=== PATIENT | male | born 1965 | race Two or more races ===

== ENCOUNTER 2016-12-16 11:36 | Inpatient (IN) | payer OTHER ==
[2016-12-16 13:33] VITALS: BMI 33.9
--- NOTE | 2016-12-16 14:47 | HP ---
CIWA Score - CIWA Score Nausea/Vomitin Muscle Tremors: 3 Anxiety: 3 Agitation: 3 Paroxysmal Sweats: 2 Orientation: 0-Oriented Tacttile Disturbances: 2-Mild Itch/Numbness/Burn Auditory Disturbances: 2-Mild Harshness/Frighten Visual Disturbances: 2-Mild Sensitivity Headache: 2-Mild CIWA-Ar Total Score: 22 Admission ROS BHS - HPI Chief Complaint: i need help to stop drinking alcohol,cocaine and cannabis Allergies/Adverse Reactions: Allergies Allergy/AdvReac Type Severity Reaction Status Date / Time No Known Allergies Allergy Verified 12/16/16 14:24 History of Present Illness: this 51 years old male with alcohol,cocaine and [place] dependence seeking detox ,last detox 07/22 [facility] seizure related to drug withdrawal multiple medical problem,type 2 dm,no met,hepatitis,seizure last 2015,copd no significant period of sobriety mmtp 100 mgs/day,last medicated to day Exam Limitations: No Limitations - Ebola screening Have you traveled outside of the country in the last 21 days: No Have you had contact with anyone from an Ebola affected area: No Have you been sick,other than usual withdrawal symptoms: No - Review of Systems Constitutional: Chills, Loss of Appetite, Malaise, Night Sweats, Weakness EENT: reports: Nose Congestion Respiratory: reports: No Symptoms reported, Other (copd) Cardiac: reports: No Symptoms Reported GI: reports: Nausea, Vomiting (incisional hernia), Abdominal cramping : reports: No Symptoms Reported Musculoskeletal: reports: Back Pain, Muscle Pain Integumentary: reports: Dryness Neuro: reports: No Symptoms reported, Headache, Tremors Endocrine: reports: No Symptoms Reported Hematology: reports: No Symptoms Reported Psychiatric: reports: No Sypmtoms Reported, Judgement Intact, Mood/Affect Appropiate, Orientated x3, Depressed Patient History - Patient Medical History Hx Anemia: No Hx Asthma: No Hx Chronic Obstructive Pulmonary Disease (COPD): Yes (no med) Hx Cancer: No Hx Cardiac Disorders: No Hx Congestive Heart Failure: No Hx Hypertension: No Hx Hypercholesterolemia: No Hx Pacemaker: No HX Cerebrovascular Accident: No Hx Seizures: No Hx Dementia: No Hx Diabetes: Yes (type 2 dm diet control) Hx Gastrointestinal Disorders: No Hx Liver Disease: No Hx Genitourinary Disorders: No Hx Sexually Transmitted Disorders: No Hx Renal Disease (ESRD): No Hx Thyroid Disease: No Hx Human Immunodeficiency Virus (HIV): No (last 11/19) Hx Hepatitis C: Yes Hx Depression: Yes (no med) Hx Suicide Attempt: No Hx Bipolar Disorder: No Hx Schizophrenia: No Other Medical History: no suicidal,no homicidal - Patient Surgical History Hx Abdominal Surgery: Yes (removal fb from stomack ,exploratoty lap in 03/21) Other Surgical History: incisional hernia after surgery - PPD History Previous Implant?: Yes Documented Results: Positive w/o proof Implanted On Prior [facility] Admission?: No PPD to be Administered?: No - Smoking Cessation Smoking history: Current every day smoker Have you smoked in the past 12 months: Yes Aproximately how many cigarettes per day: 2 Cigars Per Day: 0 Hx Chewing Tobacco Use: No Initiated information on smoking cessation: Yes 'Breaking Loose' booklet given: 12/16/16 - Substance & Tx. History Hx Alcohol Use: Yes Hx Substance Use: No Substance Use Type: Alcohol, Cocaine, Prescribed - Substances Abused Benzodiazepine (Klonopin) Route: Oral Frequency: Daily Amount used: 4MG Age of first use: 41 Date of Last Use: 12/16/16 Alcohol Route: Oral Frequency: Daily Amount used: 6PK BEER/ 2-3 PASCUAL DRINKS Age of first use: 15 Date of Last Use: 12/16/16 Marijuana/Hashish Route: Smoking Frequency: Daily Amount used: 1 BAG Age of first use: 15 Date of Last Use: 12/15/16 Cocaine Route: Smoking Frequency: 3-6 times per week Amount used: $40 Age of first use: 20 Date of Last Use: 12/15/16 Family Disease History - Family Disease History Family Disease History: Other: Father (alcohol,) Admission Physical Exam S - Vital Signs Vital Signs: Vital Signs - 24 hr 12/16/16 13:31 Temperature 97.0 F L Pulse Rate 64 Respiratory 18 Rate Blood Pressure 126/78 - Physical General Appearance: Yes: Moderate Distress, Tremorous, Irritable, Sweating, Anxious HEENTM: Yes: Normocephalic, DEBO, Pharynx Normal Respiratory: Yes: Lungs Clear, Normal Breath Sounds, No Respiratory Distress Neck: Yes: Within Normal Limits, Supple, Trachea in good position Breast: Yes: Within Normal Limits Cardiology: Yes: Within Normal Limits, Regular Rhythm, Regular Rate, S1, S2 Abdominal: Yes: Normal Bowel Sounds, Flat, Soft, Hernia (incisional hernia), Surgical Scar Genitourinary: Yes: Within Normal Limits Back: Yes: Within Normal Limits, Normal Inspection, Muscle Spasm Musculoskeletal: Yes: Within Normal Limits, full range of Motion, Back pain, Muscle Pain Extremities: Yes: Tremors Neurological: Yes: pelt inspector II-XII NML intact, Fully Oriented, Alert, Motor Strength 5/5, Normal Response Integumentary: Yes: Dry Lymphatic: Yes: Within Normal Limits - Diagnostic (1) Alcohol dependence with uncomplicated withdrawal Current Visit: Yes Status: Acute (2) Cocaine dependence Current Visit: Yes Status: Acute (3) Cannabis dependence Current Visit: Yes Status: Acute (4) DM2 (diabetes mellitus, type 2) Current Visit: Yes Status: Acute (5) Methadone maintenance therapy patient Current Visit: Yes Status: Acute (6) Depression Current Visit: Yes Status: Acute (7) Drug withdrawal seizure Current Visit: Yes Status: Acute (8) Hepatitis C Current Visit: Yes Status: Acute Cleared for Admission [facility] - Detox or Rehab [facility] Level of Care: Medically Managed Detox Regimen/Protocol: Valium [facility] Breath Alcohol Content Breath Alcohol Content: 0 Urine Drug Screen - Results Drug Screen Negative: No Urine Drug Screen Results: THC-Marijuana, ARLEN-Cocaine, BZO-Benzodiazepines, MTD- Methadone
[2016-12-16] MEDS ORDERED: LOPERAMIDE HCL 2 MG CAPSULE PO PRN (15:06)
[2016-12-16] MEDS ORDERED: MENTHOL/PHENOL 1 EACH UD MM PRN (15:06)
[2016-12-16] MEDS ORDERED: guaiFENesin/D-METHORPHAN HB 10 ML UNIT-DOSE CUPS PO PRN (15:06)
[2016-12-16] MEDS ORDERED: MAGNESIUM CITRATE 300 ML BOTTLE PO PRN (15:06)
[2016-12-16] MEDS ORDERED: IBUPROFEN 400 MG TABLET (FP) PO PRN (15:06)
[2016-12-16] MEDS ORDERED: ACETAMINOPHEN 325 MG TABLET (FP) PO PRN (15:06)
[2016-12-16] MEDS ORDERED: P-EPHED 60MG/TRIPROLIDI 2.5MG TABLET PO PRN (15:06)
[2016-12-16] MEDS ORDERED: MAGNESIUM HYDROX 2400MG/30ML ORAL SUSPENSION 30 ML CUP PO PRN (15:06)
[2016-12-16] MEDS ORDERED: MAG HYDROX/AL HYDROX/SIMETH 30 ML UNIT-DOSE CUP PO PRN (15:06)
[2016-12-16] MEDS ORDERED: hydrOXYzine PAMOATE 50 MG CAPSULE (FP) PO PRN (15:06)
[2016-12-16] MEDS ORDERED: diazePAM 5 MG TABLET PO ONE (16:45)
[2016-12-16] MEDS: diazePAM 5 MG TABLET PO SCH (22:26)
[2016-12-16] MEDS: THIAMINE HCL 100 MG TABLET (FP) PO SCH (22:26)
[2016-12-16] MEDS: diphenhydrAMINE HCL 50 MG CAPSULE PO PRN (22:26)
[2016-12-16 22:29] LABS: URINE APPEARANCE SLCLOUDY; URINE BILIRUBIN NEGATIVE (NEGATIVE); URINE BLOOD NEGATIVE (NEGATIVE); URINE COLOR AMBER; URINE GLUCOSE (UA) NEGATIVE (NEGATIVE); URINE KETONE NEGATIVE (NEGATIVE); URINE LEUK ESTERASE NEGATIVE (NEGATIVE); URINE NITRITE NEGATIVE (NEGATIVE); URINE PROTEIN NEGATIVE (NEGATIVE); URINE UROBILINOGEN 4.0 E.U/dl E.U./dl (0.2-1.0)
[2016-12-17] MEDS: diazePAM 5 MG TABLET PO SCH ×3 (05:26→22:38)
[2016-12-17] MEDS ORDERED: METHADONE HCL 40 MG DISPERSABLE TABLET PO SCH (07:45)
[2016-12-17] MEDS ORDERED: METHADONE HCL 10 MG TABLET ONE (07:53)
[2016-12-17] MEDS ORDERED: METHADONE HCL 40 MG DISPERSABLE TABLET ONE (07:53)
[2016-12-17] MEDS: METHADONE 80 MG, METHADONE 30 MG PO SCH (07:56)
[2016-12-17] MEDS: diazePAM 5 MG TABLET PO PRN ×2 (07:58→12:21)
[2016-12-17 10:03] LABS: MCH 28.4 pg (25.7-33.7); MCHC 32.5 g/dl (32.0-35.9); MEAN CELL VOLUME 87.5 fl (80-96); MEAN PLT VOLUME 11.4 fl (7.5-11.1); PLATELET COUNT 70 K/MM3 (134-434); RDW 16.1 % (11.9-15.9); WHITE BLOOD COUNT 8.3 K/mm3 (4.0-10.0)
[2016-12-17] MEDS: PRENATAL VITAMINS W/ FOLIC ACID TABLET (FP) PO SCH (10:36)
[2016-12-17 10:48] LABS: ALBUMIN 3.6 g/dl (3.4-5.0); ALK PHOS 150 U/L (45-117); ANION GAP 10 (8-16); BILIRUBIN,TOTAL 0.9 mg/dL (0.2-1.0); CALCIUM 8.9 mg/dL (8.5-10.1); CO2 26 mmol/L (21-32); COCKROFT - GAULT 204.74; CREATININE 0.7 mg/dL (0.7-1.3); GLUCOSE,RANDOM 112 mg/dL (74-106); SGOT/AST 70 U/L (15-37); SGPT/ALT 70 U/L (12-78); TOT PROT 7.7 g/dl (6.4-8.2)
--- NOTE | 2016-12-17 11:42 | CONSULT ---
[facility] Psychiatric Consult - Data Date of interview: 12/17/16 Admission source: [facility] Identifying data: First admission to [facility] for this 51 y/o male seeking detox treatment for alcohol,cocaine,opioid and marijuana dependence.Patient is single without children,homeless,unemployed and supported on SSI benefits. Substance Abuse History: - Smoking Cessation. Smoking history: Current every day smoker. Have you smoked in the past 12 months: Yes. Aproximately how many cigarettes per day: 2. Cigars Per Day: 0. Hx Chewing Tobacco Use: No. Initiated information on smoking cessation: Yes. 'Breaking Loose' booklet given : 12/16/16. - Substance & Tx. History. Hx Alcohol Use: Yes. Hx Substance Use : No. Substance Use Type: Alcohol, Cocaine, Prescribed. - Substances Abused. Benzodiazepine (Klonopin). Route: Oral. Frequency: Daily. Amount used: 4MG. Age of first use: 41. Date of Last Use: 12/16/16. Alcohol. Route: Oral. Frequency: Daily. Amount used: 6PK BEER/ 2-3 PASCUAL DRINKS. Age of first use: 15. Date of Last Use: 12/16/16. Marijuana/Hashish. Route: Smoking. Frequency: Daily. Amount used: 1 BAG. Age of first use: 15. Date of Last Use: 12/15/16. Cocaine. Route: Smoking. Frequency: 3-6 times per week. Amount used: $40. Age of first use: 20. Date of Last Use: 12/15/16. Confirmed by patient. Medical History: Hepatitis C,COPD,diabetes mellitus,seizure disorder and a history of abdominal surgery (exploratory laparotomy/removal of a foreign body in stomach) in 2016.Developed incisional hernia after surgery. Psychiatric History: Reported history of " more than 10 " psychiatric hospitalizations.Patient states that he used to be on abilify and lithium.Off medications for more than six months (self-report).Not in [facility]PD care.Mr Saravia denies history of suicide attempts.Patient is currently on methadone maintenance (100 mg/day). Physical/Sexual Abuse/Trauma History: Patient denies. Additional Comment: Urine Drug Screen Results: THC-Marijuana, ARLEN-Cocaine, BZO- Benzodiazepines, MTD-Methadone.Noted. Mental Status Exam - Mental Status Exam Alert and Oriented to: Time, Place, Person Cognitive Function: Good Patient Appearance: Well Groomed Mood: Hopeful, Euthymic Affect: Appropriate, Normal Range Patient Behavior: Fatigued, Appropriate, Cooperative Speech Pattern: Clear Voice Loudness: Normal Thought Process: Goal Oriented Thought Disorder: Not Present Hallucinations: Denies Suicidal Ideation: Denies Homicidal Ideation: Denies Insight/Judgement: Poor Sleep: Poorly, Difficulty falling asleep Appetite: Good Muscle strength/Tone: Normal Gait/Station: Normal Psychiatric Findings - Problem List ([place] 1, 2,3) (1) Alcohol dependence with uncomplicated withdrawal Current Visit: Yes Status: Acute (2) Cannabis dependence Current Visit: Yes Status: Acute (3) Cocaine dependence Current Visit: Yes Status: Acute (4) Opioid dependence on agonist therapy Current Visit: Yes Status: Acute (5) Benzodiazepine dependence Current Visit: Yes Status: Acute (6) Substance induced mood disorder Current Visit: Yes Status: Acute (7) DM2 (diabetes mellitus, type 2) Current Visit: Yes Status: Chronic (8) Drug withdrawal seizure Current Visit: Yes Status: Chronic (9) Insomnia Current Visit: Yes Status: Acute - Initial Treatment Plan Initial Treatment Plan: Psychoeducation.Detoxification.Seroquel 100 mg po hs.Side effects/benefits discussed with patient.He is in agreement with this plan.Observation.
[2016-12-17] MEDS: CYCLOBENZAPRINE HCL 10 MG TABLET (FP) PO PRN (12:21)
--- NOTE | 2016-12-17 12:29 | EKG ---
Test Reason : Blood Pressure : / mmHG Vent. Rate : 064 BPM Atrial Rate : 064 BPM P-R Int : 152 ms QRS Dur : 106 ms QT Int : 438 ms P-R-T Axes : 036 016 054 degrees QTc Int : 451 ms NORMAL SINUS RHYTHM NORMAL ECG NO PREVIOUS ECGS AVAILABLE Confirmed by JUSTINE AARON, RAUL ([id number]) on 12/17/2016 12:29:30 PM Referred By: Confirmed By:RAUL FLETCHER MD
--- NOTE | 2016-12-17 13:55 | PN ---
[facility] CIWA - CIWA Score Nausea/Vomitin Muscle Tremors: 4-Moderate,w/Arms Extend Anxiety: 3 Agitation: 1-Slight > Activity Paroxysmal Sweats: 3 Orientation: 0-Oriented Tacttile Disturbances: 2-Mild Itch/Numbness/Burn Auditory Disturbances: 0-None Visual Disturbances: 2-Mild Sensitivity Headache: 0-None Present CIWA-Ar Total Score: 17 BHS Progress Note (SOAP) Subjective: Body Aches, Stomach Cramping, Interrupted sleep, Lower Back Ache, Anxious, Sweating, Tremors. Objective: PT. A & O X 3, OBSERVED AMBULATING ON UNIT. NO ACUTE DISTRESS. 12/17/16 13:52 Vital Signs Temperature 97.6 F 12/17/16 13:50 Pulse Rate 56 L 12/17/16 13:50 Respiratory Rate 18 12/17/16 13:50 Blood Pressure 120/74 12/17/16 13:50 O2 Sat by Pulse Oximetry (%) Laboratory Tests 12/16/16 12/16/16 12/17/16 14:44 20:30 06:00 WBC 8.3 RBC 5.02 Hgb 14.3 Hct 43.9 MCV 87.5 MCHC 32.5 RDW 16.1 H Plt Count 70 L MPV 11.4 H Sodium Potassium Chloride Carbon Dioxide Anion Gap BUN Creatinine Creat Clearance w eGFR POC Glucometer 127 Random Glucose Calcium Total Bilirubin AST ALT Alkaline Phosphatase Total Protein Albumin Urine Color Nayeli Urine Appearance Slcloudy Urine pH 5.0 Ur Specific [place] >= 1.030 H Urine Protein Negative Urine Glucose (UA) Negative Urine Ketones Negative Urine Blood Negative Urine Nitrite Negative Urine Bilirubin Negative Urine Urobilinogen 4.0 e.u/dl Ur Leukocyte Esterase Negative 12/17/16 06:00 WBC RBC Hgb Hct MCV MCHC RDW Plt Count MPV Sodium 141 Potassium 3.9 Chloride 105 Carbon Dioxide 26 Anion Gap 10 BUN 11 Creatinine 0.7 Creat Clearance w eGFR > 60 POC Glucometer Random Glucose 112 H Calcium 8.9 Total Bilirubin 0.9 AST 70 H ALT 70 Alkaline Phosphatase 150 H Total Protein 7.7 Albumin 3.6 Urine Color Urine Appearance Urine pH Ur Specific [place] Urine Protein Urine Glucose (UA) Urine Ketones Urine Blood Urine Nitrite Urine Bilirubin Urine Urobilinogen Ur Leukocyte Esterase LABS NOTED. Assessment: 12/17/16 13:52 WITHDRAWAL SYMPTOMS. Plan: CONTINUE DETOX. REPEAT AST, AP ON 12/19/2016 FOR ELEVATED ADMISSION LEVELS. PRN PO FLEXERIL FOR BODY ACHES / MUSCLE SPASMS. ADVISED PATIENT TO FOLLOW-UP WITH FISH AND GAME CLUB MANAGER AFTER DISCHARGE FROM DETOX FOR GENERAL MEDICAL ASSESSMENT AND FOR LOW ADMISSION PLATELET LEVEL.
[2016-12-17] MEDS: QUEtiapine FUMARATE 100 MG TABLET (FP) PO SCH (22:38)
[2016-12-17] MEDS: THIAMINE HCL 100 MG TABLET (FP) PO SCH (22:38)
[2016-12-18] MEDS ORDERED: METHADONE HCL 10 MG TABLET ONE (04:12)
[2016-12-18] MEDS ORDERED: METHADONE HCL 40 MG DISPERSABLE TABLET ONE (04:12)
[2016-12-18] MEDS: diazePAM 5 MG TABLET PO PRN (05:25)
[2016-12-18] MEDS: CYCLOBENZAPRINE HCL 10 MG TABLET (FP) PO PRN (05:25)
[2016-12-18] MEDS: METHADONE 80 MG, METHADONE 30 MG PO SCH (05:25)
[2016-12-18] MEDS: diazePAM 5 MG TABLET PO SCH ×2 (10:56→22:29)
[2016-12-18] MEDS: PRENATAL VITAMINS W/ FOLIC ACID TABLET (FP) PO SCH (10:56)
--- NOTE | 2016-12-18 13:49 | PN ---
[facility] CIWA - CIWA Score Nausea/Vomitin-Mild Nausea/No Vomiting Muscle Tremors: 4-Moderate,w/Arms Extend Anxiety: 2 Agitation: 2 Paroxysmal Sweats: 3 Orientation: 0-Oriented Tacttile Disturbances: 0-None Auditory Disturbances: 1-Very Mild Visual Disturbances: 3-Moderate Sensitivity Headache: 0-None Present CIWA-Ar Total Score: 16 S Progress Note (SOAP) Subjective: Interrupted sleep, Body Aches, Lower Back Ache. Objective: PT. A & O X 3. NO ACUTE DISTRESS. 12/18/16 13:47 Vital Signs Temperature 98.9 F 12/18/16 13:38 Pulse Rate 57 L 12/18/16 13:38 Respiratory Rate 18 12/18/16 13:38 Blood Pressure 102/67 12/18/16 13:38 O2 Sat by Pulse Oximetry (%) Laboratory Tests 12/16/16 12/16/16 12/17/16 14:44 20:30 06:00 WBC 8.3 RBC 5.02 Hgb 14.3 Hct 43.9 MCV 87.5 MCHC 32.5 RDW 16.1 H Plt Count 70 L MPV 11.4 H Sodium Potassium Chloride Carbon Dioxide Anion Gap BUN Creatinine Creat Clearance w eGFR POC Glucometer 127 Random Glucose Calcium Total Bilirubin AST ALT Alkaline Phosphatase Total Protein Albumin Urine Color Nayeli Urine Appearance Slcloudy Urine pH 5.0 Ur Specific [place] >= 1.030 H Urine Protein Negative Urine Glucose (UA) Negative Urine Ketones Negative Urine Blood Negative Urine Nitrite Negative Urine Bilirubin Negative Urine Urobilinogen 4.0 e.u/dl Ur Leukocyte Esterase Negative RPR Titer 12/17/16 12/17/16 12/17/16 06:00 06:00 16:12 WBC RBC Hgb Hct MCV MCHC RDW Plt Count MPV Sodium 141 Potassium 3.9 Chloride 105 Carbon Dioxide 26 Anion Gap 10 BUN 11 Creatinine 0.7 Creat Clearance w eGFR > 60 POC Glucometer 164 Random Glucose 112 H Calcium 8.9 Total Bilirubin 0.9 AST 70 H ALT 70 Alkaline Phosphatase 150 H Total Protein 7.7 Albumin 3.6 Urine Color Urine Appearance Urine pH Ur Specific [place] Urine Protein Urine Glucose (UA) Urine Ketones Urine Blood Urine Nitrite Urine Bilirubin Urine Urobilinogen Ur Leukocyte Esterase RPR Titer Nonreactive 12/18/16 05:24 WBC RBC Hgb Hct MCV MCHC RDW Plt Count MPV Sodium Potassium Chloride Carbon Dioxide Anion Gap BUN Creatinine Creat Clearance w eGFR POC Glucometer 93 Random Glucose Calcium Total Bilirubin AST ALT Alkaline Phosphatase Total Protein Albumin Urine Color Urine Appearance Urine pH Ur Specific [place] Urine Protein Urine Glucose (UA) Urine Ketones Urine Blood Urine Nitrite Urine Bilirubin Urine Urobilinogen Ur Leukocyte Esterase RPR Titer LABS NOTED. Assessment: 12/18/16 13:48 WITHDRAWAL SYMPTOMS. Plan: CONTINUE DETOX.
[2016-12-18] MEDS: THIAMINE HCL 100 MG TABLET (FP) PO SCH (22:29)
[2016-12-18] MEDS: diphenhydrAMINE HCL 50 MG CAPSULE PO PRN (22:29)
[2016-12-18] MEDS: QUEtiapine FUMARATE 100 MG TABLET (FP) PO SCH (22:29)
[2016-12-19] MEDS ORDERED: METHADONE HCL 40 MG DISPERSABLE TABLET ONE (01:29)
[2016-12-19] MEDS ORDERED: METHADONE HCL 10 MG TABLET ONE (01:29)
[2016-12-19] MEDS: METHADONE 80 MG, METHADONE 30 MG PO SCH (05:12)
[2016-12-19] MEDS: diazePAM 5 MG TABLET PO SCH ×2 (09:51→22:46)
[2016-12-19] MEDS: PRENATAL VITAMINS W/ FOLIC ACID TABLET (FP) PO SCH (09:51)
[2016-12-19 10:12] LABS: ALK PHOS 160 U/L (45-117); SGOT/AST 87 U/L (15-37)
--- NOTE | 2016-12-19 11:54 | PN ---
BHS Progress Note (SOAP) Subjective: Body aches only Detox symptoms reported by patient today. Objective: PT. A & O X 3, OBSERVED AMBULATING ON UNIT. NO ACUTE DISTRESS. 12/19/16 11:51 Vital Signs Temperature 97.2 F L 12/19/16 09:47 Pulse Rate 63 12/19/16 09:47 Respiratory Rate 20 12/19/16 09:47 Blood Pressure 120/74 12/19/16 09:47 O2 Sat by Pulse Oximetry (%) Laboratory Tests 12/16/16 12/16/16 12/17/16 14:44 20:30 06:00 WBC 8.3 RBC 5.02 Hgb 14.3 Hct 43.9 MCV 87.5 MCHC 32.5 RDW 16.1 H Plt Count 70 L MPV 11.4 H Sodium Potassium Chloride Carbon Dioxide Anion Gap BUN Creatinine Creat Clearance w eGFR POC Glucometer 127 Random Glucose Calcium Total Bilirubin AST ALT Alkaline Phosphatase Total Protein Albumin Urine Color Nayeli Urine Appearance Slcloudy Urine pH 5.0 Ur Specific [place] >= 1.030 H Urine Protein Negative Urine Glucose (UA) Negative Urine Ketones Negative Urine Blood Negative Urine Nitrite Negative Urine Bilirubin Negative Urine Urobilinogen 4.0 e.u/dl Ur Leukocyte Esterase Negative RPR Titer 12/17/16 12/17/16 12/17/16 06:00 06:00 16:12 WBC RBC Hgb Hct MCV MCHC RDW Plt Count MPV Sodium 141 Potassium 3.9 Chloride 105 Carbon Dioxide 26 Anion Gap 10 BUN 11 Creatinine 0.7 Creat Clearance w eGFR > 60 POC Glucometer 164 Random Glucose 112 H Calcium 8.9 Total Bilirubin 0.9 AST 70 H ALT 70 Alkaline Phosphatase 150 H Total Protein 7.7 Albumin 3.6 Urine Color Urine Appearance Urine pH Ur Specific [place] Urine Protein Urine Glucose (UA) Urine Ketones Urine Blood Urine Nitrite Urine Bilirubin Urine Urobilinogen Ur Leukocyte Esterase RPR Titer Nonreactive 12/18/16 12/18/16 12/19/16 05:24 16:15 05:11 WBC RBC Hgb Hct MCV MCHC RDW Plt Count MPV Sodium Potassium Chloride Carbon Dioxide Anion Gap BUN Creatinine Creat Clearance w eGFR POC Glucometer 93 237 108 Random Glucose Calcium Total Bilirubin AST ALT Alkaline Phosphatase Total Protein Albumin Urine Color Urine Appearance Urine pH Ur Specific [place] Urine Protein Urine Glucose (UA) Urine Ketones Urine Blood Urine Nitrite Urine Bilirubin Urine Urobilinogen Ur Leukocyte Esterase RPR Titer 12/19/16 07:00 WBC RBC Hgb Hct MCV MCHC RDW Plt Count MPV Sodium Potassium Chloride Carbon Dioxide Anion Gap BUN Creatinine Creat Clearance w eGFR POC Glucometer Random Glucose Calcium Total Bilirubin AST 87 H D ALT Alkaline Phosphatase 160 H Total Protein Albumin Urine Color Urine Appearance Urine pH Ur Specific [place] Urine Protein Urine Glucose (UA) Urine Ketones Urine Blood Urine Nitrite Urine Bilirubin Urine Urobilinogen Ur Leukocyte Esterase RPR Titer LABS NOTED. RESULTS OF REPEAT AST AND AP LEVELS NOTED. 12/19/16 11:53 12/19/16 11:53 Assessment: 12/19/16 11:51 WITHDRAWAL SYMPTOMS. Plan: CONTINUE DETOX. ADVISED PATIENT TO FOLLOW-UP WITH BI DATA MODELER AFTER DISCHARGE FROM DETOX FOR GENERAL MEDICAL ASSESSMENT AND FOR LOW ADMISSION PLATELET LEVEL AND ELEVATED ADMISSION AST AND AP LEVELS.
[2016-12-19] MEDS: QUEtiapine FUMARATE 100 MG TABLET (FP) PO SCH (22:46)
[2016-12-19] MEDS: THIAMINE HCL 100 MG TABLET (FP) PO SCH (22:46)
[2016-12-20] MEDS ORDERED: METHADONE HCL 40 MG DISPERSABLE TABLET ONE (04:36)
[2016-12-20] MEDS ORDERED: METHADONE HCL 10 MG TABLET ONE (04:36)
[2016-12-20] MEDS: METHADONE 80 MG, METHADONE 30 MG PO SCH (05:25)
[2016-12-20] MEDS: CYCLOBENZAPRINE HCL 10 MG TABLET (FP) PO PRN (05:25)
[2016-12-20 09:12] VITALS: BP 118/81; PULSE 71; TEMP 97.6
[2016-12-20] MEDS ORDERED: diazePAM 5 MG TABLET PO SCH (10:00)
[2016-12-20] MEDS: PRENATAL VITAMINS W/ FOLIC ACID TABLET (FP) PO SCH (11:05)
--- NOTE | 2016-12-20 14:35 | DS ---
[facility] Detox Discharge Summary Admission Date: 12/16/16 Discharge Date: 12/20/16 - History Present History: Alcohol Dependence, Cannabis Dependence, Cocaine Dependence, Sedative Dependence, MMTP Additional Comments: ADVISED PATIENT TO FOLLOW-UP WITH JEWELRY DEPARTMENT SUPERVISOR AFTER DISCHARGE FROM DETOX FOR GENERAL MEDICAL ASSESSMENT. Pertinent Past History: COPD, Hep C, Type II DM, Depression, Drug-withdrawal Seizures. - Physical Exam Results Vital Signs: Vital Signs Temperature 97.6 F 12/20/16 09:12 Pulse Rate 71 12/20/16 09:12 Respiratory Rate 18 12/20/16 09:12 Blood Pressure 118/81 12/20/16 09:12 O2 Sat by Pulse Oximetry (%) Pertinent Admission Physical Exam Findings: WITHDRAWAL SYMPTOMS. Laboratory Tests 12/16/16 12/16/16 12/17/16 14:44 20:30 06:00 WBC 8.3 RBC 5.02 Hgb 14.3 Hct 43.9 MCV 87.5 MCHC 32.5 RDW 16.1 H Plt Count 70 L MPV 11.4 H Sodium Potassium Chloride Carbon Dioxide Anion Gap BUN Creatinine Creat Clearance w eGFR POC Glucometer 127 Random Glucose Calcium Total Bilirubin AST ALT Alkaline Phosphatase Total Protein Albumin Urine Color Nayeli Urine Appearance Slcloudy Urine pH 5.0 Ur Specific [place] >= 1.030 H Urine Protein Negative Urine Glucose (UA) Negative Urine Ketones Negative Urine Blood Negative Urine Nitrite Negative Urine Bilirubin Negative Urine Urobilinogen 4.0 e.u/dl Ur Leukocyte Esterase Negative RPR Titer 12/17/16 12/17/16 12/17/16 06:00 06:00 16:12 WBC RBC Hgb Hct MCV MCHC RDW Plt Count MPV Sodium 141 Potassium 3.9 Chloride 105 Carbon Dioxide 26 Anion Gap 10 BUN 11 Creatinine 0.7 Creat Clearance w eGFR > 60 POC Glucometer 164 Random Glucose 112 H Calcium 8.9 Total Bilirubin 0.9 AST 70 H ALT 70 Alkaline Phosphatase 150 H Total Protein 7.7 Albumin 3.6 Urine Color Urine Appearance Urine pH Ur Specific [place] Urine Protein Urine Glucose (UA) Urine Ketones Urine Blood Urine Nitrite Urine Bilirubin Urine Urobilinogen Ur Leukocyte Esterase RPR Titer Nonreactive 12/18/16 12/18/16 12/19/16 05:24 16:15 05:11 WBC RBC Hgb Hct MCV MCHC RDW Plt Count MPV Sodium Potassium Chloride Carbon Dioxide Anion Gap BUN Creatinine Creat Clearance w eGFR POC Glucometer 93 237 108 Random Glucose Calcium Total Bilirubin AST ALT Alkaline Phosphatase Total Protein Albumin Urine Color Urine Appearance Urine pH Ur Specific [place] Urine Protein Urine Glucose (UA) Urine Ketones Urine Blood Urine Nitrite Urine Bilirubin Urine Urobilinogen Ur Leukocyte Esterase RPR Titer 12/19/16 12/20/16 07:00 05:24 WBC RBC Hgb Hct MCV MCHC RDW Plt Count MPV Sodium Potassium Chloride Carbon Dioxide Anion Gap BUN Creatinine Creat Clearance w eGFR POC Glucometer 122 Random Glucose Calcium Total Bilirubin AST 87 H D ALT Alkaline Phosphatase 160 H Total Protein Albumin Urine Color Urine Appearance Urine pH Ur Specific [place] Urine Protein Urine Glucose (UA) Urine Ketones Urine Blood Urine Nitrite Urine Bilirubin Urine Urobilinogen Ur Leukocyte Esterase RPR Titer LABS NOTED. - Treatment Hospital Course: Detox Protocol Followed, Detoxed Safely, Responded well, Discharged Condition Good, Rehab Referral Accepted Patient has Accepted a Rehab Referral to: [facility]. - Diagnosis (1) Alcohol dependence with uncomplicated withdrawal Status: Acute (2) Cannabis dependence Status: Acute (3) Cocaine dependence Status: Acute Qualifiers: Substance use status: uncomplicated Qualified Code(s): F14.20 - Cocaine dependence, uncomplicated (4) Depression Status: Chronic Qualifiers: Depression Type: unspecified Qualified Code(s): F32.9 - Major depressive disorder, single episode, unspecified (5) Hepatitis C Status: Chronic Qualifiers: Viral hepatitis chronicity: chronic Hepatic coma status: without hepatic coma Qualified Code(s): B18.2 - Chronic viral hepatitis C (6) Insomnia Status: Acute Qualifiers: Insomnia type: unspecified Qualified Code(s): G47.00 - Insomnia, unspecified (7) Methadone maintenance therapy patient Status: Chronic (8) Opioid dependence on agonist therapy Status: Chronic (9) Substance induced mood disorder Status: Acute (10) DM2 (diabetes mellitus, type 2) Status: Chronic Qualifiers: Diabetes mellitus complication status: without complication Diabetes mellitus fci insulin use: without fci use Qualified Code(s): E11.9 - Type 2 diabetes mellitus without complications (11) Drug withdrawal seizure Status: Chronic Qualifiers: Complication of substance-induced condition: with unspecified complication Qualified Code(s): F19.239 - Other psychoactive substance dependence with withdrawal, unspecified; R56.9 - Unspecified convulsions (12) Benzodiazepine dependence Status: Acute - AMA Did Patient Leave Against Medical Advice: No
== END 2016-12-20 13:07 | disposition other institution (70) | DRG 773 ==
LOC: YASAS 11:36 → Y3N 16:04
PROVIDERS: ADMIT Internal Medicine; ATTEND Internal Medicine
PROC: HZ2ZZZZ Detoxification Services for Substance Abuse Treatment (ICD-10-PCS; principal; 2016-12-16)
DX: F10.230 Alcohol dependence with withdrawal, uncomplicated (principal); F11.20 Opioid dependence, uncomplicated; F13.20 Sedative, hypnotic or anxiolytic dependence, uncomplicated; F14.20 Cocaine dependence, uncomplicated; F12.20 Cannabis dependence, uncomplicated; F32.9 Major depressive disorder, single episode, unspecified; F19.24 Other psychoactive substance dependence with psychoactive substance-induced mood disorder; B18.2 Chronic viral hepatitis C; G47.00 Insomnia, unspecified; E11.9 Type 2 diabetes mellitus without complications; J44.9 Chronic obstructive pulmonary disease, unspecified; Z86.69 Personal history of other diseases of the nervous system and sense organs; Z72.0 Tobacco use
CPT/HCPCS: 36415; 71020-TC; 80053; 81003; 84075; 84450; 85027; 86593; 93005; 93010

== ENCOUNTER 2016-12-20 13:03 | Inpatient (IN) | payer OTHER ==
[2016-12-20 13:35] VITALS: BMI 34.0
[2016-12-20] MEDS ORDERED: IBUPROFEN 400 MG TABLET (FP) PO PRN (14:30)
[2016-12-20] MEDS ORDERED: P-EPHED 60MG/TRIPROLIDI 2.5MG TABLET PO PRN (14:30)
[2016-12-20] MEDS ORDERED: ACETAMINOPHEN 325 MG TABLET (FP) PO PRN (14:30)
[2016-12-20] MEDS ORDERED: MAG HYDROX/AL HYDROX/SIMETH 30 ML UNIT-DOSE CUP PO PRN (14:30)
[2016-12-20] MEDS ORDERED: MAGNESIUM CITRATE 300 ML BOTTLE PO PRN (14:30)
[2016-12-20] MEDS ORDERED: guaiFENesin/D-METHORPHAN HB 10 ML UNIT-DOSE CUPS PO PRN (14:30)
[2016-12-20] MEDS ORDERED: MENTHOL/PHENOL 1 EACH UD MM PRN (14:30)
[2016-12-20] MEDS ORDERED: NICOTINE POLACRILEX 2 MG GUM BUC PRN (14:30)
[2016-12-20] MEDS ORDERED: LOPERAMIDE HCL 2 MG CAPSULE PO PRN (14:30)
[2016-12-20] MEDS ORDERED: MAGNESIUM HYDROX 2400MG/30ML ORAL SUSPENSION 30 ML CUP PO PRN (14:30)
--- NOTE | 2016-12-20 14:30 | HP ---
[facility] Rehab Assess/Revision - Admission History Admitted to Rehab from: [facility] [place] Date of Admission to Rehab: 12/20/16 - Vital signs Vital Signs: Vital Signs Period Temp Pulse Resp BP Sys/Davis Pulse Ox Last 24 Hr 98.5 F 73 18 116/70 - Findings Detox History & Physical reviewed: Yes Concur with findings: Yes
[2016-12-20] MEDS ORDERED: diphenhydrAMINE HCL 50 MG CAPSULE PO PRN (22:00)
[2016-12-21] MEDS: THIAMINE HCL 100 MG TABLET (FP) PO SCH ×2 (00:01→21:52)
[2016-12-21] MEDS ORDERED: METHADONE HCL 10 MG TABLET ONE (05:45)
[2016-12-21] MEDS ORDERED: METHADONE HCL 40 MG DISPERSABLE TABLET ONE (05:46)
[2016-12-21] MEDS ORDERED: METHADONE HCL 10 MG TABLET PO SCH (06:00)
[2016-12-21] MEDS: METHADONE 80 MG, METHADONE 30 MG PO SCH (06:13)
[2016-12-21] MEDS: PRENATAL VITAMINS W/ FOLIC ACID TABLET (FP) PO SCH (09:38)
[2016-12-21] MEDS: hydrOXYzine PAMOATE 50 MG CAPSULE (FP) PO PRN (14:44)
[2016-12-21] MEDS: QUEtiapine FUMARATE 100 MG TABLET (FP) PO SCH ×2 (21:52)
[2016-12-22] MEDS ORDERED: METHADONE HCL 10 MG TABLET ONE (04:09)
[2016-12-22] MEDS ORDERED: METHADONE HCL 40 MG DISPERSABLE TABLET ONE (04:09)
[2016-12-22] MEDS: METHADONE 80 MG, METHADONE 30 MG PO SCH (06:08)
--- NOTE | 2016-12-22 06:42 | HP ---
Psychiatrist Admission - Data Date of interview: 12/22/16 Admission source: 3N Identifying data: This is the first [facility] admission for this 51 years old single male, unemployed on SSI, homeless Medical History: Significant for Hepatitis C, COPD, diabetes mellitus, seizure disorder, PPD+ and a history of abdominal surgery (exploratory laparotomy/ removal of a foreign body in stomach) in 2016. Developed incisional hernia after surgery. Smokes 2 cigarettes daily Psychiatric History: Reports that his first psychiatric contact was 10 years when he was admitted to [facility] for depression. Claims that depression stemmed from loss of job, homelessness and drug use. Reports that he does not recall name of medication that was given to him but stayed there for one month. Told marketing underwriter that he did not follow discharge instruction by attending aftercare. Reports multiple subsequent admissions to various institutions notably [facility] and most recently [facility] 2 months ago where he was prescribed Mcalester. Claims that as usual he did not go for follow up and has been off medication since. Reports that in the past he has been on Abilify, Zyprexa, Zoloft etc. Denies history of suicidal attempt. He does not want to be on any medication, nit even Seroquel that was prescribed to him by Dr Kim on 12/17/16 while in detox recently. Reports feeling and sleeping well. Physical/Sexual Abuse/Trauma History: Denies history of emotional, physical or sexual abuse as wel as DV relationship Additional Comment: Reports history of 4-5 previous arrests including one felony conviction. Denies being on parole/ probaton at present Vital Signs: Vital Signs - 24 hr 12/21/16 12/22/16 12/22/16 07:01 00:30 03:30 Temperature 97.5 F L Pulse Rate 74 Respiratory 18 20 18 Rate Blood Pressure 116/63 12/22/16 06:33 Temperature 97.5 F L Pulse Rate 58 L Respiratory 18 Rate Blood Pressure 100/66 Allergies/Adverse Reactions: Allergies Allergy/AdvReac Type Severity Reaction Status Date / Time No Known Allergies Allergy Verified 12/20/16 13:16 Date of last physical exam: 12/16/16 Concur with the findings of this exam: Yes - Substance Abuse/Tx History Hx Alcohol Use: Yes Hx Substance Use: Yes Substance Use Type: Alcohol (Started drinking alcohol at age 15, consumes 2-3 pints of marcia & a 6pk of beer daily. Last drink on 12/16/16), Cocaine (Started smoking crack cocaine at age 20, consumes $40 woth 3-6 times weekly. Last smoked on 12/15/16), Marijuana (Started smoking marijuana at age 15, consumes one bag daily. Last smoked on 12/15/16), Tranquilizers (Started using klonopin at age 41, consumes 4 mg daily. Last used on 12/16/16) Hx Substance Use Treatment: Yes (Multiple previous inpt detox & 5 inpt rehab) - Admission Criteria Previous failed treatment: No Poor recovery environment: Yes Comorbidities: Yes Lacks judgement: Yes Mental Status Exam - Mental Status Exam Alert and Oriented to: Time, Place, Person Cognitive Function: Fair Patient Appearance: Well Groomed Mood: Hopeful, Euthymic Affect: Appropriate Speech Pattern: Clear Voice Loudness: Normal Thought Process: Intact, Goal Oriented Hallucinations: Denies Suicidal Ideation: Denies Homicidal Ideation: Denies Insight/Judgement: Fair Sleep: Well Appetite: Good Muscle strength/Tone: Normal Gait/Station: Normal Psychiatric Findings - Problem List ([place] 1, 2,3) (1) Alcohol dependence with uncomplicated withdrawal Current Visit: No Status: Acute (2) Cocaine dependence Current Visit: No Status: Acute Qualifiers: Substance use status: uncomplicated Qualified Code(s): F14.20 - Cocaine dependence, uncomplicated (3) Sedative dependence Current Visit: Yes Status: Acute (4) Cannabis dependence Current Visit: No Status: Acute (5) Opioid dependence on agonist therapy Current Visit: No Status: Chronic (6) Nicotine dependence Current Visit: Yes Status: Acute (7) Mood disorder Current Visit: Yes Status: Acute (8) MDD (major depressive disorder) Current Visit: Yes Status: Ruled-out (9) Bipolar disorder Current Visit: Yes Status: Ruled-out (10) Substance induced mood disorder Current Visit: No Status: Ruled-out (11) DM2 (diabetes mellitus, type 2) Current Visit: No Status: Chronic Qualifiers: Diabetes mellitus complication status: without complication Diabetes mellitus armature inspector insulin use: without correction use Qualified Code(s): E11.9 - Type 2 diabetes mellitus without complications (12) Hepatitis C Current Visit: No Status: Chronic Qualifiers: Viral hepatitis chronicity: chronic Hepatic coma status: without hepatic coma Qualified Code(s): B18.2 - Chronic viral hepatitis C (13) COPD (chronic obstructive pulmonary disease) Current Visit: Yes Status: Acute - Initial Treatment Plan Initial Treatment Plan: Monitor progress
[2016-12-22] MEDS: PRENATAL VITAMINS W/ FOLIC ACID TABLET (FP) PO SCH (09:50)
[2016-12-22] MEDS: THIAMINE HCL 100 MG TABLET (FP) PO SCH (21:19)
[2016-12-22] MEDS: hydrOXYzine PAMOATE 50 MG CAPSULE (FP) PO PRN (21:19)
[2016-12-23] MEDS ORDERED: METHADONE HCL 10 MG TABLET ONE (03:59)
[2016-12-23] MEDS ORDERED: METHADONE HCL 40 MG DISPERSABLE TABLET ONE (03:59)
[2016-12-23] MEDS: METHADONE 80 MG, METHADONE 30 MG PO SCH (05:58)
--- NOTE | 2016-12-23 09:37 | PN ---
Psychiatric Progress Note Vital Signs: Vital Signs Period Temp Pulse Resp BP Sys/Davis Pulse Ox Last 24 Hr 97.5 F 61 18-18 107/73 Date of Session: 12/23/16 Chief Complaint:: Isomnia HPI: Patient addressing Alcohol, Cocaine, Sedative and Cannabis Dependence comorbid with Opoid Dependence on Agonist Therapy, Nicotine Dependence and Modd Disorder ROS: Resume Seroquel 100 mg po HS Current Medications: Active Medications Generic Name Dose Route Start Last Admin Trade Name Freq PRN Reason Stop Dose Admin Acetaminophen 650 mg 12/20/16 14:30 Tylenol - PO Q4H PRN FEVER OR PAIN Al Hydroxide/Mg Hydroxide 30 ml 12/20/16 14:30 Mylanta Oral Suspension - PO Q6H PRN DYSPEPSIA Diphenhydramine HCl 50 mg 12/20/16 22:00 Benadryl - PO HSMR1 PRN FOR ITCHING Eucalyptus/Menthol/Phenol/Sorbitol 1 each 12/20/16 14:30 Cepastat Lozenge - MM Q4H PRN SORE THROAT Guaifenesin 10 ml 12/20/16 14:30 Robitussin Dm - PO Q6H PRN COUGH Hydroxyzine Pamoate 50 mg 12/20/16 14:30 12/22/16 21:19 Vistaril - PO 50 mg Q4H PRN Administration AGITATION Ibuprofen 400 mg 12/20/16 14:30 Motrin - PO Q6H PRN PAIN Loperamide HCl 4 mg 12/20/16 14:30 Imodium - PO Q6H PRN DIARRHEA Magnesium Hydroxide 30 ml 12/20/16 14:30 Milk Of Magnesia - PO DAILY PRN CONSTIPATION Methadone HCl 80 mg/ Methadone 110 mg 12/21/16 06:00 12/23/16 05:58 HCl 30 mg PO 110 mg DAILY@0600 KHOA Administration Nicotine Polacrilex 2 mg 12/20/16 14:30 Nicorette Gum - BUC Q2H PRN NICOTINE REPLACEMENT RX Multivit/Folic Acid/Iron 1 tab 12/21/16 10:00 12/22/16 09:50 Vitamins (Sjr) - PO 1 tab DAILY KHOA Administration Pseudoephedrine/Triprolidine 1 combo 12/20/16 14:30 Actifed - PO TID PRN NASAL CONGESTION Quetiapine Fumarate 100 mg 12/23/16 22:00 Seroquel - PO HS KHOA Thiamine HCl 100 mg 12/20/16 22:00 12/22/16 21:19 Vitamin B1 - PO 100 mg HS KHOA Administration Current Side Effect: No Lab tests ordered: Yes Lab tests reviewed: Yes Provider note:: Patient reports experiencing difficulty to sleep. Told advertising copy writer that he slept poorly last night because he was given Seroquel. Requests that Seroquel be reordered for him to help him sleep better Total face to face time:: 25 Mental Status Exam - Mental Status Exam Alert and Oriented to: Time, Place, Person Cognitive Function: Fair Patient Appearance: Well Groomed Mood: Hopeful, Euthymic Affect: Appropriate Patient Behavior: Cooperative Speech Pattern: Clear Voice Loudness: Normal Thought Process: Intact, Goal Oriented Thought Disorder: Not Present Hallucinations: Denies Suicidal Ideation: Denies Homicidal Ideation: Denies Insight/Judgement: Fair Sleep: Poorly Appetite: Good Muscle strength/Tone: Normal Gait/Station: Normal Psychiatric Treatment Plan - Problem List (1) Alcohol dependence with uncomplicated withdrawal Current Visit: No (2) Cocaine dependence Current Visit: No Qualifiers: Substance use status: uncomplicated Qualified Code(s): F14.20 - Cocaine dependence, uncomplicated (3) Sedative dependence Current Visit: Yes (4) Cannabis dependence Current Visit: No (5) Opioid dependence on agonist therapy Current Visit: No (6) Nicotine dependence Current Visit: Yes (7) Mood disorder Current Visit: Yes (8) MDD (major depressive disorder) Current Visit: Yes (9) Bipolar disorder Current Visit: Yes (10) Substance induced mood disorder Current Visit: No (11) DM2 (diabetes mellitus, type 2) Current Visit: No Qualifiers: Diabetes mellitus complication status: without complication Diabetes mellitus exterminator helper termite insulin use: without exterminator helper termite use Qualified Code(s): E11.9 - Type 2 diabetes mellitus without complications (12) Hepatitis C Current Visit: No Qualifiers: Viral hepatitis chronicity: chronic Hepatic coma status: without hepatic coma Qualified Code(s): B18.2 - Chronic viral hepatitis C (13) COPD (chronic obstructive pulmonary disease) Current Visit: Yes Initial treatment plan: 1) Resume Seroquel 100 mg po HS. 2) Monitor progress
[2016-12-23] MEDS: PRENATAL VITAMINS W/ FOLIC ACID TABLET (FP) PO SCH (09:58)
[2016-12-23] MEDS: hydrOXYzine PAMOATE 50 MG CAPSULE (FP) PO PRN (19:18)
[2016-12-23] MEDS: THIAMINE HCL 100 MG TABLET (FP) PO SCH (21:27)
[2016-12-23] MEDS ORDERED: QUEtiapine FUMARATE 100 MG TABLET (FP) PO SCH (22:00)
[2016-12-24] MEDS ORDERED: METHADONE HCL 40 MG DISPERSABLE TABLET ONE (03:57)
[2016-12-24] MEDS ORDERED: METHADONE HCL 10 MG TABLET ONE (03:57)
[2016-12-24] MEDS: METHADONE 80 MG, METHADONE 30 MG PO SCH (05:58)
[2016-12-24 07:30] VITALS: BP 106/69; PULSE 62; TEMP 97.6
[2016-12-24] MEDS: PRENATAL VITAMINS W/ FOLIC ACID TABLET (FP) PO SCH (10:01)
== END 2016-12-24 12:25 | disposition left against medical advice (07) | DRG 770 ==
LOC: YASAS 13:03 → Y3W 13:05
PROVIDERS: ADMIT Psychiatry & Neurology Psychiatry; ATTEND Psychiatry & Neurology Psychiatry
PROC: HZ42ZZZ Group Counseling for Substance Abuse Treatment, Cognitive-Behavioral (ICD-10-PCS; principal; 2016-12-20)
DX: F13.20 Sedative, hypnotic or anxiolytic dependence, uncomplicated (principal); F11.20 Opioid dependence, uncomplicated; F10.20 Alcohol dependence, uncomplicated; F14.20 Cocaine dependence, uncomplicated; F12.20 Cannabis dependence, uncomplicated; F17.210 Nicotine dependence, cigarettes, uncomplicated; F39 Unspecified mood [affective] disorder; F33.9 Major depressive disorder, recurrent, unspecified; F31.9 Bipolar disorder, unspecified; F19.24 Other psychoactive substance dependence with psychoactive substance-induced mood disorder; E11.9 Type 2 diabetes mellitus without complications; B18.2 Chronic viral hepatitis C; J44.9 Chronic obstructive pulmonary disease, unspecified

== ENCOUNTER 2017-04-02 10:54 | Inpatient (IN) | payer OTHER ==
[2017-04-02 11:28] VITALS: BMI 32.0
--- NOTE | 2017-04-02 14:00 | HP ---
CIWA Score - CIWA Score Nausea/Vomitin-Mild Nausea/No Vomiting Muscle Tremors: 4-Moderate,w/Arms Extend Anxiety: 3 Agitation: 4-Moderately Restless Paroxysmal Sweats: 3 Orientation: 0-Oriented Tacttile Disturbances: 0-None Auditory Disturbances: 0-None Visual Disturbances: 0-None Headache: 1-Very Mild CIWA-Ar Total Score: 16 Admission ROS [facility] - HPI Chief Complaint: I keep drinking way too much and need to stop and stay sober. Allergies/Adverse Reactions: Allergies Allergy/AdvReac Type Severity Reaction Status Date / Time shellfish derived Allergy Verified 04/02/17 13:58 History of Present Illness: pt is a 52yr old male with a history of alcohol, cocaine and cannabis dependence seeking detox for treatment. Exam Limitations: No Limitations - Ebola screening Have you traveled outside of the country in the last 21 days: No Have you had contact with anyone from an Ebola affected area: No Have you been sick,other than usual withdrawal symptoms: No Do you have a fever: No - Review of Systems Constitutional: Chills, Diaphoresis, Loss of Appetite, Night Sweats, Changes in sleep EENT: reports: No Symptoms Reported Respiratory: reports: Cough Cardiac: reports: Syncope GI: reports: Diarrhea, Poor Appetite, Poor Fluid Intake : reports: No Symptoms Reported Musculoskeletal: reports: No Symptoms Reported Integumentary: reports: Bruising (on right forearm pt is unsure how it got there.), Flushing, Sweating Neuro: reports: Headache, Seizure (last seizure two years ago d/t K2 smoking.), Tingling, Tremors Endocrine: reports: Excessive Sweating, Flushing, Intolerance to Cold, Intolerance to Heat Hematology: reports: No Symptoms Reported Psychiatric: reports: No Sypmtoms Reported, Judgement Intact, Mood/Affect Appropiate, Orientated x3, Agitated, Anxious Other Systems: Reviewed and Negative Patient History - Patient Medical History Hx Anemia: No Hx Asthma: No Hx Chronic Obstructive Pulmonary Disease (COPD): Yes (no med) Hx Cancer: No Hx Cardiac Disorders: No Hx Congestive Heart Failure: No Hx Hypertension: No Hx Hypercholesterolemia: No Hx Pacemaker: No HX Cerebrovascular Accident: No Hx Seizures: Yes (last episode was 2 years ago r/t withdrawals) Hx Dementia: No Hx Diabetes: Yes (type 2 dm diet control) Hx Gastrointestinal Disorders: No Hx Liver Disease: No Hx Genitourinary Disorders: No Hx Sexually Transmitted Disorders: No Hx Renal Disease (ESRD): No Hx Thyroid Disease: No Hx Human Immunodeficiency Virus (HIV): No (last 11/19) Hx Hepatitis C: Yes Hx Depression: Yes (no med) Hx Suicide Attempt: No (denies) Hx Bipolar Disorder: No Hx Schizophrenia: No - Patient Surgical History Past Surgical History: Yes Hx Abdominal Surgery: Yes (removal fb from stomach ,exploratoty lap in 03/21) Other Surgical History: incisional hernia after surgery Anesthesia Reaction: No - PPD History Previous Implant?: No Documented Results: Positive w/proof PPD to be Administered?: No - Reproductive History Patient is a Female of Child Bearing Age (11 -55 yrs old): No - Smoking Cessation Smoking history: Current every day smoker Have you smoked in the past 12 months: Yes Aproximately how many cigarettes per day: 2 Cigars Per Day: 0 Hx Chewing Tobacco Use: No Initiated information on smoking cessation: Yes 'Breaking Loose' booklet given: 04/02/17 - Substance & Tx. History Hx Alcohol Use: Yes Hx Substance Use: No Substance Use Type: Alcohol Hx Substance Use Treatment: Yes (last detox 12/2016 at [facility]) - Substances Abused Alcohol Route: Oral Frequency: Daily Amount used: 1 pint marcia/24oz 6-7 beer Age of first use: 17 Date of Last Use: 04/02/17 Cocaine Route: Smoking Frequency: 1-2 times per week Amount used: $50 Age of first use: 22 Date of Last Use: 03/31/17 Marijuana/Hashish Route: Smoking Frequency: 3-6 times per week Amount used: a dime Age of first use: 16 Date of Last Use: 04/01/17 Family Disease History - Family Disease History Family Disease History: Other: Father (alcohol,) Admission Physical Exam [facility] - Vital Signs Vital Signs: Vital Signs - 24 hr 04/02/17 11:24 Temperature 96.5 F L Pulse Rate 83 Respiratory 20 Rate Blood Pressure 114/81 - Physical General Appearance: Yes: Appropriately Dressed, Moderate Distress, Obese, Tremorous, Irritable, Sweating, Anxious HEENTM: Yes: Hearing grossly Normal, Normal Voice Respiratory: Yes: Lungs Clear, Normal Breath Sounds, No Respiratory Distress Neck: Yes: No masses,lesions,Nodules Breast: Yes: Within Normal Limits Cardiology: Yes: Regular Rhythm, Regular Rate, S1, S2 Abdominal: Yes: Normal Bowel Sounds, Non Tender, Soft Genitourinary: Yes: Within Normal Limits Back: Yes: Normal Inspection Musculoskeletal: Yes: Within Normal Limits Extremities: Yes: Normal Capillary Refill, Normal Inspection, Non-Tender, Tremors Neurological: Yes: Fully Oriented, Alert, Normal Response Integumentary: Yes: Normal Color Lymphatic: Yes: Within Normal Limits - Diagnostic (1) Alcohol dependence with uncomplicated withdrawal Current Visit: Yes Status: Chronic (2) COPD (chronic obstructive pulmonary disease) Current Visit: Yes Status: Chronic Qualifiers: Chronic bronchitis type: unspecified (3) Cannabis dependence Current Visit: Yes Status: Chronic (4) Cocaine dependence Current Visit: Yes Status: Chronic Qualifiers: Substance use status: uncomplicated Qualified Code(s): F14.20 - Cocaine dependence, uncomplicated (5) Nicotine dependence Current Visit: No Status: Chronic Qualifiers: Nicotine product type: cigarettes Substance use status: uncomplicated Qualified Code(s): F17.210 - Nicotine dependence, cigarettes, uncomplicated (6) DM2 (diabetes mellitus, type 2) Current Visit: Yes Status: Chronic Qualifiers: Diabetes mellitus complication status: without complication Diabetes mellitus terminal press operator insulin use: without senior living use Qualified Code(s): E11.9 - Type 2 diabetes mellitus without complications (7) Hepatitis C Current Visit: Yes Status: Chronic Qualifiers: Viral hepatitis chronicity: chronic Hepatic coma status: without hepatic coma Qualified Code(s): B18.2 - Chronic viral hepatitis C (8) Methadone maintenance therapy patient Current Visit: Yes Status: Chronic Comment: last dose of 110mg given today from [facility] mmt verified SURVEILLANCE SPECIALIST Vera Gentile and TALISHA Huizar Cleared for Admission [facility] - Detox or Rehab [facility] Level of Care: Medically Managed Detox Regimen/Protocol: Librium [facility] Breath Alcohol Content Breath Alcohol Content: 0.155 Urine Drug Screen - Results Drug Screen Negative: No Urine Drug Screen Results: THC-Marijuana, ARLEN-Cocaine, MTD-Methadone
[2017-04-02] MEDS ORDERED: NICOTINE POLACRILEX 2 MG GUM BC PRN (14:17)
[2017-04-02] MEDS ORDERED: MAGNESIUM CITRATE 300 ML BOTTLE PO PRN (14:17)
[2017-04-02] MEDS ORDERED: P-EPHED 60MG/TRIPROLIDI 2.5MG TABLET PO PRN (14:17)
[2017-04-02] MEDS ORDERED: LOPERAMIDE HCL 2 MG CAPSULE PO PRN (14:17)
[2017-04-02] MEDS ORDERED: diphenhydrAMINE HCL 50 MG CAPSULE PO PRN (14:17)
[2017-04-02] MEDS ORDERED: MAGNESIUM HYDROX 2400MG/30ML ORAL SUSPENSION 30 ML CUP PO PRN (14:17)
[2017-04-02] MEDS ORDERED: chlordiazePOXIDE HCL 25 MG CAPSULE PO PRN (14:17)
[2017-04-02] MEDS ORDERED: IBUPROFEN 400 MG TABLET (FP) PO PRN (14:17)
[2017-04-02] MEDS ORDERED: guaiFENesin/D-METHORPHAN HB 10 ML UNIT-DOSE CUPS PO PRN (14:17)
[2017-04-02] MEDS ORDERED: ACETAMINOPHEN 325 MG TABLET (FP) PO PRN (14:17)
[2017-04-02] MEDS ORDERED: MENTHOL/PHENOL 1 EACH UD MM PRN (14:17)
[2017-04-02] MEDS ORDERED: MAG HYDROX/AL HYDROX/SIMETH 30 ML UNIT-DOSE CUP PO PRN (14:17)
[2017-04-02] MEDS ORDERED: chlordiazePOXIDE HCL 25 MG CAPSULE PO ONE (18:15)
[2017-04-02] MEDS: chlordiazePOXIDE HCL 25 MG CAPSULE PO SCH ×2 (18:38→22:27)
[2017-04-02 22:01] LABS: URINE APPEARANCE CLEAR; URINE BILIRUBIN NEGATIVE (NEGATIVE); URINE BLOOD NEGATIVE (NEGATIVE); URINE COLOR YELLOW; URINE GLUCOSE (UA) NEGATIVE (NEGATIVE); URINE KETONE NEGATIVE (NEGATIVE); URINE LEUK ESTERASE TRACE (NEGATIVE); URINE NITRITE NEGATIVE (NEGATIVE); URINE PROTEIN NEGATIVE (NEGATIVE); URINE UROBILINOGEN 4.0 E.U/dl mg/dL (0.2-1.0)
[2017-04-02 22:10] LABS: URINE MUCUS RARE; URINE RBC <1 /hpf (0-3); URINE WBC 4 /hpf (3-5)
[2017-04-02] MEDS: THIAMINE HCL 100 MG TABLET (FP) PO SCH (22:26)
[2017-04-03] MEDS ORDERED: METHADONE HCL 10 MG TABLET ONE (05:43)
[2017-04-03] MEDS: chlordiazePOXIDE HCL 25 MG CAPSULE PO SCH ×4 (05:44→22:19)
[2017-04-03] MEDS ORDERED: METHADONE HCL 40 MG DISPERSABLE TABLET ONE (05:44)
[2017-04-03] MEDS: METHADONE 80 MG, METHADONE 30 MG PO SCH (05:44)
[2017-04-03] MEDS ORDERED: METHADONE HCL 10 MG TABLET PO SCH (06:00)
[2017-04-03 09:44] LABS: MCH 27.8 pg (25.7-33.7); MCHC 32.5 g/dl (32.0-35.9); MEAN CELL VOLUME 85.4 fl (80-96); MEAN PLT VOLUME 10.1 fl (7.5-11.1); PLATELET COUNT 118 K/MM3 (134-434); RDW 16.6 % (11.9-15.9); WHITE BLOOD COUNT 10.2 K/mm3 (4.0-10.0)
--- NOTE | 2017-04-03 09:55 | EKG ---
Test Reason : Blood Pressure : / mmHG Vent. Rate : 085 BPM Atrial Rate : 085 BPM P-R Int : 152 ms QRS Dur : 098 ms QT Int : 374 ms P-R-T Axes : 056 -18 035 degrees QTc Int : 445 ms NORMAL SINUS RHYTHM NORMAL ECG WHEN COMPARED WITH ECG OF 16-DEC-2016 15:49, NO SIGNIFICANT CHANGE WAS FOUND Confirmed by VEGA DIMAS MD ([id number]) on 04/03/2017 9:55:23 AM Referred By: Confirmed By:VEGA DIMAS MD
[2017-04-03] MEDS ORDERED: NICOTINE 7 MG/24 HOURS TOPICAL PATCH TD SCH (10:00)
[2017-04-03] MEDS ORDERED: PRENATAL VITAMINS W/ FOLIC ACID TABLET (FP) PO SCH (10:00)
[2017-04-03 10:05] LABS: ALBUMIN 3.8 g/dl (3.4-5.0); ALK PHOS 124 U/L (45-117); ANION GAP 10 (8-16); CALCIUM 8.5 mg/dL (8.5-10.1); CO2 27 mmol/L (21-32); CREATININE 0.9 mg/dL (0.7-1.3); GLUCOSE,RANDOM 117 mg/dL (74-106); SGOT/AST 99 U/L (15-37); SGPT/ALT 67 U/L (12-78)
--- NOTE | 2017-04-03 13:03 | CONSULT ---
[facility] Psychiatric Consult - Data Date of interview: 04/03/17 Admission source: [facility] Identifying data: Readmission to [facility] [place] for this 52 y/o male seeking detox treatment for alcohol,cocaine and marijuana dependence.Patient is single without children,homeless (lives in jail),unemployed and supported on SSI benefits. Substance Abuse History: Confirmed by patient in this interview. Smoking Cessation. Smoking history: Current every day smoker. Have you smoked in the past 12 months: Yes. Aproximately how many cigarettes per day: 2. Cigars Per Day: 0. Hx Chewing Tobacco Use: No. Initiated information on smoking cessation : Yes. 'Breaking Loose' booklet given: 04/02/17. - Substance & Tx. History. Hx Alcohol Use: Yes. Hx Substance Use: No. Substance Use Type: Alcohol. Hx Substance Use Treatment: Yes (last detox 12/2016 at [facility]). - Substances Abused. Alcohol. Route: Oral. Frequency: Daily. Amount used: 1 pint marcia/24oz 6-7 beer. Age of first use: 17. Date of Last Use: 04/02/17. Cocaine. Route: Smoking. Frequency: 1-2 times per week. Amount used: $50. Age of first use: 22. Date of Last Use: 03/31/17. Marijuana/Hashish. Route : Smoking. Frequency: 3-6 times per week. Amount used: a dime. Age of first use: 16. Date of Last Use: 04/01/17 Medical History: Hepatitis C,COPD,diabetes mellitus,seizure disorder and a history of abdominal surgery (exploratory laparotomy/removal of a foreign body in stomach) in 2016.Developed incisional hernia after surgery. Psychiatric History: History of multiple psychiatric hospitalizations.Patient reports past trials of several pychotropic drugs (abilify,seroquel,bupropion, lithium) and admissions to various regional institutions ([facility], [facility]).Self-report of chronic non-adherence to medications + OPD care.Mr Saravia indicates that he was prescribed wellbutrin by Dr Lee, his primary care physician at [facility].He wexpresses the wish to resume that medication after weeks of non-compliance.Denies history of suicide attempts.Patient is currently on methadone maintenance (110 mg/day) at the [facility]. Physical/Sexual Abuse/Trauma History: Patient denies. Additional Comment: Urine Drug Screen Results: THC-Marijuana, ARLEN-Cocaine, MTD- Methadone.Noted. Mental Status Exam - Mental Status Exam Alert and Oriented to: Time, Place, Person Cognitive Function: Good Patient Appearance: Well Groomed Mood: Hopeful, Euthymic Affect: Appropriate, Normal Range Patient Behavior: Appropriate, Cooperative Speech Pattern: Clear Voice Loudness: Normal Thought Process: Goal Oriented Thought Disorder: Not Present Hallucinations: Denies Suicidal Ideation: Denies Homicidal Ideation: Denies Insight/Judgement: Poor Sleep: Poorly (wants seroquel), Difficulty falling asleep Appetite: Good Muscle strength/Tone: Normal Gait/Station: Normal Psychiatric Findings - Problem List ([place] 1, 2,3) (1) Alcohol dependence with uncomplicated withdrawal Current Visit: Yes Status: Acute (2) Opioid dependence on agonist therapy Current Visit: Yes Status: Acute (3) Cannabis dependence Current Visit: Yes Status: Acute (4) Cocaine dependence Current Visit: Yes Status: Acute Qualifiers: Substance use status: uncomplicated Qualified Code(s): F14.20 - Cocaine dependence, uncomplicated (5) Nicotine dependence Current Visit: Yes Status: Acute Qualifiers: Nicotine product type: cigarettes Substance use status: uncomplicated Qualified Code(s): F17.210 - Nicotine dependence, cigarettes, uncomplicated (6) Substance induced mood disorder Current Visit: Yes Status: Acute (7) Depressive disorder Current Visit: Yes Status: Chronic Comment: Self-report. (8) COPD (chronic obstructive pulmonary disease) Current Visit: Yes Status: Chronic Qualifiers: Chronic bronchitis type: unspecified (9) DM2 (diabetes mellitus, type 2) Current Visit: Yes Status: Chronic Qualifiers: Diabetes mellitus complication status: without complication Diabetes mellitus shelter insulin use: without termite control servicer use Qualified Code(s): E11.9 - Type 2 diabetes mellitus without complications (10) Hepatitis C Current Visit: Yes Status: Chronic Qualifiers: Viral hepatitis chronicity: chronic Hepatic coma status: without hepatic coma Qualified Code(s): B18.2 - Chronic viral hepatitis C (11) Insomnia Current Visit: Yes Status: Acute - Initial Treatment Plan Initial Treatment Plan: Psychoeducation.Detoxification.Medications : wellbutrin XL 150 mg po daily + seroquel 100 mg po hs (verified through survey of pharmacy claims of 03/20/17 + 03/24/17 respectively for seroquel and wellbutri XL at [facility]).Side effects/benefits of both drugs are discussed with the patient.He agrees to follow this careplan.Observation.NO scripts needed at discharge.
--- NOTE | 2017-04-03 14:30 | PN ---
[facility] CIWA - CIWA Score Nausea/Vomitin-No Nausea/No Vomiting Muscle Tremors: 4-Moderate,w/Arms Extend Anxiety: 3 Agitation: 1-Slight > Activity Paroxysmal Sweats: No Perspiration Orientation: 0-Oriented Tacttile Disturbances: 3-Moderate Itch/Numb/Burn Auditory Disturbances: 2-Mild Harshness/Frighten Visual Disturbances: 2-Mild Sensitivity Headache: 0-None Present CIWA-Ar Total Score: 15 S Progress Note (SOAP) Subjective: Interrupted sleep, Tremors, Fatigue, Body Aches. Objective: PT. A & O X 3, OBSERVED AMBULATING ON UNIT. NO ACUTE DISTRESS. PT. DENIES CHEST PAIN. 04/03/17 14:26 Vital Signs Temperature 96.3 F L 04/03/17 13:04 Pulse Rate 69 04/03/17 13:04 Respiratory Rate 18 04/03/17 13:04 Blood Pressure 128/82 04/03/17 13:04 O2 Sat by Pulse Oximetry (%) Laboratory Tests 04/02/17 04/02/17 04/03/17 16:58 21:00 06:00 WBC 10.2 H RBC 5.74 H Hgb 15.9 D Hct 49.0 MCV 85.4 MCH 27.8 MCHC 32.5 RDW 16.6 H Plt Count 118 L D MPV 10.1 D Sodium Potassium Chloride Carbon Dioxide Anion Gap BUN Creatinine Creat Clearance w eGFR POC Glucometer 111 Random Glucose Calcium Total Bilirubin AST ALT Alkaline Phosphatase Total Protein Albumin Urine Color Yellow Urine Appearance Clear Urine pH 6.0 Ur Specific [place] 1.010 Urine Protein Negative Urine Glucose (UA) Negative Urine Ketones Negative Urine Blood Negative Urine Nitrite Negative Urine Bilirubin Negative Urine Urobilinogen 4.0 e.u/dl Urine RBC <1 Urine WBC 4 Urine Mucus Rare RPR Titer 04/03/17 04/03/17 06:00 06:00 WBC RBC Hgb Hct MCV MCH MCHC RDW Plt Count MPV Sodium 137 Potassium 3.5 Chloride 100 Carbon Dioxide 27 Anion Gap 10 BUN 5 L D Creatinine 0.9 D Creat Clearance w eGFR > 60 POC Glucometer Random Glucose 117 H Calcium 8.5 Total Bilirubin 1.0 AST 99 H ALT 67 Alkaline Phosphatase 124 H D Total Protein 8.0 Albumin 3.8 Urine Color Urine Appearance Urine pH Ur Specific [place] Urine Protein Urine Glucose (UA) Urine Ketones Urine Blood Urine Nitrite Urine Bilirubin Urine Urobilinogen Urine RBC Urine WBC Urine Mucus RPR Titer Nonreactive LABS NOTED. Assessment: 04/03/17 14:27 WITHDRAWAL SYMPTOMS. Plan: CONTINUE DETOX. REPEAT AST ON 04/05/2017 FOR ELEVATED ADMISSION LEVEL.
[2017-04-03] MEDS: hydrOXYzine PAMOATE 50 MG CAPSULE (FP) PO PRN ×2 (17:07→22:20)
--- NOTE | 2017-04-03 18:08 | PN ---
[facility] Progress Note Note: RECEIVED NURSE CALL PATIENT REQUESTS PSYCHIATRIST FOR ANXIETY PSYCHIATRIST CONSULTATION CONTINUE DETOX
[2017-04-03] MEDS ORDERED: QUEtiapine FUMARATE 100 MG TABLET (FP) PO SCH (22:00)
[2017-04-03] MEDS: THIAMINE HCL 100 MG TABLET (FP) PO SCH (22:19)
[2017-04-04] MEDS ORDERED: METHADONE HCL 10 MG TABLET ONE (04:17)
[2017-04-04] MEDS ORDERED: METHADONE HCL 40 MG DISPERSABLE TABLET ONE (04:17)
[2017-04-04] MEDS: METHADONE 80 MG, METHADONE 30 MG PO SCH (05:28)
[2017-04-04] MEDS: chlordiazePOXIDE HCL 25 MG CAPSULE PO SCH (05:28)
--- NOTE | 2017-04-04 09:07 | PN ---
[facility] CIWA - CIWA Score Nausea/Vomitin-No Nausea/No Vomiting Muscle Tremors: 3 Anxiety: 7-Acute Panic/Severe Agitation: 6 Paroxysmal Sweats: No Perspiration Orientation: 0-Oriented Tacttile Disturbances: 2-Mild Itch/Numbness/Burn Auditory Disturbances: 0-None Visual Disturbances: 0-None Headache: 0-None Present CIWA-Ar Total Score: 18 BHS Progress Note (SOAP) Subjective: Tremors, body Aches, Stomach Cramping, Anxious. PATIENT REPORTING DEPRESSION WITH SUICIDAL IDEATION. Objective: PT. A & O X 3, OBSERVED AMBULATING ON UNIT. PT. APPEARS AGITATED AND ANXIOUS. PT. DENIES CHEST PAIN. 04/04/17 09:04 Vital Signs Temperature 96.4 F L 04/04/17 06:17 Pulse Rate 77 04/04/17 06:17 Respiratory Rate 20 04/04/17 06:17 Blood Pressure 148/94 04/04/17 06:17 O2 Sat by Pulse Oximetry (%) Laboratory Tests 04/02/17 04/02/17 04/03/17 16:58 21:00 06:00 WBC 10.2 H RBC 5.74 H Hgb 15.9 D Hct 49.0 MCV 85.4 MCH 27.8 MCHC 32.5 RDW 16.6 H Plt Count 118 L D MPV 10.1 D Sodium Potassium Chloride Carbon Dioxide Anion Gap BUN Creatinine Creat Clearance w eGFR POC Glucometer 111 Random Glucose Calcium Total Bilirubin AST ALT Alkaline Phosphatase Total Protein Albumin Urine Color Yellow Urine Appearance Clear Urine pH 6.0 Ur Specific [place] 1.010 Urine Protein Negative Urine Glucose (UA) Negative Urine Ketones Negative Urine Blood Negative Urine Nitrite Negative Urine Bilirubin Negative Urine Urobilinogen 4.0 e.u/dl Urine RBC <1 Urine WBC 4 Urine Mucus Rare RPR Titer 04/03/17 04/03/17 06:00 06:00 WBC RBC Hgb Hct MCV MCH MCHC RDW Plt Count MPV Sodium 137 Potassium 3.5 Chloride 100 Carbon Dioxide 27 Anion Gap 10 BUN 5 L D Creatinine 0.9 D Creat Clearance w eGFR > 60 POC Glucometer Random Glucose 117 H Calcium 8.5 Total Bilirubin 1.0 AST 99 H ALT 67 Alkaline Phosphatase 124 H D Total Protein 8.0 Albumin 3.8 Urine Color Urine Appearance Urine pH Ur Specific [place] Urine Protein Urine Glucose (UA) Urine Ketones Urine Blood Urine Nitrite Urine Bilirubin Urine Urobilinogen Urine RBC Urine WBC Urine Mucus RPR Titer Nonreactive LABS NOTED. 04/04/17 09:07 Assessment: 04/04/17 09:05 WITHDRAWAL SYMPTOMS. SUICIDAL IDEATION. Plan: PATIENT TO BE TRANSFERRED TO [facility] ER FOR FURTHER PSYCHIATRIC EVALUATION. REPORT GIVEN TO DR. KATHI MD AT [facility] ER. PATIENT TAKEN VIA AMBULANCE TO [facility].
--- NOTE | 2017-04-04 09:33 | DS ---
[facility] Detox Discharge Summary Admission Date: 04/02/17 Discharge Date: 04/04/17 - History Present History: Alcohol Dependence, Cannabis Dependence, Cocaine Dependence, Opioid Dependence, MMTP Additional Comments: PATIENT REPORTING SEVERE DEPRESSION WITH SUICIDAL IDEATION. PATIENT TAKEN VIA AMBULANCE TO [facility] ER FOR FURTHER PSYCHIATRIC EVALUATION. VS STABLE AT TIME OF DISCHARGE FROM DETOX UNIT TO BE TAKEN TO [facility] ER. REPORT GIVE TO DR. KATHI MD AT [facility] ER. Pertinent Past History: MMTP, COPD, History of Seizures (due to Withdrawal), Insomnia, Depression, Nicotine dependence, Hep C, Type II DM. - Physical Exam Results Vital Signs: Vital Signs Temperature 96.4 F L 04/04/17 06:17 Pulse Rate 77 04/04/17 06:17 Respiratory Rate 20 04/04/17 06:17 Blood Pressure 148/94 04/04/17 06:17 O2 Sat by Pulse Oximetry (%) Pertinent Admission Physical Exam Findings: WITHDRAWAL SYMPTOMS. Laboratory Tests 04/02/17 04/02/17 04/03/17 16:58 21:00 06:00 WBC 10.2 H RBC 5.74 H Hgb 15.9 D Hct 49.0 MCV 85.4 MCH 27.8 MCHC 32.5 RDW 16.6 H Plt Count 118 L D MPV 10.1 D Sodium Potassium Chloride Carbon Dioxide Anion Gap BUN Creatinine Creat Clearance w eGFR POC Glucometer 111 Random Glucose Calcium Total Bilirubin AST ALT Alkaline Phosphatase Total Protein Albumin Urine Color Yellow Urine Appearance Clear Urine pH 6.0 Ur Specific [place] 1.010 Urine Protein Negative Urine Glucose (UA) Negative Urine Ketones Negative Urine Blood Negative Urine Nitrite Negative Urine Bilirubin Negative Urine Urobilinogen 4.0 e.u/dl Urine RBC <1 Urine WBC 4 Urine Mucus Rare RPR Titer 04/03/17 04/03/17 06:00 06:00 WBC RBC Hgb Hct MCV MCH MCHC RDW Plt Count MPV Sodium 137 Potassium 3.5 Chloride 100 Carbon Dioxide 27 Anion Gap 10 BUN 5 L D Creatinine 0.9 D Creat Clearance w eGFR > 60 POC Glucometer Random Glucose 117 H Calcium 8.5 Total Bilirubin 1.0 AST 99 H ALT 67 Alkaline Phosphatase 124 H D Total Protein 8.0 Albumin 3.8 Urine Color Urine Appearance Urine pH Ur Specific [place] Urine Protein Urine Glucose (UA) Urine Ketones Urine Blood Urine Nitrite Urine Bilirubin Urine Urobilinogen Urine RBC Urine WBC Urine Mucus RPR Titer Nonreactive LABS NOTED. - Treatment Hospital Course: Detox Protocol Followed, Detoxed Safely Patient has Accepted a Rehab Referral to: PT. GOING TO [facility] ER FOR SUICIDAL IDEATION. SEE ABOVE. - Medication Discharge Medications: Ambulatory Orders Albuterol Sulfate Inhaler - [Ventolin Hfa Inhaler -] 2 inh PO Q4H PRN 04/02/17 - Diagnosis (1) Alcohol dependence with uncomplicated withdrawal Current Visit: Yes Status: Acute (2) Cannabis dependence Current Visit: Yes Status: Acute (3) Cocaine dependence Current Visit: Yes Status: Acute Qualifiers: Substance use status: uncomplicated Qualified Code(s): F14.20 - Cocaine dependence, uncomplicated (4) Insomnia Current Visit: Yes Status: Acute Qualifiers: Insomnia type: unspecified Qualified Code(s): G47.00 - Insomnia, unspecified (5) Nicotine dependence Current Visit: Yes Status: Chronic Qualifiers: Nicotine product type: cigarettes Substance use status: uncomplicated Qualified Code(s): F17.210 - Nicotine dependence, cigarettes, uncomplicated (6) Opioid dependence on agonist therapy Current Visit: Yes Status: Chronic (7) Substance induced mood disorder Current Visit: Yes Status: Acute (8) COPD (chronic obstructive pulmonary disease) Current Visit: Yes Status: Chronic Qualifiers: COPD type: unspecified COPD Qualified Code(s): J44.9 - Chronic obstructive pulmonary disease, unspecified (9) DM2 (diabetes mellitus, type 2) Current Visit: Yes Status: Chronic Qualifiers: Diabetes mellitus complication status: without complication Diabetes mellitus snf insulin use: without terminal worker use Qualified Code(s): E11.9 - Type 2 diabetes mellitus without complications (10) Depressive disorder Current Visit: Yes Status: Chronic (11) Hepatitis C Current Visit: Yes Status: Chronic Qualifiers: Viral hepatitis chronicity: chronic Hepatic coma status: without hepatic coma Qualified Code(s): B18.2 - Chronic viral hepatitis C (12) Methadone maintenance therapy patient Current Visit: Yes Status: Chronic (13) Depression Current Visit: Yes Status: Chronic Qualifiers: Depression Type: unspecified Qualified Code(s): F32.9 - Major depressive disorder, single episode, unspecified (14) Drug withdrawal seizure Current Visit: No Status: Chronic Qualifiers: Complication of substance-induced condition: with unspecified complication Qualified Code(s): F19.239 - Other psychoactive substance dependence with withdrawal, unspecified; R56.9 - Unspecified convulsions - AMA Did Patient Leave Against Medical Advice: No
[2017-04-04 10:53] VITALS: BP 129/84; PULSE 92; TEMP 98.1
[2017-04-04] MEDS ORDERED: chlordiazePOXIDE 5 MG CAPSULE PO SCH (17:00)
[2017-04-05] MEDS ORDERED: chlordiazePOXIDE HCL 10 MG CAPSULE PO SCH (17:00)
== END 2017-04-04 09:18 | disposition short-term general hospital (02) | DRG 773 ==
LOC: YASAS 10:54 → Y3N 17:51
PROVIDERS: ADMIT Internal Medicine; ATTEND Internal Medicine
PROC: HZ2ZZZZ Detoxification Services for Substance Abuse Treatment (ICD-10-PCS; principal; 2017-04-02)
DX: F11.20 Opioid dependence, uncomplicated (principal); F10.230 Alcohol dependence with withdrawal, uncomplicated; F14.20 Cocaine dependence, uncomplicated; F12.20 Cannabis dependence, uncomplicated; F17.210 Nicotine dependence, cigarettes, uncomplicated; F19.24 Other psychoactive substance dependence with psychoactive substance-induced mood disorder; F32.9 Major depressive disorder, single episode, unspecified; G47.00 Insomnia, unspecified; B18.2 Chronic viral hepatitis C; J44.9 Chronic obstructive pulmonary disease, unspecified; E11.9 Type 2 diabetes mellitus without complications; Z79.84 Long term (current) use of oral hypoglycemic drugs; G40.509 Epileptic seizures related to external causes, not intractable, without status epilepticus; R45.851 Suicidal ideations; Z59.0 Homelessness
CPT/HCPCS: 36415; 80053; 81003; 81015; 85027; 86593; 93005; 93010

== ENCOUNTER 2017-06-17 10:01 | Inpatient (IN) | payer OTHER ==
[2017-06-17 11:05] VITALS: BMI 33.9
--- NOTE | 2017-06-17 13:33 | HP ---
CIWA Score - CIWA Score Nausea/Vomitin Muscle Tremors: 3 Anxiety: 5 Agitation: 2 Paroxysmal Sweats: 3 Orientation: 0-Oriented Tacttile Disturbances: 2-Mild Itch/Numbness/Burn Auditory Disturbances: 0-None Visual Disturbances: 1-Very Mild Sensitivity Headache: 0-None Present CIWA-Ar Total Score: 19 Admission ROS S - HPI Chief Complaint: "I'm here because of Alcohol." Pt. is here to Detox from Alcohol. Allergies/Adverse Reactions: Allergies Allergy/AdvReac Type Severity Reaction Status Date / Time shellfish derived Allergy Severe Hives Verified 06/17/17 13:04 No Known Drug Allergies Allergy Verified 06/17/17 13:04 History of Present Illness: Pt. is a 52 YO male here to detox from Alcohol. Patient has has previous Detox ( 1 Rehab) admissions at [facility] (Last: 03/2017). Patient was admitted to [facility] for Detox ([place], [place] for detox in 05/2017 (did not complete). Patient is a client at [facility] program ([place], [place] Daily Dose: 110 mg; Last Day medicated: today, 06/17/2017 (Pending Verification). Exam Limitations: No Limitations - Ebola screening Have you traveled outside of the country in the last 21 days: No Have you had contact with anyone from an Ebola affected area: No Have you been sick,other than usual withdrawal symptoms: No Do you have a fever: No - Review of Systems Constitutional: Chills, Diaphoresis, Fever, Malaise, Night Sweats, Changes in sleep, Unintentional Wgt. Loss (Lost approx. 20 lbs. over last 1 year.) EENT: reports: Blurred Vision, Tearing, Nose Congestion, Sinus Pressure Respiratory: reports: SOB with Exertion Cardiac: reports: Palpitations GI: reports: Constipated, Nausea, Vomiting, Abdominal cramping : reports: No Symptoms Reported Musculoskeletal: reports: Back Pain, Joint Pain (Left Elbow.), Muscle Pain Integumentary: reports: Erythema (In Bilateral Lower Legs, patient still completing antibiotic treatment for Cellulitis, patient was evaluated and prescribed Cephalexin at [facility].) Neuro: reports: Seizure (X 2 in past, both incidents approx. 2 years ago.), Tremors Endocrine: reports: No Symptoms Reported Hematology: reports: Easy Bruising Psychiatric: reports: Judgement Intact, Mood/Affect Appropiate, Orientated x3, Anxious Other Systems: Reviewed and Negative Patient History - Patient Medical History Hx Anemia: No Hx Asthma: No Hx Chronic Obstructive Pulmonary Disease (COPD): Yes Hx Cancer: No Hx Cardiac Disorders: No Hx Congestive Heart Failure: No Hx Hypertension: No Hx Hypercholesterolemia: No Hx Pacemaker: No HX Cerebrovascular Accident: No Hx Seizures: Yes (etoh related seizures (X 2), last in 2014.) Hx Dementia: No Hx Diabetes: Yes (borderline no meds.) Hx Gastrointestinal Disorders: No Hx Liver Disease: Yes (Cirrhosis.) Hx Genitourinary Disorders: No Hx Sexually Transmitted Disorders: No Hx Renal Disease (ESRD): No Hx Thyroid Disease: No Hx Human Immunodeficiency Virus (HIV): No (Last Tested: 05/2017: NEGATIVE.) Hx Hepatitis C: Yes (No Treatment yet.) Hx Depression: Yes (On meds.) Hx Suicide Attempt: No (PATIENT DENIES CURRENT SI / HI.) Hx Bipolar Disorder: No Hx Schizophrenia: No Other Medical History: DENIES. - Patient Surgical History Past Surgical History: Yes Hx Neurologic Surgery: No Hx Cataract Extraction: No Hx Cardiac Surgery: No Hx Lung Surgery: No Hx Breast Surgery: No Hx Breast Biopsy: No Hx Abdominal Surgery: Yes (removal fb from stomach ,exploratoty lap in 03/21) Hx Appendectomy: No Hx Cholecystectomy: No Hx Genitourinary Surgery: No Hx Section: No Hx Orthopedic Surgery: No Other Surgical History: incisional hernia after surgery Anesthesia Reaction: No - PPD History Previous Implant?: Yes Documented Results: Positive w/proof Implanted On Prior R Admission?: No Results: CXR neg 12/15/16 PPD to be Administered?: No - Reproductive History Patient is a Female of Child Bearing Age (11 -55 yrs old): No (PATIENT IS MALE.) - Smoking Cessation Smoking history: Current every day smoker Have you smoked in the past 12 months: Yes Aproximately how many cigarettes per day: 1 Cigars Per Day: 1 Hx Chewing Tobacco Use: No Initiated information on smoking cessation: Yes 'Breaking Loose' booklet given: 06/17/17 (GIVEN ON UNIT.) - Substance & Tx. History Hx Alcohol Use: Yes Hx Substance Use: Yes Substance Use Type: Alcohol, Cocaine, Marijuana, Prescribed (MMTP) Hx Substance Use Treatment: Yes (Previous Detox/Rehab admissions at [facility]; Detox at [facility] ([place] 05/2017.) - Substances Abused Alcohol Route: Oral Frequency: Daily Amount used: 20 BEERS Age of first use: 15 Date of Last Use: 06/17/17 Marijuana/Hashish Route: Smoking Frequency: Daily Amount used: 4-5 JOINTS Age of first use: 14 Date of Last Use: 06/16/17 K2 Route: Smoking Frequency: Daily Amount used: 4-5 JOINTS Age of first use: 49 Date of Last Use: 06/17/17 Cocaine Route: Inhalation Frequency: 3-6 times per week Amount used: $ 40 Age of first use: 15 Date of Last Use: 06/16/17 Family Disease History - Family Disease History Family Disease History: Diabetes: Mother, CA: Grandparent (, Throat Ca.) , Father (Alcohol,, Throat Ca.), Other: Father Admission Physical Exam [facility] - Vital Signs Vital Signs: Vital Signs - 24 hr 06/17/17 11:01 Temperature 96.0 F L Pulse Rate 72 Respiratory 18 Rate Blood Pressure 112/70 - Physical General Appearance: Yes: No Apparent Distress, Nourished, Appropriately Dressed , Tremorous, Anxious HEENTM: Yes: Hearing grossly Normal, Normocephalic, Normal Voice, DEBO, Pharynx Normal Respiratory: Yes: Chest Non-Tender, Lungs Clear, No Respiratory Distress, No Accessory Muscle Use Neck: Yes: No masses,lesions,Nodules, Supple, Trachea in good position Breast: Yes: Breast Exam Deferred Cardiology: Yes: Regular Rhythm, Regular Rate, S1, S2 Abdominal: Yes: Normal Bowel Sounds, Non Tender, Distended (Patient reports history of abdominal surgery to remove foreign object in 2016. Patient also reports that abdomen began to become distended approx. 5 months ago and that he has sought medical consultation for it, but that he has not had any medical treatment / surgery for it yet. Patient advised to follow-up with CL[employer]S ADMINISTRATOR Dr. Ronen Lee ([place] after dioscahrge from Detox for further medical evaluation.) Genitourinary: Yes: Within Normal Limits Back: Yes: Decreased Range of Motion Musculoskeletal: Yes: Gait Steady, Joint Stiffness Extremities: Yes: Tremors, Erythema (In Bilateral Lower Legs - patient currently being treated with antibiotic (Cephalexin) for Celulitis.) Neurological: Yes: Fully Oriented, Alert, Normal Mood/Affect, Normal Response Integumentary: Yes: Dry, Warm Lymphatic: Yes: Within Normal Limits - Diagnostic (1) Alcohol dependence with uncomplicated withdrawal Current Visit: Yes Status: Acute (2) Cocaine dependence Current Visit: Yes Status: Acute Qualifiers: Substance use status: uncomplicated Qualified Code(s): F14.20 - Cocaine dependence, uncomplicated (3) History of seizure Current Visit: Yes Status: Suspected Comment: Due to Withdrawal. 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 and RN Gaye (7) Opioid dependence on agonist therapy Current Visit: Yes Status: Chronic (8) Borderline diabetes mellitus Current Visit: Yes Status: Suspected (9) Liver cirrhosis Current Visit: Yes Status: Acute Qualifiers: Hepatic cirrhosis type: unspecified hepatic cirrhosis Ascites presence: with ascites Qualified Code(s): K74.60 - Unspecified cirrhosis of liver (10) Hepatitis C Current Visit: Yes Status: Chronic Qualifiers: Viral hepatitis chronicity: chronic Hepatic coma status: without hepatic coma Qualified Code(s): B18.2 - Chronic viral hepatitis C (11) Cannabis dependence Current Visit: Yes Status: Acute (12) Depression Current Visit: Yes Status: Chronic Qualifiers: Depression Type: unspecified Qualified Code(s): F32.9 - Major depressive disorder, single episode, unspecified (13) Nicotine dependence Current Visit: Yes Status: Chronic Qualifiers: Nicotine product type: cigarettes Substance use status: uncomplicated Qualified Code(s): F17.210 - Nicotine dependence, cigarettes, uncomplicated Cleared for Admission [facility] - Detox or Rehab [facility] Level of Care: Medically Managed Detox Regimen/Protocol: Librium S Breath Alcohol Content Breath Alcohol Content: 0.026 Urine Drug Screen - Results Drug Screen Negative: No Urine Drug Screen Results: THC-Marijuana, ARLEN-Cocaine, BZO-Benzodiazepines, MTD- Methadone
[2017-06-17] MEDS ORDERED: MAGNESIUM HYDROX 2400MG/30ML ORAL SUSPENSION 30 ML CUP PO PRN (14:13)
[2017-06-17] MEDS ORDERED: MAGNESIUM CITRATE 300 ML BOTTLE PO PRN (14:13)
[2017-06-17] MEDS ORDERED: MENTHOL/PHENOL 1 EACH UD MM PRN (14:13)
[2017-06-17] MEDS ORDERED: MAG HYDROX/AL HYDROX/SIMETH 30 ML UNIT-DOSE CUP PO PRN (14:13)
[2017-06-17] MEDS ORDERED: guaiFENesin/D-METHORPHAN HB 10 ML UNIT-DOSE CUPS PO PRN (14:13)
[2017-06-17] MEDS ORDERED: LOPERAMIDE HCL 2 MG CAPSULE PO PRN (14:13)
[2017-06-17] MEDS ORDERED: P-EPHED 60MG/TRIPROLIDI 2.5MG TABLET PO PRN (14:13)
[2017-06-17] MEDS ORDERED: NICOTINE POLACRILEX 2 MG GUM BUC PRN (14:13)
[2017-06-17] MEDS ORDERED: ALBUTEROL SO4 18 GM HFA INHALER IH PRN (14:16)
[2017-06-17] MEDS ORDERED: chlordiazePOXIDE HCL 25 MG CAPSULE PO ONE (14:28)
[2017-06-17] MEDS: NICOTINE 14 MG/24 HOURS TOPICAL PATCH TD SCH (15:05)
[2017-06-17] MEDS ORDERED: FLUCONAZOLE 100 MG TABLET (UD) PO SCH (16:00)
[2017-06-17 17:18] LABS: URINE APPEARANCE CLEAR; URINE BILIRUBIN NEGATIVE (NEGATIVE); URINE BLOOD NEGATIVE (NEGATIVE); URINE COLOR DKYELLOW; URINE GLUCOSE (UA) NEGATIVE (NEGATIVE); URINE KETONE TRACE (NEGATIVE); URINE LEUK ESTERASE NEGATIVE (NEGATIVE); URINE NITRITE NEGATIVE (NEGATIVE); URINE PROTEIN NEGATIVE (NEGATIVE); URINE UROBILINOGEN 4.0 E.U/dl mg/dL (0.2-1.0)
[2017-06-17 17:32] LABS: MCH 28.4 pg (25.7-33.7); MCHC 32.4 g/dl (32.0-35.9); MEAN CELL VOLUME 87.6 fl (80-96); MEAN PLT VOLUME 9.5 fl (7.5-11.1); PLATELET COUNT 110 K/MM3 (134-434); RDW 15.7 % (11.9-15.9); WHITE BLOOD COUNT 6.8 K/mm3 (4.0-10.0)
[2017-06-17 17:55] LABS: ALBUMIN 3.4 g/dl (3.4-5.0); ANION GAP 14 (8-16); CALCIUM 9.3 mg/dL (8.5-10.1); CO2 23 mmol/L (21-32); GLUCOSE,RANDOM 159 mg/dL (74-106); SGOT/AST 98 U/L (15-37)
[2017-06-17 18:02] LABS: ALK PHOS 147 U/L (45-117); BILIRUBIN,TOTAL 0.6 mg/dL (0.2-1.0); CREATININE 0.7 mg/dL (0.7-1.3); SGPT/ALT 87 U/L (12-78); TOT PROT 7.9 g/dl (6.4-8.2)
[2017-06-17 18:56] LABS: HIV 1 & 2 AB NEGATIVE; HIV 1 AGp24 NEGATIVE
--- NOTE | 2017-06-17 18:56 | PN ---
S Progress Note Note: RECEIVED NURSE CALL THAT THE PATIENT REFUSES LIBRIUM 10 MG ONE DOSE TODAY CHART REVIEW PATIENT DISCHARGE DATE 06/18/17
[2017-06-17] MEDS: chlordiazePOXIDE HCL 25 MG CAPSULE PO SCH ×2 (18:57→22:21)
[2017-06-17] MEDS: PATIENT'S OWN MEDICATION (NON-FORMULARY) (Cephalexin [Keflex] 500 MG) PO SCH ×2 (19:37→22:21)
[2017-06-17] MEDS: chlordiazePOXIDE HCL 25 MG CAPSULE PO PRN (19:37)
[2017-06-17 19:57] LABS: URINE LEUK ESTERASE Negative (NEGATIVE)
[2017-06-17] MEDS: THIAMINE HCL 100 MG TABLET (FP) PO SCH (22:21)
[2017-06-17] MEDS: DOCUSATE SODIUM 100 MG CAPSULE (FP) PO SCH (22:21)
[2017-06-18] MEDS: chlordiazePOXIDE HCL 25 MG CAPSULE PO PRN ×2 (02:55→09:01)
[2017-06-18] MEDS ORDERED: METHADONE HCL 40 MG DISPERSABLE TABLET ONE (04:44)
[2017-06-18] MEDS ORDERED: METHADONE HCL 10 MG TABLET ONE (04:45)
[2017-06-18] MEDS: chlordiazePOXIDE HCL 25 MG CAPSULE PO SCH ×4 (05:37→22:39)
[2017-06-18] MEDS: METHADONE 80 MG, METHADONE 30 MG PO SCH (05:38)
[2017-06-18] MEDS ORDERED: METHADONE HCL 10 MG TABLET PO SCH (06:00)
--- NOTE | 2017-06-18 09:07 | CONSULT ---
[facility] Psychiatric Consult - Data Date of interview: 06/18/17 Admission source: [facility] Identifying data: This is 52 years old male with psyhciatric hospitalization history intoxicated with: Alcohol, Cocaine, Opioids, Cannabis and Nicotine, history of K2 abuse as well Substance Abuse History: - Substances Abused. Alcohol. Route: Oral. Frequency: Daily. Amount used: 20 BEERS. Age of first use: 15. Date of Last Use: 06/17/17. Marijuana/Hashish. Route: Smoking. Frequency: Daily. Amount used: 4-5 JOINTS. Age of first use: 14. Date of Last Use: 06/16/17. * * K2. Route: Smoking. Frequency: Daily. Amount used: 4-5 JOINTS. Age of first use: 49. Date of Last Use: 06/17/17. Cocaine. Route: Inhalation. Frequency: 3-6 times per week. Amount used: $ 40. Age of first use: 15. Date of Last Use: 06/16/17 Medical History: Seizure history, COPD, DM-2, HepC+, Liver cirrhosis, MMTO history Psychiatric History: Patoient reports history od depression with most recent psychiatric admission on 2017 at [facility] for safety, reportrs taking prior to admission: Abilifyn 2mg poqd. Wellbutrim XR 150mg poqd. Seroquel 100mg po qhs Physical/Sexual Abuse/Trauma History: Denies Additional Comment: Abilifyn 2mg poqd. Wellbutrim XR 150mg poqd. Seroquel 100mg po qhs Mental Status Exam - Mental Status Exam Alert and Oriented to: Person Cognitive Function: Fair Patient Appearance: Well Groomed Mood: Euthymic Affect: Mood Congruent Patient Behavior: Cooperative Speech Pattern: Appropriate Voice Loudness: Normal Thought Process: Goal Oriented Thought Disorder: Being Controlled Hallucinations: Denies Suicidal Ideation: Denies Homicidal Ideation: Denies Insight/Judgement: Fair Sleep: Difficulty falling asleep Appetite: Weight gain Muscle strength/Tone: Normal Gait/Station: Normal Additional Comments: Abilifyn 2mg poqd. Wellbutrim XR 150mg poqd. Seroquel 100mg po qhs Psychiatric Findings - Problem List ([place] 1, 2,3) (1) Alcohol dependence with uncomplicated withdrawal Current Visit: Yes Status: Acute (2) Cannabis dependence Current Visit: Yes Status: Acute (3) Cocaine dependence Current Visit: Yes Status: Acute Qualifiers: Substance use status: uncomplicated Qualified Code(s): F14.20 - Cocaine dependence, uncomplicated (4) Liver cirrhosis Current Visit: Yes Status: Acute Qualifiers: Hepatic cirrhosis type: unspecified hepatic cirrhosis Ascites presence: with ascites Qualified Code(s): K74.60 - Unspecified cirrhosis of liver (5) Depression Current Visit: Yes Status: Chronic Qualifiers: Depression Type: unspecified Qualified Code(s): F32.9 - Major depressive disorder, single episode, unspecified (6) Methadone maintenance therapy patient Current Visit: Yes Status: Chronic Comment: last dose of 110mg given today from [facility] verified WELL SERVICING RIG OPERATOR Vera Gentile and TALISHA Huizar (7) Nicotine dependence Current Visit: Yes Status: Chronic Qualifiers: Nicotine product type: cigarettes Substance use status: uncomplicated Qualified Code(s): F17.210 - Nicotine dependence, cigarettes, uncomplicated (8) Opioid dependence on agonist therapy Current Visit: Yes Status: Chronic (9) Substance induced mood disorder Current Visit: No Status: Acute - Initial Treatment Plan Initial Treatment Plan: Abilifyn 2mg poqd. Wellbutrim XR 150mg poqd. Seroquel 100mg po qhs
[2017-06-18] MEDS: NICOTINE 14 MG/24 HOURS TOPICAL PATCH TD SCH (10:13)
[2017-06-18] MEDS: DOCUSATE SODIUM 100 MG CAPSULE (FP) PO SCH ×2 (10:13→22:40)
[2017-06-18] MEDS: PRENATAL VITAMINS W/ FOLIC ACID TABLET (FP) PO SCH (10:13)
[2017-06-18] MEDS: PATIENT'S OWN MEDICATION (NON-FORMULARY) (Cephalexin [Keflex] 500 MG) PO SCH ×4 (10:14→22:40)
[2017-06-18] MEDS: ARIPiprazole 2 MG TABLET PO SCH (10:15)
--- NOTE | 2017-06-18 10:42 | PN ---
S CIWA - CIWA Score Nausea/Vomitin-No Nausea/No Vomiting Muscle Tremors: 4-Moderate,w/Arms Extend Anxiety: 4-Mod. Anxious/Guarded Agitation: 4-Moderately Restless Paroxysmal Sweats: 3 Orientation: 0-Oriented Tacttile Disturbances: 0-None Auditory Disturbances: 0-None Visual Disturbances: 0-None Headache: 1-Very Mild CIWA-Ar Total Score: 16 BHS Progress Note (SOAP) Subjective: interrupted sleep sweats chills itchy/dry skin to lower legs Objective: 06/18/17 10:39 Vital Signs Temperature 97.2 F L 06/18/17 06:33 Pulse Rate 52 L 06/18/17 06:33 Respiratory Rate 18 06/18/17 06:33 Blood Pressure 111/67 06/18/17 06:33 O2 Sat by Pulse Oximetry (%) Laboratory Tests 06/17/17 06/17/17 06/17/17 13:30 15:00 15:00 WBC 6.8 D RBC 5.18 Hgb 14.7 Hct 45.4 MCV 87.6 MCH 28.4 MCHC 32.4 RDW 15.7 Plt Count 110 L MPV 9.5 Sodium Potassium Chloride Carbon Dioxide Anion Gap BUN Creatinine Creat Clearance w eGFR POC Glucometer 115 Random Glucose Calcium Total Bilirubin AST ALT Alkaline Phosphatase Total Protein Albumin Urine Color Urine Appearance Urine pH Ur Specific [place] Urine Protein Urine Glucose (UA) Urine Ketones Urine Blood Urine Nitrite Urine Bilirubin Urine Urobilinogen Ur Leukocyte Esterase RPR Titer HIV 1&2 Antibody Screen Negative HIV P24 Antigen Negative 06/17/17 06/17/17 06/17/17 15:00 15:00 15:15 WBC RBC Hgb Hct MCV MCH MCHC RDW Plt Count MPV Sodium 137 Potassium 3.9 Chloride 100 Carbon Dioxide 23 Anion Gap 14 BUN 11 D Creatinine 0.7 D Creat Clearance w eGFR > 60 POC Glucometer Random Glucose 159 H D Calcium 9.3 Total Bilirubin 0.6 D AST 98 H ALT 87 H D Alkaline Phosphatase 147 H Total Protein 7.9 Albumin 3.4 Urine Color Dkyellow Urine Appearance Clear Urine pH 7.0 Ur Specific [place] 1.015 Urine Protein Negative Urine Glucose (UA) Negative Urine Ketones Trace H Urine Blood Negative Urine Nitrite Negative Urine Bilirubin Negative Urine Urobilinogen 4.0 e.u/dl Ur Leukocyte Esterase Negative RPR Titer Nonreactive HIV 1&2 Antibody Screen HIV P24 Antigen aaox3 ambulating no acute distress Assessment: 06/18/17 10:40 withdrawal sx Plan: continue detox increase fluids lotrisone cream ordered
--- NOTE | 2017-06-18 11:40 | EKG ---
Test Reason : Blood Pressure : / mmHG Vent. Rate : 070 BPM Atrial Rate : 070 BPM P-R Int : 162 ms QRS Dur : 108 ms QT Int : 424 ms P-R-T Axes : 049 026 049 degrees QTc Int : 457 ms NORMAL SINUS RHYTHM NORMAL ECG WHEN COMPARED WITH ECG OF 02-APR-2017 18:58, NO SIGNIFICANT CHANGE WAS FOUND Confirmed by EARLINE STEVENSON MD ([id number]) on 06/18/2017 11:40:43 AM Referred By: Confirmed By:EARLINE STEVENSON MD
[2017-06-18] MEDS: CLOTRIMAZOLE/BETAMET DIPROP TOPICAL CREAM 45 GM TUBE TP SCH ×2 (13:41→23:10)
[2017-06-18] MEDS: QUEtiapine FUMARATE 100 MG TABLET (FP) PO SCH (22:40)
[2017-06-18] MEDS: THIAMINE HCL 100 MG TABLET (FP) PO SCH (22:41)
[2017-06-19] MEDS: chlordiazePOXIDE HCL 25 MG CAPSULE PO PRN ×2 (04:16→14:48)
[2017-06-19] MEDS ORDERED: METHADONE HCL 40 MG DISPERSABLE TABLET ONE (05:20)
[2017-06-19] MEDS ORDERED: METHADONE HCL 10 MG TABLET ONE (05:20)
[2017-06-19] MEDS: METHADONE 80 MG, METHADONE 30 MG PO SCH (05:38)
[2017-06-19] MEDS: chlordiazePOXIDE HCL 25 MG CAPSULE PO SCH ×2 (05:38→10:09)
[2017-06-19] MEDS: DOCUSATE SODIUM 100 MG CAPSULE (FP) PO SCH ×2 (10:09→22:11)
[2017-06-19] MEDS: ARIPiprazole 2 MG TABLET PO SCH (10:09)
[2017-06-19] MEDS: PATIENT'S OWN MEDICATION (NON-FORMULARY) (Cephalexin [Keflex] 500 MG) PO SCH ×4 (10:09→22:11)
[2017-06-19] MEDS: CLOTRIMAZOLE/BETAMET DIPROP TOPICAL CREAM 45 GM TUBE TP SCH ×2 (10:09→22:11)
[2017-06-19] MEDS: NICOTINE 14 MG/24 HOURS TOPICAL PATCH TD SCH (10:10)
[2017-06-19] MEDS: PRENATAL VITAMINS W/ FOLIC ACID TABLET (FP) PO SCH (10:10)
--- NOTE | 2017-06-19 10:44 | PN ---
S CIWA - CIWA Score Nausea/Vomitin-No Nausea/No Vomiting Muscle Tremors: 4-Moderate,w/Arms Extend Anxiety: 3 Agitation: 3 Paroxysmal Sweats: 3 Orientation: 0-Oriented Tacttile Disturbances: 0-None Auditory Disturbances: 0-None Visual Disturbances: 0-None Headache: 0-None Present CIWA-Ar Total Score: 13 S Progress Note (SOAP) Subjective: shakes sweats interrupted sleep tired Objective: 06/19/17 10:43 Vital Signs Temperature 97.3 F L 06/19/17 07:06 Pulse Rate 73 06/19/17 07:06 Respiratory Rate 16 06/19/17 07:06 Blood Pressure 108/72 06/19/17 07:06 O2 Sat by Pulse Oximetry (%) Laboratory Tests 06/17/17 06/17/17 06/17/17 13:30 15:00 15:00 WBC 6.8 D RBC 5.18 Hgb 14.7 Hct 45.4 MCV 87.6 MCH 28.4 MCHC 32.4 RDW 15.7 Plt Count 110 L MPV 9.5 Sodium Potassium Chloride Carbon Dioxide Anion Gap BUN Creatinine Creat Clearance w eGFR POC Glucometer 115 Random Glucose Calcium Total Bilirubin AST ALT Alkaline Phosphatase Total Protein Albumin Urine Color Urine Appearance Urine pH Ur Specific [place] Urine Protein Urine Glucose (UA) Urine Ketones Urine Blood Urine Nitrite Urine Bilirubin Urine Urobilinogen Ur Leukocyte Esterase RPR Titer HIV 1&2 Antibody Screen Negative HIV P24 Antigen Negative 06/17/17 06/17/17 06/17/17 15:00 15:00 15:15 WBC RBC Hgb Hct MCV MCH MCHC RDW Plt Count MPV Sodium 137 Potassium 3.9 Chloride 100 Carbon Dioxide 23 Anion Gap 14 BUN 11 D Creatinine 0.7 D Creat Clearance w eGFR > 60 POC Glucometer Random Glucose 159 H D Calcium 9.3 Total Bilirubin 0.6 D AST 98 H ALT 87 H D Alkaline Phosphatase 147 H Total Protein 7.9 Albumin 3.4 Urine Color Dkyellow Urine Appearance Clear Urine pH 7.0 Ur Specific [place] 1.015 Urine Protein Negative Urine Glucose (UA) Negative Urine Ketones Trace H Urine Blood Negative Urine Nitrite Negative Urine Bilirubin Negative Urine Urobilinogen 4.0 e.u/dl Ur Leukocyte Esterase Negative RPR Titer Nonreactive HIV 1&2 Antibody Screen HIV P24 Antigen aaox3 ambulating no acute distress Assessment: 06/19/17 10:43 withdrawal sx Plan: continue detox increase fluids
[2017-06-19] MEDS: chlordiazePOXIDE 5 MG CAPSULE PO SCH ×2 (17:53→22:11)
[2017-06-19] MEDS: QUEtiapine FUMARATE 100 MG TABLET (FP) PO SCH (22:12)
[2017-06-19] MEDS: THIAMINE HCL 100 MG TABLET (FP) PO SCH (22:12)
[2017-06-20] MEDS ORDERED: METHADONE HCL 40 MG DISPERSABLE TABLET ONE (03:43)
[2017-06-20] MEDS ORDERED: METHADONE HCL 10 MG TABLET ONE (03:44)
[2017-06-20] MEDS: chlordiazePOXIDE 5 MG CAPSULE PO SCH ×2 (05:07→10:16)
[2017-06-20] MEDS: METHADONE 80 MG, METHADONE 30 MG PO SCH (05:09)
[2017-06-20] MEDS: PRENATAL VITAMINS W/ FOLIC ACID TABLET (FP) PO SCH (10:17)
[2017-06-20] MEDS: NICOTINE 14 MG/24 HOURS TOPICAL PATCH TD SCH (10:17)
[2017-06-20] MEDS: DOCUSATE SODIUM 100 MG CAPSULE (FP) PO SCH ×2 (10:17→22:11)
[2017-06-20] MEDS: CLOTRIMAZOLE/BETAMET DIPROP TOPICAL CREAM 45 GM TUBE TP SCH ×2 (10:17→22:12)
[2017-06-20] MEDS: ARIPiprazole 2 MG TABLET PO SCH (10:17)
[2017-06-20] MEDS: PATIENT'S OWN MEDICATION (NON-FORMULARY) (Cephalexin [Keflex] 500 MG) PO SCH ×2 (11:57→14:06)
--- NOTE | 2017-06-20 12:57 | PN ---
S Progress Note (SOAP) Subjective: alert,irritable,anxious,interrupted sleep Objective: 06/20/17 12:56 Vital Signs Temperature 98.2 F 06/20/17 10:00 Pulse Rate 70 06/20/17 10:00 Respiratory Rate 20 06/20/17 10:00 Blood Pressure 111/66 06/20/17 10:00 O2 Sat by Pulse Oximetry (%) Assessment: 06/20/17 12:56 withdrawal symptom Plan: continue detox,discharge in am
--- NOTE | 2017-06-20 13:03 | PN ---
[facility] Progress Note Note: resolving cellulitis both legs,has been on keflex 2 weeks,adequately treated
[2017-06-20] MEDS: chlordiazePOXIDE HCL 10 MG CAPSULE PO SCH ×2 (18:04→22:11)
[2017-06-20] MEDS: THIAMINE HCL 100 MG TABLET (FP) PO SCH (22:11)
[2017-06-20] MEDS: QUEtiapine FUMARATE 100 MG TABLET (FP) PO SCH (22:12)
[2017-06-21] MEDS ORDERED: hydrOXYzine PAMOATE 50 MG CAPSULE (FP) PO PRN (03:04)
[2017-06-21] MEDS ORDERED: METHADONE HCL 40 MG DISPERSABLE TABLET ONE (05:09)
[2017-06-21] MEDS ORDERED: METHADONE HCL 10 MG TABLET ONE (05:09)
[2017-06-21] MEDS: chlordiazePOXIDE HCL 10 MG CAPSULE PO SCH ×2 (05:09→11:52)
[2017-06-21] MEDS: METHADONE 80 MG, METHADONE 30 MG PO SCH (05:10)
[2017-06-21] MEDS: CLOTRIMAZOLE/BETAMET DIPROP TOPICAL CREAM 45 GM TUBE TP SCH (09:35)
[2017-06-21] MEDS: DOCUSATE SODIUM 100 MG CAPSULE (FP) PO SCH (09:35)
[2017-06-21] MEDS: ARIPiprazole 2 MG TABLET PO SCH (09:35)
[2017-06-21] MEDS: NICOTINE 14 MG/24 HOURS TOPICAL PATCH TD SCH (09:36)
[2017-06-21] MEDS: PRENATAL VITAMINS W/ FOLIC ACID TABLET (FP) PO SCH (09:36)
--- NOTE | 2017-06-21 09:48 | DS ---
[facility] Detox Discharge Summary Admission Date: 06/17/17 Discharge Date: 06/21/17 - History Pertinent Past History: Alcohol dependence with uncomplicated withdrawals On MMTP Cocaine dependence - Physical Exam Results Vital Signs: Vital Signs Temperature 97.3 F L 06/21/17 06:00 Pulse Rate 68 06/21/17 06:00 Respiratory Rate 18 06/21/17 06:00 Blood Pressure 132/80 06/21/17 06:00 O2 Sat by Pulse Oximetry (%) Laboratory Last Values WBC 6.8 K/mm3 (4.0-10.0) D 06/17/17 15:00 RBC 5.18 M/mm3 (4.00-5.60) 06/17/17 15:00 Hgb 14.7 GM/dL (11.7-16.9) 06/17/17 15:00 Hct 45.4 % (35.4-49) 06/17/17 15:00 MCV 87.6 fl (80-96) 06/17/17 15:00 MCH 28.4 pg (25.7-33.7) 06/17/17 15:00 MCHC 32.4 g/dl (32.0-35.9) 06/17/17 15:00 RDW 15.7 % (11.9-15.9) 06/17/17 15:00 Plt Count 110 K/MM3 (134-434) L 06/17/17 15:00 MPV 9.5 fl (7.5-11.1) 06/17/17 15:00 Sodium 137 mmol/L (136-145) 06/17/17 15:00 Potassium 3.9 mmol/L (3.5-5.1) 06/17/17 15:00 Chloride 100 mmol/L (98-107) 06/17/17 15:00 Carbon Dioxide 23 mmol/L (21-32) 06/17/17 15:00 Anion Gap 14 (8-16) 06/17/17 15:00 BUN 11 mg/dL (7-18) D 06/17/17 15:00 Creatinine 0.7 mg/dL (0.7-1.3) D 06/17/17 15:00 Creat Clearance w eGFR > 60 (>60) 06/17/17 15:00 POC Glucometer 115 UNITS (80-120) 06/17/17 13:30 Random Glucose 159 mg/dL (74-106) H D 06/17/17 15:00 Calcium 9.3 mg/dL (8.5-10.1) 06/17/17 15:00 Total Bilirubin 0.6 mg/dL (0.2-1.0) D 06/17/17 15:00 AST 98 U/L (15-37) H 06/17/17 15:00 ALT 87 U/L (12-78) H D 06/17/17 15:00 Alkaline Phosphatase 147 U/L (45-117) H 06/17/17 15:00 Total Protein 7.9 g/dl (6.4-8.2) 06/17/17 15:00 Albumin 3.4 g/dl (3.4-5.0) 06/17/17 15:00 Urine Color Dkyellow 06/17/17 15:15 Urine Appearance Clear 06/17/17 15:15 Urine pH 7.0 (5.0-8.0) 06/17/17 15:15 Ur Specific [place] 1.015 (1.001-1.035) 06/17/17 15:15 Urine Protein Negative (NEGATIVE) 06/17/17 15:15 Urine Glucose (UA) Negative (NEGATIVE) 06/17/17 15:15 Urine Ketones Trace (NEGATIVE) H 06/17/17 15:15 Urine Blood Negative (NEGATIVE) 06/17/17 15:15 Urine Nitrite Negative (NEGATIVE) 06/17/17 15:15 Urine Bilirubin Negative (NEGATIVE) 06/17/17 15:15 Urine Urobilinogen 4.0 e.u/dl mg/dL (0.2-1.0) 06/17/17 15:15 Ur Leukocyte Esterase Negative (NEGATIVE) 06/17/17 15:15 RPR Titer Nonreactive (NONREACTIVE) 06/17/17 15:00 HIV 1&2 Antibody Screen Negative 06/17/17 15:00 HIV P24 Antigen Negative 06/17/17 15:00 labs noted Pertinent Admission Physical Exam Findings: Vital Signs Temperature 97.3 F L 06/21/17 06:00 Pulse Rate 68 06/21/17 06:00 Respiratory Rate 18 06/21/17 06:00 Blood Pressure 132/80 06/21/17 06:00 O2 Sat by Pulse Oximetry (%) Laboratory Last Values WBC 6.8 K/mm3 (4.0-10.0) D 06/17/17 15:00 RBC 5.18 M/mm3 (4.00-5.60) 06/17/17 15:00 Hgb 14.7 GM/dL (11.7-16.9) 06/17/17 15:00 Hct 45.4 % (35.4-49) 06/17/17 15:00 MCV 87.6 fl (80-96) 06/17/17 15:00 MCH 28.4 pg (25.7-33.7) 06/17/17 15:00 MCHC 32.4 g/dl (32.0-35.9) 06/17/17 15:00 RDW 15.7 % (11.9-15.9) 06/17/17 15:00 Plt Count 110 K/MM3 (134-434) L 06/17/17 15:00 MPV 9.5 fl (7.5-11.1) 06/17/17 15:00 Sodium 137 mmol/L (136-145) 06/17/17 15:00 Potassium 3.9 mmol/L (3.5-5.1) 06/17/17 15:00 Chloride 100 mmol/L (98-107) 06/17/17 15:00 Carbon Dioxide 23 mmol/L (21-32) 06/17/17 15:00 Anion Gap 14 (8-16) 06/17/17 15:00 BUN 11 mg/dL (7-18) D 06/17/17 15:00 Creatinine 0.7 mg/dL (0.7-1.3) D 06/17/17 15:00 Creat Clearance w eGFR > 60 (>60) 06/17/17 15:00 POC Glucometer 115 UNITS (80-120) 06/17/17 13:30 Random Glucose 159 mg/dL (74-106) H D 06/17/17 15:00 Calcium 9.3 mg/dL (8.5-10.1) 06/17/17 15:00 Total Bilirubin 0.6 mg/dL (0.2-1.0) D 06/17/17 15:00 AST 98 U/L (15-37) H 06/17/17 15:00 ALT 87 U/L (12-78) H D 06/17/17 15:00 Alkaline Phosphatase 147 U/L (45-117) H 06/17/17 15:00 Total Protein 7.9 g/dl (6.4-8.2) 06/17/17 15:00 Albumin 3.4 g/dl (3.4-5.0) 06/17/17 15:00 Urine Color Dkyellow 06/17/17 15:15 Urine Appearance Clear 06/17/17 15:15 Urine pH 7.0 (5.0-8.0) 06/17/17 15:15 Ur Specific [place] 1.015 (1.001-1.035) 06/17/17 15:15 Urine Protein Negative (NEGATIVE) 06/17/17 15:15 Urine Glucose (UA) Negative (NEGATIVE) 06/17/17 15:15 Urine Ketones Trace (NEGATIVE) H 06/17/17 15:15 Urine Blood Negative (NEGATIVE) 06/17/17 15:15 Urine Nitrite Negative (NEGATIVE) 06/17/17 15:15 Urine Bilirubin Negative (NEGATIVE) 06/17/17 15:15 Urine Urobilinogen 4.0 e.u/dl mg/dL (0.2-1.0) 06/17/17 15:15 Ur Leukocyte Esterase Negative (NEGATIVE) 06/17/17 15:15 RPR Titer Nonreactive (NONREACTIVE) 06/17/17 15:00 HIV 1&2 Antibody Screen Negative 06/17/17 15:00 HIV P24 Antigen Negative 06/17/17 15:00 Labs noted - Treatment Hospital Course: Detox Protocol Followed, Detoxed Safely, Responded well, Discharged Condition Good Patient has Accepted a Rehab Referral to: Got a besd on 5N; declines rehab. Will f/u own OTP - Medication Discharge Medications: Ambulatory Orders Albuterol Sulfate Inhaler - [Ventolin Hfa Inhaler -] 2 inh PO Q4H PRN 04/02/17 Cephalexin [Keflex] 500 mg PO Q6H 06/17/17 Folic Acid - 1 mg PO DAILY 06/17/17 Loratadine [Claritin -] 10 mg PO DAILY 06/17/17 Aripiprazole [Abilify -] 2 mg PO DAILY #30 tablet 06/18/17 Bupropion HCl [Bupropion Xl] 150 mg PO DAILY #30 tab.er.24h 06/18/17 Quetiapine Fumarate [Seroquel -] 100 mg PO HS #30 tablet 06/18/17 - Diagnosis (1) Alcohol dependence with uncomplicated withdrawal Current Visit: Yes Status: Acute (2) Cocaine dependence Current Visit: Yes Status: Acute Qualifiers: Substance use status: uncomplicated Qualified Code(s): F14.20 - Cocaine dependence, uncomplicated (3) Liver cirrhosis Current Visit: Yes Status: Chronic Qualifiers: Hepatic cirrhosis type: unspecified hepatic cirrhosis Ascites presence: with ascites Qualified Code(s): K74.60 - Unspecified cirrhosis of liver (4) Hepatitis C Current Visit: No Status: Chronic Qualifiers: Viral hepatitis chronicity: chronic Hepatic coma status: without hepatic coma Qualified Code(s): B18.2 - Chronic viral hepatitis C (5) Methadone maintenance therapy patient Current Visit: Yes Status: Chronic (6) Opioid dependence on agonist therapy Current Visit: Yes Status: Chronic - AMA Did Patient Leave Against Medical Advice: No
[2017-06-21 11:44] VITALS: BP 119/74; PULSE 76; TEMP 98.1
== END 2017-06-21 10:14 | disposition home or self-care (01) | DRG 773 ==
LOC: YASAS 10:01 → Y6N 14:07
PROVIDERS: ADMIT Internal Medicine; ATTEND Internal Medicine
PROC: HZ2ZZZZ Detoxification Services for Substance Abuse Treatment (ICD-10-PCS; principal; 2017-06-17)
DX: F11.20 Opioid dependence, uncomplicated (principal); F10.230 Alcohol dependence with withdrawal, uncomplicated; F14.20 Cocaine dependence, uncomplicated; F12.20 Cannabis dependence, uncomplicated; F17.210 Nicotine dependence, cigarettes, uncomplicated; F32.9 Major depressive disorder, single episode, unspecified; F19.24 Other psychoactive substance dependence with psychoactive substance-induced mood disorder; K74.60 Unspecified cirrhosis of liver; B18.2 Chronic viral hepatitis C
CPT/HCPCS: 36415; 80053; 81003; 85027; 86593; 87389; 93005; 93010

== ENCOUNTER 2017-09-22 12:25 | Inpatient (IN) | payer OTHER ==
[2017-09-22 13:42] VITALS: BMI 33.2
--- NOTE | 2017-09-22 15:38 | HP ---
CIWA Score - CIWA Score Nausea/Vomitin Muscle Tremors: 3 Anxiety: 3 Agitation: 3 Paroxysmal Sweats: 2 Orientation: 0-Oriented Tacttile Disturbances: 2-Mild Itch/Numbness/Burn Auditory Disturbances: 2-Mild Harshness/Frighten Visual Disturbances: 1-Very Mild Sensitivity Headache: 2-Mild CIWA-Ar Total Score: 21 Admission ROS [facility] - HPI Chief Complaint: I NEED HELP TO STOP DRINKING ALCOHOL,COCAINE,KLONOPIN,MARIJUANA Allergies/Adverse Reactions: Allergies Allergy/AdvReac Type Severity Reaction Status Date / Time shellfish derived Allergy Severe Hives Verified 09/22/17 15:30 No Known Drug Allergies Allergy Verified 09/22/17 15:30 History of Present Illness: THIS 52 YEARS OLD MALE WITH ALCOHOL,COCAINE,KLONOPIN,MARIJUANA DEPENDENCE, SEEKING DETOX,WITHDRAWAL SYMPTOM,LAST DETOX 08/24/17 TO 08/28/17 HEPATITIS C TREATED TYPE 2 DM MMTP 110 MGS/DAY,LAST MEDICATED TODAY SCHIZO AFFECTIVE DISORDER COPD NO SIGNIFICANT PERIOD OF SOBRIETY HAS BOTTLE TO TAKE HOME 110 MGS FOR 09/23/17 - Ebola screening Have you traveled outside of the country in the last 21 days: No Have you had contact with anyone from an Ebola affected area: No Have you been sick,other than usual withdrawal symptoms: No - Review of Systems Constitutional: Loss of Appetite, Malaise, Night Sweats, Changes in sleep EENT: reports: Tearing, Nose Congestion Respiratory: reports: No Symptoms reported, Other (COPD) GI: reports: Diarrhea, Nausea, Vomiting, Abdominal cramping : reports: No Symptoms Reported Musculoskeletal: reports: Back Pain, Muscle Pain Integumentary: reports: Dryness Neuro: reports: Headache, Tremors Endocrine: reports: No Symptoms Reported Hematology: reports: No Symptoms Reported Psychiatric: reports: No Sypmtoms Reported (SCHIZOAFFECTIVE DISORER), Judgement Intact, Mood/Affect Appropiate, Orientated x3 Patient History - Patient Medical History Hx Anemia: No Hx Asthma: No Hx Chronic Obstructive Pulmonary Disease (COPD): Yes (NO MED) Hx Cancer: No Hx Cardiac Disorders: No Hx Congestive Heart Failure: No Hx Hypertension: No Hx Hypercholesterolemia: No Hx Pacemaker: No HX Cerebrovascular Accident: No Hx Seizures: Yes (2017) Hx Dementia: No Hx Diabetes: No Hx Gastrointestinal Disorders: No Hx Liver Disease: Yes (Cirrhosis.) Hx Genitourinary Disorders: No Hx Sexually Transmitted Disorders: No Hx Renal Disease (ESRD): No Hx Thyroid Disease: No Hx Human Immunodeficiency Virus (HIV): No (Last Tested: 05/2017: NEGATIVE.) Hx Hepatitis C: Yes (TREATED) Hx Depression: Yes Hx Suicide Attempt: No Hx Bipolar Disorder: No Hx Schizophrenia: Yes (schizoeffective disorder) Other Medical History: NO SUICIDAL,NO HOMICIDAL - Patient Surgical History Past Surgical History: Yes Hx Neurologic Surgery: No Hx Cataract Extraction: No Hx Cardiac Surgery: No Hx Lung Surgery: No Hx Breast Surgery: No Hx Breast Biopsy: No Hx Abdominal Surgery: Yes (removal fb from stomach ,exploratoty lap in 03/21) Hx Appendectomy: No Hx Cholecystectomy: No Hx Genitourinary Surgery: No Hx Section: No Hx Orthopedic Surgery: No Other Surgical History: incisional hernia after surgery Anesthesia Reaction: No - PPD History Documented Results: Positive w/proof Results: CXR neg 12/15/16 PPD to be Administered?: No - Smoking Cessation Smoking history: Current every day smoker Have you smoked in the past 12 months: Yes Aproximately how many cigarettes per day: 2 Cigars Per Day: 1 Hx Chewing Tobacco Use: No Initiated information on smoking cessation: Yes 'Breaking Loose' booklet given: 09/22/17 - Substance & Tx. History Hx Alcohol Use: Yes Hx Substance Use: Yes Substance Use Type: Alcohol, Cocaine, Marijuana, Tranquilizers Hx Substance Use Treatment: Yes ([facility] 08/24/17 TO 08/28/17) - Substances Abused k2 Route: Smoking Frequency: Daily Amount used: $20 Age of first use: 49 Date of Last Use: 09/21/17 Alcohol Route: Oral Frequency: Daily Amount used: 2 pints marcia/ 12 24 oz beers Age of first use: 12 Date of Last Use: 09/22/17 Crack Route: Inhalation Amount used: $50 Age of first use: 32 Date of Last Use: 09/21/17 Marijuana/Hashish Route: Smoking Frequency: Daily Amount used: $10 Age of first use: 15 Date of Last Use: 09/21/17 Benzodiazepine (Klonopin) Route: Oral Frequency: Daily Amount used: 2mg Age of first use: 32 Date of Last Use: 09/19/17 Family Disease History - Family Disease History Family Disease History: Diabetes: Mother, CA: Grandparent (, Throat Ca.) , Father (Alcohol,, Throat Ca.), Other: Father Admission Physical Exam S - Vital Signs Vital Signs: Vital Signs - 24 hr 09/22/17 13:41 Temperature 96.7 F L Pulse Rate 85 Respiratory 20 Rate Blood Pressure 148/82 - Physical General Appearance: Yes: Moderate Distress, Tremorous, Irritable, Sweating, Anxious HEENTM: Yes: Normal ENT Inspection, DEBO, Pharynx Normal Respiratory: Yes: Lungs Clear, Normal Breath Sounds, No Respiratory Distress Neck: Yes: Within Normal Limits, Supple, Trachea in good position Breast: Yes: Within Normal Limits Cardiology: Yes: Within Normal Limits, Regular Rhythm, Regular Rate, S1, S2 Abdominal: Yes: Within Normal Limits, Normal Bowel Sounds, Non Tender, Soft, Surgical Scar (INCISIONAL HERNIA) Genitourinary: Yes: Within Normal Limits Back: Yes: Muscle Spasm Musculoskeletal: Yes: full range of Motion, Back pain, Muscle Pain Extremities: Yes: Normal Range of Motion, Tremors Neurological: Yes: aerophysicist II-XII NML intact, Alert, Motor Strength 5/5, Normal Mood /Affect Integumentary: Yes: Dry Lymphatic: Yes: Within Normal Limits - Diagnostic (1) Alcohol dependence with uncomplicated withdrawal Current Visit: No Status: Acute (2) Cannabis dependence Current Visit: No Status: Acute (3) Cocaine dependence Current Visit: No Status: Acute Qualifiers: Substance use status: uncomplicated Qualified Code(s): F14.20 - Cocaine dependence, uncomplicated (4) Opioid dependence on agonist therapy Current Visit: No Status: Acute (5) COPD (chronic obstructive pulmonary disease) Current Visit: No Status: Chronic Qualifiers: COPD type: unspecified COPD Qualified Code(s): J44.9 - Chronic obstructive pulmonary disease, unspecified (6) Drug withdrawal seizure Current Visit: No Status: Chronic Qualifiers: Complication of substance-induced condition: with unspecified complication Qualified Code(s): F19.239 - Other psychoactive substance dependence with withdrawal, unspecified; R56.9 - Unspecified convulsions; R56.9 - Unspecified convulsions; R56.9 - Unspecified convulsions; R56.9 - Unspecified convulsions (7) Hepatitis C Current Visit: No Status: Chronic Qualifiers: Viral hepatitis chronicity: chronic Hepatic coma status: without hepatic coma Qualified Code(s): B18.2 - Chronic viral hepatitis C (8) Liver cirrhosis Current Visit: No Status: Chronic Qualifiers: Hepatic cirrhosis type: unspecified hepatic cirrhosis Ascites presence: with ascites Qualified Code(s): K74.60 - Unspecified cirrhosis of liver (9) History of seizure Current Visit: No Status: Suspected Comment: Due to Withdrawal. (10) Schizoaffective disorder Current Visit: No Status: Suspected Qualifiers: Schizoaffective disorder type: unspecified Qualified Code(s): F25.9 - Schizoaffective disorder, unspecified Comment: As per self-report.Off medications for months.Chronic abstention from OPD psychiatric care. (11) Uncomplicated sedative, hypnotic or anxiolytic withdrawal Current Visit: Yes Status: Acute (12) Incisional hernia Current Visit: Yes Status: Acute Cleared for Admission [facility] - Detox or Rehab [facility] Level of Care: Medically Managed Detox Regimen/Protocol: Librium [facility] Breath Alcohol Content Breath Alcohol Content: 0.053 Urine Drug Screen - Results Drug Screen Negative: No Urine Drug Screen Results: THC-Marijuana, ARLEN-Cocaine, BZO-Benzodiazepines, MTD- Methadone
[2017-09-22] MEDS ORDERED: chlordiazePOXIDE HCL 25 MG CAPSULE PO ONE (15:56)
[2017-09-22] MEDS ORDERED: guaiFENesin/D-METHORPHAN HB 10 ML UNIT-DOSE CUPS PO PRN (15:56)
[2017-09-22] MEDS ORDERED: MAGNESIUM HYDROX 2400MG/30ML ORAL SUSPENSION 30 ML CUP PO PRN (15:56)
[2017-09-22] MEDS ORDERED: LOPERAMIDE HCL 2 MG CAPSULE PO PRN (15:56)
[2017-09-22] MEDS ORDERED: MAGNESIUM CITRATE 300 ML BOTTLE PO PRN (15:56)
[2017-09-22] MEDS ORDERED: P-EPHED 60MG/TRIPROLIDI 2.5MG TABLET PO PRN (15:56)
[2017-09-22] MEDS ORDERED: chlordiazePOXIDE HCL 25 MG CAPSULE PO PRN (15:56)
[2017-09-22] MEDS ORDERED: MENTHOL/PHENOL 1 EACH UD MM PRN (15:56)
[2017-09-22] MEDS ORDERED: NICOTINE POLACRILEX 2 MG GUM BC PRN (15:56)
[2017-09-22] MEDS ORDERED: MAG HYDROX/AL HYDROX/SIMETH 30 ML UNIT-DOSE CUP PO PRN (15:56)
[2017-09-22] MEDS ORDERED: IBUPROFEN 400 MG TABLET (FP) PO PRN (15:56)
[2017-09-22] MEDS ORDERED: hydrOXYzine PAMOATE 25 MG CAPSULE (FP) PO PRN (15:56)
[2017-09-22] MEDS ORDERED: ALBUTEROL SO4 18 GM HFA INHALER IH PRN (16:02)
[2017-09-22] MEDS ORDERED: metFORMIN HCL 500 MG TABLET (FP) PO SCH (17:00)
[2017-09-22] MEDS: metFORMIN HCL 500 MG TABLET (FP) PO SCH (18:09)
[2017-09-22] MEDS: NICOTINE 14 MG/24 HOURS TOPICAL PATCH TD SCH (18:09)
[2017-09-22] MEDS: chlordiazePOXIDE HCL 25 MG CAPSULE PO SCH ×2 (18:09→22:33)
[2017-09-22] MEDS: THIAMINE HCL 100 MG TABLET (FP) PO SCH (22:33)
[2017-09-22] MEDS: MELATONIN 5 MG TABLETS PO SCH (22:33)
[2017-09-23 01:52] LABS: URINE APPEARANCE CLEAR; URINE BILIRUBIN NEGATIVE (NEGATIVE); URINE BLOOD NEGATIVE (NEGATIVE); URINE COLOR YELLOW; URINE GLUCOSE (UA) 2+ (NEGATIVE); URINE KETONE NEGATIVE (NEGATIVE); URINE LEUK ESTERASE NEGATIVE (NEGATIVE); URINE NITRITE NEGATIVE (NEGATIVE); URINE PROTEIN NEGATIVE (NEGATIVE); URINE UROBILINOGEN 4.0 E.U/dl mg/dL (0.2-1.0)
[2017-09-23] MEDS ORDERED: METHADONE HCL 10 MG TABLET ONE (04:38)
[2017-09-23] MEDS ORDERED: METHADONE HCL 40 MG DISPERSABLE TABLET ONE (04:38)
[2017-09-23] MEDS: chlordiazePOXIDE HCL 25 MG CAPSULE PO SCH ×4 (04:46→22:16)
[2017-09-23] MEDS ORDERED: METHADONE HCL 10 MG TABLET PO ONE (06:00)
[2017-09-23] MEDS ORDERED: METHADONE 80 MG, METHADONE 30 MG PO ONE (06:00)
[2017-09-23] MEDS: metFORMIN HCL 500 MG TABLET (FP) PO SCH ×2 (06:24→17:48)
--- NOTE | 2017-09-23 09:22 | CONSULT ---
[facility] Psychiatric Consult - Data Date of interview: 09/23/17 Admission source: [facility] Identifying data: Readmission to [facility] for this 52 y/o male seeking detox treatment on 3 for alcohol,cocaine,xanax and marijuana dependence.Patient is single without children,homeless (lives in skilled nursing), unemployed and supported on SSI benefits. Substance Abuse History: Discussed with patient.Mr Saravia endorses a 35+ history of alcohol dependence (2 pints of marcia + 1-2 X 6 pack of beer daily) + marihuana abuse since age 15 (10 dollras a day) + K2 for past 3-4 years + daily use of clonazepam (2 mg) for 20 years. Details in current [facility] report : Smoking history: Current every day smoker. Have you smoked in the past 12 months: Yes. Aproximately how many cigarettes per day: 2. Cigars Per Day: 1. Hx Chewing Tobacco Use: No. Initiated information on smoking cessation: Yes. 'Breaking Loose' booklet given: 09/22/17. - Substance & Tx. History. Hx Alcohol Use: Yes. Hx Substance Use: Yes. Substance Use Type: Alcohol, Cocaine, Marijuana, Tranquilizers. Hx Substance Use Treatment: Yes ([facility] 08/24/17 TO 08/28/17). - Substances Abused. k2. Route: Smoking. Frequency: Daily. Amount used: $ 20. Age of first use: 49. Date of Last Use: 09/21/17. Alcohol. Route: Oral. Frequency: Daily. Amount used: 2 pints marcia/ 12 24 oz beers. Age of first use: 12. Date of Last Use: 09/22/17. Crack. Route: Inhalation. Amount used: $50. Age of first use: 32. Date of Last Use: 09/21/17. Marijuana/Hashish. Route: Smoking. Frequency: Daily. Amount used: $10. Age of first use: 15. Date of Last Use: 09/21/17. Benzodiazepine (Klonopin). Route: Oral. Frequency: Daily. Amount used: 2mg. Age of first use: 32. Date of Last Use: 09/19/17 Medical History: Cirrhosis of the liver,hepatitis C,COPD,diabetes mellitus, seizure disorder and a history of abdominal surgery (exploratory laparotomy/ removal of a foreign body in stomach) in 2016.Developed incisional hernia after surgery. Psychiatric History: Extensive history of mental illness.Several psychiatric hospitalizations ([facility], [facility]).Onset of psychiatric disturbances (20 years ago).Diagnosed with Schizoaffective Disorder.Treated with various pychotropic drugs (abilify,seroquel,bupropion,lithium,trazodone).Chronically non-adherent to medications / OPD care.Mr Saravia reports that he has been recently prescribed abilify (dose not recalled).Not taken for weeks.Currently on methadone maintenance (110 mg/day) at the [facility] in the [place].Patient denies history of suicide attempts. Physical/Sexual Abuse/Trauma History: Patient denies. Additional Comment: Urine Drug Screen Results: THC-Marijuana, ARLEN-Cocaine, BZO- Benzodiazepines, MTD-Methadone.Noted. Mental Status Exam - Mental Status Exam Alert and Oriented to: Time, Place, Person Cognitive Function: Good Patient Appearance: Well Groomed Mood: Nervous, Withdrawn, Hopeful Affect: Mood Congruent Patient Behavior: Fatigued, Appropriate, Cooperative Speech Pattern: Clear Voice Loudness: Normal Thought Process: Goal Oriented Thought Disorder: Not Present Hallucinations: Denies Suicidal Ideation: Denies Homicidal Ideation: Denies Insight/Judgement: Poor Sleep: Poorly, Difficulty falling asleep Appetite: Good Muscle strength/Tone: Normal Gait/Station: Normal Psychiatric Findings - Problem List ([place] 1, 2,3) (1) Opioid dependence on agonist therapy Current Visit: Yes Status: Acute (2) Alcohol dependence with uncomplicated withdrawal Current Visit: Yes Status: Acute (3) Uncomplicated sedative, hypnotic or anxiolytic withdrawal Current Visit: Yes Status: Acute (4) Benzodiazepine dependence Current Visit: Yes Status: Acute (5) Cannabis dependence Current Visit: Yes Status: Acute (6) Cocaine dependence Current Visit: Yes Status: Acute Qualifiers: Substance use status: uncomplicated Qualified Code(s): F14.20 - Cocaine dependence, uncomplicated (7) Nicotine dependence Current Visit: Yes Status: Acute Qualifiers: Nicotine product type: cigarettes Substance use status: in withdrawal Qualified Code(s): F17.213 - Nicotine dependence, cigarettes, with withdrawal (8) Substance induced mood disorder Current Visit: Yes Status: Acute (9) Schizoaffective disorder Current Visit: Yes Status: Suspected Qualifiers: Schizoaffective disorder type: unspecified Qualified Code(s): F25.9 - Schizoaffective disorder, unspecified Comment: By history.Non compliant with aftercare. (10) Insomnia Current Visit: Yes Status: Acute Qualifiers: Insomnia type: unspecified Qualified Code(s): G47.00 - Insomnia, unspecified - Initial Treatment Plan Initial Treatment Plan: Records are revisited.Sleep hygiene.psychoeducation.Detoxification in progress.Medications : abilify 10 mg po hs + wellbutrin XL 150 mg po daily + trazodone 50 mg po hs.Ordered.Side effects/benefits of these drugs are discussed with the patient.Mr Saravia is made aware of the risk of seizures,priapism,cardiovascular adverse events, oversedation and falls.Has expressed his agreement to this careplan.Observation.Medications are confirmed with the patient (via review of pharmacy claims of 09/09/17 + 09/11/17 @ [facility]).
--- NOTE | 2017-09-23 09:59 | EKG ---
Test Reason : Blood Pressure : / mmHG Vent. Rate : 086 BPM Atrial Rate : 086 BPM P-R Int : 150 ms QRS Dur : 090 ms QT Int : 382 ms P-R-T Axes : 049 -12 035 degrees QTc Int : 457 ms NORMAL SINUS RHYTHM NORMAL ECG WHEN COMPARED WITH ECG OF 24-AUG-2017 13:21, NO SIGNIFICANT CHANGE WAS FOUND Confirmed by MILLIE GUEVARA MD ([id number]) on 09/23/2017 9:58:49 AM Referred By: PS Confirmed By:MILLIE GUEVARA MD
[2017-09-23] MEDS: NICOTINE 14 MG/24 HOURS TOPICAL PATCH TD SCH (10:10)
[2017-09-23] MEDS: PRENATAL VITAMINS W/ FOLIC ACID TABLET (FP) PO SCH (10:10)
[2017-09-23 10:19] LABS: HEMATOCRIT 46.5 % (35.4-49); HEMOGLOBIN 15.4 GM/dL (11.7-16.9); MCH 29.1 pg (25.7-33.7); MCHC 33.1 g/dl (32.0-35.9); MEAN CELL VOLUME 88.1 fl (80-96); MEAN PLT VOLUME 11.6 fl (7.5-11.1); PLATELET COUNT 105 K/MM3 (134-434); RBC 5.27 M/mm3 (4.00-5.60); RDW 16.6 % (11.9-15.9); WHITE BLOOD COUNT 8.2 K/mm3 (4.0-10.0)
[2017-09-23 10:36] LABS: ALBUMIN 3.5 g/dl (3.4-5.0); ANION GAP 11 (8-16); BILIRUBIN,TOTAL 0.6 mg/dL (0.2-1.0); BLOOD UREA NITROGEN 9 mg/dL (7-18); CALCIUM 8.6 mg/dL (8.5-10.1); CHLORIDE 104 mmol/L (98-107); CO2 24 mmol/L (21-32); CREATININE 0.7 mg/dL (0.7-1.3); GLUCOSE,RANDOM 163 mg/dL (74-106); SGOT/AST 29 U/L (15-37); SODIUM 139 mmol/L (136-145); TOT PROT 7.7 g/dl (6.4-8.2)
[2017-09-23 10:44] LABS: ALK PHOS 138 U/L (45-117); SGPT/ALT 32 U/L (12-78)
[2017-09-23] MEDS ORDERED: LACTULOSE 20 GM/30 ML UDC (FOR ORAL USE ONLY) PO ONE (11:37)
--- NOTE | 2017-09-23 12:56 | PN ---
[facility] CIWA - CIWA Score Nausea/Vomitin-No Nausea/No Vomiting Muscle Tremors: 4-Moderate,w/Arms Extend Anxiety: 4-Mod. Anxious/Guarded Agitation: 3 Paroxysmal Sweats: 1-Minimal Palms Moist Orientation: 0-Oriented Tacttile Disturbances: 3-Moderate Itch/Numb/Burn Auditory Disturbances: 0-None Visual Disturbances: 0-None Headache: 0-None Present CIWA-Ar Total Score: 15 S Progress Note (SOAP) Subjective: ANXIETY,TREMORS,SLIGHT RESTLESSNESS, SWEATS, SLIGHT FACIAL FLUSHING. Objective: 09/23/17 12:55 Vital Signs Temperature 97.5 F L 09/23/17 09:33 Pulse Rate 85 09/23/17 09:33 Respiratory Rate 18 09/23/17 09:33 Blood Pressure 128/77 09/23/17 09:33 O2 Sat by Pulse Oximetry (%) Laboratory Last Values WBC 8.2 K/mm3 (4.0-10.0) D 09/23/17 06:00 RBC 5.27 M/mm3 (4.00-5.60) 09/23/17 06:00 Hgb 15.4 GM/dL (11.7-16.9) 09/23/17 06:00 Hct 46.5 % (35.4-49) 09/23/17 06:00 MCV 88.1 fl (80-96) 09/23/17 06:00 MCH 29.1 pg (25.7-33.7) 09/23/17 06:00 MCHC 33.1 g/dl (32.0-35.9) 09/23/17 06:00 RDW 16.6 % (11.9-15.9) H 09/23/17 06:00 Plt Count 105 K/MM3 (134-434) L D 09/23/17 06:00 MPV 11.6 fl (7.5-11.1) H D 09/23/17 06:00 Sodium 139 mmol/L (136-145) 09/23/17 06:00 Potassium 4.0 mmol/L (3.5-5.1) 09/23/17 06:00 Chloride 104 mmol/L (98-107) 09/23/17 06:00 Carbon Dioxide 24 mmol/L (21-32) 09/23/17 06:00 Anion Gap 11 (8-16) 09/23/17 06:00 BUN 9 mg/dL (7-18) 09/23/17 06:00 Creatinine 0.7 mg/dL (0.7-1.3) 09/23/17 06:00 Creat Clearance w eGFR > 60 (>60) 09/23/17 06:00 POC Glucometer 115 UNITS (80-120) 09/23/17 04:45 Random Glucose 163 mg/dL (74-106) H 09/23/17 06:00 Calcium 8.6 mg/dL (8.5-10.1) 09/23/17 06:00 Total Bilirubin 0.6 mg/dL (0.2-1.0) D 09/23/17 06:00 AST 29 U/L (15-37) D 09/23/17 06:00 ALT 32 U/L (12-78) D 09/23/17 06:00 Alkaline Phosphatase 138 U/L (45-117) H D 09/23/17 06:00 Total Protein 7.7 g/dl (6.4-8.2) 09/23/17 06:00 Albumin 3.5 g/dl (3.4-5.0) 09/23/17 06:00 Urine Color Yellow 09/22/17 22:55 Urine Appearance Clear 09/22/17 22:55 Urine pH 7.0 (5.0-8.0) 09/22/17 22:55 Ur Specific [place] 1.013 (1.001-1.035) 09/22/17 22:55 Urine Protein Negative (NEGATIVE) 09/22/17 22:55 Urine Glucose (UA) 2+ (NEGATIVE) H 09/22/17 22:55 Urine Ketones Negative (NEGATIVE) 09/22/17 22:55 Urine Blood Negative (NEGATIVE) 09/22/17 22:55 Urine Nitrite Negative (NEGATIVE) 09/22/17 22:55 Urine Bilirubin Negative (NEGATIVE) 09/22/17 22:55 Urine Urobilinogen 4.0 e.u/dl mg/dL (0.2-1.0) 09/22/17 22:55 Ur Leukocyte Esterase Negative (NEGATIVE) 09/22/17 22:55 Assessment: 09/23/17 12:55 WITHDRAWAL SX Plan: CONTINUE DETOX INCREASE PO FLUIDS.
[2017-09-23] MEDS: THIAMINE HCL 100 MG TABLET (FP) PO SCH (22:16)
[2017-09-23] MEDS: ARIPiprazole 10 MG TABLET PO SCH (22:16)
[2017-09-23] MEDS: LACTULOSE 20 GM/30 ML UDC (FOR ORAL USE ONLY) PO SCH (22:16)
[2017-09-23] MEDS: traZODone HCL 50 MG TABLET (FP) PO SCH (22:17)
[2017-09-23] MEDS: MELATONIN 5 MG TABLETS PO SCH (22:17)
[2017-09-24] MEDS ORDERED: METHADONE HCL 40 MG DISPERSABLE TABLET ONE (04:44)
[2017-09-24] MEDS ORDERED: METHADONE HCL 10 MG TABLET ONE (04:44)
[2017-09-24] MEDS: chlordiazePOXIDE HCL 25 MG CAPSULE PO SCH ×2 (04:57→10:15)
[2017-09-24] MEDS ORDERED: METHADONE HCL 10 MG TABLET PO SCH (06:00)
[2017-09-24] MEDS: metFORMIN HCL 500 MG TABLET (FP) PO SCH ×2 (06:26→17:25)
[2017-09-24] MEDS: METHADONE 80 MG, METHADONE 30 MG PO SCH (06:26)
[2017-09-24] MEDS ORDERED: ARIPiprazole 10 MG TABLET PO SCH (10:00)
[2017-09-24] MEDS: PRENATAL VITAMINS W/ FOLIC ACID TABLET (FP) PO SCH (10:15)
[2017-09-24] MEDS: NICOTINE 14 MG/24 HOURS TOPICAL PATCH TD SCH (10:15)
[2017-09-24] MEDS: LACTULOSE 20 GM/30 ML UDC (FOR ORAL USE ONLY) PO SCH ×2 (10:15→22:18)
--- NOTE | 2017-09-24 11:07 | PN ---
[facility] CIWA - CIWA Score Nausea/Vomitin-No Nausea/No Vomiting Muscle Tremors: 4-Moderate,w/Arms Extend Anxiety: 4-Mod. Anxious/Guarded Agitation: 4-Moderately Restless Paroxysmal Sweats: 1-Minimal Palms Moist Orientation: 0-Oriented Tacttile Disturbances: 0-None Auditory Disturbances: 0-None Visual Disturbances: 0-None Headache: 0-None Present CIWA-Ar Total Score: 13 S Progress Note (SOAP) Subjective: ANXIETY,SWEATS,SLIGHT TREMORS,FATIGUE. Objective: 09/24/17 11:06 Vital Signs Temperature 98.3 F 09/24/17 09:42 Pulse Rate 60 09/24/17 09:42 Respiratory Rate 18 09/24/17 09:42 Blood Pressure 108/59 09/24/17 09:42 O2 Sat by Pulse Oximetry (%) Laboratory Last Values WBC 8.2 K/mm3 (4.0-10.0) D 09/23/17 06:00 RBC 5.27 M/mm3 (4.00-5.60) 09/23/17 06:00 Hgb 15.4 GM/dL (11.7-16.9) 09/23/17 06:00 Hct 46.5 % (35.4-49) 09/23/17 06:00 MCV 88.1 fl (80-96) 09/23/17 06:00 MCH 29.1 pg (25.7-33.7) 09/23/17 06:00 MCHC 33.1 g/dl (32.0-35.9) 09/23/17 06:00 RDW 16.6 % (11.9-15.9) H 09/23/17 06:00 Plt Count 105 K/MM3 (134-434) L D 09/23/17 06:00 MPV 11.6 fl (7.5-11.1) H D 09/23/17 06:00 Sodium 139 mmol/L (136-145) 09/23/17 06:00 Potassium 4.0 mmol/L (3.5-5.1) 09/23/17 06:00 Chloride 104 mmol/L (98-107) 09/23/17 06:00 Carbon Dioxide 24 mmol/L (21-32) 09/23/17 06:00 Anion Gap 11 (8-16) 09/23/17 06:00 BUN 9 mg/dL (7-18) 09/23/17 06:00 Creatinine 0.7 mg/dL (0.7-1.3) 09/23/17 06:00 Creat Clearance w eGFR > 60 (>60) 09/23/17 06:00 POC Glucometer 181 UNITS (80-120) 09/24/17 04:56 Random Glucose 163 mg/dL (74-106) H 09/23/17 06:00 Calcium 8.6 mg/dL (8.5-10.1) 09/23/17 06:00 Total Bilirubin 0.6 mg/dL (0.2-1.0) D 09/23/17 06:00 AST 29 U/L (15-37) D 09/23/17 06:00 ALT 32 U/L (12-78) D 09/23/17 06:00 Alkaline Phosphatase 138 U/L (45-117) H D 09/23/17 06:00 Total Protein 7.7 g/dl (6.4-8.2) 09/23/17 06:00 Albumin 3.5 g/dl (3.4-5.0) 09/23/17 06:00 Urine Color Yellow 09/22/17 22:55 Urine Appearance Clear 09/22/17 22:55 Urine pH 7.0 (5.0-8.0) 09/22/17 22:55 Ur Specific [place] 1.013 (1.001-1.035) 09/22/17 22:55 Urine Protein Negative (NEGATIVE) 09/22/17 22:55 Urine Glucose (UA) 2+ (NEGATIVE) H 09/22/17 22:55 Urine Ketones Negative (NEGATIVE) 09/22/17 22:55 Urine Blood Negative (NEGATIVE) 09/22/17 22:55 Urine Nitrite Negative (NEGATIVE) 09/22/17 22:55 Urine Bilirubin Negative (NEGATIVE) 09/22/17 22:55 Urine Urobilinogen 4.0 e.u/dl mg/dL (0.2-1.0) 09/22/17 22:55 Ur Leukocyte Esterase Negative (NEGATIVE) 09/22/17 22:55 RPR Titer Nonreactive (NONREACTIVE) 09/23/17 06:00 HIV 1&2 Antibody Screen Negative 09/22/17 06:00 HIV P24 Antigen Negative 09/22/17 06:00 Assessment: 09/24/17 11:06 WITHDRAWAL SX Plan: CONTINUE DETOX
[2017-09-24] MEDS: chlordiazePOXIDE 5 MG CAPSULE PO SCH ×2 (17:25→22:18)
[2017-09-24] MEDS: ACETAMINOPHEN 325 MG TABLET (FP) PO PRN (19:55)
[2017-09-24] MEDS: THIAMINE HCL 100 MG TABLET (FP) PO SCH (22:17)
[2017-09-24] MEDS: MELATONIN 5 MG TABLETS PO SCH (22:18)
[2017-09-24] MEDS: ARIPiprazole 10 MG TABLET PO SCH (22:18)
[2017-09-24] MEDS: traZODone HCL 50 MG TABLET (FP) PO SCH (22:18)
[2017-09-25] MEDS ORDERED: METHADONE HCL 40 MG DISPERSABLE TABLET ONE (04:16)
[2017-09-25] MEDS ORDERED: METHADONE HCL 10 MG TABLET ONE (04:16)
[2017-09-25] MEDS: METHADONE 80 MG, METHADONE 30 MG PO SCH (05:01)
[2017-09-25] MEDS: chlordiazePOXIDE 5 MG CAPSULE PO SCH ×2 (05:01→10:21)
[2017-09-25] MEDS: metFORMIN HCL 500 MG TABLET (FP) PO SCH ×2 (07:09→17:10)
[2017-09-25] MEDS: LACTULOSE 20 GM/30 ML UDC (FOR ORAL USE ONLY) PO SCH ×2 (10:20→22:07)
[2017-09-25] MEDS: PRENATAL VITAMINS W/ FOLIC ACID TABLET (FP) PO SCH (10:21)
[2017-09-25] MEDS: NICOTINE 14 MG/24 HOURS TOPICAL PATCH TD SCH (10:21)
--- NOTE | 2017-09-25 11:41 | PN ---
[facility] Progress Note (SOAP) Subjective: ANXIETY,SWEATS,FACIAL RASH. Objective: 09/25/17 11:38 Vital Signs Temperature 97.7 F 09/25/17 10:24 Pulse Rate 65 09/25/17 10:24 Respiratory Rate 19 09/25/17 10:24 Blood Pressure 106/66 09/25/17 10:24 O2 Sat by Pulse Oximetry (%) Laboratory Last Values WBC 8.2 K/mm3 (4.0-10.0) D 09/23/17 06:00 RBC 5.27 M/mm3 (4.00-5.60) 09/23/17 06:00 Hgb 15.4 GM/dL (11.7-16.9) 09/23/17 06:00 Hct 46.5 % (35.4-49) 09/23/17 06:00 MCV 88.1 fl (80-96) 09/23/17 06:00 MCH 29.1 pg (25.7-33.7) 09/23/17 06:00 MCHC 33.1 g/dl (32.0-35.9) 09/23/17 06:00 RDW 16.6 % (11.9-15.9) H 09/23/17 06:00 Plt Count 105 K/MM3 (134-434) L D 09/23/17 06:00 MPV 11.6 fl (7.5-11.1) H D 09/23/17 06:00 Sodium 139 mmol/L (136-145) 09/23/17 06:00 Potassium 4.0 mmol/L (3.5-5.1) 09/23/17 06:00 Chloride 104 mmol/L (98-107) 09/23/17 06:00 Carbon Dioxide 24 mmol/L (21-32) 09/23/17 06:00 Anion Gap 11 (8-16) 09/23/17 06:00 BUN 9 mg/dL (7-18) 09/23/17 06:00 Creatinine 0.7 mg/dL (0.7-1.3) 09/23/17 06:00 Creat Clearance w eGFR > 60 (>60) 09/23/17 06:00 POC Glucometer 147 UNITS (80-120) 09/25/17 05:00 Random Glucose 163 mg/dL (74-106) H 09/23/17 06:00 Calcium 8.6 mg/dL (8.5-10.1) 09/23/17 06:00 Total Bilirubin 0.6 mg/dL (0.2-1.0) D 09/23/17 06:00 AST 29 U/L (15-37) D 09/23/17 06:00 ALT 32 U/L (12-78) D 09/23/17 06:00 Alkaline Phosphatase 138 U/L (45-117) H D 09/23/17 06:00 Total Protein 7.7 g/dl (6.4-8.2) 09/23/17 06:00 Albumin 3.5 g/dl (3.4-5.0) 09/23/17 06:00 Urine Color Yellow 09/22/17 22:55 Urine Appearance Clear 09/22/17 22:55 Urine pH 7.0 (5.0-8.0) 09/22/17 22:55 Ur Specific [place] 1.013 (1.001-1.035) 09/22/17 22:55 Urine Protein Negative (NEGATIVE) 09/22/17 22:55 Urine Glucose (UA) 2+ (NEGATIVE) H 09/22/17 22:55 Urine Ketones Negative (NEGATIVE) 09/22/17 22:55 Urine Blood Negative (NEGATIVE) 09/22/17 22:55 Urine Nitrite Negative (NEGATIVE) 09/22/17 22:55 Urine Bilirubin Negative (NEGATIVE) 09/22/17 22:55 Urine Urobilinogen 4.0 e.u/dl mg/dL (0.2-1.0) 09/22/17 22:55 Ur Leukocyte Esterase Negative (NEGATIVE) 09/22/17 22:55 RPR Titer Nonreactive (NONREACTIVE) 09/23/17 06:00 HIV 1&2 Antibody Screen Negative 09/22/17 06:00 HIV P24 Antigen Negative 09/22/17 06:00 RASH ON LEFT SIDE OF NOSE. SLIGHT REDNESS WITH DRY SCALY SKIN TO AREA. Assessment: 09/25/17 11:40 WITHDRAWAL SX RASH Plan: CONTINUE DETOX HYDROCORTISONE CREAM DIRECTED
[2017-09-25] MEDS: chlordiazePOXIDE HCL 10 MG CAPSULE PO SCH ×2 (17:10→22:06)
[2017-09-25] MEDS: ACETAMINOPHEN 325 MG TABLET (FP) PO PRN (17:12)
[2017-09-25] MEDS ORDERED: HYDROCORTISONE 1% TOPICAL CREAM 30 GM TUBE TP SCH (22:00)
[2017-09-25] MEDS: THIAMINE HCL 100 MG TABLET (FP) PO SCH (22:05)
[2017-09-25] MEDS: ARIPiprazole 10 MG TABLET PO SCH (22:06)
[2017-09-25] MEDS: traZODone HCL 50 MG TABLET (FP) PO SCH (22:07)
[2017-09-25] MEDS: MELATONIN 5 MG TABLETS PO SCH (22:49)
[2017-09-26] MEDS ORDERED: METHADONE HCL 10 MG TABLET ONE (03:32)
[2017-09-26] MEDS ORDERED: METHADONE HCL 40 MG DISPERSABLE TABLET ONE (03:33)
[2017-09-26] MEDS: chlordiazePOXIDE HCL 10 MG CAPSULE PO SCH (05:07)
[2017-09-26] MEDS: METHADONE 80 MG, METHADONE 30 MG PO SCH (05:07)
[2017-09-26 06:19] VITALS: PULSE 70
[2017-09-26] MEDS: metFORMIN HCL 500 MG TABLET (FP) PO SCH (07:53)
[2017-09-26 09:42] VITALS: BP 111/67; TEMP 96.9
--- NOTE | 2017-09-26 18:07 | PN ---
S Progress Note (SOAP) Subjective: Patient denies any current Detox symptoms and reports that he feels well overall. Objective: PATIENT A & O X 3, OBSERVED AMBULATING ON UNIT. NO ACUTE DISTRESS. 09/26/17 18:05 Vital Signs Temperature 96.9 F L 09/26/17 09:15 Pulse Rate 70 09/26/17 09:15 Respiratory Rate 20 09/26/17 09:15 Blood Pressure 111/67 09/26/17 09:15 O2 Sat by Pulse Oximetry (%) Laboratory Tests 09/22/17 09/22/17 09/22/17 06:00 15:52 22:55 WBC RBC Hgb Hct MCV MCH MCHC RDW Plt Count MPV Sodium Potassium Chloride Carbon Dioxide Anion Gap BUN Creatinine Creat Clearance w eGFR POC Glucometer 147 Random Glucose Calcium Total Bilirubin AST ALT Alkaline Phosphatase Total Protein Albumin Urine Color Yellow Urine Appearance Clear Urine pH 7.0 Ur Specific [place] 1.013 Urine Protein Negative Urine Glucose (UA) 2+ H Urine Ketones Negative Urine Blood Negative Urine Nitrite Negative Urine Bilirubin Negative Urine Urobilinogen 4.0 e.u/dl Ur Leukocyte Esterase Negative RPR Titer HIV 1&2 Antibody Screen Negative HIV P24 Antigen Negative 09/23/17 09/23/17 09/23/17 04:45 06:00 06:00 WBC 8.2 D RBC 5.27 Hgb 15.4 Hct 46.5 MCV 88.1 MCH 29.1 MCHC 33.1 RDW 16.6 H Plt Count 105 L D MPV 11.6 H D Sodium 139 Potassium 4.0 Chloride 104 Carbon Dioxide 24 Anion Gap 11 BUN 9 Creatinine 0.7 Creat Clearance w eGFR > 60 POC Glucometer 115 Random Glucose 163 H Calcium 8.6 Total Bilirubin 0.6 D AST 29 D ALT 32 D Alkaline Phosphatase 138 H D Total Protein 7.7 Albumin 3.5 Urine Color Urine Appearance Urine pH Ur Specific [place] Urine Protein Urine Glucose (UA) Urine Ketones Urine Blood Urine Nitrite Urine Bilirubin Urine Urobilinogen Ur Leukocyte Esterase RPR Titer HIV 1&2 Antibody Screen HIV P24 Antigen 09/23/17 09/23/17 09/24/17 06:00 16:19 04:56 WBC RBC Hgb Hct MCV MCH MCHC RDW Plt Count MPV Sodium Potassium Chloride Carbon Dioxide Anion Gap BUN Creatinine Creat Clearance w eGFR POC Glucometer 162 181 Random Glucose Calcium Total Bilirubin AST ALT Alkaline Phosphatase Total Protein Albumin Urine Color Urine Appearance Urine pH Ur Specific [place] Urine Protein Urine Glucose (UA) Urine Ketones Urine Blood Urine Nitrite Urine Bilirubin Urine Urobilinogen Ur Leukocyte Esterase RPR Titer Nonreactive HIV 1&2 Antibody Screen HIV P24 Antigen 09/24/17 09/25/17 09/25/17 16:21 05:00 15:53 WBC RBC Hgb Hct MCV MCH MCHC RDW Plt Count MPV Sodium Potassium Chloride Carbon Dioxide Anion Gap BUN Creatinine Creat Clearance w eGFR POC Glucometer 130 147 165 Random Glucose Calcium Total Bilirubin AST ALT Alkaline Phosphatase Total Protein Albumin Urine Color Urine Appearance Urine pH Ur Specific [place] Urine Protein Urine Glucose (UA) Urine Ketones Urine Blood Urine Nitrite Urine Bilirubin Urine Urobilinogen Ur Leukocyte Esterase RPR Titer HIV 1&2 Antibody Screen HIV P24 Antigen 09/26/17 05:06 WBC RBC Hgb Hct MCV MCH MCHC RDW Plt Count MPV Sodium Potassium Chloride Carbon Dioxide Anion Gap BUN Creatinine Creat Clearance w eGFR POC Glucometer 155 Random Glucose Calcium Total Bilirubin AST ALT Alkaline Phosphatase Total Protein Albumin Urine Color Urine Appearance Urine pH Ur Specific [place] Urine Protein Urine Glucose (UA) Urine Ketones Urine Blood Urine Nitrite Urine Bilirubin Urine Urobilinogen Ur Leukocyte Esterase RPR Titer HIV 1&2 Antibody Screen HIV P24 Antigen LABS NOTED. Assessment: 09/26/17 18:05 COMPLETION OF DETOX REGIMEN. Plan: PATIENT SCHEDULED FOR DISCHARGE FROM DETOX TODAY. NO BEDS ARE AVAILABLE AT [facility] AT THIS TIME. PATIENT WILL RETURN TO [facility] FOR TIME BEING, THEN WILL APPLY FOR POSSIBLE REHAB ADMISSION AT [facility] IN THE NEXT FEW DAYS.
--- NOTE | 2017-09-26 18:09 | DS ---
[facility] Detox Discharge Summary Admission Date: 09/22/17 Discharge Date: 09/26/17 - History Present History: Alcohol Dependence, Cannabis Dependence, Cocaine Dependence, Opioid Dependence, Sedative Dependence, MMTP Additional Comments: NO BEDS ARE AVAILABLE AT [facility] AT THIS TIME. PATIENT WILL RETURN TO [facility] FOR TIME BEING, THEN WILL APPLY FOR POSSIBLE REHAB ADMISSION AT [facility] IN THE NEXT FEW DAYS. PATIENT WAS DISCHARGED FROM DETOX UNIT IN STABLE MEDICAL CONDITION. Pertinent Past History: MMTP, History of seizure, Depression, Nicotine Dependence, Cirrhosis of Liver, Incisional Hernia, Insomnia, Hep C, COPD, Type II DM. - Physical Exam Results Vital Signs: Vital Signs Temperature 96.9 F L 09/26/17 09:15 Pulse Rate 70 09/26/17 09:15 Respiratory Rate 20 09/26/17 09:15 Blood Pressure 111/67 09/26/17 09:15 O2 Sat by Pulse Oximetry (%) Pertinent Admission Physical Exam Findings: WITHDRAWL SYMPTOMS. Laboratory Tests 09/22/17 09/22/17 09/22/17 06:00 15:52 22:55 WBC RBC Hgb Hct MCV MCH MCHC RDW Plt Count MPV Sodium Potassium Chloride Carbon Dioxide Anion Gap BUN Creatinine Creat Clearance w eGFR POC Glucometer 147 Random Glucose Calcium Total Bilirubin AST ALT Alkaline Phosphatase Total Protein Albumin Urine Color Yellow Urine Appearance Clear Urine pH 7.0 Ur Specific [place] 1.013 Urine Protein Negative Urine Glucose (UA) 2+ H Urine Ketones Negative Urine Blood Negative Urine Nitrite Negative Urine Bilirubin Negative Urine Urobilinogen 4.0 e.u/dl Ur Leukocyte Esterase Negative RPR Titer HIV 1&2 Antibody Screen Negative HIV P24 Antigen Negative 09/23/17 09/23/17 09/23/17 04:45 06:00 06:00 WBC 8.2 D RBC 5.27 Hgb 15.4 Hct 46.5 MCV 88.1 MCH 29.1 MCHC 33.1 RDW 16.6 H Plt Count 105 L D MPV 11.6 H D Sodium 139 Potassium 4.0 Chloride 104 Carbon Dioxide 24 Anion Gap 11 BUN 9 Creatinine 0.7 Creat Clearance w eGFR > 60 POC Glucometer 115 Random Glucose 163 H Calcium 8.6 Total Bilirubin 0.6 D AST 29 D ALT 32 D Alkaline Phosphatase 138 H D Total Protein 7.7 Albumin 3.5 Urine Color Urine Appearance Urine pH Ur Specific [place] Urine Protein Urine Glucose (UA) Urine Ketones Urine Blood Urine Nitrite Urine Bilirubin Urine Urobilinogen Ur Leukocyte Esterase RPR Titer HIV 1&2 Antibody Screen HIV P24 Antigen 09/23/17 09/23/17 09/24/17 06:00 16:19 04:56 WBC RBC Hgb Hct MCV MCH MCHC RDW Plt Count MPV Sodium Potassium Chloride Carbon Dioxide Anion Gap BUN Creatinine Creat Clearance w eGFR POC Glucometer 162 181 Random Glucose Calcium Total Bilirubin AST ALT Alkaline Phosphatase Total Protein Albumin Urine Color Urine Appearance Urine pH Ur Specific [place] Urine Protein Urine Glucose (UA) Urine Ketones Urine Blood Urine Nitrite Urine Bilirubin Urine Urobilinogen Ur Leukocyte Esterase RPR Titer Nonreactive HIV 1&2 Antibody Screen HIV P24 Antigen 09/24/17 09/25/17 09/25/17 16:21 05:00 15:53 WBC RBC Hgb Hct MCV MCH MCHC RDW Plt Count MPV Sodium Potassium Chloride Carbon Dioxide Anion Gap BUN Creatinine Creat Clearance w eGFR POC Glucometer 130 147 165 Random Glucose Calcium Total Bilirubin AST ALT Alkaline Phosphatase Total Protein Albumin Urine Color Urine Appearance Urine pH Ur Specific [place] Urine Protein Urine Glucose (UA) Urine Ketones Urine Blood Urine Nitrite Urine Bilirubin Urine Urobilinogen Ur Leukocyte Esterase RPR Titer HIV 1&2 Antibody Screen HIV P24 Antigen 09/26/17 05:06 WBC RBC Hgb Hct MCV MCH MCHC RDW Plt Count MPV Sodium Potassium Chloride Carbon Dioxide Anion Gap BUN Creatinine Creat Clearance w eGFR POC Glucometer 155 Random Glucose Calcium Total Bilirubin AST ALT Alkaline Phosphatase Total Protein Albumin Urine Color Urine Appearance Urine pH Ur Specific [place] Urine Protein Urine Glucose (UA) Urine Ketones Urine Blood Urine Nitrite Urine Bilirubin Urine Urobilinogen Ur Leukocyte Esterase RPR Titer HIV 1&2 Antibody Screen HIV P24 Antigen LABS NOTED. - Treatment Hospital Course: Detox Protocol Followed, Detoxed Safely, Responded well, Discharged Condition Good, Rehab Referral Accepted Patient has Accepted a Rehab Referral to: [facility] ([place] . - Medication Discharge Medications: Ambulatory Orders Albuterol Sulfate Inhaler - [Ventolin HFA Inhaler -] 2 inh PO Q4H PRN 04/02/17 Aripiprazole [Abilify -] 10 mg PO DAILY 09/22/17 Metformin HCl [Glucophage] 500 mg PO BID 09/22/17 Aripiprazole [Abilify -] 10 mg PO HS #30 tablet 09/23/17 Bupropion HCl [Wellbutrin Xl -] 150 mg PO DAILY #30 tab.sr.24h 09/23/17 Lactulose 10 gm PO BID 09/23/17 traZODone HCL [Desyrel -] 50 mg PO HS #30 tablet 09/23/17 - Diagnosis (1) Alcohol dependence with uncomplicated withdrawal Status: Acute (2) Benzodiazepine dependence Status: Acute (3) Cannabis dependence Status: Acute (4) Cocaine dependence Status: Acute Qualifiers: Substance use status: uncomplicated Qualified Code(s): F14.20 - Cocaine dependence, uncomplicated (5) Facial rash Status: Acute (6) Incisional hernia Status: Acute Qualifiers: Obstruction and gangrene presence: without obstruction or gangrene Qualified Code(s): K43.2 - Incisional hernia without obstruction or gangrene; K43.91 - Incisional hernia, without obstruction or gangrene (7) Insomnia Status: Acute Qualifiers: Insomnia type: unspecified Qualified Code(s): G47.00 - Insomnia, unspecified (8) Nicotine dependence Status: Acute Qualifiers: Nicotine product type: cigarettes Substance use status: in withdrawal Qualified Code(s): F17.213 - Nicotine dependence, cigarettes, with withdrawal (9) Opioid dependence on agonist therapy Status: Acute (10) Substance induced mood disorder Status: Acute (11) Uncomplicated sedative, hypnotic or anxiolytic withdrawal Status: Acute (12) COPD (chronic obstructive pulmonary disease) Status: Chronic Qualifiers: COPD type: unspecified COPD Qualified Code(s): J44.9 - Chronic obstructive pulmonary disease, unspecified (13) DM2 (diabetes mellitus, type 2) Status: Chronic Qualifiers: Diabetes mellitus extermination inspector insulin use: without extermination inspector use Diabetes mellitus complication status: without complication Qualified Code(s): E11.9 - Type 2 diabetes mellitus without complications (14) Drug withdrawal seizure Status: Chronic Qualifiers: Complication of substance-induced condition: with unspecified complication Qualified Code(s): F19.239 - Other psychoactive substance dependence with withdrawal, unspecified; R56.9 - Unspecified convulsions; R56.9 - Unspecified convulsions; R56.9 - Unspecified convulsions; R56.9 - Unspecified convulsions (15) Hepatitis C Status: Chronic Qualifiers: Viral hepatitis chronicity: chronic Hepatic coma status: without hepatic coma Qualified Code(s): B18.2 - Chronic viral hepatitis C (16) Liver cirrhosis Status: Chronic Qualifiers: Hepatic cirrhosis type: unspecified hepatic cirrhosis Ascites presence: with ascites Qualified Code(s): K74.60 - Unspecified cirrhosis of liver (17) Methadone maintenance therapy patient Status: Chronic (18) History of seizure Status: Suspected (19) Schizoaffective disorder Status: Suspected Qualifiers: Schizoaffective disorder type: unspecified Qualified Code(s): F25.9 - Schizoaffective disorder, unspecified - AMA Did Patient Leave Against Medical Advice: No
== END 2017-09-26 09:24 | disposition home or self-care (01) | DRG 773 ==
LOC: YASAS 12:25 → Y3N 16:19
PROVIDERS: ADMIT Internal Medicine; ATTEND Internal Medicine
PROC: HZ2ZZZZ Detoxification Services for Substance Abuse Treatment (ICD-10-PCS; principal; 2017-09-22)
DX: F11.23 Opioid dependence with withdrawal (principal); F13.230 Sedative, hypnotic or anxiolytic dependence with withdrawal, uncomplicated; F10.230 Alcohol dependence with withdrawal, uncomplicated; F14.20 Cocaine dependence, uncomplicated; F12.20 Cannabis dependence, uncomplicated; F17.210 Nicotine dependence, cigarettes, uncomplicated; F19.24 Other psychoactive substance dependence with psychoactive substance-induced mood disorder; F32.9 Major depressive disorder, single episode, unspecified; F25.9 Schizoaffective disorder, unspecified; J44.9 Chronic obstructive pulmonary disease, unspecified; E11.9 Type 2 diabetes mellitus without complications; K74.60 Unspecified cirrhosis of liver; R21 Rash and other nonspecific skin eruption; Z86.69 Personal history of other diseases of the nervous system and sense organs; J43.9 Emphysema, unspecified
CPT/HCPCS: 36415; 80053; 81003; 82962; 85027; 86593; 87389; 93005; 93010

== ENCOUNTER 2017-10-29 12:39 | Inpatient (IN) | payer OTHER ==
--- NOTE | 2017-10-29 15:37 | HP ---
Psychiatrist Admission - Data Date of interview: 10/29/17 Admission source: 6N Identifying data: This is the second inpatient rehabilitation admission for this 52 year old male who is single without children, homeless (l[facility] in [place] [facility]),unemployed and supported on SSI benefits. Medical History: Cirrhosis of the liver,hepatitis C,COPD,diabetes mellitus, seizure disorder and a history of abdominal surgery (exploratory laparotomy/ removal of a foreign body in stomach) in 2016.Developed incisional hernia after surgery. Obesity, on MMTP 120 mg/daily. Psychiatric History: PAtient reports was diagnosed with Schizoaffective andhospitalizaed about 10 times in his life, first psychotic episode at age of 26 admitted to [facility], most recent hospitalization was last year [facility], treated with different psychotropics [place], wellbutrin, trazodone, abilify, reports lately his PCP gives him scripts for his medications.Denies history of suicidal attempts.Seen by and continued on Abilify 10 mg p hs , Wellbutrin 150 mg po daily, Trazodone 50 mg pohs(pt does not want). Physical/Sexual Abuse/Trauma History: Patient denies. Allergies/Adverse Reactions: Allergies Allergy/AdvReac Type Severity Reaction Status Date / Time shellfish derived Allergy Severe Hives Verified 10/25/17 10:26 No Known Drug Allergies Allergy Verified 10/25/17 10:26 Date of last physical exam: 10/25/17 Concur with the findings of this exam: Yes - Substance Abuse/Tx History Hx Alcohol Use: Yes (liqqqquor 2 pints, beer -1 six packs) Hx Substance Use: Yes Substance Use Type: Cocaine (smokes 3 times a week $50 ), Marijuana (daily for $ 5) Hx Substance Use Treatment: Yes Mental Status Exam - Mental Status Exam Alert and Oriented to: Time, Place, Person Cognitive Function: Good Patient Appearance: Well Groomed Mood: Hopeful Affect: Appropriate, Mood Congruent Patient Behavior: Appropriate, Cooperative Speech Pattern: Clear, Appropriate Voice Loudness: Normal Thought Process: Goal Oriented Thought Disorder: Not Present Hallucinations: Denies Suicidal Ideation: Denies Homicidal Ideation: Denies Insight/Judgement: Fair Sleep: Fair Appetite: Good Muscle strength/Tone: Normal Gait/Station: Normal Psychiatric Findings - Problem List (Guild 1, 2,3) (1) Alcohol dependence Current Visit: Yes Status: Acute (2) Opioid dependence on agonist therapy Current Visit: No Status: Acute (3) Schizoaffective disorder Current Visit: No Status: Chronic Qualifiers: Schizoaffective disorder type: unspecified Qualified Code(s): F25.9 - Schizoaffective disorder, unspecified Comment: By history.Non compliant with aftercare. (4) Cannabis dependence Current Visit: No Status: Suspected (5) Cocaine dependence Current Visit: No Status: Suspected Qualifiers: Substance use status: uncomplicated Qualified Code(s): F14.20 - Cocaine dependence, uncomplicated - Initial Treatment Plan Initial Treatment Plan: Will continue Abilify 10 mg po hs and Wellbutrin XL 150 mg po daily, monitor progress as needed.
[2017-10-29] MEDS ORDERED: MAGNESIUM HYDROX 2400MG/30ML ORAL SUSPENSION 30 ML CUP PO PRN (16:18)
[2017-10-29] MEDS ORDERED: MAG HYDROX/AL HYDROX/SIMETH 30 ML UNIT-DOSE CUP PO PRN (16:18)
[2017-10-29] MEDS ORDERED: MENTHOL/PHENOL 1 EACH UD MM PRN (16:18)
[2017-10-29] MEDS ORDERED: ACETAMINOPHEN 325 MG TABLET (FP) PO PRN (16:18)
[2017-10-29] MEDS ORDERED: guaiFENesin/D-METHORPHAN HB 10 ML UNIT-DOSE CUPS PO PRN (16:18)
[2017-10-29] MEDS ORDERED: LOPERAMIDE HCL 2 MG CAPSULE PO PRN (16:18)
[2017-10-29] MEDS ORDERED: MAGNESIUM CITRATE 300 ML BOTTLE PO PRN (16:18)
[2017-10-29] MEDS ORDERED: P-EPHED 60MG/TRIPROLIDI 2.5MG TABLET PO PRN (16:18)
[2017-10-29] MEDS: metFORMIN HCL 500 MG TABLET (FP) PO SCH (17:03)
[2017-10-29] MEDS: THIAMINE HCL 100 MG TABLET (FP) PO SCH (21:49)
[2017-10-29] MEDS: ARIPiprazole 10 MG TABLET PO SCH (21:49)
[2017-10-29] MEDS: LACTULOSE 20 GM/30 ML UDC (FOR ORAL USE ONLY) PO SCH (21:50)
[2017-10-29] MEDS ORDERED: MELATONIN 5 MG TABLETS PO PRN (22:00)
[2017-10-30] MEDS: METHADONE HCL 40 MG DISPERSABLE TABLET PO SCH (05:59)
[2017-10-30] MEDS: metFORMIN HCL 500 MG TABLET (FP) PO SCH ×2 (06:00→17:03)
[2017-10-30] MEDS: PRENATAL VITAMINS W/ FOLIC ACID TABLET (FP) PO SCH (10:27)
[2017-10-30] MEDS: LACTULOSE 20 GM/30 ML UDC (FOR ORAL USE ONLY) PO SCH ×2 (10:27→21:57)
[2017-10-30] MEDS: IBUPROFEN 400 MG TABLET (FP) PO PRN (19:57)
[2017-10-30] MEDS: hydrOXYzine PAMOATE 50 MG CAPSULE (FP) PO PRN (19:59)
[2017-10-30] MEDS: ARIPiprazole 10 MG TABLET PO SCH (21:56)
[2017-10-30] MEDS: THIAMINE HCL 100 MG TABLET (FP) PO SCH (21:56)
[2017-10-31] MEDS: METHADONE HCL 40 MG DISPERSABLE TABLET PO SCH (05:59)
[2017-10-31] MEDS: metFORMIN HCL 500 MG TABLET (FP) PO SCH ×2 (06:00→16:54)
[2017-10-31] MEDS: LACTULOSE 20 GM/30 ML UDC (FOR ORAL USE ONLY) PO SCH ×2 (10:29→21:51)
[2017-10-31] MEDS: PRENATAL VITAMINS W/ FOLIC ACID TABLET (FP) PO SCH (10:29)
[2017-10-31] MEDS: hydrOXYzine PAMOATE 50 MG CAPSULE (FP) PO PRN (10:29)
[2017-10-31] MEDS: IBUPROFEN 400 MG TABLET (FP) PO PRN (21:51)
[2017-10-31] MEDS: THIAMINE HCL 100 MG TABLET (FP) PO SCH (21:51)
[2017-10-31] MEDS: ARIPiprazole 10 MG TABLET PO SCH (21:51)
[2017-11-01] MEDS: hydrOXYzine PAMOATE 50 MG CAPSULE (FP) PO PRN ×3 (02:43→21:29)
[2017-11-01] MEDS: METHADONE HCL 40 MG DISPERSABLE TABLET PO SCH (06:11)
[2017-11-01] MEDS: metFORMIN HCL 500 MG TABLET (FP) PO SCH ×2 (06:11→16:51)
[2017-11-01] MEDS: PRENATAL VITAMINS W/ FOLIC ACID TABLET (FP) PO SCH (10:10)
[2017-11-01] MEDS: LACTULOSE 20 GM/30 ML UDC (FOR ORAL USE ONLY) PO SCH ×2 (10:10→21:29)
[2017-11-01] MEDS: THIAMINE HCL 100 MG TABLET (FP) PO SCH (21:29)
[2017-11-01] MEDS: ARIPiprazole 10 MG TABLET PO SCH (21:29)
[2017-11-02] MEDS: metFORMIN HCL 500 MG TABLET (FP) PO SCH ×2 (06:03→16:41)
[2017-11-02] MEDS: METHADONE HCL 40 MG DISPERSABLE TABLET PO SCH (06:03)
[2017-11-02] MEDS: IBUPROFEN 400 MG TABLET (FP) PO PRN (07:14)
[2017-11-02] MEDS: LACTULOSE 20 GM/30 ML UDC (FOR ORAL USE ONLY) PO SCH ×2 (10:25→21:33)
[2017-11-02] MEDS: PRENATAL VITAMINS W/ FOLIC ACID TABLET (FP) PO SCH (10:26)
[2017-11-02] MEDS: hydrOXYzine PAMOATE 50 MG CAPSULE (FP) PO PRN ×2 (10:28→21:32)
--- NOTE | 2017-11-02 10:50 | PN ---
[facility] Progress Note Note: patient requested Trazodone 50 mg po hs, states he is unable to sleep and med. neem effective,(reports no side-effects), w\will add and monitor progress.
[2017-11-02] MEDS: traZODone HCL 50 MG TABLET (FP) PO SCH (21:32)
[2017-11-02] MEDS: ARIPiprazole 10 MG TABLET PO SCH (21:32)
[2017-11-02] MEDS: THIAMINE HCL 100 MG TABLET (FP) PO SCH (21:32)
[2017-11-03] MEDS: METHADONE HCL 40 MG DISPERSABLE TABLET PO SCH (05:56)
[2017-11-03] MEDS: metFORMIN HCL 500 MG TABLET (FP) PO SCH ×2 (06:29→16:34)
[2017-11-03 06:44] VITALS: PULSE 66
[2017-11-03] MEDS: LACTULOSE 20 GM/30 ML UDC (FOR ORAL USE ONLY) PO SCH ×2 (10:06→21:29)
[2017-11-03] MEDS: PRENATAL VITAMINS W/ FOLIC ACID TABLET (FP) PO SCH (10:06)
[2017-11-03] MEDS: IBUPROFEN 400 MG TABLET (FP) PO PRN (10:07)
[2017-11-03] MEDS: hydrOXYzine PAMOATE 50 MG CAPSULE (FP) PO PRN ×2 (14:07→21:29)
[2017-11-03] MEDS: traZODone HCL 50 MG TABLET (FP) PO SCH (21:29)
[2017-11-03] MEDS: ARIPiprazole 10 MG TABLET PO SCH (21:29)
[2017-11-03] MEDS: THIAMINE HCL 100 MG TABLET (FP) PO SCH (21:29)
[2017-11-04] MEDS: METHADONE HCL 40 MG DISPERSABLE TABLET PO SCH (05:52)
[2017-11-04] MEDS: IBUPROFEN 400 MG TABLET (FP) PO PRN (05:53)
[2017-11-04] MEDS: metFORMIN HCL 500 MG TABLET (FP) PO SCH (06:32)
[2017-11-04 07:21] VITALS: BP 110/72; TEMP 98.3
[2017-11-04] MEDS: LACTULOSE 20 GM/30 ML UDC (FOR ORAL USE ONLY) PO SCH (10:00)
[2017-11-04] MEDS: hydrOXYzine PAMOATE 50 MG CAPSULE (FP) PO PRN (10:02)
[2017-11-04] MEDS: PRENATAL VITAMINS W/ FOLIC ACID TABLET (FP) PO SCH (10:02)
--- NOTE | 2017-11-04 10:51 | PN ---
Psychiatric Progress Note Vital Signs: Vital Signs Period Temp Pulse Resp BP Sys/Davis Pulse Ox Last 24 Hr 98.3 F 66 18-18 110/72 Date of Session: 11/04/17 Chief Complaint:: leaving AMA HPI: Patient was admitted to on 10/19/17 h/o alcohol, cocaine, cannabis, opioid dependence comorbid Schizoaffective disorder. Current Medications: Active Medications Generic Name Dose Route Start Last Admin Trade Name Freq PRN Reason Stop Dose Admin Acetaminophen 650 mg 10/29/17 16:18 Tylenol - PO Q4H PRN FEVER Al Hydroxide/Mg Hydroxide 30 ml 10/29/17 16:18 Mylanta Oral Suspension - PO Q6H PRN DYSPEPSIA Aripiprazole 10 mg 10/29/17 22:00 11/03/17 21:29 Abilify PO 10 mg HS KHOA Administration Bupropion HCl 150 mg 10/30/17 10:00 11/04/17 10:00 Wellbutrin Xl - PO 150 mg DAILY KHOA Administration Eucalyptus/Menthol/Phenol/Sorbitol 1 each 10/29/17 16:18 Cepastat Lozenge - MM Q4H PRN SORE THROAT Guaifenesin 10 ml 10/29/17 16:18 Robitussin Dm - PO Q6H PRN COUGH Hydroxyzine Pamoate 50 mg 10/29/17 16:18 11/04/17 10:02 Vistaril - PO 50 mg Q4H PRN Administration AGITATION Ibuprofen 400 mg 10/29/17 16:18 11/04/17 05:53 Motrin - PO 400 mg Q6H PRN Administration Pain Level 4-6 Lactulose 10 gm 10/29/17 22:00 11/04/17 10:00 Cephulac (Oral Use) PO 10 gm BID KHOA Administration Loperamide HCl 4 mg 10/29/17 16:18 Imodium - PO Q6H PRN DIARRHEA Magnesium Citrate 300 ml 10/29/17 16:18 Citroma - PO Q48H PRN CONSTIPATION Magnesium Hydroxide 30 ml 10/29/17 16:18 Milk Of Magnesia - PO DAILY PRN CONSTIPATION Melatonin 5 mg 10/29/17 22:00 10/29/17 21:50 Melatonin PO 5 mg HS PRN Administration INSOMNIA Metformin HCl 500 mg 10/29/17 16:30 11/04/17 06:32 Glucophage - PO 500 mg BIDAC KHOA Administration Methadone HCl 120 mg 10/30/17 06:00 11/04/17 05:52 Dolophine - PO 120 mg DAILY@0600 KHOA Administration Multivit/Folic Acid/Iron 1 tab 10/30/17 10:00 11/04/17 10:02 Vitamins (Sjr) - PO 1 tab DAILY KHOA Administration Pseudoephedrine/Triprolidine 1 combo 10/29/17 16:18 Actifed - PO TID PRN NASAL CONGESTION Thiamine HCl 100 mg 10/29/17 22:00 11/03/17 21:29 Vitamin B1 - PO 100 mg HS KHOA Administration Trazodone HCl 50 mg 11/02/17 22:00 11/03/17 21:29 Desyrel - PO 50 mg HS KHOA Administration Current Side Effect: No Lab tests ordered: No Lab tests reviewed: Yes Provider note:: Patient decided to leave treatment AMA, met with the patient to explore reasons for terminating treatment at this point, patient reports that he needs to take care of his persontal issues, patient was encouraged to stay and focus on his treatment, but adamant to leave treatment, patient appears stable for discharge. Scripts for Trazodone, Seroquel and Wellbutrin for 30 days e-transferred to his pharmacy. Total face to face time:: 15 Mental Status Exam - Mental Status Exam Alert and Oriented to: Time, Place, Person Cognitive Function: Good Patient Appearance: Well Groomed Mood: Hopeful Affect: Appropriate, Mood Congruent Patient Behavior: Appropriate, Cooperative Speech Pattern: Clear, Appropriate Voice Loudness: Normal Thought Process: Intact, Goal Oriented Thought Disorder: Not Present Hallucinations: Denies Suicidal Ideation: Denies Homicidal Ideation: Denies Insight/Judgement: Fair Sleep: Fair Appetite: Fair Muscle strength/Tone: Normal Gait/Station: Normal Psychiatric Treatment Plan - Problem List (1) Alcohol dependence Current Visit: Yes (2) Opioid dependence on agonist therapy Current Visit: No (3) Schizoaffective disorder Current Visit: No Qualifiers: Schizoaffective disorder type: unspecified Qualified Code(s): F25.9 - Schizoaffective disorder, unspecified Comment: By history.Non compliant with aftercare. (4) Cannabis dependence Current Visit: No (5) Cocaine dependence Current Visit: No Qualifiers: Substance use status: uncomplicated Qualified Code(s): F14.20 - Cocaine dependence, uncomplicated
== END 2017-11-04 11:20 | disposition left against medical advice (07) | DRG 770 ==
LOC: YASAS 12:39 → Y5N 12:40
PROVIDERS: ADMIT Psychiatry & Neurology Psychiatry; ATTEND Psychiatry & Neurology Psychiatry
PROC: HZ42ZZZ Group Counseling for Substance Abuse Treatment, Cognitive-Behavioral (ICD-10-PCS; principal; 2017-10-29)
DX: F10.20 Alcohol dependence, uncomplicated (principal); F11.20 Opioid dependence, uncomplicated; F14.20 Cocaine dependence, uncomplicated; F12.20 Cannabis dependence, uncomplicated; F25.9 Schizoaffective disorder, unspecified; E11.9 Type 2 diabetes mellitus without complications; K74.60 Unspecified cirrhosis of liver; B18.2 Chronic viral hepatitis C; G40.909 Epilepsy, unspecified, not intractable, without status epilepticus; J44.9 Chronic obstructive pulmonary disease, unspecified; E66.9 Obesity, unspecified; Z91.013 Allergy to seafood
CPT/HCPCS: 82962

== ENCOUNTER 2018-08-17 09:16 | Inpatient (IN) | payer OTHER ==
[2018-08-17 09:39] VITALS: BMI 34.4
--- NOTE | 2018-08-17 10:56 | HP ---
CIWA Score - Admission Criteria [facility] Guidelines: Admission for Medically Managed Detox: Requires at least one of the followin. CIWA greater than 12 2. Seizures within the past 24 hours 3. Delirium tremens within the past 24 hours 4. Hallucinations within the past 24 hours 5. Acute intervention needed for co occurring medical disorder 6. Acute intervention needed for co occurring psychiatric disorder 7. Severe withdrawal that cannot be handled at a lower level of care (continued vomiting, continued diarrhea, abnormal vital signs) requiring intravenous medication and/or fluids 8. Admission ROS S - HPI Allergies/Adverse Reactions: Allergies Allergy/AdvReac Type Severity Reaction Status Date / Time shellfish derived Allergy Severe Hives Verified 08/17/18 11:23 No Known Drug Allergies Allergy Verified 08/17/18 11:23 History of Present Illness: patient here requesting detox from klonopin use reports 2 mg x 2 years , + seizure from withdrawal, claims 4 in the last year , went to [facility] , currently reports fatigue and drowsiness, latest use last night claims he did not sleep , was at [facility] was not seen and was brought to this facility . tobacco : 1-2 cigs /day cannabis : monthly , since age 17 etoh - since age 17 , denies current use, stopped 2 years ago when he was dx w/ Hep C , 2 x 6-pk/day k2 - constantly heroin - sober x 15 years , intermittently in MMTP , first age of use 15 , intermittent sobriety , + IVDU , denies OD , denies abscess denies cocaine , denies other illicits on MMTP x 2 years , currently 130 mg /day PMHX :hep C dx 2 years ago ( IVDU opiates) no tx as of yet , planning to go for tx , COPD , DM II PSHX : ventral hernia 2017 [facility] PSych : + suicide attempt by walking into traffic , taken to [facility] , no meds , denies current SI / HI . This report was requested by: Irena Mauricio | Reference #: [id number] Others' Prescriptions Patient Name: Goyo Saravia Date: 1965 Address: [phone] [place] [address] Sex: Male Rx Written Rx Dispensed Drug Quantity Days Supply Prescriber Name 03/16/2018 03/16/2018 oxycodone-acetaminophen 5-325 mg tab 5 7 Florez, Edel Henning MD 10/21/2017 11/06/2017 testosterone cyp 200 mg/ml 2ml 30 Ronen Lee) 09/28/2017 09/28/2017 testosterone cyp 200 mg/ml 2ml 30 Ronen Lee) 08/17/2017 08/28/2017 testosteron cyp 2000 mg/10 ml 2ml 30 Ronen Lee) * - Drugs marked with an asterisk are compound drugs. If the compound drug is made up of more than one controlled substance, then each controlled Exam Limitations: Clinical Condition - Ebola screening Have you traveled outside of the country in the last 21 days: No Have you had contact with anyone from an Ebola affected area: No Have you been sick,other than usual withdrawal symptoms: No Do you have a fever: No - Review of Systems Constitutional: See HPI EENT: reports: Other (" I need reading glasses " , denies dysphagia) Respiratory: reports: No Symptoms reported, See HPI Cardiac: reports: No Symptoms Reported GI: reports: Constipated : reports: Frequency Musculoskeletal: reports: Other (reports h/o heel spurs) Integumentary: reports: No Symptoms Reported, Other (denies) Neuro: reports: Seizure Endocrine: reports: See HPI, Increased Urine Psychiatric: reports: Orientated x3, Depressed (denies current SI / HI) Patient History - Patient Medical History Hx Anemia: No Hx Asthma: No Hx Chronic Obstructive Pulmonary Disease (COPD): Yes (ON VENTOLIN INH.) Hx Cancer: No Hx Cardiac Disorders: No Hx Congestive Heart Failure: No Hx Hypertension: No Hx Hypercholesterolemia: No Hx Pacemaker: No HX Cerebrovascular Accident: No Hx Seizures: Yes (ALCOHOL RELATED SEIZURE, LAST EPISODE 2016) Hx Dementia: No Hx Diabetes: Yes (ON GLUCOPHAGE) Hx Gastrointestinal Disorders: No Hx Liver Disease: Yes (Cirrhosis., Hep C (states he was treated with Mavyret x 9 weeks in 2017)) Hx Genitourinary Disorders: No Hx Sexually Transmitted Disorders: No Hx Renal Disease (ESRD): No Hx Thyroid Disease: No Hx Human Immunodeficiency Virus (HIV): No (Last Tested: 05/2017: NEGATIVE.) Hx Hepatitis C: Yes (TREATED) Hx Depression: Yes Hx Suicide Attempt: No (DENIED) Hx Bipolar Disorder: No Hx Schizophrenia: Yes (SCHIZOAFFECTIVE DISORDER) - Patient Surgical History Past Surgical History: Yes Hx Neurologic Surgery: No Hx Cataract Extraction: No Hx Cardiac Surgery: No Hx Lung Surgery: No Hx Breast Surgery: No Hx Breast Biopsy: No Hx Abdominal Surgery: Yes (removal fb from stomach ,exploratoty lap in 03/21) Hx Appendectomy: No Hx Cholecystectomy: No Hx Genitourinary Surgery: No Hx Section: No Hx Orthopedic Surgery: No Other Surgical History: incisional hernia after surgery Anesthesia Reaction: No - PPD History Results: CXR neg 12/15/16 - Smoking Cessation Smoking history: Current every day smoker Have you smoked in the past 12 months: Yes Aproximately how many cigarettes per day: 2 Cigars Per Day: 1 Hx Chewing Tobacco Use: No Initiated information on smoking cessation: No - Substances Abused Marijuana/Hashish Route: Smoking Frequency: Daily Amount used: 1 bag Age of first use: 14 Date of Last Use: 08/16/18 xanax or klonoin Route: Oral Frequency: Daily Amount used: 4mg Age of first use: 37 Date of Last Use: 08/17/18 Family Disease History - Family Disease History Family Disease History: Diabetes: Mother, CA: Grandparent (, Throat Ca.) , Father (Alcohol,, Throat Ca.), Other: Father Admission Physical Exam S - Vital Signs Vital Signs: Vital Signs - 24 hr 08/17/18 08/17/18 09:22 09:42 Temperature 96.6 F L 96.6 F L Pulse Rate 57 L 57 L Respiratory 18 18 Rate Blood Pressure 121/74 121/74 - Physical General Appearance: Yes: Disheveled, Mild Distress, Irritable HEENTM: Yes: EOMI, Hearing grossly Normal, Normocephalic, Normal Voice Respiratory: Yes: Chest Non-Tender, Lungs Clear, Normal Breath Sounds Neck: Yes: No masses,lesions,Nodules, Trachea in good position Cardiology: Yes: Regular Rhythm, Regular Rate, S1, S2 Abdominal: Yes: Normal Bowel Sounds, Soft, Protuberent, Surgical Scar Genitourinary: Yes: Within Normal Limits Back: Yes: Normal Inspection Musculoskeletal: Yes: full range of Motion Extremities: Yes: Normal Capillary Refill, Normal Range of Motion, Non-Tender Neurological: Yes: Motor Strength 5/5 Integumentary: Yes: Normal Color, Track [place] - Diagnostic (1) Benzodiazepine dependence Current Visit: No Status: Acute (2) Opioid dependence on agonist therapy Current Visit: No Status: Chronic (3) DM2 (diabetes mellitus, type 2) Current Visit: No Status: Chronic Qualifiers: Diabetes mellitus intermediate insulin use: without vermin exterminator use Diabetes mellitus complication status: without complication Qualified Code(s): E11.9 - Type 2 diabetes mellitus without complications (4) Depression Current Visit: No Status: Chronic Qualifiers: Depression Type: unspecified Qualified Code(s): F32.9 - Major depressive disorder, single episode, unspecified (5) Hepatitis C Current Visit: No Status: Chronic Qualifiers: Viral hepatitis chronicity: chronic Hepatic coma status: without hepatic coma Qualified Code(s): B18.2 - Chronic viral hepatitis C (6) Cannabis dependence Current Visit: No Status: Chronic (7) History of seizure Current Visit: No Status: Suspected Comment: Due to Withdrawal. [facility]HS Breath Alcohol Content Breath Alcohol Content: 0 Urine Pregancy Test - Result Urine Test Results: Negative- NO Line Present Urine Drug Screen - Results Drug Screen Negative: No Urine Drug Screen Results: THC-Marijuana, BZO-Benzodiazepines, MTD-Methadone Inpatient Rehab Admission - Rehab Decision to Admit Inpatient rehab admission?: No
[2018-08-17] MEDS ORDERED: MAGNESIUM CITRATE 300 ML BOTTLE PO PRN (11:10)
[2018-08-17] MEDS ORDERED: IBUPROFEN 400 MG TABLET (FP) PO PRN (11:10)
[2018-08-17] MEDS ORDERED: MAGNESIUM HYDROX 2400MG/30ML ORAL SUSPENSION 30 ML CUP PO PRN (11:10)
[2018-08-17] MEDS ORDERED: MAG HYDROX/AL HYDROX/SIMETH 30 ML UNIT-DOSE CUP PO PRN (11:10)
[2018-08-17] MEDS ORDERED: MENTHOL/PHENOL 1 EACH UD MM PRN (11:10)
[2018-08-17] MEDS ORDERED: ACETAMINOPHEN 325 MG TABLET (FP) PO PRN (11:10)
[2018-08-17] MEDS ORDERED: ALBUTEROL SO4 0.083% IH SOL 2.5 MG/3 ML VIAL.NEB. NEB PRN (11:12)
[2018-08-17] MEDS: chlordiazePOXIDE HCL 25 MG CAPSULE PO PRN (14:12)
[2018-08-17] MEDS: metFORMIN HCL 500 MG TABLET (FP) PO SCH (14:12)
[2018-08-17] MEDS: INSULIN SLIDING SCALE (NOVOLOG) 1 VIAL SQ SCH (17:22)
[2018-08-17] MEDS: chlordiazePOXIDE HCL 25 MG CAPSULE PO SCH ×2 (17:49→22:45)
[2018-08-17] MEDS ORDERED: traZODone HCL 50 MG TABLET (FP) PO SCH (22:00)
[2018-08-17] MEDS: THIAMINE HCL 100 MG TABLET (FP) PO SCH (22:45)
[2018-08-18] MEDS: chlordiazePOXIDE HCL 25 MG CAPSULE PO SCH ×4 (06:28→22:23)
--- NOTE | 2018-08-18 07:49 | CONSULT ---
[facility] Psychiatric Consult - Data Date of interview: 08/18/18 Admission source: [facility] Identifying data: This is a 53 years old obese male,single, childless, homeless , unemployed, on SSI support, with multiple medical problems, patient is here reporting withdrawal seizures history from Benzodiazepins is requesting detox from klonopin use,. Patient reports Benzodiazepins, Cannabis and Nicotine dependence history, As per chart there is a long history of Opioid, Alcohol, Cocaine dependence as well, currently on MMTP 130mg/day Substance Abuse History: Smoking history: Current every day smoker. Have you smoked in the past 12 months: Yes. Aproximately how many cigarettes per day: 2. Cigars Per Day: 1. Hx Chewing Tobacco Use: No. Initiated information on smoking cessation: No. - Substances Abused. Marijuana/Hashish. Route: Smoking. Frequency: Daily. Amount used: 1 bag. Age of first use: 14. Date of Last Use: 08/16/18. xanax or klonoin. Route: Oral. Frequency: Daily. Amount used: 4mg. Age of first use: 37. Date of Last Use: 08/17/18 Medical History: COPD, DM-II, hEP c+, Live Cirrhosis, Umbilical Hernia, MMTP 130mg/day, Psychiatric History: Patient reports history of depression and anxiety, as per computer there is a history of Schizoaffective disorder, with most recent psychiatric hospitalization at [facility] 6 months ago for safety, \Patient deneis suicidal, homicidal history, asking for Methadone 130mg poqd ( not confirmed yet), reports depressed mood and asking for medications. Patient reports history of taking prior to admiossion: Trazodone 100mg po qhs. Prozac 10mg poqd Physical/Sexual Abuse/Trauma History: Denies Additional Comment: Trazodone 100mg po qhs. Prozac 20mg poqd Mental Status Exam - Mental Status Exam Alert and Oriented to: Person Cognitive Function: Fair Patient Appearance: Unkempt Mood: Sad Affect: Mood Congruent Patient Behavior: Cooperative Speech Pattern: Delayed Voice Loudness: Mildly Soft/Quiet Thought Process: Goal Oriented Thought Disorder: Being Controlled Hallucinations: Denies Suicidal Ideation: Denies Homicidal Ideation: Denies Insight/Judgement: Fair Sleep: Difficulty falling asleep Appetite: Weight gain Muscle strength/Tone: Mild Hypotonicity Gait/Station: Shuffling Additional Comments: Trazodone 100mg po qhs. Prozac 20mg poqd Psychiatric Findings - Problem List (Streetman 1, 2,3) (1) Alcohol dependence Current Visit: No Status: Acute (2) Alcohol dependence with uncomplicated withdrawal Current Visit: No Status: Acute (3) Incisional hernia Current Visit: No Status: Acute Qualifiers: Obstruction and gangrene presence: without obstruction or gangrene Qualified Code(s): K43.2 - Incisional hernia without obstruction or gangrene; K43.91 - Incisional hernia, without obstruction or gangrene (4) Nicotine dependence Current Visit: No Status: Acute Qualifiers: Nicotine product type: cigarettes Substance use status: in withdrawal Qualified Code(s): F17.213 - Nicotine dependence, cigarettes, with withdrawal (5) Substance induced mood disorder Current Visit: No Status: Acute (6) Umbilical hernia Current Visit: No Status: Acute (7) Uncomplicated sedative, hypnotic or anxiolytic withdrawal Current Visit: No Status: Acute (8) COPD (chronic obstructive pulmonary disease) Current Visit: No Status: Chronic Qualifiers: COPD type: unspecified COPD Qualified Code(s): J44.9 - Chronic obstructive pulmonary disease, unspecified (9) Cannabis dependence Current Visit: No Status: Chronic (10) DM2 (diabetes mellitus, type 2) Current Visit: No Status: Chronic Qualifiers: Diabetes mellitus exterminator helper termite insulin use: without exterminator helper termite use Diabetes mellitus complication status: without complication Qualified Code(s): E11.9 - Type 2 diabetes mellitus without complications (11) Depressive disorder Current Visit: No Status: Chronic Comment: Self-report. (12) Hepatitis C Current Visit: No Status: Chronic Qualifiers: Viral hepatitis chronicity: chronic Hepatic coma status: without hepatic coma Qualified Code(s): B18.2 - Chronic viral hepatitis C (13) Liver cirrhosis Current Visit: No Status: Chronic Qualifiers: Hepatic cirrhosis type: unspecified hepatic cirrhosis Ascites presence: with ascites Qualified Code(s): K74.60 - Unspecified cirrhosis of liver (14) Methadone maintenance therapy patient Current Visit: No Status: Chronic Comment: last dose of 110mg given today from [facility] mmtp verified NURSE PRACTICAL Vera Gentile and TALISHA Huizar (15) Opioid dependence on agonist therapy Current Visit: No Status: Chronic (16) Schizoaffective disorder Current Visit: No Status: Chronic Qualifiers: Schizoaffective disorder type: unspecified Qualified Code(s): F25.9 - Schizoaffective disorder, unspecified Comment: By history.Non compliant with aftercare. (17) Borderline diabetes mellitus Current Visit: No Status: Suspected (18) Cocaine dependence Current Visit: No Status: Suspected Qualifiers: Substance use status: uncomplicated Qualified Code(s): F14.20 - Cocaine dependence, uncomplicated (19) History of seizure Current Visit: No Status: Suspected Comment: Due to Withdrawal. (20) Hepatitis C virus infection resolved after antiviral drug therapy Current Visit: No Status: Resolved - Initial Treatment Plan Initial Treatment Plan: Trazodone 100mg po qhs. Prozac 20mg poqd
[2018-08-18] MEDS: metFORMIN HCL 500 MG TABLET (FP) PO SCH (08:00)
[2018-08-18] MEDS: INSULIN SLIDING SCALE (NOVOLOG) 1 VIAL SQ SCH ×2 (08:05→16:35)
[2018-08-18] MEDS: chlordiazePOXIDE HCL 25 MG CAPSULE PO PRN (08:11)
[2018-08-18] MEDS ORDERED: METHADONE HCL 10 MG TABLET PO ONE (08:31)
[2018-08-18] MEDS ORDERED: METHADONE 120 MG, METHADONE 10 MG PO ONE (08:50)
[2018-08-18] MEDS ORDERED: METHADONE HCL 40 MG DISPERSABLE TABLET ONE (09:26)
[2018-08-18] MEDS ORDERED: METHADONE HCL 10 MG TABLET ONE (09:26)
--- NOTE | 2018-08-18 10:03 | PN ---
S CIWA - CIWA Score Nausea/Vomitin-No Nausea/No Vomiting Muscle Tremors: 4-Moderate,w/Arms Extend Anxiety: 4-Mod. Anxious/Guarded Agitation: 4-Moderately Restless Paroxysmal Sweats: 4-Forehead w/Sweat Beads Orientation: 0-Oriented Tacttile Disturbances: 0-None Auditory Disturbances: 0-None Visual Disturbances: 0-None Headache: 0-None Present CIWA-Ar Total Score: 16 [facility] Progress Note (SOAP) Subjective: irritable sweats shakes interrupted sleep body aches pacing/restless Objective: 08/18/18 10:03 Vital Signs Temperature 97.5 F L 08/18/18 09:50 Pulse Rate 83 08/18/18 09:50 Respiratory Rate 18 08/18/18 09:50 Blood Pressure 118/76 08/18/18 09:50 O2 Sat by Pulse Oximetry (%) Laboratory Tests 08/17/18 08/17/18 08/17/18 11:08 12:00 16:49 POC Glucometer 247 170 HIV 1&2 Antibody Screen Negative HIV P24 Antigen Negative 08/18/18 06:30 POC Glucometer 163 HIV 1&2 Antibody Screen HIV P24 Antigen rest of labs pending aaox3 ambulating no acute distress Assessment: 08/18/18 10:04 withdrawal sx Plan: continue detox increase fluids
[2018-08-18] MEDS: PRENATAL VITAMINS W/ FOLIC ACID TABLET (FP) PO SCH (10:14)
[2018-08-18] MEDS: FLUoxetine HCL 20 MG CAPSULE (FP) PO SCH (10:15)
[2018-08-18 10:28] LABS: ALBUMIN 3.8 g/dl (3.4-5.0); ALK PHOS 135 U/L (45-117); ANION GAP 7 MMOL/L (8-16); BILIRUBIN,TOTAL 0.4 mg/dL (0.2-1); BLOOD UREA NITROGEN 15 mg/dL (7-18); CALCIUM 9.2 mg/dL (8.5-10.1); CHLORIDE 107 mmol/L (98-107); CO2 29 mmol/L (21-32); CREATININE 0.8 mg/dL (0.55-1.3); GLUCOSE,RANDOM 117 mg/dL (74-106); SGOT/AST 62 U/L (15-37); SGPT/ALT 135 U/L (13-61); SODIUM 143 mmol/L (136-145); TOT PROT 7.9 g/dl (6.4-8.2)
[2018-08-18 10:32] LABS: HEMATOCRIT 45.7 % (35.4-49); HEMOGLOBIN 15.2 GM/dL (11.7-16.9); MCH 28.9 pg (25.7-33.7); MCHC 33.2 g/dl (32.0-35.9); MEAN PLT VOLUME 11.4 fl (7.5-11.1); PLATELET COUNT 69 K/MM3 (134-434); RBC 5.25 M/mm3 (4.00-5.60); RDW 16.6 % (11.9-15.9); WHITE BLOOD COUNT 6.4 K/mm3 (4.0-10.0)
[2018-08-18] MEDS: THIAMINE HCL 100 MG TABLET (FP) PO SCH (22:23)
[2018-08-18] MEDS: traZODone HCL 100 MG TABLET (FP) PO SCH (22:23)
[2018-08-19] MEDS ORDERED: METHADONE HCL 40 MG DISPERSABLE TABLET ONE (05:14)
[2018-08-19] MEDS ORDERED: METHADONE HCL 10 MG TABLET ONE (05:14)
[2018-08-19] MEDS: chlordiazePOXIDE HCL 25 MG CAPSULE PO SCH ×2 (05:47→11:00)
[2018-08-19] MEDS: METHADONE 120 MG, METHADONE 10 MG PO SCH (05:48)
[2018-08-19] MEDS ORDERED: METHADONE HCL 40 MG DISPERSABLE TABLET PO SCH (06:00)
[2018-08-19] MEDS: INSULIN SLIDING SCALE (NOVOLOG) 1 VIAL SQ SCH ×2 (07:05→17:16)
[2018-08-19] MEDS: metFORMIN HCL 500 MG TABLET (FP) PO SCH (07:06)
--- NOTE | 2018-08-19 10:06 | PN ---
[facility] CIWA - CIWA Score Nausea/Vomitin-No Nausea/No Vomiting Muscle Tremors: 4-Moderate,w/Arms Extend Anxiety: 3 Agitation: 3 Paroxysmal Sweats: 3 Orientation: 0-Oriented Tacttile Disturbances: 0-None Auditory Disturbances: 0-None Visual Disturbances: 0-None Headache: 0-None Present CIWA-Ar Total Score: 13 S Progress Note (SOAP) Subjective: sleepy sweats tired body aches Objective: 08/19/18 10:06 Vital Signs Temperature 97.9 F 08/19/18 09:39 Pulse Rate 62 08/19/18 09:39 Respiratory Rate 18 08/19/18 09:39 Blood Pressure 110/65 08/19/18 09:39 O2 Sat by Pulse Oximetry (%) Laboratory Tests 08/17/18 08/17/18 08/17/18 11:08 12:00 16:49 WBC RBC Hgb Hct MCV MCH MCHC RDW Plt Count MPV Sodium Potassium Chloride Carbon Dioxide Anion Gap BUN Creatinine Creat Clearance w eGFR POC Glucometer 247 170 Random Glucose Calcium Total Bilirubin AST ALT Alkaline Phosphatase Total Protein Albumin RPR Titer HIV 1&2 Antibody Screen Negative HIV P24 Antigen Negative 08/18/18 08/18/18 08/18/18 06:00 06:00 06:00 WBC 6.4 RBC 5.25 Hgb 15.2 Hct 45.7 MCV 87.0 MCH 28.9 MCHC 33.2 RDW 16.6 H Plt Count 69 L D MPV 11.4 H D Sodium 143 Potassium 4.0 Chloride 107 Carbon Dioxide 29 Anion Gap 7 L BUN 15 Creatinine 0.8 Creat Clearance w eGFR > 60 POC Glucometer Random Glucose 117 H Calcium 9.2 Total Bilirubin 0.4 AST 62 H ALT 135 H Alkaline Phosphatase 135 H Total Protein 7.9 Albumin 3.8 RPR Titer Nonreactive HIV 1&2 Antibody Screen HIV P24 Antigen 08/18/18 08/18/18 08/19/18 06:30 16:34 05:48 WBC RBC Hgb Hct MCV MCH MCHC RDW Plt Count MPV Sodium Potassium Chloride Carbon Dioxide Anion Gap BUN Creatinine Creat Clearance w eGFR POC Glucometer 163 109 112 Random Glucose Calcium Total Bilirubin AST ALT Alkaline Phosphatase Total Protein Albumin RPR Titer HIV 1&2 Antibody Screen HIV P24 Antigen aaox3 ambulating no acute distress low platelets noted repeat cbc Assessment: 08/19/18 10:07 withdrawal sx Plan: continue detox increase fluids
[2018-08-19] MEDS: PRENATAL VITAMINS W/ FOLIC ACID TABLET (FP) PO SCH (11:00)
[2018-08-19] MEDS: FLUoxetine HCL 20 MG CAPSULE (FP) PO SCH (11:00)
[2018-08-19] MEDS: chlordiazePOXIDE 5 MG CAPSULE PO SCH ×2 (17:45→22:24)
[2018-08-19] MEDS: THIAMINE HCL 100 MG TABLET (FP) PO SCH (22:24)
[2018-08-19] MEDS: traZODone HCL 100 MG TABLET (FP) PO SCH (22:24)
[2018-08-20] MEDS ORDERED: METHADONE HCL 40 MG DISPERSABLE TABLET ONE ×2 (04:09→04:13)
[2018-08-20] MEDS ORDERED: METHADONE HCL 10 MG TABLET ONE (04:13)
[2018-08-20] MEDS: chlordiazePOXIDE 5 MG CAPSULE PO SCH ×2 (05:23→10:27)
[2018-08-20] MEDS: METHADONE 120 MG, METHADONE 10 MG PO SCH (05:23)
[2018-08-20] MEDS: metFORMIN HCL 500 MG TABLET (FP) PO SCH (07:31)
[2018-08-20] MEDS: INSULIN SLIDING SCALE (NOVOLOG) 1 VIAL SQ SCH ×2 (07:32→17:07)
[2018-08-20] MEDS: PRENATAL VITAMINS W/ FOLIC ACID TABLET (FP) PO SCH (10:27)
[2018-08-20] MEDS: FLUoxetine HCL 20 MG CAPSULE (FP) PO SCH (10:27)
--- NOTE | 2018-08-20 11:16 | PN ---
[facility] Progress Note (SOAP) Subjective: i feel depressed body aches sweats Objective: 08/20/18 11:15 Vital Signs Temperature 98.6 F 08/20/18 09:24 Pulse Rate 51 L 08/20/18 09:24 Respiratory Rate 18 08/20/18 09:24 Blood Pressure 110/62 08/20/18 09:24 O2 Sat by Pulse Oximetry (%) aaox3 ambulating no acute distress Assessment: 08/20/18 11:16 withdrawal sx Plan: continue detox increase fluids psych ordered for revisit d/c in am
--- NOTE | 2018-08-20 11:36 | PN ---
Psychiatric Progress Note Vital Signs: Vital Signs Period Temp Pulse Resp BP Sys/Davis Pulse Ox Last 24 Hr 97.2 F-98.6 F 49-62 16-20 100-123/60-80 Date of Session: 08/20/18 Chief Complaint:: "I feel suicidal and want to go to a hospital" HPI: Mr Saravia is a 53 years old male with history of benzodiazepine and cannabis use admitted on 08/17/18 for inpatient detoxification ROS: COPD, Alcohol withdrawal seizure, Type 2 DM, Hep C, S/P Explore lap for removal of foreigh body from stomach Current Medications: Active Medications Generic Name Dose Route Start Last Admin Trade Name Freq PRN Reason Stop Dose Admin Acetaminophen 650 mg 08/17/18 11:10 Tylenol - PO Q4H PRN FEVER Al Hydroxide/Mg Hydroxide 30 ml 08/17/18 11:10 Mylanta Oral Suspension - PO Q6H PRN DYSPEPSIA Albuterol Sulfate 1 amp 08/17/18 11:12 Ventolin 0.083% Nebulizer Soln - NEB Q4H PRN SHORT OF BREATH/WHEEZING Chlordiazepoxide HCl 10 mg 08/20/18 17:00 Librium - PO 08/21/18 11:01 [id number] KHOA Eucalyptus/Menthol/Phenol/Sorbitol 1 each 08/17/18 11:10 Cepastat Lozenge - MM Q4H PRN SORE THROAT Fluoxetine HCl 20 mg 08/18/18 10:00 08/20/18 10:27 Prozac - PO 20 mg DAILY KHOA Administration Insulin Aspart 1 vial 08/17/18 16:30 08/20/18 07:32 Novolog Vial Sliding Scale - SQ Not Given BIDAC KHOA Protocol Magnesium Citrate 300 ml 08/17/18 11:10 Citroma - PO Q48H PRN CONSTIPATION Magnesium Hydroxide 30 ml 08/17/18 11:10 Milk Of Magnesia - PO DAILY PRN CONSTIPATION Melatonin 5 mg 08/17/18 22:00 Melatonin PO HS PRN INSOMNIA Metformin HCl 500 mg 08/17/18 12:00 08/20/18 07:31 Glucophage - PO 500 mg DAILY@0700 KHOA Administration Methadone HCl 120 mg/ 130 mg 08/19/18 06:00 08/20/18 05:23 Methadone HCl 10 mg PO 08/25/18 05:59 130 mg DAILY@0600 KHOA Administration Multivit/Folic Acid/Iron 1 tab 08/18/18 10:00 08/20/18 10:27 Vitamins (Sjr) - PO 1 tab DAILY KHOA Administration Thiamine HCl 100 mg 08/17/18 22:00 08/19/18 22:24 Vitamin B1 - PO 100 mg HS KHOA Administration Trazodone HCl 100 mg 08/18/18 22:00 08/19/18 22:24 Desyrel - PO 100 mg HS KHOA Administration Current Side Effect: No Lab tests ordered: Yes Lab tests reviewed: Yes Provider note:: Requested to see patient by SPECIAL EDUCATION SUPERINTENDENTYennifer Fishman for depression. Previous entry from Dr Burnett read and appreciated. Patient reports that he feels depressed, suicidal and want to go to a hospital. Claims that he feels depressed because he is homeless, no place to live and addicted to drug. When provided encouragement telling him that he is addressing his addiction by being here and can be referred to term[facility] control technician residential after completin a short term one, He said that he does not want to go to any rehab. He insisted to go to a hospital. When asked if he had any plan to kill himself, he said that while in this hospital, he did not have any plan or intent. However, reports 2 previous suicidal attempts in the past. Claims that 4 years ago, he ingested 20 tablets of Klonopin and 2 years ago he crossed in front of oncoming traffic. Patient was seen by Dr Burnett on 07/18/18 and placed on Prozac 20 mg po daily and Trazadone 100 mg po HS which according to Dr Burnett were medications he was on prior to admission. He denied ever been on Prozac. According too external pharmacy record, scripts for Zolot 100 mg#30, Risperdal 3 mg#30 were filled on 05/28/19 and scripts for Wellbutrin XL 150 mg#30, Trazadone 100 mg#30 were filled on 06/22/19 and 07/16/18. When confronted with that information, he told development writer that he was taken off Zoloft and Risperdal because of adverse-effects. He said that he was feeling sluggished with Risperdal and did not recall the nini -effect with Zoloft. He said that he was switched to Wellbutrin Xl and Trazadone Total face to face time:: 25 Mental Status Exam - Mental Status Exam Alert and Oriented to: Time, Place, Person Cognitive Function: Fair Patient Appearance: Disheveled Mood: Depressed Affect: Appropriate Patient Behavior: Cooperative Speech Pattern: Clear Voice Loudness: Normal Thought Process: Intact, Goal Oriented Hallucinations: Denies Suicidal Ideation: Denies Homicidal Ideation: Denies Sleep: Fair Appetite: Poor Muscle strength/Tone: Normal Gait/Station: Normal Psychiatric Treatment Plan - Problem List (1) Schizoaffective disorder Current Visit: No Qualifiers: Schizoaffective disorder type: unspecified Qualified Code(s): F25.9 - Schizoaffective disorder, unspecified Comment: By history.Non compliant with aftercare. (2) Substance induced mood disorder Current Visit: No (3) Sedative, hypnotic or anxiolytic dependence with withdrawal, unspecified Current Visit: Yes (4) Cannabis dependence Current Visit: No (5) Nicotine dependence Current Visit: No Qualifiers: Nicotine product type: cigarettes Substance use status: in withdrawal Qualified Code(s): F17.213 - Nicotine dependence, cigarettes, with withdrawal (6) Umbilical hernia Current Visit: No (7) COPD (chronic obstructive pulmonary disease) Current Visit: No Qualifiers: COPD type: unspecified COPD Qualified Code(s): J44.9 - Chronic obstructive pulmonary disease, unspecified (8) DM2 (diabetes mellitus, type 2) Current Visit: No Qualifiers: Diabetes mellitus termite control technician insulin use: without nursing home use Diabetes mellitus complication status: without complication Qualified Code(s): E11.9 - Type 2 diabetes mellitus without complications (9) Drug withdrawal seizure Current Visit: No Qualifiers: Complication of substance-induced condition: with unspecified complication Qualified Code(s): F19.239 - Other psychoactive substance dependence with withdrawal, unspecified; R56.9 - Unspecified convulsions; R56.9 - Unspecified convulsions; R56.9 - Unspecified convulsions; R56.9 - Unspecified convulsions Initial treatment plan: 1) Place patient on 1:1 for safety. 2) Discontinue Prozac 20 mg po daily as it would require 3 to 6 weeks for efficacy of medication(There is no documented evidence that patient was on that medication prior to admisson). 3) Start Wellbutrin XL 150 mg po daily
[2018-08-20 11:47] LABS: BASO % 0.3 % (0-2.0); EOS % 4.7 % (0-4.5); HEMATOCRIT 46.8 % (35.4-49); LYMPH % 24.9 % (8-40); MCH 29.5 pg (25.7-33.7); MCHC 34.3 g/dl (32.0-35.9); MEAN CELL VOLUME 86.1 fl (80-96); MEAN PLT VOLUME 10.9 fl (7.5-11.1); MONO % 8.1 % (3.8-10.2); PLATELET COUNT 153 K/MM3 (134-434); RBC 5.43 M/mm3 (4.00-5.60); RDW 16.4 % (11.9-15.9); WHITE BLOOD COUNT 6.9 K/mm3 (4.0-10.0)
--- NOTE | 2018-08-20 16:42 | PN ---
[facility] Progress Note Note: pt states he is agreeable to go to psychiatric hospital after d/c from this facility . Denies current SI / HI , seen by psychiatry earlier today .
[2018-08-20] MEDS: chlordiazePOXIDE HCL 10 MG CAPSULE PO SCH ×2 (17:07→22:30)
[2018-08-20] MEDS: traZODone HCL 100 MG TABLET (FP) PO SCH (22:30)
[2018-08-20] MEDS: THIAMINE HCL 100 MG TABLET (FP) PO SCH (22:30)
[2018-08-20] MEDS: MELATONIN 5 MG TABLETS PO PRN (22:30)
[2018-08-21] MEDS ORDERED: METHADONE HCL 40 MG DISPERSABLE TABLET ONE (05:17)
[2018-08-21] MEDS ORDERED: METHADONE HCL 10 MG TABLET ONE (05:17)
[2018-08-21] MEDS: chlordiazePOXIDE HCL 10 MG CAPSULE PO SCH ×2 (06:30→10:13)
[2018-08-21] MEDS: METHADONE 120 MG, METHADONE 10 MG PO SCH (06:30)
[2018-08-21] MEDS: metFORMIN HCL 500 MG TABLET (FP) PO SCH (06:31)
[2018-08-21] MEDS: INSULIN SLIDING SCALE (NOVOLOG) 1 VIAL SQ SCH ×2 (06:34→17:03)
--- NOTE | 2018-08-21 10:05 | PN ---
[facility] Progress Note (SOAP) Subjective: alert,feel depressed,no suicidal,no homicidal ideation Objective: 08/21/18 10:02 Vital Signs Temperature 98 F 08/21/18 09:37 Pulse Rate 54 L 08/21/18 09:37 Respiratory Rate 18 08/21/18 09:37 Blood Pressure 101/55 L 08/21/18 09:37 O2 Sat by Pulse Oximetry (%) 08/21/18 10:03 glucose 127 Assessment: 08/21/18 10:03 patient was placed on one on one by psychiatrist yesterday Plan: awaiting for psychiatrist reevaluation
[2018-08-21] MEDS: PRENATAL VITAMINS W/ FOLIC ACID TABLET (FP) PO SCH (10:13)
--- NOTE | 2018-08-21 10:51 | PN ---
Psychiatric Progress Note Vital Signs: Vital Signs Period Temp Pulse Resp BP Sys/Davis Pulse Ox Last 24 Hr 97.5 F-98.2 F 50-79 18-18 101-128/53-72 Date of Session: 08/21/18 Chief Complaint:: " I was feeling so depressed yesterday. I am much better today ". HPI: Case of a 53 y/o male, currently undergoing detoxification (K2, benzodiazepine), who has been placed under constant observation on 08/20/17 for complaints of depressed mood and suicidal ideation. Mr Saravia is already known to this institution (from multiple admissions). It appears that the patient has become anxious over the prospect of his imminent discharge and escalated with the production of somatic + psychiatric complaints (anxiety, feelings of hopelessness, suicidal ruminations). ROS: Patient is noted as alert and cognitively intact. Ambulatory (walks with a discrete limp), relaxed, cooperative with staff, conversant and free of somatic concerns (with the exception of constipation). Current Medications: Active Medications Generic Name Dose Route Start Last Admin Trade Name Freq PRN Reason Stop Dose Admin Acetaminophen 650 mg 08/17/18 11:10 Tylenol - PO Q4H PRN FEVER Al Hydroxide/Mg Hydroxide 30 ml 08/17/18 11:10 Mylanta Oral Suspension - PO Q6H PRN DYSPEPSIA Albuterol Sulfate 1 amp 08/17/18 11:12 Ventolin 0.083% Nebulizer Soln - NEB Q4H PRN SHORT OF BREATH/WHEEZING Bupropion HCl 150 mg 08/20/18 12:00 08/21/18 10:13 Wellbutrin Xl - PO 150 mg DAILY KHOA Administration Chlordiazepoxide HCl 10 mg 08/20/18 17:00 08/21/18 10:13 Librium - PO 08/21/18 11:01 10 mg [id number] KHOA Administration Eucalyptus/Menthol/Phenol/Sorbitol 1 each 08/17/18 11:10 Cepastat Lozenge - MM Q4H PRN SORE THROAT Hydrocortisone 1 applic 08/20/18 11:36 Hytone 0.5% Cream - TP QID PRN DRY SKIN Hydrocortisone 1 applic 08/21/18 10:30 Hytone 1% Cream - TP BID KHOA Insulin Aspart 1 vial 08/17/18 16:30 08/21/18 06:34 Novolog Vial Sliding Scale - SQ Not Given BIDAC [facility] Protocol Magnesium Citrate 300 ml 08/17/18 11:10 Citroma - PO Q48H PRN CONSTIPATION Magnesium Hydroxide 30 ml 08/17/18 11:10 Milk Of Magnesia - PO DAILY PRN CONSTIPATION Melatonin 5 mg 08/17/18 22:00 08/20/18 22:30 Melatonin PO 5 mg HS PRN Administration INSOMNIA Metformin HCl 500 mg 08/17/18 12:00 08/21/18 06:31 Glucophage - PO 500 mg DAILY@0700 KHOA Administration Methadone HCl 120 mg/ 130 mg 08/19/18 06:00 08/21/18 06:30 Methadone HCl 10 mg PO 08/25/18 05:59 130 mg DAILY@0600 KHOA Administration Multivit/Folic Acid/Iron 1 tab 08/18/18 10:00 08/21/18 10:13 Vitamins (Sjr) - PO 1 tab DAILY KHOA Administration Thiamine HCl 100 mg 08/17/18 22:00 08/20/18 22:30 Vitamin B1 - PO 100 mg HS KHOA Administration Trazodone HCl 100 mg 08/18/18 22:00 08/20/18 22:30 Desyrel - PO 100 mg HS KHOA Administration Medication(s) Change(s): No justification for medications changes. Patient agrees to treatment with bupropion. No report of adverse effects. Current Side Effect: No Lab tests ordered: No Lab tests reviewed: Yes Provider note:: Came to perform a follow-up examination. Chart reviewed. Case revisited with Dr Nunez via telephone. Discussed with medical attending, Dr Vallecillo, as well. Psychiatrist's consult notes of 08/17/17 + 08/20/18 (Dr Lomeli + Dr Nunez) are read and appreciated. Patient is interviewed. Observed walking in the hallway, escorted with a nursing program manager (1:1 watch). Pleasant and friendly on approach. Mr Saravia explains that he felt anhedonic, anxious and despondent yesterday (apprehension over imminent discharge, homelessness status, inability to communicate with his mother). " I was upset and frightened by the thought that they were planning to discharge me over the week-end without a fair disposition plan. I am homeless, I would have been without my methadone for this entire long week-end and I don't have a psychiatrist out there. So, I said that I wanted to be sent to a psychiatric hospital ". Patient reports feeling much calmer and reassured today after being informed of an extension of his current hospitalization. He indicates that he feels considerably " less depressed " and denies experiencing suicidal or homicidal ideation, intent or plan. " I would not cause such a grief to my mother. You have to understand also that my withdrawal was bad for my mood and made me feel worse. Today I am feeling better ". Patient is well-related, logical, coherent and goal-directed. He indicates that he is not interested in the option of rehabilitation. Wants to return to [facility] for methadone maintenance. " I have already contacted my primary doctor, Dr Prince Lee, who will connect me with a psychiatrist at his group practice next week. I am still in contact with [facility], my long-term on [facility], where I can get a bed. I can also rely on friends for a temporary stay at their places until I get things situated. I have an application for housing still pending ". Mr Saravia reports that his most recent suicide attempt occurred 5-7 years ago (overdose with clonazepam). His last psychiatric hospitalization was at [facility] six months ago. Stopped taking risperdal due to intolerable side effects (has abstained from prescribed psychotropic medications for more than three months). Patient declines augmentation with atypical agents. Mental status examination is remarkable for the absence of perceptual disturbances, resolution of suicidal ideation, marked improvement of mood quality and the presence of a robust sense of future-orientedness. Mr Saravia is a good historian. Fully cognizant of the seriousness of his issues and able to formulate realistic short-term + intermediate plans for his own welfare. Patient is not psychotic. He has consistently denied suicidal/ homicidal ideation, intent or plan. He is goal-directed. Receptive to support and motivational teaching. Admits to experiencing considerable relief after conversing with his mother via telephone, in the presence of keno writer (patient is allowed to utilize the telephone in the office). Able to negotiate with the multidisciplinary treatment team (length of stay, details of discharge, referrals). Stable mental status. Patient is NOT a danger to self or others. Intervention : constant observation is discontinued. Downgraded to close observation. Mr Saravia DOES NOT meet criteria for transfer to a psychiatric institution. Patient agrees to be retained at [address] [place] [address] for another two days. Discussed with Multidisciplinary team. Total face to face time:: 75 Mental Status Exam - Mental Status Exam Alert and Oriented to: Time, Place, Person Cognitive Function: Good Patient Appearance: Well Groomed Mood: Hopeful Affect: Appropriate, Normal Range Patient Behavior: Appropriate, Cooperative Speech Pattern: Clear, Appropriate Voice Loudness: Normal Thought Process: Intact, Goal Oriented Thought Disorder: Not Present Hallucinations: Denies Suicidal Ideation: Denies Homicidal Ideation: Denies Insight/Judgement: Good Sleep: Well Muscle strength/Tone: Normal Gait/Station: Other (walks with a limp) Psychiatric Treatment Plan - Problem List (1) Sedative, hypnotic or anxiolytic dependence with withdrawal, unspecified Comment: . (2) Cannabis dependence Comment: . (3) Opioid dependence on agonist therapy Comment: . (4) Nicotine dependence Qualifiers: Nicotine product type: cigarettes Substance use status: in withdrawal Qualified Code(s): F17.213 - Nicotine dependence, cigarettes, with withdrawal Comment: . (5) Substance induced mood disorder Comment: . (6) Schizoaffective disorder Qualifiers: Schizoaffective disorder type: unspecified Qualified Code(s): F25.9 - Schizoaffective disorder, unspecified Comment: .By history. Non compliant with aftercare. (7) Insomnia Qualifiers: Insomnia type: unspecified Qualified Code(s): G47.00 - Insomnia, unspecified Comment: .
[2018-08-21] MEDS: HYDROCORTISONE 0.5% TOPICAL CREAM 30 GM TUBE TP PRN (14:51)
[2018-08-21] MEDS: HYDROCORTISONE 1% TOPICAL CREAM 30 GM TUBE TP SCH ×2 (14:52→22:16)
[2018-08-21] MEDS: MELATONIN 5 MG TABLETS PO PRN (22:15)
[2018-08-21] MEDS: traZODone HCL 100 MG TABLET (FP) PO SCH (22:15)
[2018-08-21] MEDS: THIAMINE HCL 100 MG TABLET (FP) PO SCH (22:16)
[2018-08-22] MEDS ORDERED: METHADONE HCL 40 MG DISPERSABLE TABLET ONE (04:38)
[2018-08-22] MEDS ORDERED: METHADONE HCL 10 MG TABLET ONE (04:38)
[2018-08-22] MEDS: METHADONE 120 MG, METHADONE 10 MG PO SCH (06:16)
[2018-08-22] MEDS: INSULIN SLIDING SCALE (NOVOLOG) 1 VIAL SQ SCH ×2 (06:22→17:09)
[2018-08-22] MEDS: metFORMIN HCL 500 MG TABLET (FP) PO SCH (06:22)
[2018-08-22] MEDS: HYDROCORTISONE 1% TOPICAL CREAM 30 GM TUBE TP SCH ×2 (10:35→23:18)
[2018-08-22] MEDS: PRENATAL VITAMINS W/ FOLIC ACID TABLET (FP) PO SCH (10:35)
--- NOTE | 2018-08-22 11:18 | PN ---
[facility] Progress Note Note: PATIENT TO BE DISCHARGE TOMORROW MORNING AFTER DETOX FROM [facility] DEPENDENCE. PATIENT SCHEDULED TO FOLLOW UP WITH MTD PRGORAM IN AM. STATES HE FEELS BETTER AND DENIES SI/HI. 1:[address] HERRERA 08/21/18. PATIENT DENIES TREMORS , SWEATS AND N/V/D. Vital Signs Temperature 98.4 F 08/22/18 09:30 Pulse Rate 65 08/22/18 09:30 Respiratory Rate 08/22/18 09:30 Blood Pressure 125/73 08/22/18 09:30 O2 Sat by Pulse Oximetry (%) Laboratory Tests 08/17/18 08/17/18 08/17/18 11:08 12:00 16:49 WBC RBC Hgb Hct MCV MCH MCHC RDW Plt Count MPV Absolute Neuts (auto) Neutrophils % Lymphocytes % Monocytes % Eosinophils % Basophils % Nucleated RBC % Sodium Potassium Chloride Carbon Dioxide Anion Gap BUN Creatinine Creat Clearance w eGFR POC Glucometer 247 170 Random Glucose Calcium Total Bilirubin AST ALT Alkaline Phosphatase Total Protein Albumin RPR Titer HIV 1&2 Antibody Screen Negative HIV P24 Antigen Negative 08/18/18 08/18/18 08/18/18 06:00 06:00 06:00 WBC 6.4 RBC 5.25 Hgb 15.2 Hct 45.7 MCV 87.0 MCH 28.9 MCHC 33.2 RDW 16.6 H Plt Count 69 L D MPV 11.4 H D Absolute Neuts (auto) Neutrophils % Lymphocytes % Monocytes % Eosinophils % Basophils % Nucleated RBC % Sodium 143 Potassium 4.0 Chloride 107 Carbon Dioxide 29 Anion Gap 7 L BUN 15 Creatinine 0.8 Creat Clearance w eGFR > 60 POC Glucometer Random Glucose 117 H Calcium 9.2 Total Bilirubin 0.4 AST 62 H ALT 135 H Alkaline Phosphatase 135 H Total Protein 7.9 Albumin 3.8 RPR Titer Nonreactive HIV 1&2 Antibody Screen HIV P24 Antigen 08/18/18 08/18/18 08/19/18 06:30 16:34 05:48 WBC RBC Hgb Hct MCV MCH MCHC RDW Plt Count MPV Absolute Neuts (auto) Neutrophils % Lymphocytes % Monocytes % Eosinophils % Basophils % Nucleated RBC % Sodium Potassium Chloride Carbon Dioxide Anion Gap BUN Creatinine Creat Clearance w eGFR POC Glucometer 163 109 112 Random Glucose Calcium Total Bilirubin AST ALT Alkaline Phosphatase Total Protein Albumin RPR Titer HIV 1&2 Antibody Screen HIV P24 Antigen 08/19/18 08/20/18 08/20/18 16:35 05:22 07:00 WBC 6.9 RBC 5.43 Hgb 16.0 Hct 46.8 MCV 86.1 MCH 29.5 MCHC 34.3 RDW 16.4 H Plt Count 153 D MPV 10.9 Absolute Neuts (auto) 4.3 Neutrophils % 62.0 Lymphocytes % 24.9 Monocytes % 8.1 Eosinophils % 4.7 H Basophils % 0.3 Nucleated RBC % 1 H Sodium Potassium Chloride Carbon Dioxide Anion Gap BUN Creatinine Creat Clearance w eGFR POC Glucometer 79 115 Random Glucose Calcium Total Bilirubin AST ALT Alkaline Phosphatase Total Protein Albumin RPR Titer HIV 1&2 Antibody Screen HIV P24 Antigen 08/20/18 08/21/18 08/21/18 16:33 06:25 16:29 WBC RBC Hgb Hct MCV MCH MCHC RDW Plt Count MPV Absolute Neuts (auto) Neutrophils % Lymphocytes % Monocytes % Eosinophils % Basophils % Nucleated RBC % Sodium Potassium Chloride Carbon Dioxide Anion Gap BUN Creatinine Creat Clearance w eGFR POC Glucometer 93 127 136 Random Glucose Calcium Total Bilirubin AST ALT Alkaline Phosphatase Total Protein Albumin RPR Titer HIV 1&2 Antibody Screen HIV P24 Antigen 08/22/18 06:19 WBC RBC Hgb Hct MCV MCH MCHC RDW Plt Count MPV Absolute Neuts (auto) Neutrophils % Lymphocytes % Monocytes % Eosinophils % Basophils % Nucleated RBC % Sodium Potassium Chloride Carbon Dioxide Anion Gap BUN Creatinine Creat Clearance w eGFR POC Glucometer 128 Random Glucose Calcium Total Bilirubin AST ALT Alkaline Phosphatase Total Protein Albumin RPR Titer HIV 1&2 Antibody Screen HIV P24 Antigen PE: ALERT AND ORIENTED X 3 SKIN WARM AND DRY, + FACIAL RASH EXT FULL ROM, AMB AD SAVANA NO SI/HI REPORTED A/P: S/P DETOX FOR [facility] DEPENDENCE MMTP CONTINUE CURRENT TREATMENT FOR D/C IN AM
[2018-08-22] MEDS: hydrOXYzine HCL 25 MG TABLET (FP) PO PRN ×2 (11:46→18:53)
[2018-08-22] MEDS: THIAMINE HCL 100 MG TABLET (FP) PO SCH (22:05)
[2018-08-22] MEDS: traZODone HCL 100 MG TABLET (FP) PO SCH (22:05)
[2018-08-22] MEDS: HYDROCORTISONE 0.5% TOPICAL CREAM 30 GM TUBE TP PRN ×2 (22:05→23:16)
[2018-08-23] MEDS ORDERED: METHADONE HCL 10 MG TABLET ONE (06:19)
[2018-08-23] MEDS ORDERED: METHADONE HCL 40 MG DISPERSABLE TABLET ONE (06:19)
[2018-08-23] MEDS: METHADONE 120 MG, METHADONE 10 MG PO SCH (06:20)
[2018-08-23] MEDS: metFORMIN HCL 500 MG TABLET (FP) PO SCH (06:20)
[2018-08-23] MEDS: INSULIN SLIDING SCALE (NOVOLOG) 1 VIAL SQ SCH (06:23)
[2018-08-23] MEDS: HYDROCORTISONE 0.5% TOPICAL CREAM 30 GM TUBE TP PRN (08:54)
[2018-08-23 09:47] VITALS: BP 104/63; PULSE 67; TEMP 98.1
--- NOTE | 2018-08-23 14:41 | DS ---
[facility] Detox Discharge Summary Admission Date: 08/17/18 Discharge Date: 08/23/18 - History Present History: Alcohol Dependence, Cannabis Dependence, Opioid Dependence, Sedative Dependence, MMTP Additional Comments: PATIENT RETURNING TO [facility] ([place], [place]) FOR AFTERCARE. PATIENT ALSO ADVISED TO CONSIDER LOCAL 12-STEP / NA / AA OUTPATIENT SUPPORT GROUPS FOR AFTERCARE. PATIENT VERBALIZED UNDERSTANDING OF RECOMMENDATION. PATIENT WAS DISCHARGED FORM DETOX UNIT IN STABLE MEDICAL CONDITION. Pertinent Past History: C.O.P.D., History of Depression, Schizoaffective Disorder, Facial Rash, History of Hep C, History of Cirrhosis of Liver, M.M.T.P., History of Seizures (Alcohol- Related), Type II DM, Nicotine Dependence, History of Umbilical Hernia. - Physical Exam Results Vital Signs: Vital Signs Temperature 98.1 F 08/23/18 09:45 Pulse Rate 67 08/23/18 09:45 Respiratory Rate 17 08/23/18 09:45 Blood Pressure 104/63 08/23/18 09:45 O2 Sat by Pulse Oximetry (%) Pertinent Admission Physical Exam Findings: WITHDRAWAL SYMPTOMS. Laboratory Tests 08/17/18 08/17/18 08/17/18 11:08 12:00 16:49 WBC RBC Hgb Hct MCV MCH MCHC RDW Plt Count MPV Absolute Neuts (auto) Neutrophils % Lymphocytes % Monocytes % Eosinophils % Basophils % Nucleated RBC % Sodium Potassium Chloride Carbon Dioxide Anion Gap BUN Creatinine Creat Clearance w eGFR POC Glucometer 247 170 Random Glucose Calcium Total Bilirubin AST ALT Alkaline Phosphatase Total Protein Albumin RPR Titer HIV 1&2 Antibody Screen Negative HIV P24 Antigen Negative 08/18/18 08/18/18 08/18/18 06:00 06:00 06:00 WBC 6.4 RBC 5.25 Hgb 15.2 Hct 45.7 MCV 87.0 MCH 28.9 MCHC 33.2 RDW 16.6 H Plt Count 69 L D MPV 11.4 H D Absolute Neuts (auto) Neutrophils % Lymphocytes % Monocytes % Eosinophils % Basophils % Nucleated RBC % Sodium 143 Potassium 4.0 Chloride 107 Carbon Dioxide 29 Anion Gap 7 L BUN 15 Creatinine 0.8 Creat Clearance w eGFR > 60 POC Glucometer Random Glucose 117 H Calcium 9.2 Total Bilirubin 0.4 AST 62 H ALT 135 H Alkaline Phosphatase 135 H Total Protein 7.9 Albumin 3.8 RPR Titer Nonreactive HIV 1&2 Antibody Screen HIV P24 Antigen 08/18/18 08/18/18 08/19/18 06:30 16:34 05:48 WBC RBC Hgb Hct MCV MCH MCHC RDW Plt Count MPV Absolute Neuts (auto) Neutrophils % Lymphocytes % Monocytes % Eosinophils % Basophils % Nucleated RBC % Sodium Potassium Chloride Carbon Dioxide Anion Gap BUN Creatinine Creat Clearance w eGFR POC Glucometer 163 109 112 Random Glucose Calcium Total Bilirubin AST ALT Alkaline Phosphatase Total Protein Albumin RPR Titer HIV 1&2 Antibody Screen HIV P24 Antigen 08/19/18 08/20/18 08/20/18 16:35 05:22 07:00 WBC 6.9 RBC 5.43 Hgb 16.0 Hct 46.8 MCV 86.1 MCH 29.5 MCHC 34.3 RDW 16.4 H Plt Count 153 D MPV 10.9 Absolute Neuts (auto) 4.3 Neutrophils % 62.0 Lymphocytes % 24.9 Monocytes % 8.1 Eosinophils % 4.7 H Basophils % 0.3 Nucleated RBC % 1 H Sodium Potassium Chloride Carbon Dioxide Anion Gap BUN Creatinine Creat Clearance w eGFR POC Glucometer 79 115 Random Glucose Calcium Total Bilirubin AST ALT Alkaline Phosphatase Total Protein Albumin RPR Titer HIV 1&2 Antibody Screen HIV P24 Antigen 08/20/18 08/21/18 08/21/18 16:33 06:25 16:29 WBC RBC Hgb Hct MCV MCH MCHC RDW Plt Count MPV Absolute Neuts (auto) Neutrophils % Lymphocytes % Monocytes % Eosinophils % Basophils % Nucleated RBC % Sodium Potassium Chloride Carbon Dioxide Anion Gap BUN Creatinine Creat Clearance w eGFR POC Glucometer 93 127 136 Random Glucose Calcium Total Bilirubin AST ALT Alkaline Phosphatase Total Protein Albumin RPR Titer HIV 1&2 Antibody Screen HIV P24 Antigen 08/22/18 08/22/18 08/23/18 06:19 16:30 06:22 WBC RBC Hgb Hct MCV MCH MCHC RDW Plt Count MPV Absolute Neuts (auto) Neutrophils % Lymphocytes % Monocytes % Eosinophils % Basophils % Nucleated RBC % Sodium Potassium Chloride Carbon Dioxide Anion Gap BUN Creatinine Creat Clearance w eGFR POC Glucometer 128 117 117 Random Glucose Calcium Total Bilirubin AST ALT Alkaline Phosphatase Total Protein Albumin RPR Titer HIV 1&2 Antibody Screen HIV P24 Antigen LABS NOTED. - Treatment Hospital Course: Detox Protocol Followed, Detoxed Safely, Responded well, Discharged Condition Good Patient has Accepted a Rehab Referral to: PATIENT RETURNING TO [facility] ([place], [place]). - Medication Discharge Medications: Ambulatory Orders traZODone HCL [Desyrel -] 50 mg PO HS #30 tablet 11/04/17 Methadone [Dolophine -] 130 mg PO DAILY 08/17/18 Fluoxetine HCl [Prozac] 20 mg PO DAILY #30 capsule 08/18/18 traZODone HCL [Desyrel -] 50 mg PO HS #30 tablet 08/18/18 Albuterol Sulfate Inhaler - [Ventolin HFA Inhaler -] 2 inh IH Q4H PRN #1 inhaler 08/22/18 Metformin HCl [Glucophage] 500 mg PO DAILY 14 Days #14 tablet 08/22/18 - Diagnosis (1) Benzodiazepine dependence Status: Acute (2) Facial rash Status: Acute (3) Nicotine dependence Status: Acute Qualifiers: Nicotine product type: cigarettes Substance use status: in withdrawal Qualified Code(s): F17.213 - Nicotine dependence, cigarettes, with withdrawal (4) Sedative, hypnotic or anxiolytic dependence with withdrawal, unspecified Status: Acute (5) COPD (chronic obstructive pulmonary disease) Status: Chronic Qualifiers: COPD type: unspecified COPD Qualified Code(s): J44.9 - Chronic obstructive pulmonary disease, unspecified (6) Cannabis dependence Status: Chronic (7) DM2 (diabetes mellitus, type 2) Status: Chronic Qualifiers: Diabetes mellitus prison insulin use: without lobsterman use Diabetes mellitus complication status: without complication Qualified Code(s): E11.9 - Type 2 diabetes mellitus without complications (8) Depression Status: Chronic Qualifiers: Depression Type: unspecified Qualified Code(s): F32.9 - Major depressive disorder, single episode, unspecified (9) Hepatitis C Status: Chronic Qualifiers: Viral hepatitis chronicity: chronic Hepatic coma status: without hepatic coma Qualified Code(s): B18.2 - Chronic viral hepatitis C (10) History of seizure Status: Suspected (11) Alcohol dependence with uncomplicated withdrawal Status: Acute (12) Incisional hernia Status: Acute Qualifiers: Obstruction and gangrene presence: without obstruction or gangrene Qualified Code(s): K43.2 - Incisional hernia without obstruction or gangrene; K43.91 - Incisional hernia, without obstruction or gangrene (13) Substance induced mood disorder Status: Acute (14) Umbilical hernia Status: Acute Qualifiers: Obstruction and gangrene presence: without obstruction or gangrene Qualified Code(s): K42.9 - Umbilical hernia without obstruction or gangrene (15) Depressive disorder Status: Chronic (16) Drug withdrawal seizure Status: Chronic Qualifiers: Complication of substance-induced condition: with unspecified complication Qualified Code(s): F19.239 - Other psychoactive substance dependence with withdrawal, unspecified; R56.9 - Unspecified convulsions; R56.9 - Unspecified convulsions; R56.9 - Unspecified convulsions; R56.9 - Unspecified convulsions (17) Methadone maintenance therapy patient Status: Chronic (18) Schizoaffective disorder Status: Chronic Qualifiers: Schizoaffective disorder type: unspecified Qualified Code(s): F25.9 - Schizoaffective disorder, unspecified - AMA Did Patient Leave Against Medical Advice: No
== END 2018-08-23 09:20 | disposition home or self-care (01) | DRG 773 ==
LOC: YASAS 09:16 → Y6N 11:51
PROVIDERS: ADMIT Surgery; ATTEND Surgery
PROC: HZ2ZZZZ Detoxification Services for Substance Abuse Treatment (ICD-10-PCS; principal; 2018-08-17)
DX: F10.230 Alcohol dependence with withdrawal, uncomplicated (principal); F11.20 Opioid dependence, uncomplicated; F13.230 Sedative, hypnotic or anxiolytic dependence with withdrawal, uncomplicated; F12.20 Cannabis dependence, uncomplicated; F17.213 Nicotine dependence, cigarettes, with withdrawal; F32.9 Major depressive disorder, single episode, unspecified; F19.24 Other psychoactive substance dependence with psychoactive substance-induced mood disorder; F25.9 Schizoaffective disorder, unspecified; E11.9 Type 2 diabetes mellitus without complications; J44.9 Chronic obstructive pulmonary disease, unspecified; B18.2 Chronic viral hepatitis C; K43.7 Other and unspecified ventral hernia with gangrene; K42.9 Umbilical hernia without obstruction or gangrene; K74.60 Unspecified cirrhosis of liver; R21 Rash and other nonspecific skin eruption; G47.00 Insomnia, unspecified; Z86.69 Personal history of other diseases of the nervous system and sense organs; Z79.84 Long term (current) use of oral hypoglycemic drugs; Z91.013 Allergy to seafood
CPT/HCPCS: 36415; 80053; 82962; 85025; 85027; 86593; 87389

== ENCOUNTER 2020-02-10 15:35 | Inpatient (IN) | payer OTHER ==
--- NOTE | 2020-02-10 15:56 | BHS.RME ---
Substance Use & Tx History - Substance Use History Klonopin Substance amount: one mg rx, script ran out, bought on street Frequency of use: Daily Substance route: Oral Date of Last Use: 02/10/20 Nicotine Substance amount: one cig Frequency of use: Daily Substance route: Smoking Date of Last Use: 02/10/20 - Last Treatment Date of last treatment: Aug 2018, completed Treatment type: Substance Use Disorder ([facility]) Where was last treatment: Detox Physical/Psych/Mental Status - Behavior General Behavior: Increased activity (restlessness, agitation) Eye Contact: Normal - Cooperativeness Cooperativeness: Cooperative - Thinking Thought Processes: Tight Thought content: Future oriented - Physical Health Problems Is patient presently having any pain?: Yes (chronic foot pain) Does patient presently have any injuries (include location): No Does patient currently have a fever: No CIWA Nausea/Vomitin-Mild Nausea/No Vomiting Muscle Tremors: 3 Anxiety: 4-Mod. Anxious/Guarded Agitation: 2 Paroxysmal Sweats: No Perspiration Orientation: 0-Oriented Tacttile Disturbances: 2-Mild Itch/Numbness/Burn Auditory Disturbances: 0-None Visual Disturbances: 0-None Headache: 0-None Present CIWA-Ar Total Score: 12
[2020-02-10 17:18] VITALS: BMI 36.9
--- NOTE | 2020-02-10 17:41 | HP ---
CIWA Score Nausea/Vomitin-Mild Nausea/No Vomiting Muscle Tremors: 3 Anxiety: 5 Agitation: 4-Moderately Restless Paroxysmal Sweats: No Perspiration Orientation: 0-Oriented Tacttile Disturbances: 2-Mild Itch/Numbness/Burn Auditory Disturbances: 0-None Visual Disturbances: 0-None Headache: 1-Very Mild CIWA-Ar Total Score: 16 - Admission Criteria OASAS Guidelines: Admission for Medically Managed Detox: Requires at least one of the followin. CIWA greater than 12 2. Seizures within the past 24 hours 3. Delirium tremens within the past 24 hours 4. Hallucinations within the past 24 hours 5. Acute intervention needed for co occurring medical disorder 6. Acute intervention needed for co occurring psychiatric disorder 7. Severe withdrawal that cannot be handled at a lower level of care (continued vomiting, continued diarrhea, abnormal vital signs) requiring intravenous medication and/or fluids 8. Patient presents the following: CIWA greater than 12 Admission Criteria Met: Admission criteria met Admitting History and Physical - Admission Chief Complaint: alcohol withdrawal symptoms History Source: Patient Limitations to Obtaining History: No Limitations - Past Medical History Pulmonary: Yes: COPD Gastrointestinal: Yes: GERD Hepatobiliary: Yes: Hepatitis C Psych: Yes: Depression - Past Surgical History Past Surgical History: Yes: Hernia Repair - Smoking History Smoking history: Former smoker Have you smoked in the past 12 months: Yes Aproximately how many cigarettes per day: 2 - Alcohol/Substance Use Hx Alcohol Use: Yes (liquor 2 pints, beer -1 six packs) History of Substance Use: reports: Marijuana Date of Last Use: 02/10/20 - Social History Usual Living Arrangement: Yes: Alone, Other (Homeless) History of Recent Travel: No Admission [facility] Chief Complaint: alcohol withdrawal symptoms Allergies/Adverse Reactions: Allergies Allergy/AdvReac Type Severity Reaction Status Date / Time shellfish derived Allergy Severe Hives Verified 02/10/20 17:36 No Known Drug Allergies Allergy Verified 02/10/20 17:36 History of Present Illness: Patient is a 54 yo male with hx of alcohol dependence and opioid dependence. On MMTP at [facility] on methadone 160 mg last dose today, dose pending verification. Hep C, with incomplete treatment, COPD , tinea pedis, abdominal Hernia, PPD+ with negative chest x-ray, depression, insomnia. Denies hx of seizures, reports hx of of ETOH blackouts with last episode three days ago. Last detox treatment at [facility] one month ago, but relapsed. COVID test results are pending. Denies recent travels or COVID symptoms. Exam Limitations: No Limitations - Ebola screening Have you traveled outside of the country in the last 21 days: No Have you had contact with anyone from an Ebola affected area: No Have you been sick,other than usual withdrawal symptoms: No Do you have a fever: No - Review of Systems Constitutional: Chills, Loss of Appetite, Weakness EENT: reports: No Symptoms Reported Respiratory: reports: No Symptoms reported Cardiac: reports: No Symptoms Reported GI: reports: Poor Fluid Intake, Abdominal cramping : reports: No Symptoms Reported Musculoskeletal: reports: Back Pain, Joint Pain Integumentary: reports: Erythema, Pruritus Neuro: reports: Tingling Endocrine: reports: No Symptoms Reported Hematology: reports: No Symptoms Reported Psychiatric: reports: Orientated x3, Anxious, Depressed Other Systems: Reviewed and Negative Patient History - Patient Medical History Hx Anemia: No Hx Asthma: No Hx Chronic Obstructive Pulmonary Disease (COPD): Yes (ON VENTOLIN INH.) Hx Cancer: No Hx Cardiac Disorders: No Hx Congestive Heart Failure: No Hx Hypertension: No Hx Hypercholesterolemia: No Hx Pacemaker: No HX Cerebrovascular Accident: No Hx Seizures: Yes (ALCOHOL RELATED SEIZURE, LAST EPISODE 2016) Hx Dementia: No Hx Diabetes: Yes (ON GLUCOPHAGE) Hx Gastrointestinal Disorders: No Hx Liver Disease: Yes (Cirrhosis., Hep C (states he was treated with Mavyret x 9 weeks in 2017)) Hx Genitourinary Disorders: No Hx Sexually Transmitted Disorders: No Hx Renal Disease (ESRD): No Hx Thyroid Disease: No Hx Human Immunodeficiency Virus (HIV): No (Last Tested: 05/2017: NEGATIVE.) Hx Hepatitis C: Yes (TREATED) Hx Depression: Yes Hx Suicide Attempt: No (DENIED) Hx Bipolar Disorder: No Hx Schizophrenia: Yes (SCHIZOAFFECTIVE DISORDER) - Patient Surgical History Past Surgical History: Yes Hx Neurologic Surgery: No Hx Cataract Extraction: No Hx Cardiac Surgery: No Hx Lung Surgery: No Hx Breast Surgery: No Hx Breast Biopsy: No Hx Abdominal Surgery: Yes (removal fb from stomach ,exploratoty lap in 03/21) Hx Appendectomy: No Hx Cholecystectomy: No Hx Genitourinary Surgery: No Hx Section: No Hx Orthopedic Surgery: No Other Surgical History: incisional hernia after surgery Anesthesia Reaction: No - PPD History Previous Implant?: Yes Documented Results: Negative w/proof Date: 08/19/18 Results: CXR neg 12/15/16 - Smoking Cessation Smoking history: Former smoker Have you smoked in the past 12 months: Yes Aproximately how many cigarettes per day: 2 Cigars Per Day: 1 Hx Chewing Tobacco Use: No Initiated information on smoking cessation: Yes 'Breaking Loose' booklet given: 02/10/20 - Substance & Tx. History Hx Alcohol Use: Yes Hx Substance Use: Yes Substance Use Type: Marijuana Hx Substance Use Treatment: Yes ([facility] one month ago ) - Substances abused Alcohol Substance route: Oral Frequency: Daily Amount used: BEER- 2 SIX PK, LIQ- 3 PINTS Age of first use: 16 Date of last use: 02/10/20 Marijuana/Hashish Substance route: Smoking Frequency: 1-2 times per week Amount used: 1 ROLL Age of first use: 18 Date of last use: 02/07/20 Admission Physical Exam [facility] - Vital Signs Vital Signs: Vital Signs - 24 hr 02/10/20 17:13 Temperature 97.8 F Pulse Rate 86 Respiratory 19 Rate Blood Pressure 115/68 - Physical General Appearance: Yes: Appropriately Dressed, Obese, Irritable, Sweating, Anxious HEENTM: Yes: Within Normal Limits Respiratory: Yes: Chest Non-Tender, Lungs Clear, Normal Breath Sounds, No Respiratory Distress, No Accessory Muscle Use Neck: Yes: Within Normal Limits Breast: Yes: Breast Exam Deferred Cardiology: Yes: Regular Rhythm, Regular Rate Abdominal: Yes: Normal Bowel Sounds, Non Tender, Soft, Protuberent Genitourinary: Yes: Within Normal Limits Back: Yes: Normal Inspection Musculoskeletal: Yes: full range of Motion, Gait Steady, Pelvis Stable, Back pain Extremities: Yes: Normal Capillary Refill, Normal Inspection, Normal Range of Motion, Non-Tender, Erythema Neurological: Yes: washhouse worker II-XII NML intact, Fully Oriented, Alert, Motor Strength 5/5, Depressed Affect Integumentary: Yes: Normal Color, Warm Lymphatic: Yes: Within Normal Limits - Diagnostic (1) Tinea pedis Current Visit: Yes Status: Chronic Qualifiers: Laterality: bilateral Qualified Code(s): B35.3 - Tinea pedis (2) Anxiety Current Visit: Yes Status: Chronic (3) Alcohol dependence with uncomplicated withdrawal Current Visit: Yes Status: Acute (4) Insomnia Current Visit: Yes Status: Chronic Qualifiers: Insomnia type: unspecified Qualified Code(s): G47.00 - Insomnia, unspecified Comment: . (5) Nicotine dependence Current Visit: Yes Status: Acute Qualifiers: Nicotine product type: cigarettes Substance use status: in withdrawal Qualified Code(s): F17.213 - Nicotine dependence, cigarettes, with withdrawal Comment: . (6) COPD (chronic obstructive pulmonary disease) Current Visit: Yes Status: Chronic Qualifiers: COPD type: unspecified COPD Qualified Code(s): J44.9 - Chronic obstructive pulmonary disease, unspecified (7) DM2 (diabetes mellitus, type 2) Current Visit: Yes Status: Chronic Qualifiers: Diabetes mellitus extermination inspector insulin use: without extermination inspector use Diabetes mellitus complication status: without complication Qualified Code(s): E11.9 - Type 2 diabetes mellitus without complications (8) Hepatitis C Current Visit: Yes Status: Chronic Qualifiers: Viral hepatitis chronicity: chronic Hepatic coma status: without hepatic coma Qualified Code(s): B18.2 - Chronic viral hepatitis C (9) Methadone maintenance therapy patient Current Visit: Yes Status: Chronic Comment: On 160 MG at [facility]. Dose pending verification. Last dose today. (10) Cannabis dependence Current Visit: Yes Status: Chronic Comment: . (11) History of positive PPD Current Visit: Yes Status: Chronic Cleared for Admission S - Detox or Rehab [facility] Level of Care: Medically Managed Detox Regimen/Protocol: Valium Breathalyzer - Breathalyzer Breathalyzer: 0.078 Urine Drug Screen - Test Device Lot number: [id number] Expiration date: 02/06/22 - Control Is test valid?: Yes - Results Drug screen NEGATIVE: No Urine drug screen results: MTD-Methadone Inpatient Rehab Admission - Rehab Decision to Admit Inpatient rehab admission?: No
[2020-02-10] MEDS ORDERED: ALBUTEROL SO4 HFA INHALER IH PRN (17:42)
[2020-02-10] MEDS ORDERED: diazePAM 5 MG TABLET PO PRN (17:43)
[2020-02-10] MEDS ORDERED: NICOTINE POLACRILEX 2 MG GUM BUC PRN (17:43)
[2020-02-10] MEDS ORDERED: METHOCARBAMOL 500 MG TABLET PO PRN (17:43)
[2020-02-10] MEDS ORDERED: ACETAMINOPHEN 325 MG TABLET (FP) PO PRN ×2 (17:43)
[2020-02-10] MEDS ORDERED: MAGNESIUM CITRATE 300 ML BOTTLE PO PRN (17:43)
[2020-02-10] MEDS ORDERED: MAGNESIUM HYDROX 2400MG/30ML ORAL SUSPENSION 30 ML CUP PO PRN (17:43)
[2020-02-10] MEDS ORDERED: MAG HYDROX/AL HYDROX/SIMETH 30 ML UNIT-DOSE CUP PO PRN (17:43)
[2020-02-10] MEDS ORDERED: MENTHOL/PHENOL 1 EACH UD MM PRN (17:43)
[2020-02-10] MEDS ORDERED: IBUPROFEN 400 MG TABLET (FP) PO PRN (17:43)
[2020-02-10] MEDS ORDERED: BISMUTH SUBSALICYLATE 524 MG/30 ML UD PO PRN (17:43)
[2020-02-10] MEDS ORDERED: hydrOXYzine PAMOATE 25 MG CAPSULE (FP) PO SCH (18:00)
[2020-02-10] MEDS: ONDANSETRON *ODT* 4 MG TABLET SL ONE ×2 (18:37→18:41)
[2020-02-10] MEDS: PRENATAL VITAMINS W/ FOLIC ACID TABLET (FP) PO SCH (18:37)
[2020-02-10] MEDS ORDERED: hydrOXYzine PAMOATE 25 MG CAPSULE (FP) PO PRN (20:42)
[2020-02-10] MEDS: THIAMINE HCL 100 MG TABLET (FP) PO SCH (22:37)
[2020-02-10] MEDS: diazePAM 5 MG TABLET PO SCH (22:37)
[2020-02-10] MEDS: MELATONIN 5 MG TABLETS PO SCH (22:38)
[2020-02-10] MEDS: TOLNAFTATE 1% CREAM 15 GM TUBE TP SCH (22:38)
[2020-02-11] MEDS: diazePAM 5 MG TABLET PO SCH ×3 (06:09→22:47)
[2020-02-11 09:14] LABS: HEMOGLOBIN 13.3 GM/dL (11.7-16.9); MCH 29.8 pg (25.7-33.7); MCHC 33.2 g/dl (32.0-35.9); MEAN PLT VOLUME 9.4 fl (7.5-11.1); PLATELET COUNT 61 K/MM3 (134-434); RBC 4.44 M/mm3 (4.00-5.60); RDW 16.6 % (11.9-15.9); WHITE BLOOD COUNT 3.8 K/mm3 (4.0-10.0)
[2020-02-11 09:38] LABS: ALBUMIN 2.8 g/dl (3.4-5.0); BILIRUBIN,TOTAL 0.9 mg/dL (0.2-1); BLOOD UREA NITROGEN 8.8 mg/dL (7-18); CALCIUM 8.6 mg/dL (8.5-10.1); CREATININE 0.7 mg/dL (0.55-1.3); POTASSIUM 3.8 mmol/L (3.5-5.1); TOT PROT 6.9 g/dl (6.4-8.2)
[2020-02-11] MEDS: NICOTINE 7 MG/24 HOURS TOPICAL PATCH TD SCH (10:28)
[2020-02-11] MEDS: PRENATAL VITAMINS W/ FOLIC ACID TABLET (FP) PO SCH (10:28)
[2020-02-11] MEDS: TOLNAFTATE 1% CREAM 15 GM TUBE TP SCH ×2 (10:29→22:47)
[2020-02-11] MEDS: METHADONE HCL 40 MG DISPERSABLE TABLET PO SCH (11:24)
--- NOTE | 2020-02-11 13:26 | EKG ---
Test Reason : Blood Pressure : / mmHG Vent. Rate : 078 BPM Atrial Rate : 078 BPM P-R Int : 154 ms QRS Dur : 108 ms QT Int : 438 ms P-R-T Axes : 046 -29 030 degrees QTc Int : 499 ms NORMAL SINUS RHYTHM PROLONGED QT ABNORMAL ECG WHEN COMPARED WITH ECG OF 25-OCT-2017 12:21, QT HAS LENGTHENED Confirmed by Parul Olguin ([id number]) on 02/11/2020 1:26:42 PM Referred By: Confirmed By:Parul Olguin
--- NOTE | 2020-02-11 13:30 | PN ---
[facility] CIWA - CIWA Score Nausea/Vomitin-No Nausea/No Vomiting Muscle Tremors: 3 Anxiety: 3 Agitation: 1-Slight > Activity Paroxysmal Sweats: 2 Orientation: 0-Oriented Tacttile Disturbances: 0-None Auditory Disturbances: 2-Mild Harshness/Frighten Visual Disturbances: 1-Very Mild Sensitivity Headache: 0-None Present CIWA-Ar Total Score: 12 BHS Progress Note (SOAP) Subjective: Complaints of sweats,tremors,anxiety light and noise sensitivity. Objective: Vital Signs 02/11/20 02/11/20 06:03 08:55 Temperature 97.9 F 97.3 F L Pulse Rate 69 82 Respiratory 20 20 Rate Blood Pressure 120/65 152/81 O2 Sat by Pulse 95 95 Oximetry (%) Laboratory Last Values WBC 3.8 K/mm3 (4.0-10.0) L 02/11/20 06:50 RBC 4.44 M/mm3 (4.00-5.60) 02/11/20 06:50 Hgb 13.3 GM/dL (11.7-16.9) 02/11/20 06:50 Hct 40.0 % (35.4-49) 02/11/20 06:50 MCV 90.0 fl (80-96) 02/11/20 06:50 MCH 29.8 pg (25.7-33.7) 02/11/20 06:50 MCHC 33.2 g/dl (32.0-35.9) 02/11/20 06:50 RDW 16.6 % (11.9-15.9) H 02/11/20 06:50 Plt Count 61 K/MM3 (134-434) L D 02/11/20 06:50 MPV 9.4 fl (7.5-11.1) D 02/11/20 06:50 Sodium 140 mmol/L (136-145) 02/11/20 06:50 Potassium 3.8 mmol/L (3.5-5.1) 02/11/20 06:50 Chloride 102 mmol/L (98-107) 02/11/20 06:50 Carbon Dioxide 29 mmol/L (21-32) 02/11/20 06:50 Anion Gap 9 MMOL/L (8-16) 02/11/20 06:50 BUN 8.8 mg/dL (7-18) 02/11/20 06:50 Creatinine 0.7 mg/dL (0.55-1.3) 02/11/20 06:50 Est GFR (CKD-EPI)AfAm 125.75 02/11/20 06:50 Est GFR (CKD-EPI)NonAf 108.50 02/11/20 06:50 POC Glucometer 239 UNITS (80-120) 02/11/20 06:10 Random Glucose 246 mg/dL (74-106) H 02/11/20 06:50 Calcium 8.6 mg/dL (8.5-10.1) 02/11/20 06:50 Total Bilirubin 0.9 mg/dL (0.2-1) 02/11/20 06:50 AST 69 U/L (15-37) H 02/11/20 06:50 ALT 57 U/L (13-61) 02/11/20 06:50 Alkaline Phosphatase 219 U/L (45-117) H 02/11/20 06:50 Total Protein 6.9 g/dl (6.4-8.2) 02/11/20 06:50 Albumin 2.8 g/dl (3.4-5.0) L 02/11/20 06:50 Syphilis Serology Non-reactive (NONREACTIVE) 02/11/20 06:50 Labs noted. Assessment: 02/11/20 13:27 Alert and oriented x3, in no acute respiratory distress. Full ROM, ambulating in hallway without assistance. Skin warm to touch with no lesions noted. Withdrawal symptoms. Methadone dosage 160mg was verified by Angie Tejada at [facility] at [phone] with Ivan ARNOLD. Patient was last medicated 02/10/2020. Plan: Continue detox protocol and daily MMTP dosage.
--- NOTE | 2020-02-11 15:33 | CONSULT ---
[facility] Psychiatric Consult - Data Date of interview: 02/11/20 Admission source: [facility] Identifying data: Readmission to [address] [place] [address] for this 54 y/o male self- referred for detoxification treatment on [address] [place] [address]. CLARIBEL issues : opioid, alcohol, marijuana, nicotine. Patient is single, no dependents, homeless (lives in nursing home), unemployed and supported on SSI benefits. Substance Abuse History: Discussed with the patient. LCARIBEL profile as follows : Smoking history: Former smoker. Have you smoked in the past 12 months: Yes. Aproximately how many cigarettes per day: 2. Cigars Per Day: 1. Hx Chewing Tobacco Use: No. Initiated information on smoking cessation: Yes. 'Breaking Loose' booklet given: 02/10/20. - Substance & Tx. History. Hx Alcohol Use: Yes. Hx Substance Use: Yes. Substance Use Type: Marijuana. Hx Substance Use Treatment: Yes ([facility] one month ago ). - Substances abused. Alcohol. Substance route: Oral. Frequency: Daily. Amount used: BEER- 2 SIX PK, LIQ- 3 PINTS. Age of first use: 16. Date of last use: 02/10/20. Marijuana/Hashish. Substance route: Smoking. Frequency: 1-2 times per week. Amount used: 1 ROLL. Age of first use: 18. Date of last use: 02/07/20 Medical History: Medical profile is remarkable for COPD, tinea pedis, obesity, positive PPD, cirrhosis of the liver, hepatitis C, diabetes mellitus, seizure disorder and a history of abdominal surgery (exploratory laparotomy/removal of a foreign body in stomach) in 2016. Patient developed incisional hernia after surgery. Psychiatric History: Patient endorses a long standing history of mental illness. History of multiple psychiatric hospitalizations ([facility], [facility], [facility], [facility], [facility]). Onset of psychiatric disturbances (20 years ago). Mr Saravia has been diagnosed with Schizoaffective Disorder. He has been managed with various pychotropic drugs which include abilify, seroquel, bupropion, lithium, seroquel, trazodone and other unnamed molecules. Patient is known for chronic non- adherence to medications + OPD care. Except for methadone (160 mg/day) from [facility] in the [place], the patient has been off psychotropic medications for weeks. He consented for detoxification but declines to take any additional psychotropic other than seroquel 50 mg for insomnia (during current course of treatment). Patient denies history of suicide attempts. Physical/Sexual Abuse/Trauma History: Not discussed. Patient declines. Additional Comment: Urine drug screen results: MTD-Methadone. Noted. Mental Status Exam - Mental Status Exam Alert and Oriented to: Time, Place, Person Cognitive Function: Good Patient Appearance: Unkempt, Disheveled Mood: Nervous, Withdrawn, Irritable Affect: Constricted Patient Behavior: Fatigued, Cooperative (superficially cooperative) Speech Pattern: Clear Voice Loudness: Normal Thought Process: Goal Oriented Thought Disorder: Not Present Hallucinations: Denies Suicidal Ideation: Denies Homicidal Ideation: Denies Insight/Judgement: Poor Sleep: Poorly, Difficulty falling asleep Appetite: Good Gait/Station: Normal Psychiatric Findings - Problem List ([place] 1, 2,3) (1) Alcohol dependence with uncomplicated withdrawal Current Visit: Yes Status: Acute (2) Opioid dependence on agonist therapy Current Visit: Yes Status: Chronic Comment: . (3) Cannabis dependence Current Visit: Yes Status: Chronic Comment: . (4) Nicotine dependence Current Visit: Yes Status: Chronic Qualifiers: Nicotine product type: cigarettes Substance use status: in withdrawal Qualified Code(s): F17.213 - Nicotine dependence, cigarettes, with withdrawal Comment: . (5) Substance induced mood disorder Current Visit: Yes Status: Chronic Comment: . (6) History of schizoaffective disorder Current Visit: Yes Status: Chronic (7) Insomnia Current Visit: Yes Status: Chronic (8) Non-compliance Current Visit: Yes Status: Chronic Comment: Non-adherent to medications or OPD care. - Initial Treatment Plan Initial Treatment Plan: Patient came reluctantly to the office for this psychiatric evaluation. He refused at first but changed his mind because he " needs some seroquel to sleep at night." He insists on his preference for seroquel due to its effectiveness and tolerability (self-report). Seroquel 50 mg po hs. Side effects/benefits discussed with patient. Consent (verbal) granted to . Psychoeducation. Sleep hygiene. Detoxification in progress. Observation.
--- NOTE | 2020-02-11 17:15 | PN ---
[facility] Progress Note Note: Received call from RN reporting high fingerstick ( 312mg/dl) , no coverage or oral agent, patient on Glucophage at home. Abnormal Lab Results 02/11/20 02/11/20 06:50 06:50 WBC 3.8 L RDW 16.6 H Plt Count 61 L D Random Glucose 246 H AST 69 H Alkaline Phosphatase 219 H Albumin 2.8 L Glucose level as above A/P Hyperglycemia- Novolin with sliding scale ordered Glucophage ordered Monitoring ongoing
[2020-02-11] MEDS ORDERED: INSULIN (NOVOLOG) ASPART 100 UNITS/ML 10ML VIAL SQ ONE (17:27)
[2020-02-11] MEDS ORDERED: INSULIN SLIDING SCALE (NOVOLOG) 1 VIAL SQ ONE (17:44)
[2020-02-11] MEDS: QUEtiapine FUMARATE 50 MG TABLET PO SCH (22:47)
[2020-02-11] MEDS: MELATONIN 5 MG TABLETS PO SCH (22:47)
[2020-02-11] MEDS: THIAMINE HCL 100 MG TABLET (FP) PO SCH (22:47)
[2020-02-12] MEDS: diazePAM 5 MG TABLET PO SCH ×2 (05:27→17:12)
[2020-02-12] MEDS: METHADONE HCL 40 MG DISPERSABLE TABLET PO SCH (05:27)
[2020-02-12] MEDS: INSULIN SLIDING SCALE (NOVOLOG) 1 VIAL SQ SCH ×2 (06:56→17:12)
[2020-02-12] MEDS: metFORMIN HCL 500 MG TABLET (FP) PO SCH ×2 (06:59→17:12)
[2020-02-12] MEDS: PRENATAL VITAMINS W/ FOLIC ACID TABLET (FP) PO SCH (10:07)
[2020-02-12] MEDS: TOLNAFTATE 1% CREAM 15 GM TUBE TP SCH ×2 (10:07→21:53)
[2020-02-12] MEDS: NICOTINE 7 MG/24 HOURS TOPICAL PATCH TD SCH (10:07)
--- NOTE | 2020-02-12 12:44 | PN ---
[facility] COWS - Scale Resting Pulse: 0= MT 80 or Below Sweatin= No chills or Flushing Restless Observation: 0= Sits Still Pupil Size: 2= Moderately Dilated Bone or Joint Aches: 1= Mild Discomfort Runny Nose/ Eye Tearin= None GI Upset > 30mins: 0= None Tremor Observation of Outstretched Hands: 0= None Yawning Observation: 0= None Anxiety or Irritability: 2=Irritable/Anxious Goose Flesh Skin: 0=Smooth Skin COWS Score: 5 [facility] Progress Note (SOAP) Subjective: ETOH WITHDRAWAL SX. ROS: C/O MILD ANXIETY AND BODY ACHES. Objective: 02/12/20 12:49 Laboratory Tests 02/10/20 02/11/20 02/11/20 18:05 06:10 06:50 WBC RBC Hgb Hct MCV MCH MCHC RDW Plt Count MPV Sodium Potassium Chloride Carbon Dioxide Anion Gap BUN Creatinine Est GFR (CKD-EPI)AfAm Est GFR (CKD-EPI)NonAf POC Glucometer 239 Random Glucose Calcium Total Bilirubin AST ALT Alkaline Phosphatase Total Protein Albumin Syphilis Serology Non-reactive COVID-19 (ADDY) Not detected 02/11/20 02/11/20 02/11/20 06:50 06:50 16:32 WBC 3.8 L RBC 4.44 Hgb 13.3 Hct 40.0 MCV 90.0 MCH 29.8 MCHC 33.2 RDW 16.6 H Plt Count 61 L D MPV 9.4 D Sodium 140 Potassium 3.8 Chloride 102 Carbon Dioxide 29 Anion Gap 9 BUN 8.8 Creatinine 0.7 Est GFR (CKD-EPI)AfAm 125.75 Est GFR (CKD-EPI)NonAf 108.50 POC Glucometer 312 Random Glucose 246 H Calcium 8.6 Total Bilirubin 0.9 AST 69 H ALT 57 Alkaline Phosphatase 219 H Total Protein 6.9 Albumin 2.8 L Syphilis Serology COVID-19 (ADDY) 02/12/20 05:30 WBC RBC Hgb Hct MCV MCH MCHC RDW Plt Count MPV Sodium Potassium Chloride Carbon Dioxide Anion Gap BUN Creatinine Est GFR (CKD-EPI)AfAm Est GFR (CKD-EPI)NonAf POC Glucometer 228 Random Glucose Calcium Total Bilirubin AST ALT Alkaline Phosphatase Total Protein Albumin Syphilis Serology COVID-19 (ADDY) Vital Signs Temperature 98.8 F 02/12/20 09:42 Pulse Rate 65 02/12/20 09:42 Respiratory Rate 18 02/12/20 09:42 Blood Pressure 125/67 02/12/20 09:42 O2 Sat by Pulse Oximetry (%) 98 02/12/20 09:42 PE ALERT AND ORIENTED X 3 SKIN WARM AND DRY +PERRLA, PUPILS MILDLY DILATED 3MM EOMS INTACT BL IN NAD EXT FULL ROM, AMB AD SAVANA NO TREMORS MILDLY ANXIOUS Assessment: 02/12/20 12:51 ETOH WITHDRAWAL SX MMTP Plan: FOR D/C IN AM CONTINUE DETOX
[2020-02-12] MEDS: THIAMINE HCL 100 MG TABLET (FP) PO SCH (21:53)
[2020-02-12] MEDS: QUEtiapine FUMARATE 50 MG TABLET PO SCH (21:53)
[2020-02-12] MEDS: MELATONIN 5 MG TABLETS PO SCH (21:53)
[2020-02-13] MEDS: METHADONE HCL 40 MG DISPERSABLE TABLET PO SCH (05:51)
[2020-02-13] MEDS ORDERED: diazePAM 5 MG TABLET PO ONE (06:00)
[2020-02-13] MEDS: metFORMIN HCL 500 MG TABLET (FP) PO SCH (07:06)
[2020-02-13] MEDS: INSULIN SLIDING SCALE (NOVOLOG) 1 VIAL SQ SCH (07:09)
[2020-02-13] MEDS ORDERED: INSULIN SLIDING SCALE (NOVOLOG) 1 VIAL SQ ONE (07:11)
[2020-02-13] MEDS: PRENATAL VITAMINS W/ FOLIC ACID TABLET (FP) PO SCH (10:26)
[2020-02-13] MEDS: NICOTINE 7 MG/24 HOURS TOPICAL PATCH TD SCH (10:26)
[2020-02-13] MEDS: TOLNAFTATE 1% CREAM 15 GM TUBE TP SCH (10:26)
[2020-02-13 10:52] VITALS: BP 121/68; PULSE 73; TEMP 97.2
--- NOTE | 2020-02-13 13:14 | PN ---
[facility] CIWA - CIWA Score Nausea/Vomitin-No Nausea/No Vomiting Muscle Tremors: None Anxiety: 1-Mildly Anxious Agitation: 0-Normal Activity Paroxysmal Sweats: No Perspiration Orientation: 0-Oriented Tacttile Disturbances: 0-None Auditory Disturbances: 0-None Visual Disturbances: 0-None Headache: 0-None Present CIWA-Ar Total Score: 1 S Progress Note (SOAP) Subjective: alert,no complaint Objective: 02/13/20 13:10 Vital Signs Temperature 97.2 F L 02/13/20 08:27 Pulse Rate 73 02/13/20 08:27 Respiratory Rate 16 02/13/20 08:27 Blood Pressure 121/68 02/13/20 08:27 O2 Sat by Pulse Oximetry (%) 96 02/13/20 05:48 02/13/20 13:10 Laboratory Last Values WBC 3.8 K/mm3 (4.0-10.0) L 02/11/20 06:50 RBC 4.44 M/mm3 (4.00-5.60) 02/11/20 06:50 Hgb 13.3 GM/dL (11.7-16.9) 02/11/20 06:50 Hct 40.0 % (35.4-49) 02/11/20 06:50 MCV 90.0 fl (80-96) 02/11/20 06:50 MCH 29.8 pg (25.7-33.7) 02/11/20 06:50 MCHC 33.2 g/dl (32.0-35.9) 02/11/20 06:50 RDW 16.6 % (11.9-15.9) H 02/11/20 06:50 Plt Count 61 K/MM3 (134-434) L D 02/11/20 06:50 MPV 9.4 fl (7.5-11.1) D 02/11/20 06:50 Sodium 140 mmol/L (136-145) 02/11/20 06:50 Potassium 3.8 mmol/L (3.5-5.1) 02/11/20 06:50 Chloride 102 mmol/L (98-107) 02/11/20 06:50 Carbon Dioxide 29 mmol/L (21-32) 02/11/20 06:50 Anion Gap 9 MMOL/L (8-16) 02/11/20 06:50 BUN 8.8 mg/dL (7-18) 02/11/20 06:50 Creatinine 0.7 mg/dL (0.55-1.3) 02/11/20 06:50 Est GFR (CKD-EPI)AfAm 125.75 02/11/20 06:50 Est GFR (CKD-EPI)NonAf 108.50 02/11/20 06:50 POC Glucometer 185 UNITS (80-120) 02/13/20 05:50 Random Glucose 246 mg/dL (74-106) H 02/11/20 06:50 Calcium 8.6 mg/dL (8.5-10.1) 02/11/20 06:50 Total Bilirubin 0.9 mg/dL (0.2-1) 02/11/20 06:50 AST 69 U/L (15-37) H 02/11/20 06:50 ALT 57 U/L (13-61) 02/11/20 06:50 Alkaline Phosphatase 219 U/L (45-117) H 02/11/20 06:50 Total Protein 6.9 g/dl (6.4-8.2) 02/11/20 06:50 Albumin 2.8 g/dl (3.4-5.0) L 02/11/20 06:50 Syphilis Serology Non-reactive (NONREACTIVE) 02/11/20 06:50 COVID-19 (ADDY) Not detected (Not Detected) 02/10/20 18:05 Assessment: 02/13/20 13:11 detox completed,no withdrawal symptom Plan: stable for discharge today,follow up with after care program as arrangement revelation
--- NOTE | 2020-02-13 13:20 | DS ---
[facility] Detox Discharge Summary Admission Date: 02/10/20 Discharge Date: 02/13/20 - History Present History: Alcohol Dependence, Cannabis Dependence, MMTP Additional Comments: alert,oriented x 3 ambulation on the unit lung clear to auscultation bilaterally abdomen soft,no distension,no pain no edema of legs detox completed,no withdrawal symptom stable for discharge today follow up with after care program as arrangement revelation total time of discharge 35 minutes Pertinent Past History: copd hepatitis c treated tinea pedis type 2 dm - Physical Exam Results Vital Signs: Vital Signs Temperature 97.2 F L 02/13/20 08:27 Pulse Rate 73 02/13/20 08:27 Respiratory Rate 16 02/13/20 08:27 Blood Pressure 121/68 02/13/20 08:27 O2 Sat by Pulse Oximetry (%) 96 02/13/20 05:48 Pertinent Admission Physical Exam Findings: withdrawal sings and symptom Laboratory Last Values WBC 3.8 K/mm3 (4.0-10.0) L 02/11/20 06:50 RBC 4.44 M/mm3 (4.00-5.60) 02/11/20 06:50 Hgb 13.3 GM/dL (11.7-16.9) 02/11/20 06:50 Hct 40.0 % (35.4-49) 02/11/20 06:50 MCV 90.0 fl (80-96) 02/11/20 06:50 MCH 29.8 pg (25.7-33.7) 02/11/20 06:50 MCHC 33.2 g/dl (32.0-35.9) 02/11/20 06:50 RDW 16.6 % (11.9-15.9) H 02/11/20 06:50 Plt Count 61 K/MM3 (134-434) L D 02/11/20 06:50 MPV 9.4 fl (7.5-11.1) D 02/11/20 06:50 Sodium 140 mmol/L (136-145) 02/11/20 06:50 Potassium 3.8 mmol/L (3.5-5.1) 02/11/20 06:50 Chloride 102 mmol/L (98-107) 02/11/20 06:50 Carbon Dioxide 29 mmol/L (21-32) 02/11/20 06:50 Anion Gap 9 MMOL/L (8-16) 02/11/20 06:50 BUN 8.8 mg/dL (7-18) 02/11/20 06:50 Creatinine 0.7 mg/dL (0.55-1.3) 02/11/20 06:50 Est GFR (CKD-EPI)AfAm 125.75 02/11/20 06:50 Est GFR (CKD-EPI)NonAf 108.50 02/11/20 06:50 POC Glucometer 185 UNITS (80-120) 02/13/20 05:50 Random Glucose 246 mg/dL (74-106) H 02/11/20 06:50 Calcium 8.6 mg/dL (8.5-10.1) 02/11/20 06:50 Total Bilirubin 0.9 mg/dL (0.2-1) 02/11/20 06:50 AST 69 U/L (15-37) H 02/11/20 06:50 ALT 57 U/L (13-61) 02/11/20 06:50 Alkaline Phosphatase 219 U/L (45-117) H 02/11/20 06:50 Total Protein 6.9 g/dl (6.4-8.2) 02/11/20 06:50 Albumin 2.8 g/dl (3.4-5.0) L 02/11/20 06:50 Syphilis Serology Non-reactive (NONREACTIVE) 02/11/20 06:50 COVID-19 (ADDY) Not detected (Not Detected) 02/10/20 18:05 Vital Signs Temperature 97.2 F L 02/13/20 08:27 Pulse Rate 73 02/13/20 08:27 Respiratory Rate 16 02/13/20 08:27 Blood Pressure 121/68 02/13/20 08:27 O2 Sat by Pulse Oximetry (%) 96 02/13/20 05:48 - Treatment Hospital Course: Detox Protocol Followed, Detoxed Safely, Responded well, Discharged Condition Good, Rehab Referral Accepted - Medication Discharge Medications: Ambulatory Orders traZODone HCL [Desyrel -] 50 mg PO HS #30 tablet 11/04/17 Methadone [Dolophine -] 160 mg PO DAILY 08/17/18 Fluoxetine HCl [Prozac] 20 mg PO DAILY #30 capsule 08/18/18 Albuterol Sulfate Inhaler - [Ventolin HFA Inhaler -] 2 inh IH Q4H PRN #1 inhaler 02/12/20 Metformin HCl [Glucophage] 500 mg PO DAILY 14 Days #14 tablet 02/12/20 - Diagnosis (1) DM2 (diabetes mellitus, type 2) Current Visit: Yes Status: Acute (2) Alcohol dependence with uncomplicated withdrawal Current Visit: Yes Status: Acute (3) COPD (chronic obstructive pulmonary disease) Current Visit: Yes Status: Chronic Qualifiers: COPD type: unspecified COPD Qualified Code(s): J44.9 - Chronic obstructive pulmonary disease, unspecified (4) Cannabis dependence Current Visit: Yes Status: Chronic (5) DM2 (diabetes mellitus, type 2) Current Visit: Yes Status: Chronic Qualifiers: Diabetes mellitus detention insulin use: without detention use Diabetes mellitus complication status: without complication Qualified Code(s): E11.9 - Type 2 diabetes mellitus without complications (6) Hepatitis C Current Visit: Yes Status: Chronic Qualifiers: Viral hepatitis chronicity: chronic Hepatic coma status: without hepatic coma Qualified Code(s): B18.2 - Chronic viral hepatitis C (7) Methadone maintenance therapy patient Current Visit: Yes Status: Chronic (8) Nicotine dependence Current Visit: Yes Status: Chronic Qualifiers: Nicotine product type: cigarettes Substance use status: in withdrawal Qualified Code(s): F17.213 - Nicotine dependence, cigarettes, with withdrawal - AMA Did Patient Leave Against Medical Advice: No
== END 2020-02-13 13:05 | disposition other institution (70) | DRG 773 ==
LOC: YASAS 15:35 → Y6N 17:55
PROVIDERS: ADMIT Allergy & Immunology; ATTEND Allergy & Immunology
PROC: HZ2ZZZZ Detoxification Services for Substance Abuse Treatment (ICD-10-PCS; principal; 2020-02-10)
DX: F10.230 Alcohol dependence with withdrawal, uncomplicated (principal); F11.20 Opioid dependence, uncomplicated; F12.20 Cannabis dependence, uncomplicated; F17.213 Nicotine dependence, cigarettes, with withdrawal; F19.24 Other psychoactive substance dependence with psychoactive substance-induced mood disorder; F41.9 Anxiety disorder, unspecified; E11.65 Type 2 diabetes mellitus with hyperglycemia; J44.9 Chronic obstructive pulmonary disease, unspecified; B18.2 Chronic viral hepatitis C; G47.00 Insomnia, unspecified; K74.60 Unspecified cirrhosis of liver; B35.3 Tinea pedis; E66.9 Obesity, unspecified; Z68.37 Body mass index [BMI] 37.0-37.9, adult; Z79.84 Long term (current) use of oral hypoglycemic drugs; Z86.69 Personal history of other diseases of the nervous system and sense organs; Z91.14 Patient's other noncompliance with medication regimen; Z91.013 Allergy to seafood
CPT/HCPCS: 36415; 80053; 82962; 85027; 86780; 93005; 93010; Q0162; U0003

== ENCOUNTER 2020-02-13 13:08 | Inpatient (IN) | payer OTHER ==
[2020-02-13] MEDS ORDERED: MAG HYDROX/AL HYDROX/SIMETH 30 ML UNIT-DOSE CUP PO PRN (15:02)
[2020-02-13] MEDS ORDERED: MENTHOL/PHENOL 1 EACH UD MM PRN (15:02)
[2020-02-13] MEDS ORDERED: ACETAMINOPHEN 325 MG TABLET (FP) PO PRN (15:02)
[2020-02-13] MEDS ORDERED: LOPERAMIDE HCL 2 MG CAPSULE PO PRN (15:02)
[2020-02-13] MEDS ORDERED: ALBUTEROL SO4 HFA INHALER IH PRN (15:02)
[2020-02-13] MEDS ORDERED: MAGNESIUM CITRATE 300 ML BOTTLE PO PRN (15:02)
[2020-02-13] MEDS ORDERED: NICOTINE POLACRILEX 2 MG GUM BUC PRN (15:02)
[2020-02-13] MEDS ORDERED: guaiFENesin 200 MG/10 ML 10 ML UNIT-DOSE CUPS PO PRN (15:02)
[2020-02-13] MEDS ORDERED: P-EPHED 60MG/TRIPROLIDI 2.5MG TABLET PO PRN (15:02)
[2020-02-13] MEDS ORDERED: MAGNESIUM HYDROX 2400MG/30ML ORAL SUSPENSION 30 ML CUP PO PRN (15:02)
--- NOTE | 2020-02-13 15:04 | HP ---
[facility] Rehab Assess/Revision - Admission History Admitted to Rehab from: [facility] - Vital signs Vital Signs: Vital Signs Period Temp Pulse Resp BP Sys/Davis Pulse Ox Last 24 Hr 98 F 79 18 121/70 95 - Findings Detox History & Physical reviewed: Yes Concur with findings: Yes Inpatient Rehab Admission - Rehab Decision to Admit Inpatient rehab admission?: Yes - Initial Determination Are CD services needed?: Yes Free of communicable disease: Yes Not in need of hospitalization: Yes - Rehab Admission Criteria Previous failed treatment: Yes Poor recovery environment: Yes Comorbidities: Yes Lacks judgement: No Patient is meeting Inpatient Rehab admission criteria:: Yes
[2020-02-13] MEDS: MELATONIN 5 MG TABLETS PO SCH (22:08)
[2020-02-13] MEDS: THIAMINE HCL 100 MG TABLET (FP) PO SCH (22:08)
[2020-02-13] MEDS: TOLNAFTATE 1% CREAM 15 GM TUBE TP SCH (22:08)
[2020-02-14] MEDS ORDERED: METHADONE HCL 40 MG DISPERSABLE TABLET PO SCH ×2 (06:11→10:00)
[2020-02-14] MEDS: METHADONE HCL 40 MG DISPERSABLE TABLET PO SCH (06:28)
[2020-02-14] MEDS: metFORMIN HCL 500 MG TABLET (FP) PO SCH (06:55)
[2020-02-14] MEDS: TOLNAFTATE 1% CREAM 15 GM TUBE TP SCH ×2 (10:50→21:50)
[2020-02-14] MEDS: NICOTINE 7 MG/24 HOURS TOPICAL PATCH TD SCH (11:10)
[2020-02-14] MEDS: PRENATAL VITAMINS W/ FOLIC ACID TABLET (FP) PO SCH (11:10)
[2020-02-14] MEDS: THIAMINE HCL 100 MG TABLET (FP) PO SCH (21:50)
[2020-02-14] MEDS: MELATONIN 5 MG TABLETS PO SCH (21:50)
[2020-02-15] MEDS ORDERED: METHADONE HCL 40 MG DISPERSABLE TABLET PO SCH (06:00)
[2020-02-15] MEDS: metFORMIN HCL 500 MG TABLET (FP) PO SCH (06:06)
[2020-02-15] MEDS: METHADONE HCL 40 MG DISPERSABLE TABLET PO SCH (06:06)
[2020-02-15] MEDS: PRENATAL VITAMINS W/ FOLIC ACID TABLET (FP) PO SCH (10:37)
[2020-02-15] MEDS: NICOTINE 7 MG/24 HOURS TOPICAL PATCH TD SCH (10:37)
[2020-02-15] MEDS: TOLNAFTATE 1% CREAM 15 GM TUBE TP SCH ×2 (10:37→21:03)
[2020-02-15] MEDS ORDERED: SODIUM PHOSPHATE/NA BIPHOS 133 ML ENEMA RC ONE (11:00)
[2020-02-15] MEDS: MELATONIN 5 MG TABLETS PO SCH (21:02)
[2020-02-15] MEDS: THIAMINE HCL 100 MG TABLET (FP) PO SCH (21:02)
[2020-02-16] MEDS: METHADONE HCL 40 MG DISPERSABLE TABLET PO SCH (05:59)
[2020-02-16] MEDS: metFORMIN HCL 500 MG TABLET (FP) PO SCH (06:01)
[2020-02-16] MEDS: PRENATAL VITAMINS W/ FOLIC ACID TABLET (FP) PO SCH (09:26)
[2020-02-16] MEDS: NICOTINE 7 MG/24 HOURS TOPICAL PATCH TD SCH (09:26)
[2020-02-16] MEDS: TOLNAFTATE 1% CREAM 15 GM TUBE TP SCH ×2 (09:27→21:49)
[2020-02-16] MEDS: POLYETHYLENE GLYCOL 3350 119 GM BTL PO SCH (10:37)
[2020-02-16] MEDS ORDERED: PT OWN MED DRAWER 7, Y5N ONE (18:35)
[2020-02-16] MEDS: MELATONIN 5 MG TABLETS PO SCH (21:49)
[2020-02-16] MEDS: THIAMINE HCL 100 MG TABLET (FP) PO SCH (21:49)
[2020-02-17] MEDS: METHADONE HCL 40 MG DISPERSABLE TABLET PO SCH (05:54)
[2020-02-17] MEDS: metFORMIN HCL 500 MG TABLET (FP) PO SCH ×2 (07:00→16:58)
[2020-02-17] MEDS: IBUPROFEN 400 MG TABLET (FP) PO PRN (08:44)
--- NOTE | 2020-02-17 10:08 | PN ---
[facility] Progress Note Note: Laboratory Tests 02/14/20 02/15/20 02/16/20 06:01 06:05 06:00 POC Glucometer 183 219 283 02/17/20 02/17/20 05:53 07:20 POC Glucometer 303 249 Vital Signs Temperature 97.8 F 02/17/20 05:40 Pulse Rate 63 02/17/20 05:40 Respiratory Rate 18 02/17/20 05:40 Blood Pressure 103/68 02/17/20 05:40 O2 Sat by Pulse Oximetry (%) 97 02/17/20 05:40 Patient has hx of DM and on Metformin 500mg daily. BS elevated. Will increase Metformin to 500mg po BID and continue monitoring BGM.
[2020-02-17] MEDS: TOLNAFTATE 1% CREAM 15 GM TUBE TP SCH ×2 (10:35→21:20)
[2020-02-17] MEDS: NICOTINE 7 MG/24 HOURS TOPICAL PATCH TD SCH (10:35)
[2020-02-17] MEDS: PRENATAL VITAMINS W/ FOLIC ACID TABLET (FP) PO SCH (10:41)
[2020-02-17] MEDS: POLYETHYLENE GLYCOL 3350 119 GM BTL PO SCH (10:41)
[2020-02-17] MEDS ORDERED: ONDANSETRON *ODT* 4 MG TABLET SL PRN (11:00)
[2020-02-17] MEDS: hydrOXYzine PAMOATE 25 MG CAPSULE (FP) PO PRN (21:20)
[2020-02-17] MEDS: MELATONIN 5 MG TABLETS PO SCH (21:20)
[2020-02-17] MEDS: THIAMINE HCL 100 MG TABLET (FP) PO SCH (21:20)
[2020-02-17] MEDS ORDERED: PT OWN MED DRAWER 7, Y5N ONE (22:54)
[2020-02-18] MEDS: hydrOXYzine PAMOATE 25 MG CAPSULE (FP) PO PRN (02:29)
[2020-02-18] MEDS: METHADONE HCL 40 MG DISPERSABLE TABLET PO SCH (05:58)
[2020-02-18] MEDS: metFORMIN HCL 500 MG TABLET (FP) PO SCH ×2 (06:01→16:36)
[2020-02-18] MEDS ORDERED: INSULIN (NOVOLOG) ASPART 100 UNITS/ML 10ML VIAL SQ ONE (06:40)
--- NOTE | 2020-02-18 06:43 | PN ---
[facility] Progress Note Note: Patient's blood sugar level is 304mg/dl. Patient is asymptomatic Vital Signs Temperature 97.3 F L 02/18/20 05:57 Pulse Rate 61 02/18/20 05:57 Respiratory Rate 18 02/18/20 05:57 Blood Pressure 102/72 02/18/20 05:57 O2 Sat by Pulse Oximetry (%) 96 02/18/20 05:57 Action: Insulin 4 units SQ ordered Metformin 500mg tablet oral as ordered
[2020-02-18] MEDS ORDERED: INSULIN SLIDING SCALE (NOVOLOG) 1 VIAL SQ ONE (06:57)
[2020-02-18] MEDS: POLYETHYLENE GLYCOL 3350 119 GM BTL PO SCH (10:15)
[2020-02-18] MEDS: TOLNAFTATE 1% CREAM 15 GM TUBE TP SCH ×2 (10:15→21:57)
[2020-02-18] MEDS: PRENATAL VITAMINS W/ FOLIC ACID TABLET (FP) PO SCH (10:15)
[2020-02-18] MEDS: NICOTINE 7 MG/24 HOURS TOPICAL PATCH TD SCH (10:15)
[2020-02-18] MEDS: MELATONIN 5 MG TABLETS PO SCH (21:57)
[2020-02-18] MEDS: THIAMINE HCL 100 MG TABLET (FP) PO SCH (21:58)
[2020-02-19] MEDS: hydrOXYzine PAMOATE 25 MG CAPSULE (FP) PO PRN ×3 (01:37→21:06)
[2020-02-19] MEDS: METHADONE HCL 40 MG DISPERSABLE TABLET PO SCH (05:54)
[2020-02-19] MEDS: metFORMIN HCL 500 MG TABLET (FP) PO SCH ×2 (07:24→17:15)
[2020-02-19] MEDS: INSULIN SLIDING SCALE (NOVOLOG) 1 VIAL SQ SCH ×4 (07:43→21:09)
[2020-02-19] MEDS ORDERED: INSULIN SLIDING SCALE (NOVOLOG) 1 VIAL SQ ONE ×2 (07:44→11:41)
[2020-02-19] MEDS: IBUPROFEN 400 MG TABLET (FP) PO PRN (08:03)
[2020-02-19] MEDS: PRENATAL VITAMINS W/ FOLIC ACID TABLET (FP) PO SCH (10:25)
[2020-02-19] MEDS: POLYETHYLENE GLYCOL 3350 119 GM BTL PO SCH (10:25)
[2020-02-19] MEDS: TOLNAFTATE 1% CREAM 15 GM TUBE TP SCH ×2 (10:26→21:06)
[2020-02-19] MEDS: NICOTINE 7 MG/24 HOURS TOPICAL PATCH TD SCH (10:26)
[2020-02-19] MEDS: MELATONIN 5 MG TABLETS PO SCH (21:05)
[2020-02-19] MEDS: THIAMINE HCL 100 MG TABLET (FP) PO SCH (21:05)
[2020-02-20] MEDS: hydrOXYzine PAMOATE 25 MG CAPSULE (FP) PO PRN ×3 (01:49→21:37)
[2020-02-20] MEDS: METHADONE HCL 40 MG DISPERSABLE TABLET PO SCH (05:59)
[2020-02-20] MEDS: metFORMIN HCL 500 MG TABLET (FP) PO SCH ×2 (06:01→16:53)
[2020-02-20] MEDS ORDERED: INSULIN SLIDING SCALE (NOVOLOG) 1 VIAL SQ ONE ×3 (06:02→16:52)
[2020-02-20] MEDS: INSULIN SLIDING SCALE (NOVOLOG) 1 VIAL SQ SCH ×4 (06:31→21:40)
[2020-02-20] MEDS: IBUPROFEN 400 MG TABLET (FP) PO PRN (09:00)
[2020-02-20] MEDS: PRENATAL VITAMINS W/ FOLIC ACID TABLET (FP) PO SCH (09:01)
[2020-02-20] MEDS: POLYETHYLENE GLYCOL 3350 119 GM BTL PO SCH (09:01)
[2020-02-20] MEDS: NICOTINE 7 MG/24 HOURS TOPICAL PATCH TD SCH (09:01)
[2020-02-20] MEDS: TOLNAFTATE 1% CREAM 15 GM TUBE TP SCH ×2 (09:02→21:37)
--- NOTE | 2020-02-20 10:21 | PN ---
[facility] Progress Note Note: Patient c/o facial rash/itching by cheek areas. States he was using hydrocortisone cream while in detox. Vital Signs Temperature 97.7 F 02/20/20 05:45 Pulse Rate 70 02/20/20 05:45 Respiratory Rate 18 02/20/20 05:45 Blood Pressure 107/64 02/20/20 05:45 O2 Sat by Pulse Oximetry (%) 96 02/20/20 05:45 Laboratory Tests 02/14/20 02/15/20 02/16/20 06:01 06:05 06:00 POC Glucometer 183 219 283 02/17/20 02/17/20 02/17/20 05:53 07:20 10:44 POC Glucometer 303 249 315 02/17/20 02/18/20 02/19/20 16:56 05:58 05:53 POC Glucometer 326 304 293 02/19/20 02/19/20 02/19/20 11:40 16:39 21:07 POC Glucometer 261 239 243 02/20/20 06:00 POC Glucometer 359 A/P Facial rash/pruritis will order Hydrocortisone Cr 1% BID to facial area. monitor clinically
[2020-02-20] MEDS: HYDROCORTISONE 1% TOPICAL CREAM 30 GM TUBE TP SCH ×2 (11:54→21:38)
[2020-02-20] MEDS: MELATONIN 5 MG TABLETS PO SCH (21:37)
[2020-02-20] MEDS: THIAMINE HCL 100 MG TABLET (FP) PO SCH (21:37)
[2020-02-21] MEDS: IBUPROFEN 400 MG TABLET (FP) PO PRN (03:00)
[2020-02-21] MEDS: hydrOXYzine PAMOATE 25 MG CAPSULE (FP) PO PRN ×2 (03:00→10:35)
[2020-02-21] MEDS: METHADONE HCL 40 MG DISPERSABLE TABLET PO SCH (05:54)
[2020-02-21] MEDS: metFORMIN HCL 500 MG TABLET (FP) PO SCH ×2 (07:09→16:44)
[2020-02-21] MEDS ORDERED: INSULIN SLIDING SCALE (NOVOLOG) 1 VIAL SQ ONE ×2 (07:10→11:58)
[2020-02-21] MEDS: INSULIN SLIDING SCALE (NOVOLOG) 1 VIAL SQ SCH ×4 (07:10→21:04)
[2020-02-21] MEDS: PRENATAL VITAMINS W/ FOLIC ACID TABLET (FP) PO SCH (10:35)
[2020-02-21] MEDS: HYDROCORTISONE 1% TOPICAL CREAM 30 GM TUBE TP SCH ×2 (10:35→21:06)
[2020-02-21] MEDS: NICOTINE 7 MG/24 HOURS TOPICAL PATCH TD SCH (10:36)
[2020-02-21] MEDS: TOLNAFTATE 1% CREAM 15 GM TUBE TP SCH ×2 (10:36→21:06)
[2020-02-21] MEDS: POLYETHYLENE GLYCOL 3350 119 GM BTL PO SCH (10:36)
--- NOTE | 2020-02-21 14:53 | PN ---
[facility] Progress Note Note: Patient requests to be ordered Seroquel for insomnia. He was seen by Dr Kim on 02/11/20 while in detox and he was ordered Seroquel 50mg/hs. Will resume Seroquel 50 mg/hs
[2020-02-21] MEDS ORDERED: PT OWN MED DRAWER 7, Y5N ONE (18:13)
[2020-02-21] MEDS: MELATONIN 5 MG TABLETS PO SCH (21:06)
[2020-02-21] MEDS: THIAMINE HCL 100 MG TABLET (FP) PO SCH (21:06)
[2020-02-21] MEDS: QUEtiapine FUMARATE 50 MG TABLET PO SCH (21:06)
[2020-02-22] MEDS: hydrOXYzine PAMOATE 25 MG CAPSULE (FP) PO PRN ×3 (01:59→22:16)
[2020-02-22] MEDS: METHADONE HCL 40 MG DISPERSABLE TABLET PO SCH (05:53)
[2020-02-22] MEDS: INSULIN SLIDING SCALE (NOVOLOG) 1 VIAL SQ SCH ×4 (07:06→22:14)
[2020-02-22] MEDS: metFORMIN HCL 500 MG TABLET (FP) PO SCH ×2 (07:06→16:34)
[2020-02-22] MEDS ORDERED: INSULIN SLIDING SCALE (NOVOLOG) 1 VIAL SQ ONE ×3 (07:06→16:29)
[2020-02-22] MEDS: PRENATAL VITAMINS W/ FOLIC ACID TABLET (FP) PO SCH (10:26)
[2020-02-22] MEDS: TOLNAFTATE 1% CREAM 15 GM TUBE TP SCH ×2 (10:26→23:05)
[2020-02-22] MEDS: HYDROCORTISONE 1% TOPICAL CREAM 30 GM TUBE TP SCH ×2 (10:26→23:05)
[2020-02-22] MEDS: POLYETHYLENE GLYCOL 3350 119 GM BTL PO SCH (10:27)
[2020-02-22] MEDS: NICOTINE 7 MG/24 HOURS TOPICAL PATCH TD SCH (10:28)
[2020-02-22] MEDS ORDERED: PT OWN MED DRAWER 7, Y5N ONE ×3 (11:10→20:26)
[2020-02-22] MEDS: QUEtiapine FUMARATE 50 MG TABLET PO SCH (22:15)
[2020-02-22] MEDS: THIAMINE HCL 100 MG TABLET (FP) PO SCH (22:15)
[2020-02-22] MEDS: MELATONIN 5 MG TABLETS PO SCH (22:16)
[2020-02-23] MEDS: METHADONE HCL 40 MG DISPERSABLE TABLET PO SCH (05:54)
[2020-02-23] MEDS: metFORMIN HCL 500 MG TABLET (FP) PO SCH ×2 (06:58→17:53)
[2020-02-23] MEDS: INSULIN SLIDING SCALE (NOVOLOG) 1 VIAL SQ SCH ×4 (06:58→21:45)
[2020-02-23] MEDS: PRENATAL VITAMINS W/ FOLIC ACID TABLET (FP) PO SCH (09:50)
[2020-02-23] MEDS: hydrOXYzine PAMOATE 25 MG CAPSULE (FP) PO PRN ×2 (09:50→16:46)
[2020-02-23] MEDS: TOLNAFTATE 1% CREAM 15 GM TUBE TP SCH ×2 (09:51→21:48)
[2020-02-23] MEDS: IBUPROFEN 400 MG TABLET (FP) PO PRN (09:51)
[2020-02-23] MEDS: NICOTINE 7 MG/24 HOURS TOPICAL PATCH TD SCH (09:51)
[2020-02-23] MEDS: HYDROCORTISONE 1% TOPICAL CREAM 30 GM TUBE TP SCH ×2 (10:56→21:48)
[2020-02-23] MEDS: POLYETHYLENE GLYCOL 3350 119 GM BTL PO SCH (10:56)
[2020-02-23] MEDS ORDERED: INSULIN SLIDING SCALE (NOVOLOG) 1 VIAL SQ ONE ×3 (11:59→21:50)
[2020-02-23] MEDS ORDERED: PT OWN MED DRAWER 7, Y5N ONE (18:23)
[2020-02-23] MEDS: QUEtiapine FUMARATE 50 MG TABLET PO SCH (21:47)
[2020-02-23] MEDS: THIAMINE HCL 100 MG TABLET (FP) PO SCH (21:47)
[2020-02-23] MEDS: MELATONIN 5 MG TABLETS PO SCH (21:47)
[2020-02-24] MEDS: METHADONE HCL 40 MG DISPERSABLE TABLET PO SCH (05:55)
[2020-02-24] MEDS: INSULIN SLIDING SCALE (NOVOLOG) 1 VIAL SQ SCH ×4 (06:32→21:43)
[2020-02-24] MEDS ORDERED: INSULIN SLIDING SCALE (NOVOLOG) 1 VIAL SQ ONE ×3 (06:32→16:38)
[2020-02-24] MEDS: metFORMIN HCL 500 MG TABLET (FP) PO SCH ×2 (06:33→16:39)
[2020-02-24] MEDS: TOLNAFTATE 1% CREAM 15 GM TUBE TP SCH ×2 (09:34→21:44)
[2020-02-24] MEDS: HYDROCORTISONE 1% TOPICAL CREAM 30 GM TUBE TP SCH ×2 (09:34→21:44)
[2020-02-24] MEDS: PRENATAL VITAMINS W/ FOLIC ACID TABLET (FP) PO SCH (09:34)
[2020-02-24] MEDS: hydrOXYzine PAMOATE 25 MG CAPSULE (FP) PO PRN ×2 (09:34→21:44)
[2020-02-24] MEDS: NICOTINE 7 MG/24 HOURS TOPICAL PATCH TD SCH (09:35)
[2020-02-24] MEDS: POLYETHYLENE GLYCOL 3350 119 GM BTL PO SCH (09:36)
[2020-02-24] MEDS ORDERED: PT OWN MED DRAWER 7, Y5N ONE ×2 (11:33→18:20)
[2020-02-24] MEDS: MELATONIN 5 MG TABLETS PO SCH (21:44)
[2020-02-24] MEDS: QUEtiapine FUMARATE 50 MG TABLET PO SCH (21:44)
[2020-02-24] MEDS: THIAMINE HCL 100 MG TABLET (FP) PO SCH (21:44)
[2020-02-24] MEDS: IBUPROFEN 400 MG TABLET (FP) PO PRN (21:45)
[2020-02-25] MEDS: METHADONE HCL 40 MG DISPERSABLE TABLET PO SCH (06:08)
[2020-02-25] MEDS: metFORMIN HCL 500 MG TABLET (FP) PO SCH ×2 (06:08→16:55)
[2020-02-25] MEDS: INSULIN SLIDING SCALE (NOVOLOG) 1 VIAL SQ SCH ×4 (06:10→21:17)
[2020-02-25] MEDS: hydrOXYzine PAMOATE 25 MG CAPSULE (FP) PO PRN ×3 (06:10→21:19)
[2020-02-25] MEDS ORDERED: INSULIN SLIDING SCALE (NOVOLOG) 1 VIAL SQ ONE ×3 (06:11→16:53)
[2020-02-25] MEDS: HYDROCORTISONE 1% TOPICAL CREAM 30 GM TUBE TP SCH ×2 (10:19→21:17)
[2020-02-25] MEDS: POLYETHYLENE GLYCOL 3350 119 GM BTL PO SCH (10:19)
[2020-02-25] MEDS: PRENATAL VITAMINS W/ FOLIC ACID TABLET (FP) PO SCH (10:21)
[2020-02-25] MEDS: NICOTINE 7 MG/24 HOURS TOPICAL PATCH TD SCH (10:21)
[2020-02-25] MEDS: TOLNAFTATE 1% CREAM 15 GM TUBE TP SCH ×2 (10:21→21:17)
[2020-02-25] MEDS: QUEtiapine FUMARATE 50 MG TABLET PO SCH (21:18)
[2020-02-25] MEDS: THIAMINE HCL 100 MG TABLET (FP) PO SCH (21:18)
[2020-02-25] MEDS: MELATONIN 5 MG TABLETS PO SCH (21:18)
[2020-02-26] MEDS: IBUPROFEN 400 MG TABLET (FP) PO PRN ×2 (03:00→09:01)
[2020-02-26] MEDS: hydrOXYzine PAMOATE 25 MG CAPSULE (FP) PO PRN ×3 (03:00→21:56)
[2020-02-26] MEDS: metFORMIN HCL 500 MG TABLET (FP) PO SCH ×2 (06:04→16:41)
[2020-02-26] MEDS: METHADONE HCL 40 MG DISPERSABLE TABLET PO SCH (06:04)
[2020-02-26] MEDS ORDERED: INSULIN SLIDING SCALE (NOVOLOG) 1 VIAL SQ ONE ×4 (07:02→20:53)
[2020-02-26] MEDS: INSULIN SLIDING SCALE (NOVOLOG) 1 VIAL SQ SCH ×4 (08:04→21:59)
[2020-02-26] MEDS: POLYETHYLENE GLYCOL 3350 119 GM BTL PO SCH (09:00)
[2020-02-26] MEDS: PRENATAL VITAMINS W/ FOLIC ACID TABLET (FP) PO SCH (09:00)
[2020-02-26] MEDS: NICOTINE 7 MG/24 HOURS TOPICAL PATCH TD SCH (09:01)
[2020-02-26] MEDS: TOLNAFTATE 1% CREAM 15 GM TUBE TP SCH ×2 (09:01→23:06)
[2020-02-26] MEDS: HYDROCORTISONE 1% TOPICAL CREAM 30 GM TUBE TP SCH ×2 (09:02→21:55)
--- NOTE | 2020-02-26 12:46 | PN ---
[facility] Progress Note Note: Patient is scheduled for discharge for discharge greg. Scripts for 30 dayssupply of Seroquel 50 mg/hs will be electronically transmitted to [facility], [address] [place] [id number]
[2020-02-26] MEDS: QUEtiapine FUMARATE 50 MG TABLET PO SCH (21:55)
[2020-02-26] MEDS: THIAMINE HCL 100 MG TABLET (FP) PO SCH (21:55)
[2020-02-26] MEDS: MELATONIN 5 MG TABLETS PO SCH (21:59)
[2020-02-27] MEDS: METHADONE HCL 40 MG DISPERSABLE TABLET PO SCH (05:48)
[2020-02-27 06:36] VITALS: BP 118/70; PULSE 89; TEMP 97.3
[2020-02-27] MEDS: INSULIN SLIDING SCALE (NOVOLOG) 1 VIAL SQ SCH (07:14)
[2020-02-27] MEDS: metFORMIN HCL 500 MG TABLET (FP) PO SCH (07:14)
[2020-02-27] MEDS ORDERED: PT OWN MED DRAWER 7, Y5N ONE (08:37)
--- NOTE | 2020-02-27 09:19 | DS ---
[facility] Rehab Discharge Summary - [facility] Rehab Discharge Summary Admission Date: 02/13/20 Discharge Date: 02/27/20 - History Present History: Alcohol dependence, MMTP - Discharge Physical Exam Vital Signs: Vital Signs Temperature 97.3 F L 02/27/20 05:47 Pulse Rate 89 02/27/20 05:47 Respiratory Rate 18 02/27/20 05:47 Blood Pressure 118/70 02/27/20 05:47 O2 Sat by Pulse Oximetry (%) 96 02/27/20 05:47 Laboratory Tests 02/14/20 02/15/20 02/16/20 06:01 06:05 06:00 POC Glucometer 183 219 283 COVID-19 (ADDY) 02/17/20 02/17/20 02/17/20 05:53 07:20 10:44 POC Glucometer 303 249 315 COVID-19 (ADDY) 02/17/20 02/18/20 02/19/20 16:56 05:58 05:53 POC Glucometer 326 304 293 COVID-19 (ADDY) 02/19/20 02/19/20 02/19/20 11:40 16:39 21:07 POC Glucometer 261 239 243 COVID-19 (ADDY) 02/20/20 02/20/20 02/20/20 06:00 11:51 16:50 POC Glucometer 359 241 348 COVID-19 (ADDY) 02/20/20 02/21/20 02/21/20 21:40 05:53 11:55 POC Glucometer 363 279 323 COVID-19 (ADDY) 02/21/20 02/21/20 02/22/20 16:46 21:03 05:52 POC Glucometer 315 234 325 COVID-19 (ADDY) 02/22/20 02/22/20 02/22/20 11:41 16:35 22:14 POC Glucometer 289 264 243 COVID-19 (ADDY) 02/23/20 02/23/20 02/23/20 05:51 11:57 16:44 POC Glucometer 194 387 303 COVID-19 (ADDY) 02/23/20 02/24/20 02/24/20 21:45 05:54 10:30 POC Glucometer 361 300 COVID-19 (ADDY) Not detected 02/24/20 02/24/20 02/24/20 11:47 16:36 21:43 POC Glucometer 399 308 204 COVID-19 (ADDY) 02/25/20 02/25/20 02/25/20 06:07 11:33 16:17 POC Glucometer 220 394 386 COVID-19 (ADDY) 02/25/20 02/26/20 02/26/20 20:29 06:03 11:33 POC Glucometer 231 239 333 COVID-19 (ADDY) 02/26/20 02/26/20 02/27/20 16:20 20:42 05:47 POC Glucometer 313 227 176 COVID-19 (ADDY) ROS: PATIENT DENIES SHAKES, SWEATS, HEADACHE AND ANXIETY PE ALERT AND ORIENTED X 3 SKIN WARM AND DRY IN NO ACUTE DISTRESS GI NT, ND EXT FULL ROM, AMB AD SAVANA NO TREMORS DENIES SI/HI A/P ALCOHOL DEPENDENCE DM MMTP PATIENT IS MEDICALLY STABLE FOR D/C AFTERCARE ARRANGED FOR [facility] - Treatment Discharge Condition: Discharge condition good Hospital Course: PATIENT D/C FROM REHAB TODAY FOR ALCOHOL DEPENDENCE. HE IS MEDICALLY STABLE FOR D/C AND DENIES SI/HI. DURING COURSE OF TREATMENT, PATIENT ATTENDED GROUP MEETINGS, 1:1 SESSIONS WITH COUNSELOR AND EVALUATED BY PSYCH TEAM. AFTERCARE ARRANGED FOR [facility] WITH INTAKE APPT LATER TODAY. PATIENT MEDICALLY ADVISED TO CONTINUE WITH [facility] TREATMENT TO PREVENT RELAPSE AND FOLLOW UP WITH PCP RECOMMENDED. - Medication Discharge Medications: Ambulatory Orders traZODone HCL [Desyrel -] 50 mg PO HS #30 tablet 11/04/17 Methadone [Dolophine -] 160 mg PO DAILY 08/17/18 Fluoxetine HCl [Prozac] 20 mg PO DAILY #30 capsule 08/18/18 Albuterol Sulfate Inhaler - [Ventolin HFA Inhaler -] 2 inh IH Q4H PRN #1 inhaler 02/12/20 Quetiapine Fumarate [Seroquel -] 50 mg PO HS #30 tablet 02/26/20 - Medication-Assisted Treatment (MAT) Medication-Assisted Treatment (MAT): Yes MAT Follow-up Referral: [facility] - Discharge Instructions Diet, activity, other medical instructions: Diet: REG Activity: AD SAVANA TOLERATED Other medical instructions: F/U WITH PCP RECOMMENDED - Follow-up Referral Minutes to complete discharge: 35 - AMA Did Patient Leave Against Medical Advice: No
== END 2020-02-27 08:41 | disposition home or self-care (01) | DRG 772 ==
LOC: YASAS 13:08 → Y3W 13:10
PROVIDERS: ADMIT Allergy & Immunology; ATTEND Allergy & Immunology
PROC: HZ42ZZZ Group Counseling for Substance Abuse Treatment, Cognitive-Behavioral (ICD-10-PCS; principal; 2020-02-13)
DX: F10.20 Alcohol dependence, uncomplicated (principal); F11.20 Opioid dependence, uncomplicated; G47.00 Insomnia, unspecified; E11.9 Type 2 diabetes mellitus without complications; Z79.84 Long term (current) use of oral hypoglycemic drugs; R21 Rash and other nonspecific skin eruption; L29.8 Other pruritus; Z91.013 Allergy to seafood
CPT/HCPCS: 71046-TC-FY; 82962; U0003

== ENCOUNTER 2020-11-30 10:13 | Inpatient (IN) | payer OTHER ==
[2020-11-30 11:20] VITALS: BMI 34.8
[2020-11-30] MEDS ORDERED: BISMUTH SUBSALICYLATE 262 MG/15 ML BTL PO PRN (12:21)
[2020-11-30] MEDS ORDERED: MAGNESIUM CITRATE 300 ML BOTTLE PO PRN (12:21)
[2020-11-30] MEDS ORDERED: MENTHOL/PHENOL 1 EACH UD MM PRN (12:21)
[2020-11-30] MEDS ORDERED: ACETAMINOPHEN 325 MG TABLET (FP) PO PRN ×2 (12:21)
[2020-11-30] MEDS ORDERED: MAGNESIUM HYDROX 2400MG/30ML ORAL SUSPENSION 30 ML CUP PO PRN (12:21)
[2020-11-30] MEDS ORDERED: MAG HYDROX/AL HYDROX/SIMETH 30 ML UNIT-DOSE CUP PO PRN (12:21)
[2020-11-30] MEDS ORDERED: NICOTINE POLACRILEX 2 MG GUM BUC PRN (12:21)
[2020-11-30] MEDS ORDERED: METHOCARBAMOL 500 MG TABLET PO PRN (12:21)
[2020-11-30] MEDS ORDERED: ALBUTEROL SO4 HFA INHALER IH PRN (12:23)
[2020-11-30] MEDS ORDERED: HYDROCORTISONE 0.5% TOPICAL CREAM 30 GM TUBE TP PRN (12:26)
[2020-11-30] MEDS: diazePAM 5 MG TABLET PO SCH ×3 (13:54→22:12)
[2020-11-30] MEDS: hydrOXYzine PAMOATE 25 MG CAPSULE (FP) PO SCH ×3 (13:55→22:12)
[2020-11-30] MEDS: PRENATAL VITAMINS W/ FOLIC ACID TABLET (FP) PO SCH (13:56)
[2020-11-30] MEDS: NICOTINE 21 MG/24 HOURS TOPICAL PATCH TD SCH (13:56)
[2020-11-30 14:52] LABS: HEMATOCRIT 48.7 % (35.4-49); HEMOGLOBIN 16.3 GM/dL (11.7-16.9); MCH 29.5 pg (25.7-33.7); MCHC 33.5 g/dl (32.0-35.9); MEAN PLT VOLUME 10.2 fl (7.5-11.1); PLATELET COUNT 91 K/MM3 (134-434); RBC 5.53 M/mm3 (4.00-5.60); RDW 15.9 % (11.9-15.9); WHITE BLOOD COUNT 9.1 K/mm3 (4.0-10.0)
[2020-11-30 14:57] LABS: ALBUMIN 3.5 g/dl (3.4-5.0); CALCIUM 8.9 mg/dL (8.5-10.1)
[2020-11-30 15:00] LABS: CREATININE 0.8 mg/dL (0.55-1.3)
[2020-11-30 15:02] LABS: BILIRUBIN,TOTAL 0.9 mg/dL (0.2-1); TOT PROT 8.1 g/dl (6.4-8.2)
[2020-11-30 15:53] LABS: HIV INTERPRETATION NEGATIVE (NEGATIVE)
[2020-11-30] MEDS ORDERED: MELATONIN 5 MG TABLETS PO SCH (22:00)
[2020-11-30] MEDS: THIAMINE HCL 100 MG TABLET (FP) PO SCH (22:12)
[2020-11-30] MEDS: SUVOREXANT 10 MG TABLET PO PRN (22:14)
[2020-12-01] MEDS: diazePAM 5 MG TABLET PO PRN (02:23)
[2020-12-01] MEDS: METHADONE HCL 40 MG DISPERSABLE TABLET PO SCH (05:48)
[2020-12-01] MEDS: diazePAM 5 MG TABLET PO SCH ×4 (05:48→22:14)
[2020-12-01] MEDS: hydrOXYzine PAMOATE 25 MG CAPSULE (FP) PO SCH ×5 (05:49→21:52)
[2020-12-01] MEDS: NICOTINE 21 MG/24 HOURS TOPICAL PATCH TD SCH (10:06)
[2020-12-01] MEDS: IBUPROFEN 400 MG TABLET (FP) PO PRN ×2 (10:08→16:23)
[2020-12-01] MEDS: PRENATAL VITAMINS W/ FOLIC ACID TABLET (FP) PO SCH (10:09)
[2020-12-01] MEDS: THIAMINE HCL 100 MG TABLET (FP) PO SCH (21:52)
[2020-12-02] MEDS: ONDANSETRON *ODT* 4 MG TABLET SL PRN (01:07)
[2020-12-02] MEDS: METHADONE HCL 40 MG DISPERSABLE TABLET PO SCH (05:29)
[2020-12-02] MEDS: hydrOXYzine PAMOATE 25 MG CAPSULE (FP) PO SCH ×5 (05:29→22:46)
[2020-12-02] MEDS: diazePAM 5 MG TABLET PO SCH ×3 (05:29→22:44)
[2020-12-02] MEDS: NICOTINE 21 MG/24 HOURS TOPICAL PATCH TD SCH (10:21)
[2020-12-02] MEDS: PRENATAL VITAMINS W/ FOLIC ACID TABLET (FP) PO SCH (10:21)
[2020-12-02] MEDS: IBUPROFEN 400 MG TABLET (FP) PO PRN (17:32)
[2020-12-02] MEDS: diazePAM 5 MG TABLET PO PRN (18:51)
[2020-12-02] MEDS: SUVOREXANT 10 MG TABLET PO PRN (22:46)
[2020-12-02] MEDS: THIAMINE HCL 100 MG TABLET (FP) PO SCH (22:46)
[2020-12-03] MEDS: hydrOXYzine PAMOATE 25 MG CAPSULE (FP) PO SCH ×5 (05:21→22:06)
[2020-12-03] MEDS: METHADONE HCL 40 MG DISPERSABLE TABLET PO SCH (05:21)
[2020-12-03] MEDS: diazePAM 5 MG TABLET PO SCH ×2 (05:22→17:26)
[2020-12-03] MEDS: PRENATAL VITAMINS W/ FOLIC ACID TABLET (FP) PO SCH (10:27)
[2020-12-03] MEDS: NICOTINE 21 MG/24 HOURS TOPICAL PATCH TD SCH (10:27)
[2020-12-03] MEDS: diazePAM 5 MG TABLET PO PRN (10:29)
[2020-12-03] MEDS: THIAMINE HCL 100 MG TABLET (FP) PO SCH (22:06)
[2020-12-03] MEDS: SUVOREXANT 10 MG TABLET PO PRN (22:08)
[2020-12-04] MEDS: hydrOXYzine PAMOATE 25 MG CAPSULE (FP) PO SCH ×2 (05:00→09:00)
[2020-12-04] MEDS: METHADONE HCL 40 MG DISPERSABLE TABLET PO SCH (05:00)
[2020-12-04] MEDS ORDERED: diazePAM 5 MG TABLET PO ONE (06:00)
[2020-12-04] MEDS: ONDANSETRON *ODT* 4 MG TABLET SL PRN (08:05)
[2020-12-04] MEDS: NICOTINE 21 MG/24 HOURS TOPICAL PATCH TD SCH (08:59)
[2020-12-04] MEDS: PRENATAL VITAMINS W/ FOLIC ACID TABLET (FP) PO SCH (08:59)
[2020-12-04 09:02] VITALS: BP 126/77; PULSE 74; TEMP 96.2
== END 2020-12-04 09:05 | disposition home or self-care (01) | DRG 773 ==
LOC: YASAS 10:13 → Y3N 12:07
PROVIDERS: ADMIT Allergy & Immunology; ATTEND Allergy & Immunology
PROC: HZ2ZZZZ Detoxification Services for Substance Abuse Treatment (ICD-10-PCS; principal; 2020-11-30)
DX: F10.230 Alcohol dependence with withdrawal, uncomplicated (principal); F11.20 Opioid dependence, uncomplicated; F13.20 Sedative, hypnotic or anxiolytic dependence, uncomplicated; F19.20 Other psychoactive substance dependence, uncomplicated; F17.210 Nicotine dependence, cigarettes, uncomplicated; F19.282 Other psychoactive substance dependence with psychoactive substance-induced sleep disorder; F25.9 Schizoaffective disorder, unspecified; F41.9 Anxiety disorder, unspecified; E11.9 Type 2 diabetes mellitus without complications; J44.9 Chronic obstructive pulmonary disease, unspecified; K21.9 Gastro-esophageal reflux disease without esophagitis; G40.89 Other seizures; B35.3 Tinea pedis; R21 Rash and other nonspecific skin eruption; Z98.890 Other specified postprocedural states; Z91.013 Allergy to seafood
CPT/HCPCS: 36415; 71046-TC-FY; 80053; 85027; 86780; 87389; C9803; Q0162; U0003; U0005

== ENCOUNTER 2021-02-26 12:28 | Inpatient (IN) | payer OTHER ==
[2021-02-26 13:23] VITALS: BMI 34.2
[2021-02-26] MEDS ORDERED: ACETAMINOPHEN 325 MG TABLET (FP) PO PRN ×2 (16:57)
[2021-02-26] MEDS ORDERED: MAG HYDROX/AL HYDROX/SIMETH 30 ML UNIT-DOSE CUP PO PRN (16:57)
[2021-02-26] MEDS ORDERED: MAGNESIUM HYDROX 2400MG/30ML ORAL SUSPENSION 30 ML CUP PO PRN (16:57)
[2021-02-26] MEDS ORDERED: clonazePAM 0.5 MG ODT TABLETS SL PRN (16:57)
[2021-02-26] MEDS ORDERED: MAGNESIUM CITRATE 300 ML BOTTLE PO PRN (16:57)
[2021-02-26] MEDS ORDERED: LORazepam 1 MG TABLET PO PRN (16:57)
[2021-02-26] MEDS ORDERED: BISMUTH SUBSALICYLATE 524 MG/30 ML PO PRN (16:57)
[2021-02-26] MEDS ORDERED: IBUPROFEN 400 MG TABLET (FP) PO PRN (16:57)
[2021-02-26] MEDS ORDERED: METHOCARBAMOL 500 MG TABLET PO PRN (16:57)
[2021-02-26] MEDS ORDERED: MENTHOL/PHENOL 1 EACH UD MM PRN (16:57)
[2021-02-26] MEDS ORDERED: hydrOXYzine PAMOATE 25 MG CAPSULE (FP) PO PRN (16:57)
[2021-02-26] MEDS ORDERED: cloNIDine HCL 0.1 MG TABLET PO PRN (16:57)
[2021-02-26] MEDS ORDERED: ALBUTEROL SO4 HFA INHALER IH PRN (17:06)
[2021-02-26] MEDS ORDERED: methaDONE HCL 10 MG TABLET (FOR DETOX USE ONLY) PO ONE (18:00)
[2021-02-26] MEDS: LORazepam 2 MG TABLET PO SCH ×2 (18:15→23:47)
[2021-02-26] MEDS: ONDANSETRON *ODT* 4 MG TABLET SL PRN (18:16)
[2021-02-26] MEDS: THIAMINE HCL 100 MG TABLET (FP) PO SCH (23:47)
[2021-02-26] MEDS: MELATONIN 5 MG TABLETS PO SCH (23:47)
[2021-02-27] MEDS: LORazepam 2 MG TABLET PO SCH ×4 (05:40→22:26)
[2021-02-27] MEDS ORDERED: methaDONE HCL 40 MG DISPERSABLE TABLET PO ONE (08:48)
[2021-02-27] MEDS: PRENATAL VITAMINS W/ FOLIC ACID TABLET (FP) PO SCH (10:25)
[2021-02-27] MEDS: NICOTINE 21 MG/24 HOURS TOPICAL PATCH TD SCH (10:26)
[2021-02-27 11:05] LABS: HEMATOCRIT 48.4 % (35.4-49); HEMOGLOBIN 16.6 GM/dL (11.7-16.9); MCH 30.2 pg (25.7-33.7); MCHC 34.3 g/dl (32.0-35.9); MEAN PLT VOLUME 10.2 fl (7.5-11.1); PLATELET COUNT 74 10^3/uL (134-434); RDW 15.3 % (11.9-15.9); WHITE BLOOD COUNT 5.8 K/mm3 (4.0-10.0)
[2021-02-27 11:16] LABS: CALCIUM 8.5 mg/dL (8.5-10.1)
[2021-02-27 11:17] LABS: ALBUMIN 3.1 g/dl (3.4-5.0); BLOOD UREA NITROGEN 7.1 mg/dL (7-18)
[2021-02-27 11:20] LABS: CREATININE 0.7 mg/dL (0.55-1.3)
[2021-02-27 11:22] LABS: BILIRUBIN,TOTAL 1.2 mg/dL (0.2-1); TOT PROT 7.1 g/dl (6.4-8.2)
[2021-02-27] MEDS: NICOTINE 10 MG CARTRIDGE (INHALER) IH PRN (14:34)
[2021-02-27] MEDS: MELATONIN 5 MG TABLETS PO SCH (22:27)
[2021-02-27] MEDS: THIAMINE HCL 100 MG TABLET (FP) PO SCH (22:27)
[2021-02-28] MEDS: methaDONE HCL 40 MG DISPERSABLE TABLET PO SCH (05:37)
[2021-02-28] MEDS: LORazepam 1 MG TABLET PO SCH ×4 (05:38→22:09)
[2021-02-28] MEDS ORDERED: methaDONE HCL 10 MG TABLET (FOR DETOX USE ONLY) PO ONE (10:00)
[2021-02-28] MEDS: PRENATAL VITAMINS W/ FOLIC ACID TABLET (FP) PO SCH (10:21)
[2021-02-28] MEDS: NICOTINE 21 MG/24 HOURS TOPICAL PATCH TD SCH (10:22)
[2021-02-28] MEDS: THIAMINE HCL 100 MG TABLET (FP) PO SCH (22:09)
[2021-02-28] MEDS: MELATONIN 5 MG TABLETS PO SCH (22:09)
[2021-03-01] MEDS ORDERED: LORazepam 0.5 MG TABLET PO PRN
[2021-03-01] MEDS: LORazepam 0.5 MG TABLET PO SCH ×4 (05:02→22:11)
[2021-03-01] MEDS: methaDONE HCL 40 MG DISPERSABLE TABLET PO SCH (05:03)
[2021-03-01] MEDS: NICOTINE 10 MG CARTRIDGE (INHALER) IH PRN (07:26)
[2021-03-01] MEDS: PRENATAL VITAMINS W/ FOLIC ACID TABLET (FP) PO SCH (10:22)
[2021-03-01] MEDS: NICOTINE 21 MG/24 HOURS TOPICAL PATCH TD SCH (10:23)
[2021-03-01] MEDS: ONDANSETRON *ODT* 4 MG TABLET SL PRN (13:20)
[2021-03-01] MEDS: THIAMINE HCL 100 MG TABLET (FP) PO SCH (22:12)
[2021-03-01] MEDS: MELATONIN 5 MG TABLETS PO SCH (22:12)
[2021-03-02] MEDS ORDERED: LORazepam 0.5 MG TABLET PO ONE (05:00)
[2021-03-02] MEDS: methaDONE HCL 40 MG DISPERSABLE TABLET PO SCH (05:01)
[2021-03-02] MEDS ORDERED: methaDONE HCL 10 MG TABLET (FOR DETOX USE ONLY) PO ONE (10:00)
[2021-03-02] MEDS: NICOTINE 21 MG/24 HOURS TOPICAL PATCH TD SCH (10:48)
[2021-03-02] MEDS: PRENATAL VITAMINS W/ FOLIC ACID TABLET (FP) PO SCH (10:48)
[2021-03-02 14:36] VITALS: BP 135/65; PULSE 76; TEMP 97.5
== END 2021-03-02 14:15 | disposition home or self-care (01) | DRG 773 ==
LOC: YASAS 12:28 → Y3N 16:19
PROVIDERS: ADMIT Allergy & Immunology; ATTEND Allergy & Immunology
PROC: HZ2ZZZZ Detoxification Services for Substance Abuse Treatment (ICD-10-PCS; principal; 2021-02-26)
DX: F10.230 Alcohol dependence with withdrawal, uncomplicated (principal); F11.20 Opioid dependence, uncomplicated; F12.20 Cannabis dependence, uncomplicated; F17.210 Nicotine dependence, cigarettes, uncomplicated; F25.9 Schizoaffective disorder, unspecified; F41.9 Anxiety disorder, unspecified; F32.9 Major depressive disorder, single episode, unspecified; J44.9 Chronic obstructive pulmonary disease, unspecified; J45.909 Unspecified asthma, uncomplicated; K21.9 Gastro-esophageal reflux disease without esophagitis; B18.2 Chronic viral hepatitis C; E11.9 Type 2 diabetes mellitus without complications; M54.5 Low back pain; G89.29 Other chronic pain; R76.11 Nonspecific reaction to tuberculin skin test without active tuberculosis; Z91.013 Allergy to seafood
CPT/HCPCS: 36415; 80053; 85027; 86780; Q0162

== ENCOUNTER 2021-04-18 15:49 | Inpatient (IN) | payer OTHER ==
[2021-04-18 17:02] VITALS: BMI 33.6
[2021-04-18] MEDS ORDERED: MAGNESIUM CITRATE 300 ML BOTTLE PO PRN (18:11)
[2021-04-18] MEDS ORDERED: MENTHOL/PHENOL 1 EACH UD MM PRN (18:11)
[2021-04-18] MEDS ORDERED: ONDANSETRON *ODT* 4 MG TABLET SL PRN (18:11)
[2021-04-18] MEDS ORDERED: MAGNESIUM HYDROX 2400MG/30ML ORAL SUSPENSION 30 ML CUP PO PRN (18:11)
[2021-04-18] MEDS ORDERED: IBUPROFEN 400 MG TABLET (FP) PO PRN (18:11)
[2021-04-18] MEDS ORDERED: LORazepam 1 MG TABLET PO PRN (18:11)
[2021-04-18] MEDS ORDERED: BISMUTH SUBSALICYLATE 524 MG/30 ML PO PRN (18:11)
[2021-04-18] MEDS ORDERED: NICOTINE 10 MG CARTRIDGE (INHALER) IH PRN (18:11)
[2021-04-18] MEDS ORDERED: MAG HYDROX/AL HYDROX/SIMETH 30 ML UNIT-DOSE CUP PO PRN (18:11)
[2021-04-18] MEDS ORDERED: NALOXONE (NARCAN) HCL 4 MG/0.1 ML SPRAY NS PRN (18:11)
[2021-04-18] MEDS ORDERED: ACETAMINOPHEN 325 MG TABLET (FP) PO PRN ×2 (18:11)
[2021-04-18] MEDS ORDERED: LORazepam 2 MG TABLET ONE (22:14)
[2021-04-18] MEDS: LORazepam 2 MG TABLET PO SCH ×2 (22:17→23:51)
[2021-04-18] MEDS: THIAMINE HCL 100 MG TABLET (FP) PO SCH (22:18)
[2021-04-18] MEDS: hydrOXYzine PAMOATE 25 MG CAPSULE (FP) PO SCH (22:20)
[2021-04-18] MEDS: MELATONIN 5 MG TABLETS PO SCH ×2 (22:20→23:53)
[2021-04-19] MEDS: hydrOXYzine PAMOATE 25 MG CAPSULE (FP) PO SCH (05:22)
[2021-04-19] MEDS: LORazepam 2 MG TABLET PO SCH ×4 (05:37→22:45)
[2021-04-19] MEDS ORDERED: methaDONE HCL 40 MG DISPERSABLE TABLET PO ONE (08:19)
[2021-04-19 10:19] LABS: HEMATOCRIT 47.1 % (35.4-49); HEMOGLOBIN 15.9 GM/dL (11.7-16.9); MCH 29.9 pg (25.7-33.7); MCHC 33.7 g/dl (32.0-35.9); MEAN CELL VOLUME 88.5 fl (80-96); MEAN PLT VOLUME 9.8 fl (7.5-11.1); PLATELET COUNT 74 10^3/uL (134-434); RBC 5.31 M/mm3 (4.00-5.60); RDW 16.4 % (11.9-15.9); WHITE BLOOD COUNT 5.5 K/mm3 (4.0-10.0)
[2021-04-19 12:22] LABS: ALBUMIN 2.7 g/dl (3.4-5.0)
[2021-04-19 12:23] LABS: BLOOD UREA NITROGEN 8.1 mg/dL (7-18); CALCIUM 8.4 mg/dL (8.5-10.1)
[2021-04-19 12:27] LABS: CREATININE 0.7 mg/dL (0.55-1.3)
[2021-04-19 12:28] LABS: TOT PROT 7.1 g/dl (6.4-8.2)
[2021-04-19] MEDS: THIAMINE HCL 100 MG TABLET (FP) PO SCH (22:44)
[2021-04-19] MEDS: MELATONIN 5 MG TABLETS PO SCH (22:44)
[2021-04-20] MEDS: methaDONE HCL 40 MG DISPERSABLE TABLET PO SCH (05:57)
[2021-04-20] MEDS: LORazepam 1 MG TABLET PO SCH ×4 (05:58→22:21)
[2021-04-20 10:47] LABS: CALCIUM 8.1 mg/dL (8.5-10.1)
[2021-04-20 10:49] LABS: ALBUMIN 2.6 g/dl (3.4-5.0); BLOOD UREA NITROGEN 12.9 mg/dL (7-18)
[2021-04-20 10:51] LABS: CREATININE 0.8 mg/dL (0.55-1.3)
[2021-04-20 10:53] LABS: BILIRUBIN,TOTAL 1.3 mg/dL (0.2-1); TOT PROT 7.2 g/dl (6.4-8.2)
[2021-04-20] MEDS: MELATONIN 5 MG TABLETS PO SCH (22:21)
[2021-04-20] MEDS: THIAMINE HCL 100 MG TABLET (FP) PO SCH (22:21)
[2021-04-20] MEDS: METHOCARBAMOL 500 MG TABLET PO PRN (22:22)
[2021-04-21] MEDS ORDERED: LORazepam 0.5 MG TABLET PO PRN
[2021-04-21] MEDS: methaDONE HCL 40 MG DISPERSABLE TABLET PO SCH (05:33)
[2021-04-21] MEDS: LORazepam 0.5 MG TABLET PO SCH ×4 (05:34→22:38)
[2021-04-21] MEDS: THIAMINE HCL 100 MG TABLET (FP) PO SCH (22:38)
[2021-04-21] MEDS: MELATONIN 5 MG TABLETS PO SCH (22:38)
[2021-04-21] MEDS: hydrOXYzine PAMOATE 25 MG CAPSULE (FP) PO PRN (22:38)
[2021-04-21] MEDS: METHOCARBAMOL 500 MG TABLET PO PRN (22:39)
[2021-04-22] MEDS ORDERED: LORazepam 0.5 MG TABLET PO ONE (05:00)
[2021-04-22] MEDS: methaDONE HCL 40 MG DISPERSABLE TABLET PO SCH (05:29)
[2021-04-22] MEDS: hydrOXYzine PAMOATE 25 MG CAPSULE (FP) PO PRN (10:47)
[2021-04-22] MEDS ORDERED: ALBUTEROL SO4 HFA INHALER IH PRN (12:12)
[2021-04-22 12:54] VITALS: BP 101/59; PULSE 63; TEMP 97.5
== END 2021-04-22 18:16 | disposition other institution (70) | DRG 773 ==
LOC: YASAS 15:49 → Y3N 22:32
PROVIDERS: ADMIT Allergy & Immunology; ATTEND Allergy & Immunology
PROC: HZ2ZZZZ Detoxification Services for Substance Abuse Treatment (ICD-10-PCS; principal; 2021-04-18)
DX: F10.230 Alcohol dependence with withdrawal, uncomplicated (principal); F11.20 Opioid dependence, uncomplicated; F13.230 Sedative, hypnotic or anxiolytic dependence with withdrawal, uncomplicated; F14.20 Cocaine dependence, uncomplicated; F12.10 Cannabis abuse, uncomplicated; F17.210 Nicotine dependence, cigarettes, uncomplicated; F25.9 Schizoaffective disorder, unspecified; F19.24 Other psychoactive substance dependence with psychoactive substance-induced mood disorder; E11.9 Type 2 diabetes mellitus without complications; J44.9 Chronic obstructive pulmonary disease, unspecified; K74.60 Unspecified cirrhosis of liver; K21.9 Gastro-esophageal reflux disease without esophagitis; M54.50 Low back pain, unspecified; G89.29 Other chronic pain; E66.9 Obesity, unspecified; Z68.33 Body mass index [BMI] 33.0-33.9, adult; Z86.69 Personal history of other diseases of the nervous system and sense organs; Z91.013 Allergy to seafood; Z91.14 Patient's other noncompliance with medication regimen; Z86.11 Personal history of tuberculosis; Z86.19 Personal history of other infectious and parasitic diseases; Z56.0 Unemployment, unspecified; Z59.01 Sheltered homelessness
CPT/HCPCS: 36415; 71046-TC-FY; 80053; 82947; 85027; 86780; C9803; U0003; U0005

== ENCOUNTER 2021-04-22 18:41 | Inpatient (IN) | payer OTHER ==
[2021-04-22] MEDS ORDERED: guaiFENesin 200 MG/10 ML 10 ML UNIT-DOSE CUPS PO PRN (21:10)
[2021-04-22] MEDS ORDERED: ACETAMINOPHEN 325 MG TABLET (FP) PO PRN (21:10)
[2021-04-22] MEDS ORDERED: P-EPHED 60MG/TRIPROLIDI 2.5MG TABLET PO PRN (21:10)
[2021-04-22] MEDS ORDERED: MAGNESIUM CITRATE 300 ML BOTTLE PO PRN (21:10)
[2021-04-22] MEDS ORDERED: LOPERAMIDE HCL 2 MG CAPSULE PO PRN (21:10)
[2021-04-22] MEDS ORDERED: MENTHOL/PHENOL 1 EACH UD MM PRN (21:10)
[2021-04-22] MEDS: MELATONIN 5 MG TABLETS PO SCH (22:00)
[2021-04-22] MEDS: THIAMINE HCL 100 MG TABLET (FP) PO SCH (22:00)
[2021-04-23] MEDS: methaDONE HCL 40 MG DISPERSABLE TABLET PO SCH (06:27)
[2021-04-23] MEDS: PRENATAL VITAMINS W/ FOLIC ACID TABLET (FP) PO SCH (10:34)
[2021-04-23] MEDS: MELATONIN 5 MG TABLETS PO SCH (21:36)
[2021-04-23] MEDS: THIAMINE HCL 100 MG TABLET (FP) PO SCH (21:36)
[2021-04-24] MEDS: methaDONE HCL 40 MG DISPERSABLE TABLET PO SCH (05:48)
[2021-04-24] MEDS: PRENATAL VITAMINS W/ FOLIC ACID TABLET (FP) PO SCH (09:52)
[2021-04-24] MEDS: hydrOXYzine PAMOATE 25 MG CAPSULE (FP) PO PRN ×2 (17:28→21:34)
[2021-04-24] MEDS: THIAMINE HCL 100 MG TABLET (FP) PO SCH (21:34)
[2021-04-24] MEDS: MELATONIN 5 MG TABLETS PO SCH (21:34)
[2021-04-25] MEDS: methaDONE HCL 40 MG DISPERSABLE TABLET PO SCH (05:59)
[2021-04-25] MEDS: PRENATAL VITAMINS W/ FOLIC ACID TABLET (FP) PO SCH (10:02)
[2021-04-25] MEDS: hydrOXYzine PAMOATE 25 MG CAPSULE (FP) PO PRN ×2 (12:26→21:38)
[2021-04-25] MEDS: MAG HYDROX/AL HYDROX/SIMETH 30 ML UNIT-DOSE CUP PO PRN (12:27)
[2021-04-25] MEDS: MELATONIN 5 MG TABLETS PO SCH (21:38)
[2021-04-25] MEDS: THIAMINE HCL 100 MG TABLET (FP) PO SCH (21:38)
[2021-04-26] MEDS: methaDONE HCL 40 MG DISPERSABLE TABLET PO SCH (06:07)
[2021-04-26] MEDS: IBUPROFEN 400 MG TABLET (FP) PO PRN (08:33)
[2021-04-26] MEDS: PRENATAL VITAMINS W/ FOLIC ACID TABLET (FP) PO SCH (09:55)
[2021-04-26] MEDS: hydrOXYzine PAMOATE 25 MG CAPSULE (FP) PO PRN ×3 (10:36→21:28)
[2021-04-26] MEDS: MAG HYDROX/AL HYDROX/SIMETH 30 ML UNIT-DOSE CUP PO PRN (13:53)
[2021-04-26] MEDS: MAGNESIUM HYDROX 2400MG/30ML ORAL SUSPENSION 30 ML CUP PO PRN (15:51)
[2021-04-26] MEDS: THIAMINE HCL 100 MG TABLET (FP) PO SCH (21:28)
[2021-04-26] MEDS: MELATONIN 5 MG TABLETS PO SCH (21:28)
[2021-04-27] MEDS: IBUPROFEN 400 MG TABLET (FP) PO PRN (00:45)
[2021-04-27] MEDS: methaDONE HCL 40 MG DISPERSABLE TABLET PO SCH (06:03)
[2021-04-27] MEDS: PRENATAL VITAMINS W/ FOLIC ACID TABLET (FP) PO SCH (11:46)
[2021-04-27] MEDS: hydrOXYzine PAMOATE 25 MG CAPSULE (FP) PO PRN (21:24)
[2021-04-27] MEDS: THIAMINE HCL 100 MG TABLET (FP) PO SCH (21:24)
[2021-04-27] MEDS: MELATONIN 5 MG TABLETS PO SCH (21:24)
[2021-04-28] MEDS: IBUPROFEN 400 MG TABLET (FP) PO PRN ×2 (00:47→19:29)
[2021-04-28] MEDS: methaDONE HCL 40 MG DISPERSABLE TABLET PO SCH (05:57)
[2021-04-28] MEDS: PRENATAL VITAMINS W/ FOLIC ACID TABLET (FP) PO SCH (09:37)
[2021-04-28] MEDS: THIAMINE HCL 100 MG TABLET (FP) PO SCH (21:49)
[2021-04-28] MEDS: hydrOXYzine PAMOATE 25 MG CAPSULE (FP) PO PRN (21:49)
[2021-04-28] MEDS: MELATONIN 5 MG TABLETS PO SCH (21:49)
[2021-04-29] MEDS: IBUPROFEN 400 MG TABLET (FP) PO PRN ×2 (04:02→12:28)
[2021-04-29] MEDS: hydrOXYzine PAMOATE 25 MG CAPSULE (FP) PO PRN ×3 (04:03→21:36)
[2021-04-29] MEDS: methaDONE HCL 40 MG DISPERSABLE TABLET PO SCH (05:58)
[2021-04-29] MEDS: PRENATAL VITAMINS W/ FOLIC ACID TABLET (FP) PO SCH (09:14)
[2021-04-29] MEDS ORDERED: COLLOIDAL OATMEAL 1 BAR EACH TP PRN (09:41)
[2021-04-29] MEDS ORDERED: ALBUTEROL SO4 HFA INHALER IH PRN (10:01)
[2021-04-29] MEDS: HYDROCORTISONE 1% TOPICAL CREAM 30 GM TUBE TP PRN (10:04)
[2021-04-29] MEDS: TOLNAFTATE 1% CREAM 15 GM TUBE TP SCH (21:35)
[2021-04-29] MEDS: METHYL SALICYLATE/MENTHOL OINT 30 GM TUBE TP SCH (21:35)
[2021-04-29] MEDS: MELATONIN 5 MG TABLETS PO SCH (21:36)
[2021-04-29] MEDS: THIAMINE HCL 100 MG TABLET (FP) PO SCH (21:36)
[2021-04-29] MEDS: QUEtiapine FUMARATE 100 MG TABLET (FP) PO SCH (21:36)
[2021-04-30] MEDS: methaDONE HCL 40 MG DISPERSABLE TABLET PO SCH (06:12)
[2021-04-30] MEDS: TOLNAFTATE 1% CREAM 15 GM TUBE TP SCH ×2 (10:10→21:52)
[2021-04-30] MEDS: METHYL SALICYLATE/MENTHOL OINT 30 GM TUBE TP SCH ×2 (10:10→21:50)
[2021-04-30] MEDS: PRENATAL VITAMINS W/ FOLIC ACID TABLET (FP) PO SCH (10:10)
[2021-04-30] MEDS: hydrOXYzine PAMOATE 25 MG CAPSULE (FP) PO PRN ×2 (10:55→21:52)
[2021-04-30] MEDS: IBUPROFEN 400 MG TABLET (FP) PO PRN (10:55)
[2021-04-30] MEDS ORDERED: metFORMIN HCL 500 MG TABLET (FP) PO ONE (11:46)
[2021-04-30] MEDS ORDERED: PT OWN MED DRAWER 7, Y5N ONE (12:28)
[2021-04-30] MEDS: HYDROCORTISONE 1% TOPICAL CREAM 30 GM TUBE TP PRN ×2 (12:33→21:51)
[2021-04-30] MEDS: QUEtiapine FUMARATE 100 MG TABLET (FP) PO SCH (21:52)
[2021-04-30] MEDS: MELATONIN 5 MG TABLETS PO SCH (21:52)
[2021-04-30] MEDS: THIAMINE HCL 100 MG TABLET (FP) PO SCH (21:52)
[2021-05-01] MEDS: metFORMIN HCL 500 MG TABLET (FP) PO SCH (06:03)
[2021-05-01] MEDS: methaDONE HCL 40 MG DISPERSABLE TABLET PO SCH (06:04)
[2021-05-01] MEDS: METHYL SALICYLATE/MENTHOL OINT 30 GM TUBE TP SCH ×2 (09:45→21:35)
[2021-05-01] MEDS: PRENATAL VITAMINS W/ FOLIC ACID TABLET (FP) PO SCH (09:45)
[2021-05-01] MEDS: hydrOXYzine PAMOATE 25 MG CAPSULE (FP) PO PRN ×2 (09:46→21:34)
[2021-05-01] MEDS: IBUPROFEN 400 MG TABLET (FP) PO PRN ×2 (09:46→23:20)
[2021-05-01] MEDS: TOLNAFTATE 1% CREAM 15 GM TUBE TP SCH ×2 (09:47→21:41)
[2021-05-01] MEDS: MAGNESIUM HYDROX 2400MG/30ML ORAL SUSPENSION 30 ML CUP PO PRN (10:22)
[2021-05-01] MEDS ORDERED: QUEtiapine FUMARATE 100 MG TABLET (FP) PO ONE (12:30)
[2021-05-01] MEDS ORDERED: QUEtiapine FUMARATE 50 MG TABLET PO ONE (12:36)
[2021-05-01] MEDS: HYDROCORTISONE 1% TOPICAL CREAM 30 GM TUBE TP PRN (13:07)
[2021-05-01] MEDS: MELATONIN 5 MG TABLETS PO SCH (21:34)
[2021-05-01] MEDS: THIAMINE HCL 100 MG TABLET (FP) PO SCH (21:34)
[2021-05-01] MEDS: QUEtiapine FUMARATE 100 MG TABLET (FP) PO SCH (21:34)
[2021-05-01] MEDS ORDERED: QUEtiapine FUMARATE 200 MG TABLET PO SCH (22:00)
[2021-05-02] MEDS: methaDONE HCL 40 MG DISPERSABLE TABLET PO SCH (06:04)
[2021-05-02] MEDS: metFORMIN HCL 500 MG TABLET (FP) PO SCH (06:07)
[2021-05-02] MEDS: hydrOXYzine PAMOATE 25 MG CAPSULE (FP) PO PRN ×2 (09:53→13:58)
[2021-05-02] MEDS: METHYL SALICYLATE/MENTHOL OINT 30 GM TUBE TP SCH (09:53)
[2021-05-02] MEDS: TOLNAFTATE 1% CREAM 15 GM TUBE TP SCH (09:53)
[2021-05-02] MEDS: PRENATAL VITAMINS W/ FOLIC ACID TABLET (FP) PO SCH (09:53)
[2021-05-02] MEDS: IBUPROFEN 400 MG TABLET (FP) PO PRN (09:54)
[2021-05-02] MEDS: HYDROCORTISONE 1% TOPICAL CREAM 30 GM TUBE TP PRN (09:56)
[2021-05-02] MEDS ORDERED: QUEtiapine FUMARATE 100 MG TABLET (FP) PO SCH (10:00)
[2021-05-02] MEDS: MAG HYDROX/AL HYDROX/SIMETH 30 ML UNIT-DOSE CUP PO PRN (13:28)
[2021-05-02 16:41] VITALS: BP 127/69; PULSE 81; TEMP 97.6
== END 2021-05-02 17:25 | DRG 772 ==
LOC: YASAS 18:41 → Y5N 18:42
PROVIDERS: ADMIT Allergy & Immunology; ATTEND Allergy & Immunology
PROC: HZ42ZZZ Group Counseling for Substance Abuse Treatment, Cognitive-Behavioral (ICD-10-PCS; principal; 2021-04-22)
DX: F10.20 Alcohol dependence, uncomplicated (principal); F11.20 Opioid dependence, uncomplicated; F12.20 Cannabis dependence, uncomplicated; F17.210 Nicotine dependence, cigarettes, uncomplicated; F29 Unspecified psychosis not due to a substance or known physiological condition; F31.9 Bipolar disorder, unspecified; G47.00 Insomnia, unspecified; E11.9 Type 2 diabetes mellitus without complications; J45.909 Unspecified asthma, uncomplicated; B35.1 Tinea unguium; L85.3 Xerosis cutis; E66.9 Obesity, unspecified; Z79.84 Long term (current) use of oral hypoglycemic drugs; Z68.34 Body mass index [BMI] 34.0-34.9, adult; Z86.59 Personal history of other mental and behavioral disorders; Z86.69 Personal history of other diseases of the nervous system and sense organs; Z86.11 Personal history of tuberculosis; Z91.013 Allergy to seafood
CPT/HCPCS: 82962

== ENCOUNTER 2021-05-31 09:00 | Inpatient (IN) | payer OTHER ==
[2021-05-31] MEDS ORDERED: diazePAM 5 MG TABLET PO PRN (09:32)
[2021-05-31] MEDS ORDERED: ACETAMINOPHEN 325 MG TABLET (FP) PO PRN ×2 (09:32)
[2021-05-31] MEDS ORDERED: NICOTINE 10 MG CARTRIDGE (INHALER) IH PRN (09:32)
[2021-05-31] MEDS ORDERED: ONDANSETRON *ODT* 4 MG TABLET SL PRN (09:32)
[2021-05-31] MEDS ORDERED: MAG HYDROX/AL HYDROX/SIMETH 30 ML UNIT-DOSE CUP PO PRN (09:32)
[2021-05-31] MEDS ORDERED: BISMUTH SUBSALICYLATE 262 MG/15 ML BTL PO PRN (09:32)
[2021-05-31] MEDS ORDERED: MAGNESIUM HYDROX 2400MG/30ML ORAL SUSPENSION 30 ML CUP PO PRN (09:32)
[2021-05-31] MEDS ORDERED: MENTHOL/PHENOL 1 EACH UD MM PRN (09:32)
[2021-05-31] MEDS ORDERED: IBUPROFEN 400 MG TABLET (FP) PO PRN (09:32)
[2021-05-31] MEDS ORDERED: MAGNESIUM CITRATE 300 ML BOTTLE PO PRN (09:32)
[2021-05-31 09:55] VITALS: BMI 33.3
[2021-05-31] MEDS ORDERED: diazePAM 5 MG TABLET PO SCH (11:00)
[2021-05-31] MEDS: PRENATAL VITAMINS W/ FOLIC ACID TABLET (FP) PO SCH (11:48)
[2021-05-31] MEDS: hydrOXYzine PAMOATE 25 MG CAPSULE (FP) PO SCH ×2 (11:49→15:21)
[2021-05-31] MEDS: INSULIN SLIDING SCALE (NOVOLOG) 1 VIAL SQ SCH ×2 (11:59→18:07)
[2021-05-31 14:44] LABS: HEMATOCRIT 44.5 % (35.4-49); HEMOGLOBIN 14.9 GM/dL (11.7-16.9); MCH 30.3 pg (25.7-33.7); MCHC 33.6 g/dl (32.0-35.9); MEAN CELL VOLUME 90.3 fl (80-96); MEAN PLT VOLUME 9.8 fl (7.5-11.1); PLATELET COUNT 84 10^3/uL (134-434); RBC 4.93 M/mm3 (4.00-5.60); RDW 16.2 % (11.9-15.9); WHITE BLOOD COUNT 6.6 K/mm3 (4.0-10.0)
[2021-05-31] MEDS ORDERED: ALBUTEROL SO4 HFA INHALER IH PRN (14:50)
[2021-05-31 15:21] LABS: ALBUMIN 3.2 g/dl (3.4-5.0); BILIRUBIN,TOTAL 0.7 mg/dL (0.2-1); BLOOD UREA NITROGEN 13.1 mg/dL (7-18); CALCIUM 8.7 mg/dL (8.5-10.1); CREATININE 0.8 mg/dL (0.55-1.3); TOT PROT 7.8 g/dl (6.4-8.2)
[2021-05-31] MEDS ORDERED: LORazepam 1 MG TABLET PO PRN (15:35)
[2021-05-31] MEDS: LORazepam 2 MG TABLET PO SCH ×2 (17:49→22:45)
[2021-05-31] MEDS: MELATONIN 5 MG TABLETS PO SCH (22:45)
[2021-05-31] MEDS: THIAMINE HCL 100 MG TABLET (FP) PO SCH (22:45)
[2021-05-31] MEDS: BUDESONIDE/FORMETEROL FUMARATE 80/4.5 mcg INHALER IH SCH (22:46)
[2021-05-31] MEDS: hydrOXYzine PAMOATE 25 MG CAPSULE (FP) PO PRN (22:48)
[2021-06-01] MEDS: LORazepam 2 MG TABLET PO SCH ×4 (05:54→22:55)
[2021-06-01] MEDS: METHOCARBAMOL 500 MG TABLET PO PRN (05:56)
[2021-06-01] MEDS: metFORMIN HCL 500 MG TABLET (FP) PO SCH (06:04)
[2021-06-01] MEDS: INSULIN SLIDING SCALE (NOVOLOG) 1 VIAL SQ SCH ×3 (06:10→16:52)
[2021-06-01] MEDS: PRENATAL VITAMINS W/ FOLIC ACID TABLET (FP) PO SCH (10:26)
[2021-06-01] MEDS: hydrOXYzine PAMOATE 25 MG CAPSULE (FP) PO PRN (10:26)
[2021-06-01] MEDS: BUDESONIDE/FORMETEROL FUMARATE 80/4.5 mcg INHALER IH SCH ×2 (10:27→22:55)
[2021-06-01] MEDS ORDERED: methaDONE HCL 10 MG TABLET PO ONE (11:26)
[2021-06-01] MEDS ORDERED: methaDONE HCL 40 MG DISPERSABLE TABLET PO ONE (11:55)
[2021-06-01] MEDS: THIAMINE HCL 100 MG TABLET (FP) PO SCH (22:55)
[2021-06-01] MEDS: MELATONIN 5 MG TABLETS PO SCH (22:55)
[2021-06-02] MEDS: METHOCARBAMOL 500 MG TABLET PO PRN (05:01)
[2021-06-02] MEDS: hydrOXYzine PAMOATE 25 MG CAPSULE (FP) PO PRN (05:01)
[2021-06-02] MEDS: LORazepam 1 MG TABLET PO SCH ×4 (05:01→22:38)
[2021-06-02] MEDS ORDERED: diazePAM 5 MG TABLET PO SCH (06:00)
[2021-06-02] MEDS ORDERED: methaDONE HCL 10 MG TABLET PO ONE (07:06)
[2021-06-02] MEDS: INSULIN SLIDING SCALE (NOVOLOG) 1 VIAL SQ SCH ×3 (07:24→17:33)
[2021-06-02] MEDS ORDERED: methaDONE HCL 40 MG DISPERSABLE TABLET PO ONE (08:00)
[2021-06-02] MEDS: metFORMIN HCL 500 MG TABLET (FP) PO SCH (08:10)
[2021-06-02] MEDS: BUDESONIDE/FORMETEROL FUMARATE 80/4.5 mcg INHALER IH SCH ×2 (10:09→22:39)
[2021-06-02] MEDS: PRENATAL VITAMINS W/ FOLIC ACID TABLET (FP) PO SCH (10:09)
[2021-06-02] MEDS: MELATONIN 5 MG TABLETS PO SCH (22:38)
[2021-06-02] MEDS: THIAMINE HCL 100 MG TABLET (FP) PO SCH (22:38)
[2021-06-03] MEDS ORDERED: LORazepam 0.5 MG TABLET PO PRN
[2021-06-03] MEDS: METHOCARBAMOL 500 MG TABLET PO PRN (05:00)
[2021-06-03] MEDS ORDERED: LORazepam 0.5 MG TABLET PO SCH (05:00)
[2021-06-03] MEDS ORDERED: diazePAM 5 MG TABLET PO SCH (06:00)
[2021-06-03] MEDS: metFORMIN HCL 500 MG TABLET (FP) PO SCH (06:06)
[2021-06-03] MEDS: INSULIN SLIDING SCALE (NOVOLOG) 1 VIAL SQ SCH ×2 (06:07→11:06)
[2021-06-03] MEDS ORDERED: methaDONE HCL 40 MG DISPERSABLE TABLET PO SCH (07:45)
[2021-06-03 08:40] VITALS: BP 127/79; PULSE 88; TEMP 97.1
[2021-06-03] MEDS: PRENATAL VITAMINS W/ FOLIC ACID TABLET (FP) PO SCH (09:36)
[2021-06-03] MEDS: BUDESONIDE/FORMETEROL FUMARATE 80/4.5 mcg INHALER IH SCH (09:36)
[2021-06-04] MEDS ORDERED: LORazepam 0.5 MG TABLET PO ONE (05:00)
[2021-06-04] MEDS ORDERED: diazePAM 5 MG TABLET PO ONE (06:00)
== END 2021-06-03 09:20 | disposition home or self-care (01) | DRG 773 ==
LOC: YASAS 09:00 → Y3N 10:12
PROVIDERS: ADMIT Allergy & Immunology; ATTEND Allergy & Immunology
PROC: HZ2ZZZZ Detoxification Services for Substance Abuse Treatment (ICD-10-PCS; principal; 2021-05-31)
DX: F10.230 Alcohol dependence with withdrawal, uncomplicated (principal); F11.20 Opioid dependence, uncomplicated; F13.230 Sedative, hypnotic or anxiolytic dependence with withdrawal, uncomplicated; F14.20 Cocaine dependence, uncomplicated; F12.20 Cannabis dependence, uncomplicated; F17.210 Nicotine dependence, cigarettes, uncomplicated; J44.9 Chronic obstructive pulmonary disease, unspecified; E11.9 Type 2 diabetes mellitus without complications; B18.2 Chronic viral hepatitis C; K74.60 Unspecified cirrhosis of liver; R94.5 Abnormal results of liver function studies; E66.9 Obesity, unspecified; Z68.33 Body mass index [BMI] 33.0-33.9, adult; Z86.69 Personal history of other diseases of the nervous system and sense organs; Z91.013 Allergy to seafood; Z86.11 Personal history of tuberculosis; Z79.84 Long term (current) use of oral hypoglycemic drugs
CPT/HCPCS: 36415; 80053; 82962; 83036; 85027; 86780; 86803; 87522; C9803; U0003; U0005

== ENCOUNTER 2021-06-09 11:42 | Inpatient (IN) | payer OTHER ==
[2021-06-09] MEDS ORDERED: MAG HYDROX/AL HYDROX/SIMETH 30 ML UNIT-DOSE CUP PO PRN (12:49)
[2021-06-09] MEDS ORDERED: MENTHOL/PHENOL 1 EACH UD MM PRN (12:49)
[2021-06-09] MEDS ORDERED: METHOCARBAMOL 500 MG TABLET PO PRN (12:49)
[2021-06-09] MEDS ORDERED: ONDANSETRON *ODT* 4 MG TABLET SL PRN (12:49)
[2021-06-09] MEDS ORDERED: BISMUTH SUBSALICYLATE 524 MG/30 ML PO PRN (12:49)
[2021-06-09] MEDS ORDERED: MAGNESIUM HYDROX 2400MG/30ML ORAL SUSPENSION 30 ML CUP PO PRN (12:49)
[2021-06-09] MEDS ORDERED: MAGNESIUM CITRATE 300 ML BOTTLE PO PRN (12:49)
[2021-06-09] MEDS ORDERED: ACETAMINOPHEN 325 MG TABLET (FP) PO PRN ×2 (12:49)
[2021-06-09] MEDS ORDERED: IBUPROFEN 400 MG TABLET (FP) PO PRN (12:49)
[2021-06-09] MEDS ORDERED: ALBUTEROL SO4 HFA INHALER IH PRN (12:57)
[2021-06-09 13:06] VITALS: BMI 33.5
[2021-06-09] MEDS: hydrOXYzine PAMOATE 25 MG CAPSULE (FP) PO SCH ×3 (13:26→22:19)
[2021-06-09] MEDS: LORazepam 1 MG TABLET PO PRN (13:27)
[2021-06-09] MEDS: LORazepam 2 MG TABLET PO SCH ×2 (18:02→22:20)
[2021-06-09] MEDS ORDERED: MELATONIN 5 MG TABLETS PO SCH (22:00)
[2021-06-09] MEDS: THIAMINE HCL 100 MG TABLET (FP) PO SCH (22:19)
[2021-06-10] MEDS: LORazepam 2 MG TABLET PO SCH ×4 (05:50→23:07)
[2021-06-10] MEDS: hydrOXYzine PAMOATE 25 MG CAPSULE (FP) PO SCH ×5 (05:50→23:09)
[2021-06-10] MEDS: metFORMIN HCL 500 MG TABLET (FP) PO SCH (07:32)
[2021-06-10] MEDS: LORazepam 1 MG TABLET PO PRN (08:49)
[2021-06-10] MEDS ORDERED: methaDONE HCL 40 MG DISPERSABLE TABLET PO ONE (10:00)
[2021-06-10] MEDS: PRENATAL VITAMINS W/ FOLIC ACID TABLET (FP) PO SCH (10:33)
[2021-06-10 13:07] LABS: CALCIUM 8.9 mg/dL (8.5-10.1)
[2021-06-10 13:08] LABS: ALBUMIN 2.8 g/dl (3.4-5.0); BLOOD UREA NITROGEN 13.6 mg/dL (7-18)
[2021-06-10 13:09] LABS: MCH 29.7 pg (25.7-33.7); MCHC 33.3 g/dl (32.0-35.9); MEAN PLT VOLUME 9.6 fl (7.5-11.1); PLATELET COUNT 86 10^3/uL (134-434); RBC 5.05 M/mm3 (4.00-5.60); RDW 15.6 % (11.9-15.9); WHITE BLOOD COUNT 4.6 K/mm3 (4.0-10.0)
[2021-06-10 13:10] LABS: CREATININE 0.7 mg/dL (0.55-1.3)
[2021-06-10 13:11] LABS: BILIRUBIN,TOTAL 0.7 mg/dL (0.2-1); TOT PROT 7.1 g/dl (6.4-8.2)
[2021-06-10] MEDS: QUEtiapine FUMARATE 100 MG TABLET (FP) PO SCH (23:07)
[2021-06-10] MEDS: THIAMINE HCL 100 MG TABLET (FP) PO SCH (23:08)
[2021-06-11] MEDS: methaDONE HCL 40 MG DISPERSABLE TABLET PO SCH (05:37)
[2021-06-11] MEDS: LORazepam 1 MG TABLET PO SCH ×4 (05:37→22:37)
[2021-06-11] MEDS: hydrOXYzine PAMOATE 25 MG CAPSULE (FP) PO SCH ×5 (05:39→22:38)
[2021-06-11] MEDS: metFORMIN HCL 500 MG TABLET (FP) PO SCH (06:55)
[2021-06-11] MEDS: PRENATAL VITAMINS W/ FOLIC ACID TABLET (FP) PO SCH (11:24)
[2021-06-11] MEDS: THIAMINE HCL 100 MG TABLET (FP) PO SCH (22:38)
[2021-06-11] MEDS: QUEtiapine FUMARATE 100 MG TABLET (FP) PO SCH (22:38)
[2021-06-12] MEDS ORDERED: LORazepam 0.5 MG TABLET PO PRN
[2021-06-12] MEDS: methaDONE HCL 40 MG DISPERSABLE TABLET PO SCH (05:08)
[2021-06-12] MEDS: LORazepam 0.5 MG TABLET PO SCH ×4 (05:09→22:31)
[2021-06-12] MEDS: hydrOXYzine PAMOATE 25 MG CAPSULE (FP) PO SCH ×5 (05:10→22:31)
[2021-06-12] MEDS: metFORMIN HCL 500 MG TABLET (FP) PO SCH (07:20)
[2021-06-12] MEDS: PRENATAL VITAMINS W/ FOLIC ACID TABLET (FP) PO SCH (10:29)
[2021-06-12] MEDS: QUEtiapine FUMARATE 100 MG TABLET (FP) PO SCH (22:31)
[2021-06-12] MEDS: THIAMINE HCL 100 MG TABLET (FP) PO SCH (22:31)
[2021-06-13] MEDS ORDERED: LORazepam 0.5 MG TABLET PO ONE (05:00)
[2021-06-13] MEDS: methaDONE HCL 40 MG DISPERSABLE TABLET PO SCH (05:32)
[2021-06-13] MEDS: hydrOXYzine PAMOATE 25 MG CAPSULE (FP) PO SCH ×2 (05:33→11:10)
[2021-06-13] MEDS: metFORMIN HCL 500 MG TABLET (FP) PO SCH (06:41)
[2021-06-13 09:51] VITALS: BP 114/67; PULSE 70; TEMP 98.1
[2021-06-13] MEDS: PRENATAL VITAMINS W/ FOLIC ACID TABLET (FP) PO SCH (11:10)
== END 2021-06-13 11:28 | disposition home or self-care (01) | DRG 773 ==
LOC: YASAS 11:42 → Y6N 12:34
PROVIDERS: ADMIT Allergy & Immunology; ATTEND Allergy & Immunology
PROC: HZ2ZZZZ Detoxification Services for Substance Abuse Treatment (ICD-10-PCS; principal; 2021-06-09)
DX: F10.230 Alcohol dependence with withdrawal, uncomplicated (principal); F11.20 Opioid dependence, uncomplicated; F14.20 Cocaine dependence, uncomplicated; F12.20 Cannabis dependence, uncomplicated; F17.213 Nicotine dependence, cigarettes, with withdrawal; F25.9 Schizoaffective disorder, unspecified; F19.24 Other psychoactive substance dependence with psychoactive substance-induced mood disorder; F19.282 Other psychoactive substance dependence with psychoactive substance-induced sleep disorder; E11.9 Type 2 diabetes mellitus without complications; J45.20 Mild intermittent asthma, uncomplicated; J43.9 Emphysema, unspecified; K70.30 Alcoholic cirrhosis of liver without ascites; B18.2 Chronic viral hepatitis C; E66.9 Obesity, unspecified; Z68.33 Body mass index [BMI] 33.0-33.9, adult; Z91.013 Allergy to seafood; Z86.69 Personal history of other diseases of the nervous system and sense organs; Z79.84 Long term (current) use of oral hypoglycemic drugs; Z86.11 Personal history of tuberculosis; Z56.0 Unemployment, unspecified
CPT/HCPCS: 36415; 80053; 82962; 83036; 85027; 86780; C9803; U0003; U0005

== ENCOUNTER 2021-07-26 09:50 | Inpatient (IN) | payer OTHER ==
[2021-07-26] MEDS ORDERED: MAG HYDROX/AL HYDROX/SIMETH 30 ML UNIT-DOSE CUP PO PRN (10:18)
[2021-07-26] MEDS ORDERED: NICOTINE 10 MG CARTRIDGE (INHALER) IH PRN (10:18)
[2021-07-26] MEDS ORDERED: ACETAMINOPHEN 325 MG TABLET (FP) PO PRN (10:18)
[2021-07-26] MEDS ORDERED: guaiFENesin 200 MG/10 ML 10 ML UNIT-DOSE CUPS PO PRN (10:18)
[2021-07-26] MEDS ORDERED: MAGNESIUM CITRATE 300 ML BOTTLE PO PRN (10:18)
[2021-07-26] MEDS ORDERED: P-EPHED 60MG/TRIPROLIDI 2.5MG TABLET PO PRN (10:18)
[2021-07-26] MEDS ORDERED: LOPERAMIDE HCL 2 MG CAPSULE PO PRN (10:18)
[2021-07-26] MEDS ORDERED: MAGNESIUM HYDROX 2400MG/30ML ORAL SUSPENSION 30 ML CUP PO PRN (10:18)
[2021-07-26 10:53] VITALS: BMI 33.7
[2021-07-26] MEDS ORDERED: ALBUTEROL SO4 HFA INHALER IH PRN (11:49)
[2021-07-26] MEDS ORDERED: methaDONE HCL 40 MG DISPERSABLE TABLET PO SCH (12:00)
[2021-07-26 14:31] LABS: HEMATOCRIT 42.4 % (35.4-49); HEMOGLOBIN 14.2 GM/dL (11.7-16.9); MCH 29.8 pg (25.7-33.7); MCHC 33.6 g/dl (32.0-35.9); MEAN CELL VOLUME 88.8 fl (80-96); MEAN PLT VOLUME 9.4 fl (7.5-11.1); PLATELET COUNT 67 10^3/uL (134-434); RBC 4.77 M/mm3 (4.00-5.60); RDW 14.6 % (11.9-15.9); WHITE BLOOD COUNT 4.4 K/mm3 (4.0-10.0)
[2021-07-26 14:37] LABS: BLOOD UREA NITROGEN 10.4 mg/dL (7-18); CALCIUM 8.6 mg/dL (8.5-10.1)
[2021-07-26 14:38] LABS: ALBUMIN 3.1 g/dl (3.4-5.0)
[2021-07-26 14:40] LABS: CREATININE 0.7 mg/dL (0.55-1.3)
[2021-07-26 14:42] LABS: BILIRUBIN,TOTAL 0.6 mg/dL (0.2-1)
[2021-07-26 15:03] LABS: SYPHILIS W/ RPR CONF NON-REACTIVE (NONREACTIVE)
[2021-07-26] MEDS: hydrOXYzine PAMOATE 25 MG CAPSULE (FP) PO SCH ×2 (17:59→21:35)
[2021-07-26] MEDS: QUEtiapine FUMARATE 100 MG TABLET (FP) PO SCH (21:34)
[2021-07-26] MEDS: THIAMINE HCL 100 MG TABLET (FP) PO SCH (21:35)
[2021-07-26] MEDS: MELATONIN 5 MG TABLETS PO SCH (21:35)
[2021-07-27] MEDS: hydrOXYzine PAMOATE 25 MG CAPSULE (FP) PO SCH ×5 (05:55→21:04)
[2021-07-27] MEDS: methaDONE HCL 40 MG DISPERSABLE TABLET PO SCH (05:55)
[2021-07-27] MEDS: metFORMIN HCL 500 MG TABLET (FP) PO SCH (06:02)
[2021-07-27] MEDS: NICOTINE 7 MG/24 HOURS TOPICAL PATCH TD SCH (10:27)
[2021-07-27] MEDS: PRENATAL VITAMINS W/ FOLIC ACID TABLET (FP) PO SCH (10:27)
[2021-07-27] MEDS: MELATONIN 5 MG TABLETS PO SCH (21:04)
[2021-07-27] MEDS: THIAMINE HCL 100 MG TABLET (FP) PO SCH (21:04)
[2021-07-27] MEDS: QUEtiapine FUMARATE 100 MG TABLET (FP) PO SCH (21:04)
[2021-07-28] MEDS: methaDONE HCL 40 MG DISPERSABLE TABLET PO SCH ×2 (06:06)
[2021-07-28] MEDS: metFORMIN HCL 500 MG TABLET (FP) PO SCH (06:06)
[2021-07-28] MEDS: hydrOXYzine PAMOATE 25 MG CAPSULE (FP) PO SCH ×5 (06:06→21:02)
[2021-07-28 08:24] LABS: PH,URINE 7.5 (5.0-8.0); URINE APPEARANCE CLEAR; URINE BILIRUBIN NEGATIVE (NEGATIVE); URINE COLOR YELLOW; URINE GLUCOSE (UA) NEGATIVE (NEGATIVE); URINE KETONE NEGATIVE (NEGATIVE); URINE LEUK ESTERASE NEGATIVE (NEGATIVE); URINE NITRITE NEGATIVE (NEGATIVE); URINE PROTEIN NEGATIVE (NEGATIVE)
[2021-07-28] MEDS: PRENATAL VITAMINS W/ FOLIC ACID TABLET (FP) PO SCH (09:29)
[2021-07-28] MEDS: NICOTINE 7 MG/24 HOURS TOPICAL PATCH TD SCH (09:29)
[2021-07-28] MEDS: THIAMINE HCL 100 MG TABLET (FP) PO SCH (21:01)
[2021-07-28] MEDS: QUEtiapine FUMARATE 100 MG TABLET (FP) PO SCH (21:01)
[2021-07-28] MEDS: MELATONIN 5 MG TABLETS PO SCH (21:02)
[2021-07-29] MEDS: methaDONE HCL 40 MG DISPERSABLE TABLET PO SCH (05:56)
[2021-07-29] MEDS: hydrOXYzine PAMOATE 25 MG CAPSULE (FP) PO SCH ×5 (05:56→21:21)
[2021-07-29] MEDS: metFORMIN HCL 500 MG TABLET (FP) PO SCH (06:00)
[2021-07-29] MEDS: PRENATAL VITAMINS W/ FOLIC ACID TABLET (FP) PO SCH (09:32)
[2021-07-29] MEDS: NICOTINE 7 MG/24 HOURS TOPICAL PATCH TD SCH (09:32)
[2021-07-29] MEDS: MELATONIN 5 MG TABLETS PO SCH (21:20)
[2021-07-29] MEDS: THIAMINE HCL 100 MG TABLET (FP) PO SCH (21:20)
[2021-07-29] MEDS: QUEtiapine FUMARATE 100 MG TABLET (FP) PO SCH (21:20)
[2021-07-30] MEDS: hydrOXYzine PAMOATE 25 MG CAPSULE (FP) PO SCH ×5 (05:49→21:04)
[2021-07-30] MEDS: methaDONE HCL 40 MG DISPERSABLE TABLET PO SCH (05:49)
[2021-07-30] MEDS: metFORMIN HCL 500 MG TABLET (FP) PO SCH (06:15)
[2021-07-30] MEDS: PRENATAL VITAMINS W/ FOLIC ACID TABLET (FP) PO SCH (09:47)
[2021-07-30] MEDS: IBUPROFEN 400 MG TABLET (FP) PO PRN (09:48)
[2021-07-30] MEDS: NICOTINE 7 MG/24 HOURS TOPICAL PATCH TD SCH (09:48)
[2021-07-30] MEDS: MELATONIN 5 MG TABLETS PO SCH (21:04)
[2021-07-30] MEDS: THIAMINE HCL 100 MG TABLET (FP) PO SCH (21:04)
[2021-07-30] MEDS: QUEtiapine FUMARATE 50 MG TABLET PO SCH (21:05)
[2021-07-31] MEDS: methaDONE HCL 40 MG DISPERSABLE TABLET PO SCH (05:59)
[2021-07-31] MEDS: metFORMIN HCL 500 MG TABLET (FP) PO SCH (06:00)
[2021-07-31] MEDS: hydrOXYzine PAMOATE 25 MG CAPSULE (FP) PO SCH ×5 (06:10→21:20)
[2021-07-31] MEDS: PRENATAL VITAMINS W/ FOLIC ACID TABLET (FP) PO SCH (09:16)
[2021-07-31] MEDS: NICOTINE 7 MG/24 HOURS TOPICAL PATCH TD SCH (09:16)
[2021-07-31] MEDS: IBUPROFEN 400 MG TABLET (FP) PO PRN (17:55)
[2021-07-31] MEDS: QUEtiapine FUMARATE 50 MG TABLET PO SCH (21:20)
[2021-07-31] MEDS: MELATONIN 5 MG TABLETS PO SCH (21:20)
[2021-07-31] MEDS: THIAMINE HCL 100 MG TABLET (FP) PO SCH (21:20)
[2021-08-01] MEDS: metFORMIN HCL 500 MG TABLET (FP) PO SCH (06:04)
[2021-08-01] MEDS: hydrOXYzine PAMOATE 25 MG CAPSULE (FP) PO SCH ×2 (06:04→10:12)
[2021-08-01] MEDS: methaDONE HCL 40 MG DISPERSABLE TABLET PO SCH (06:04)
[2021-08-01] MEDS: PRENATAL VITAMINS W/ FOLIC ACID TABLET (FP) PO SCH (10:11)
[2021-08-01] MEDS: NICOTINE 7 MG/24 HOURS TOPICAL PATCH TD SCH (10:12)
[2021-08-01] MEDS: METHOCARBAMOL 500 MG TABLET PO PRN ×2 (12:41→21:22)
[2021-08-01] MEDS: IBUPROFEN 400 MG TABLET (FP) PO PRN (17:01)
[2021-08-01] MEDS: hydrOXYzine PAMOATE 25 MG CAPSULE (FP) PO PRN (21:22)
[2021-08-01] MEDS: QUEtiapine FUMARATE 50 MG TABLET PO SCH (21:23)
[2021-08-01] MEDS: BACITRACIN 0.9 GM PACKET TP SCH (21:23)
[2021-08-01] MEDS: MELATONIN 5 MG TABLETS PO SCH (21:23)
[2021-08-01] MEDS: THIAMINE HCL 100 MG TABLET (FP) PO SCH (21:23)
[2021-08-02] MEDS: methaDONE HCL 40 MG DISPERSABLE TABLET PO SCH (05:38)
[2021-08-02] MEDS: metFORMIN HCL 500 MG TABLET (FP) PO SCH (06:09)
[2021-08-02] MEDS: PRENATAL VITAMINS W/ FOLIC ACID TABLET (FP) PO SCH (10:18)
[2021-08-02] MEDS: NICOTINE 7 MG/24 HOURS TOPICAL PATCH TD SCH (10:18)
[2021-08-02] MEDS: BACITRACIN 0.9 GM PACKET TP SCH ×2 (10:19→21:12)
[2021-08-02] MEDS: hydrOXYzine PAMOATE 25 MG CAPSULE (FP) PO PRN ×2 (10:19→15:56)
[2021-08-02] MEDS: METHOCARBAMOL 500 MG TABLET PO PRN (10:20)
[2021-08-02] MEDS: DOCUSATE SODIUM 100 MG CAPSULE (FP) PO SCH ×2 (13:09→21:13)
[2021-08-02] MEDS: IBUPROFEN 400 MG TABLET (FP) PO PRN ×2 (15:57→21:13)
[2021-08-02] MEDS: MELATONIN 5 MG TABLETS PO SCH (21:12)
[2021-08-02] MEDS: QUEtiapine FUMARATE 50 MG TABLET PO SCH (21:12)
[2021-08-02] MEDS: THIAMINE HCL 100 MG TABLET (FP) PO SCH (21:13)
[2021-08-03] MEDS: methaDONE HCL 40 MG DISPERSABLE TABLET PO SCH (05:56)
[2021-08-03] MEDS: DOCUSATE SODIUM 100 MG CAPSULE (FP) PO SCH ×3 (05:56→21:12)
[2021-08-03] MEDS: metFORMIN HCL 500 MG TABLET (FP) PO SCH (06:01)
[2021-08-03] MEDS: BACITRACIN 0.9 GM PACKET TP SCH ×2 (10:15→21:12)
[2021-08-03] MEDS: NICOTINE 7 MG/24 HOURS TOPICAL PATCH TD SCH (10:15)
[2021-08-03] MEDS: PRENATAL VITAMINS W/ FOLIC ACID TABLET (FP) PO SCH (10:16)
[2021-08-03] MEDS: hydrOXYzine PAMOATE 25 MG CAPSULE (FP) PO PRN (10:16)
[2021-08-03] MEDS: IBUPROFEN 400 MG TABLET (FP) PO PRN (10:18)
[2021-08-03] MEDS: METHOCARBAMOL 500 MG TABLET PO PRN (21:12)
[2021-08-03] MEDS: QUEtiapine FUMARATE 50 MG TABLET PO SCH (21:12)
[2021-08-03] MEDS: THIAMINE HCL 100 MG TABLET (FP) PO SCH (21:12)
[2021-08-03] MEDS: MELATONIN 5 MG TABLETS PO SCH (22:22)
[2021-08-04] MEDS ORDERED: methaDONE HCL 40 MG DISPERSABLE TABLET PO SCH (06:00)
[2021-08-04] MEDS: metFORMIN HCL 500 MG TABLET (FP) PO SCH (06:39)
[2021-08-04 07:10] VITALS: BP 140/79; PULSE 76; TEMP 98.6
[2021-08-04] MEDS: DOCUSATE SODIUM 100 MG CAPSULE (FP) PO SCH (07:12)
[2021-08-04] MEDS: PRENATAL VITAMINS W/ FOLIC ACID TABLET (FP) PO SCH (09:39)
[2021-08-04] MEDS: NICOTINE 7 MG/24 HOURS TOPICAL PATCH TD SCH (09:40)
[2021-08-04] MEDS: BACITRACIN 0.9 GM PACKET TP SCH (09:40)
[2021-08-04] MEDS: hydrOXYzine PAMOATE 25 MG CAPSULE (FP) PO PRN (09:42)
== END 2021-08-04 11:50 | disposition home or self-care (01) | DRG 772 ==
LOC: YASAS 09:50 → Y3W 15:13 → Y5N 07-31 10:45
PROVIDERS: ADMIT Allergy & Immunology; ATTEND Allergy & Immunology
PROC: HZ42ZZZ Group Counseling for Substance Abuse Treatment, Cognitive-Behavioral (ICD-10-PCS; principal; 2021-07-26)
DX: F10.20 Alcohol dependence, uncomplicated (principal); F11.20 Opioid dependence, uncomplicated; F14.20 Cocaine dependence, uncomplicated; F13.10 Sedative, hypnotic or anxiolytic abuse, uncomplicated; F12.20 Cannabis dependence, uncomplicated; F25.9 Schizoaffective disorder, unspecified; F19.282 Other psychoactive substance dependence with psychoactive substance-induced sleep disorder; F19.24 Other psychoactive substance dependence with psychoactive substance-induced mood disorder; F41.9 Anxiety disorder, unspecified; F32.A Depression, unspecified; J43.9 Emphysema, unspecified; J45.20 Mild intermittent asthma, uncomplicated; K70.30 Alcoholic cirrhosis of liver without ascites; K21.9 Gastro-esophageal reflux disease without esophagitis; B18.2 Chronic viral hepatitis C; L84 Corns and callosities; M54.50 Low back pain, unspecified; G89.29 Other chronic pain; E11.9 Type 2 diabetes mellitus without complications; Z79.84 Long term (current) use of oral hypoglycemic drugs; E66.9 Obesity, unspecified; Z68.33 Body mass index [BMI] 33.0-33.9, adult; Z86.11 Personal history of tuberculosis; Z87.891 Personal history of nicotine dependence
CPT/HCPCS: 36415; 80053; 81003; 82962; 85027; 86780; 86803; 87522; 87811; C9803; U0003; U0005

== ENCOUNTER 2022-02-07 11:25 | Inpatient (IN) | payer OTHER ==
[2022-02-07 13:24] VITALS: BMI 34.8
[2022-02-07] MEDS ORDERED: BISMUTH SUBSALICYLATE 262 MG/15 ML BTL PO PRN (14:18)
[2022-02-07] MEDS ORDERED: BENZOCAINE/MENTHOL (CHLORASEPTIC ) LOZENGE MM PRN (14:18)
[2022-02-07] MEDS ORDERED: MAGNESIUM CITRATE 300 ML BOTTLE PO PRN (14:18)
[2022-02-07] MEDS ORDERED: LOPERAMIDE HCL 2 MG CAPSULE PO PRN (14:18)
[2022-02-07] MEDS ORDERED: IBUPROFEN 400 MG TABLET (FP) PO PRN (14:18)
[2022-02-07] MEDS ORDERED: NICOTINE 10 MG CARTRIDGE (INHALER) IH PRN (14:18)
[2022-02-07] MEDS ORDERED: ONDANSETRON *ODT* 4 MG TABLET SL PRN (14:18)
[2022-02-07] MEDS ORDERED: METHOCARBAMOL 500 MG TABLET PO PRN (14:18)
[2022-02-07] MEDS ORDERED: DICYCLOMINE HCL 10 MG CAPSULE PO PRN (14:18)
[2022-02-07] MEDS ORDERED: MAG HYDROX/AL HYDROX/SIMETH 30 ML UNIT-DOSE CUP PO PRN (14:18)
[2022-02-07] MEDS ORDERED: ACETAMINOPHEN 325 MG TABLET (FP) PO PRN (14:18)
[2022-02-07] MEDS: INSULIN SLIDING SCALE (NOVOLOG) 1 VIAL SQ SCH ×2 (17:06→22:46)
[2022-02-07] MEDS: hydrOXYzine PAMOATE 25 MG CAPSULE (FP) PO SCH ×2 (17:26→22:44)
[2022-02-07] MEDS ORDERED: chlordiazePOXIDE HCL 25 MG CAPSULE PO PRN (17:31)
[2022-02-07] MEDS: chlordiazePOXIDE HCL 25 MG CAPSULE PO SCH ×2 (17:44→22:44)
[2022-02-07] MEDS: MELATONIN 5 MG TABLETS PO SCH (22:43)
[2022-02-07] MEDS: THIAMINE HCL 100 MG TABLET (FP) PO SCH (22:44)
[2022-02-08] MEDS: chlordiazePOXIDE HCL 25 MG CAPSULE PO SCH ×4 (05:41→22:20)
[2022-02-08] MEDS: hydrOXYzine PAMOATE 25 MG CAPSULE (FP) PO SCH ×5 (05:42→22:20)
[2022-02-08] MEDS: INSULIN SLIDING SCALE (NOVOLOG) 1 VIAL SQ SCH ×4 (07:23→22:22)
[2022-02-08] MEDS: PRENATAL VITAMINS W/ FOLIC ACID TABLET (FP) PO SCH (10:02)
[2022-02-08] MEDS: methaDONE HCL 40 MG DISPERSABLE TABLET PO SCH (10:42)
[2022-02-08 12:07] LABS: CALCIUM 8.5 mg/dL (8.5-10.1)
[2022-02-08 12:08] LABS: ALBUMIN 2.9 g/dl (3.4-5.0); BLOOD UREA NITROGEN 7.1 mg/dL (7-18)
[2022-02-08 12:11] LABS: CREATININE 0.5 mg/dL (0.55-1.3); HEMATOCRIT 43.8 % (35.4-49); HEMOGLOBIN 14.7 GM/dL (11.7-16.9); MCH 29.4 pg (25.7-33.7); MCHC 33.5 g/dl (32.0-35.9); MEAN CELL VOLUME 87.8 fl (80-96); MEAN PLT VOLUME 9.4 fl (7.5-11.1); PLATELET COUNT 53 10^3/uL (134-434); RBC 4.98 M/mm3 (4.00-5.60); RDW 14.9 % (11.9-15.9); WHITE BLOOD COUNT 4.7 K/mm3 (4.0-10.0)
[2022-02-08 12:12] LABS: BILIRUBIN,TOTAL 0.6 mg/dL (0.2-1)
[2022-02-08 12:13] LABS: TOT PROT 6.9 g/dl (6.4-8.2)
[2022-02-08] MEDS: MELATONIN 5 MG TABLETS PO SCH (22:20)
[2022-02-08] MEDS: THIAMINE HCL 100 MG TABLET (FP) PO SCH (22:20)
[2022-02-08] MEDS: QUEtiapine FUMARATE 50 MG TABLET PO SCH (22:20)
[2022-02-09] MEDS: methaDONE HCL 40 MG DISPERSABLE TABLET PO SCH (05:46)
[2022-02-09] MEDS: chlordiazePOXIDE HCL 25 MG CAPSULE PO SCH ×4 (05:47→23:14)
[2022-02-09] MEDS: hydrOXYzine PAMOATE 25 MG CAPSULE (FP) PO SCH ×5 (05:49→23:14)
[2022-02-09] MEDS: INSULIN SLIDING SCALE (NOVOLOG) 1 VIAL SQ SCH ×4 (08:22→23:15)
[2022-02-09] MEDS ORDERED: INSULIN SLIDING SCALE (NOVOLOG) 1 VIAL SQ ONE ×2 (08:26→12:02)
[2022-02-09] MEDS: PRENATAL VITAMINS W/ FOLIC ACID TABLET (FP) PO SCH (10:10)
[2022-02-09] MEDS: THIAMINE HCL 100 MG TABLET (FP) PO SCH (23:14)
[2022-02-09] MEDS: QUEtiapine FUMARATE 50 MG TABLET PO SCH (23:14)
[2022-02-09] MEDS: MELATONIN 5 MG TABLETS PO SCH (23:14)
[2022-02-10] MEDS ORDERED: chlordiazePOXIDE HCL 10 MG CAPSULE PO PRN
[2022-02-10] MEDS: methaDONE HCL 40 MG DISPERSABLE TABLET PO SCH (05:31)
[2022-02-10] MEDS: chlordiazePOXIDE HCL 10 MG CAPSULE PO SCH ×4 (05:31→22:20)
[2022-02-10] MEDS: hydrOXYzine PAMOATE 25 MG CAPSULE (FP) PO SCH ×5 (05:31→22:20)
[2022-02-10 06:56] VITALS: RESP 18
[2022-02-10] MEDS: INSULIN SLIDING SCALE (NOVOLOG) 1 VIAL SQ SCH ×4 (07:28→22:19)
[2022-02-10] MEDS: PRENATAL VITAMINS W/ FOLIC ACID TABLET (FP) PO SCH (10:15)
[2022-02-10] MEDS: MELATONIN 5 MG TABLETS PO SCH (22:20)
[2022-02-10] MEDS: QUEtiapine FUMARATE 50 MG TABLET PO SCH (22:20)
[2022-02-10] MEDS: THIAMINE HCL 100 MG TABLET (FP) PO SCH (22:20)
[2022-02-11] MEDS: chlordiazePOXIDE HCL 10 MG CAPSULE PO SCH ×2 (05:31→18:36)
[2022-02-11] MEDS: methaDONE HCL 40 MG DISPERSABLE TABLET PO SCH (05:31)
[2022-02-11] MEDS: hydrOXYzine PAMOATE 25 MG CAPSULE (FP) PO SCH ×5 (05:31→22:52)
[2022-02-11] MEDS: INSULIN SLIDING SCALE (NOVOLOG) 1 VIAL SQ SCH ×4 (06:24→22:51)
[2022-02-11] MEDS: PRENATAL VITAMINS W/ FOLIC ACID TABLET (FP) PO SCH (10:06)
[2022-02-11] MEDS: MAGNESIUM HYDROX 2400MG/30ML ORAL SUSPENSION 30 ML CUP PO PRN (10:07)
[2022-02-11] MEDS: THIAMINE HCL 100 MG TABLET (FP) PO SCH (22:52)
[2022-02-11] MEDS: MELATONIN 5 MG TABLETS PO SCH (22:52)
[2022-02-11] MEDS: QUEtiapine FUMARATE 50 MG TABLET PO SCH (22:52)
[2022-02-12] MEDS ORDERED: chlordiazePOXIDE HCL 10 MG CAPSULE PO ONE (05:00)
[2022-02-12] MEDS: methaDONE HCL 40 MG DISPERSABLE TABLET PO SCH (05:25)
[2022-02-12] MEDS: hydrOXYzine PAMOATE 25 MG CAPSULE (FP) PO SCH ×2 (05:25→10:14)
[2022-02-12] MEDS: MAGNESIUM HYDROX 2400MG/30ML ORAL SUSPENSION 30 ML CUP PO PRN (05:34)
[2022-02-12] MEDS: INSULIN SLIDING SCALE (NOVOLOG) 1 VIAL SQ SCH ×2 (06:08→11:21)
[2022-02-12 09:21] VITALS: BP 96/57; PULSE 59; TEMP 96.8
[2022-02-12] MEDS: PRENATAL VITAMINS W/ FOLIC ACID TABLET (FP) PO SCH (10:14)
== END 2022-02-12 12:43 | disposition home or self-care (01) | DRG 773 ==
LOC: YASAS 11:25 → Y3N 14:19
PROVIDERS: ADMIT Allergy & Immunology; ATTEND Psychiatry & Neurology Pain Medicine
PROC: HZ2ZZZZ Detoxification Services for Substance Abuse Treatment (ICD-10-PCS; principal; 2022-02-07)
DX: F10.230 Alcohol dependence with withdrawal, uncomplicated (principal); F11.20 Opioid dependence, uncomplicated; F12.20 Cannabis dependence, uncomplicated; F19.24 Other psychoactive substance dependence with psychoactive substance-induced mood disorder; E11.65 Type 2 diabetes mellitus with hyperglycemia; J43.9 Emphysema, unspecified; K59.00 Constipation, unspecified; K21.9 Gastro-esophageal reflux disease without esophagitis; K74.60 Unspecified cirrhosis of liver; G47.00 Insomnia, unspecified; E66.9 Obesity, unspecified; Z68.34 Body mass index [BMI] 34.0-34.9, adult; Z28.310 Unvaccinated for COVID-19; Z86.69 Personal history of other diseases of the nervous system and sense organs; Z86.11 Personal history of tuberculosis; Z86.19 Personal history of other infectious and parasitic diseases; Z91.013 Allergy to seafood; Z79.4 Long term (current) use of insulin; Z56.0 Unemployment, unspecified
CPT/HCPCS: 36415; 80053; 82962; 83036; 85027; 86780; 87811; 93005; 93010; C9803-CS; Q0162; U0003; U0005

== ENCOUNTER 2022-03-21 13:11 | Inpatient (IN) | payer OTHER ==
[2022-03-21 14:47] VITALS: BMI 34.2
[2022-03-21] MEDS ORDERED: MAGNESIUM HYDROX 2400MG/30ML ORAL SUSPENSION 30 ML CUP PO PRN (17:45)
[2022-03-21] MEDS ORDERED: MAGNESIUM CITRATE 300 ML BOTTLE PO PRN (17:45)
[2022-03-21] MEDS ORDERED: chlordiazePOXIDE HCL 25 MG CAPSULE PO PRN (17:45)
[2022-03-21] MEDS ORDERED: IBUPROFEN 400 MG TABLET (FP) PO PRN (17:45)
[2022-03-21] MEDS ORDERED: DICYCLOMINE HCL 10 MG CAPSULE PO PRN (17:45)
[2022-03-21] MEDS ORDERED: NALOXONE HCL (KLOXXADO) 8 MG SPRAY NS PRN (17:45)
[2022-03-21] MEDS ORDERED: LOPERAMIDE HCL 2 MG CAPSULE PO PRN (17:45)
[2022-03-21] MEDS ORDERED: ACETAMINOPHEN 325 MG TABLET (FP) PO PRN ×2 (17:45)
[2022-03-21] MEDS ORDERED: BENZOCAINE/MENTHOL (CHLORASEPTIC ) LOZENGE MM PRN (17:45)
[2022-03-21] MEDS ORDERED: BISMUTH SUBSALICYLATE 524 MG/30 ML PO PRN (17:45)
[2022-03-21] MEDS ORDERED: ONDANSETRON *ODT* 4 MG TABLET SL PRN (17:45)
[2022-03-21] MEDS ORDERED: MAG HYDROX/AL HYDROX/SIMETH 30 ML UNIT-DOSE CUP PO PRN (17:45)
[2022-03-21] MEDS ORDERED: METHOCARBAMOL 500 MG TABLET PO PRN (17:45)
[2022-03-21] MEDS ORDERED: IBUPROFEN 600 MG TABLET (FP) PO PRN (17:45)
[2022-03-21] MEDS: chlordiazePOXIDE HCL 25 MG CAPSULE PO SCH ×2 (18:37→22:21)
[2022-03-21] MEDS: hydrOXYzine PAMOATE 25 MG CAPSULE (FP) PO SCH ×2 (18:42→22:22)
[2022-03-21] MEDS: THIAMINE HCL 100 MG TABLET (FP) PO SCH (22:22)
[2022-03-21] MEDS: MELATONIN 5 MG TABLETS PO SCH (22:22)
[2022-03-22] MEDS: chlordiazePOXIDE HCL 25 MG CAPSULE PO SCH ×4 (05:18→22:06)
[2022-03-22] MEDS: hydrOXYzine PAMOATE 25 MG CAPSULE (FP) PO SCH ×5 (05:19→22:07)
[2022-03-22] MEDS: methaDONE HCL 40 MG DISPERSABLE TABLET PO SCH (08:40)
[2022-03-22 09:41] LABS: HEMATOCRIT 38.8 % (35.4-49); HEMOGLOBIN 13.1 GM/dL (11.7-16.9); MCH 29.9 pg (25.7-33.7); MCHC 33.9 g/dl (32.0-35.9); MEAN CELL VOLUME 88.2 fl (80-96); MEAN PLT VOLUME 9.6 fl (7.5-11.1); PLATELET COUNT 52 10^3/uL (134-434); RBC 4.39 M/mm3 (4.00-5.60); RDW 14.9 % (11.9-15.9); WHITE BLOOD COUNT 3.2 K/mm3 (4.0-10.0)
[2022-03-22 09:58] LABS: CALCIUM 8.7 mg/dL (8.5-10.1)
[2022-03-22 09:59] LABS: ALBUMIN 2.8 g/dl (3.4-5.0); BLOOD UREA NITROGEN 13.4 mg/dL (7-18)
[2022-03-22 10:02] LABS: BILIRUBIN,TOTAL 0.6 mg/dL (0.2-1); CREATININE 0.6 mg/dL (0.55-1.3)
[2022-03-22 10:04] LABS: TOT PROT 6.7 g/dl (6.4-8.2)
[2022-03-22] MEDS: PRENATAL VITAMINS W/ FOLIC ACID TABLET (FP) PO SCH (10:32)
[2022-03-22] MEDS ORDERED: INSULIN SLIDING SCALE (NOVOLOG) 1 VIAL SQ ONE (11:37)
[2022-03-22] MEDS: INSULIN SLIDING SCALE (NOVOLOG) 1 VIAL SQ SCH ×3 (11:40→21:06)
[2022-03-22] MEDS: MIRTAZAPINE 15 MG TABLET (FP) PO SCH (22:06)
[2022-03-22] MEDS: MELATONIN 5 MG TABLETS PO SCH (22:07)
[2022-03-22] MEDS: THIAMINE HCL 100 MG TABLET (FP) PO SCH (22:07)
[2022-03-23] MEDS: chlordiazePOXIDE HCL 25 MG CAPSULE PO SCH ×4 (05:12→22:12)
[2022-03-23] MEDS: methaDONE HCL 40 MG DISPERSABLE TABLET PO SCH (05:12)
[2022-03-23] MEDS: hydrOXYzine PAMOATE 25 MG CAPSULE (FP) PO SCH ×2 (05:13→10:13)
[2022-03-23] MEDS: INSULIN SLIDING SCALE (NOVOLOG) 1 VIAL SQ SCH ×4 (06:34→22:13)
[2022-03-23] MEDS: PRENATAL VITAMINS W/ FOLIC ACID TABLET (FP) PO SCH (10:12)
[2022-03-23] MEDS: MIRTAZAPINE 15 MG TABLET (FP) PO SCH (22:13)
[2022-03-23] MEDS: THIAMINE HCL 100 MG TABLET (FP) PO SCH (22:13)
[2022-03-23] MEDS: MELATONIN 5 MG TABLETS PO SCH (22:13)
[2022-03-24] MEDS ORDERED: chlordiazePOXIDE HCL 10 MG CAPSULE PO PRN
[2022-03-24] MEDS: chlordiazePOXIDE HCL 10 MG CAPSULE PO SCH ×4 (05:06→22:06)
[2022-03-24] MEDS: hydrOXYzine PAMOATE 25 MG CAPSULE (FP) PO PRN (05:06)
[2022-03-24] MEDS: methaDONE HCL 40 MG DISPERSABLE TABLET PO SCH (05:07)
[2022-03-24] MEDS ORDERED: INSULIN SLIDING SCALE (NOVOLOG) 1 VIAL SQ ONE (06:46)
[2022-03-24] MEDS: INSULIN SLIDING SCALE (NOVOLOG) 1 VIAL SQ SCH ×4 (06:47→22:07)
[2022-03-24] MEDS: PRENATAL VITAMINS W/ FOLIC ACID TABLET (FP) PO SCH (10:43)
[2022-03-24] MEDS: THIAMINE HCL 100 MG TABLET (FP) PO SCH (22:07)
[2022-03-24] MEDS: MELATONIN 5 MG TABLETS PO SCH (22:07)
[2022-03-24] MEDS: MIRTAZAPINE 15 MG TABLET (FP) PO SCH (22:07)
[2022-03-25] MEDS: chlordiazePOXIDE HCL 10 MG CAPSULE PO SCH ×2 (05:07→17:16)
[2022-03-25] MEDS: methaDONE HCL 40 MG DISPERSABLE TABLET PO SCH (05:07)
[2022-03-25] MEDS: INSULIN SLIDING SCALE (NOVOLOG) 1 VIAL SQ SCH ×4 (07:02→22:35)
[2022-03-25] MEDS ORDERED: metFORMIN HCL 500 MG TABLET (FP) PO ONE (09:41)
[2022-03-25] MEDS: PRENATAL VITAMINS W/ FOLIC ACID TABLET (FP) PO SCH (09:47)
[2022-03-25] MEDS: hydrOXYzine PAMOATE 25 MG CAPSULE (FP) PO PRN ×2 (09:47→22:30)
[2022-03-25] MEDS: HYDROCORTISONE 0.5% TOPICAL CREAM 30 GM TUBE TP SCH ×2 (10:33→22:32)
[2022-03-25 11:38] LABS: CALCIUM 9.1 mg/dL (8.5-10.1)
[2022-03-25 11:39] LABS: BLOOD UREA NITROGEN 13.3 mg/dL (7-18)
[2022-03-25 11:42] LABS: CREATININE 0.8 mg/dL (0.55-1.3)
[2022-03-25 11:43] LABS: BILIRUBIN,TOTAL 0.6 mg/dL (0.2-1); TOT PROT 7.3 g/dl (6.4-8.2)
[2022-03-25] MEDS: metFORMIN HCL 500 MG TABLET (FP) PO SCH (17:16)
[2022-03-25] MEDS: THIAMINE HCL 100 MG TABLET (FP) PO SCH (22:30)
[2022-03-25] MEDS: MELATONIN 5 MG TABLETS PO SCH (22:30)
[2022-03-25] MEDS: MIRTAZAPINE 15 MG TABLET (FP) PO SCH (22:32)
[2022-03-26] MEDS ORDERED: chlordiazePOXIDE HCL 10 MG CAPSULE PO ONE (05:00)
[2022-03-26] MEDS: metFORMIN HCL 500 MG TABLET (FP) PO SCH (06:12)
[2022-03-26] MEDS: methaDONE HCL 40 MG DISPERSABLE TABLET PO SCH (06:12)
[2022-03-26] MEDS: INSULIN SLIDING SCALE (NOVOLOG) 1 VIAL SQ SCH (07:20)
[2022-03-26 09:14] VITALS: BP 114/69; PULSE 73; RESP 19; TEMP 98.2
[2022-03-26] MEDS: HYDROCORTISONE 0.5% TOPICAL CREAM 30 GM TUBE TP SCH (10:55)
[2022-03-26] MEDS: PRENATAL VITAMINS W/ FOLIC ACID TABLET (FP) PO SCH (10:55)
== END 2022-03-26 08:53 | disposition home or self-care (01) | DRG 773 ==
LOC: YASAS 13:11 → Y3N 17:19
PROVIDERS: ADMIT Allergy & Immunology; ATTEND Surgery
PROC: HZ2ZZZZ Detoxification Services for Substance Abuse Treatment (ICD-10-PCS; principal; 2022-03-21)
DX: F10.230 Alcohol dependence with withdrawal, uncomplicated (principal); F11.20 Opioid dependence, uncomplicated; F14.20 Cocaine dependence, uncomplicated; F12.20 Cannabis dependence, uncomplicated; F19.24 Other psychoactive substance dependence with psychoactive substance-induced mood disorder; J43.9 Emphysema, unspecified; E11.9 Type 2 diabetes mellitus without complications; Z79.84 Long term (current) use of oral hypoglycemic drugs; E66.9 Obesity, unspecified; Z68.34 Body mass index [BMI] 34.0-34.9, adult; R74.8 Abnormal levels of other serum enzymes; Z87.891 Personal history of nicotine dependence; Z28.310 Unvaccinated for COVID-19; Z28.9 Immunization not carried out for unspecified reason; Z91.013 Allergy to seafood
CPT/HCPCS: 36415; 80053; 82962; 83036; 85027; 86780; C9803-CS; U0003; U0005

== ENCOUNTER 2023-07-26 14:51 | Inpatient (IN) | payer OTHER ==
[2023-07-26 15:28] VITALS: BMI 32.6
[2023-07-26] MEDS ORDERED: BISMUTH SUBSALICYLATE 524 MG/30 ML PO PRN (16:33)
[2023-07-26] MEDS ORDERED: MAGNESIUM HYDROX 2400MG/30ML ORAL SUSPENSION 30 ML CUP PO PRN (16:33)
[2023-07-26] MEDS ORDERED: MAG HYDROX/AL HYDROX/SIMETH 30 ML UNIT-DOSE CUP PO PRN (16:33)
[2023-07-26] MEDS ORDERED: POLYETHYLENE GLYCOL (HEALTHYLAX) 3350 17 GM PACKET PO PRN (16:33)
[2023-07-26] MEDS ORDERED: DICYCLOMINE HCL 10 MG CAPSULE PO PRN (16:33)
[2023-07-26] MEDS ORDERED: guaiFENesin 600 MG TABLET.ER (FP) PO PRN (16:33)
[2023-07-26] MEDS ORDERED: BENZONATATE 200 MG CAPSULE PO PRN (16:33)
[2023-07-26] MEDS ORDERED: ONDANSETRON *ODT* 4 MG TABLET SL PRN (16:33)
[2023-07-26] MEDS ORDERED: LORazepam 1 MG TABLET PO PRN (16:33)
[2023-07-26] MEDS ORDERED: NALOXONE HCL (KLOXXADO) 8 MG SPRAY NS PRN (16:33)
[2023-07-26] MEDS ORDERED: LOPERAMIDE HCL 2 MG CAPSULE PO PRN (16:33)
[2023-07-26] MEDS ORDERED: BENZOCAINE/MENTHOL (CHLORASEPTIC ) LOZENGE MM PRN (16:33)
[2023-07-26] MEDS ORDERED: hydrOXYzine PAMOATE 25 MG CAPSULE (FP) PO PRN (16:33)
[2023-07-26] MEDS ORDERED: NALOXONE HCL 0.4 MG/ML VIAL IM PRN (16:33)
[2023-07-26] MEDS ORDERED: IBUPROFEN 600 MG TABLET (FP) PO PRN (16:33)
[2023-07-26] MEDS ORDERED: IBUPROFEN 400 MG TABLET (FP) PO PRN (16:33)
[2023-07-26] MEDS ORDERED: MAG HYDROX/AL HYDROX/SIMETH 30 ML UNIT-DOSE CUP ONE (17:50)
[2023-07-26] MEDS ORDERED: LORazepam 2 MG TABLET ONE (17:52)
[2023-07-26] MEDS: LORazepam 2 MG TABLET PO SCH ×2 (17:55→22:11)
[2023-07-26] MEDS ORDERED: ALBUTEROL SO4 HFA INHALER IH PRN (18:45)
[2023-07-26] MEDS: MELATONIN 5 MG TABLETS PO SCH (22:12)
[2023-07-26] MEDS: METHOCARBAMOL 500 MG TABLET PO PRN (22:12)
[2023-07-26] MEDS: THIAMINE HCL 100 MG TABLET (FP) PO SCH (22:12)
[2023-07-27] MEDS: LORazepam 2 MG TABLET PO SCH ×4 (05:38→22:22)
[2023-07-27] MEDS: METHOCARBAMOL 500 MG TABLET PO PRN (05:41)
[2023-07-27] MEDS: metFORMIN HCL 500 MG TABLET (FP) PO SCH ×2 (06:23→17:07)
[2023-07-27] MEDS ORDERED: methaDONE HCL 10 MG TABLET PO ONE (07:44)
[2023-07-27] MEDS: PRENATAL VITAMINS W/ FOLIC ACID TABLET (FP) PO SCH (10:08)
[2023-07-27] MEDS: ACETAMINOPHEN 325 MG TABLET (FP) PO PRN ×2 (10:09→22:23)
[2023-07-27 10:12] LABS: HEMATOCRIT 43.5 % (35.4-49); HEMOGLOBIN 14.4 GM/dL (11.7-16.9); MCH 27.9 pg (25.7-33.7); MEAN CELL VOLUME 84.6 fl (80-96); MEAN PLT VOLUME 9.5 fl (7.5-11.1); PLATELET COUNT 68 10^3/uL (134-434); RBC 5.14 M/mm3 (4.00-5.60); RDW 14.9 % (11.9-15.9); WHITE BLOOD COUNT 5.6 K/mm3 (4.0-10.0)
[2023-07-27 12:07] LABS: CHLORIDE 104 mmol/L (98-107); POTASSIUM 4.4 mmol/L (3.5-5.1); SODIUM 138 mmol/L (136-145)
[2023-07-27 12:18] LABS: CALCIUM 8.9 mg/dL (8.5-10.1)
[2023-07-27 12:19] LABS: ALBUMIN 3.3 g/dl (3.4-5.0); ANION GAP 5 mmol/L (4-13); BLOOD UREA NITROGEN 10.2 mg/dL (7-18); CO2 29 mmol/L (21-32); GLUCOSE,RANDOM 212 mg/dL (74-106)
[2023-07-27 12:21] LABS: SGOT/AST 51 U/L (15-37)
[2023-07-27 12:22] LABS: CREATININE 0.6 mg/dL (0.55-1.3); SGPT/ALT 57 U/L (13-61)
[2023-07-27 12:23] LABS: TOT PROT 7.4 g/dl (6.4-8.2)
[2023-07-27 12:24] LABS: ALK PHOS 235 U/L (45-117)
[2023-07-27 12:27] LABS: BILIRUBIN,TOTAL 0.4 mg/dL (0.2-1)
[2023-07-27] MEDS: HYDROCORTISONE 1% TOPICAL CREAM 30 GM TUBE TP SCH ×2 (12:28→22:21)
[2023-07-27] MEDS: THIAMINE HCL 100 MG TABLET (FP) PO SCH (22:22)
[2023-07-27] MEDS: MELATONIN 5 MG TABLETS PO SCH (22:22)
[2023-07-27] MEDS: MIRTAZAPINE 15 MG TABLET (FP) PO SCH (22:22)
[2023-07-28] MEDS: LORazepam 1 MG TABLET PO SCH ×4 (05:27→22:19)
[2023-07-28] MEDS ORDERED: methaDONE HCL 10 MG TABLET PO SCH (06:00)
[2023-07-28] MEDS: metFORMIN HCL 500 MG TABLET (FP) PO SCH ×2 (07:19→17:25)
[2023-07-28] MEDS: PRENATAL VITAMINS W/ FOLIC ACID TABLET (FP) PO SCH (10:11)
[2023-07-28] MEDS: HYDROCORTISONE 1% TOPICAL CREAM 30 GM TUBE TP SCH ×2 (10:11→22:17)
[2023-07-28] MEDS: MIRTAZAPINE 15 MG TABLET (FP) PO SCH (22:18)
[2023-07-28] MEDS: THIAMINE HCL 100 MG TABLET (FP) PO SCH (22:18)
[2023-07-28] MEDS: MELATONIN 5 MG TABLETS PO SCH (22:18)
[2023-07-29] MEDS ORDERED: LORazepam 0.5 MG TABLET PO PRN
[2023-07-29] MEDS: LORazepam 0.5 MG TABLET PO SCH ×4 (05:45→22:23)
[2023-07-29] MEDS: metFORMIN HCL 500 MG TABLET (FP) PO SCH ×2 (06:15→17:31)
[2023-07-29] MEDS ORDERED: INSULIN (NOVOLOG) ASPART 100 UNITS/ML 10ML VIAL SQ ONE (06:31)
[2023-07-29] MEDS ORDERED: INSULIN ASPART SLIDING SCALE (NOVOLOG) 1 VIAL SQ ONE (06:47)
[2023-07-29] MEDS: PRENATAL VITAMINS W/ FOLIC ACID TABLET (FP) PO SCH (10:10)
[2023-07-29] MEDS: HYDROCORTISONE 1% TOPICAL CREAM 30 GM TUBE TP SCH ×2 (10:12→22:26)
[2023-07-29] MEDS: MIRTAZAPINE 15 MG TABLET (FP) PO SCH (22:24)
[2023-07-29] MEDS: THIAMINE HCL 100 MG TABLET (FP) PO SCH (22:24)
[2023-07-29] MEDS: MELATONIN 5 MG TABLETS PO SCH (22:24)
[2023-07-30] MEDS: LORazepam 0.5 MG TABLET PO ONE ×2 (05:43→05:45)
[2023-07-30] MEDS: metFORMIN HCL 500 MG TABLET (FP) PO SCH (06:08)
[2023-07-30 09:29] VITALS: BP 149/86; PULSE 100; RESP 16; TEMP 98.6
== END 2023-07-30 09:15 | disposition home or self-care (01) | DRG 773 ==
LOC: YASAS 14:51 → Y3N 16:43
PROVIDERS: ADMIT Allergy & Immunology; ATTEND Allergy & Immunology
PROC: HZ2ZZZZ Detoxification Services for Substance Abuse Treatment (ICD-10-PCS; principal; 2023-07-26)
DX: F10.230 Alcohol dependence with withdrawal, uncomplicated (principal); F11.20 Opioid dependence, uncomplicated; F12.20 Cannabis dependence, uncomplicated; F17.210 Nicotine dependence, cigarettes, uncomplicated; F25.9 Schizoaffective disorder, unspecified; E11.9 Type 2 diabetes mellitus without complications; Z79.84 Long term (current) use of oral hypoglycemic drugs; J43.9 Emphysema, unspecified; J45.20 Mild intermittent asthma, uncomplicated; Z86.19 Personal history of other infectious and parasitic diseases; Z86.69 Personal history of other diseases of the nervous system and sense organs; Z28.310 Unvaccinated for COVID-19; Z28.9 Immunization not carried out for unspecified reason
CPT/HCPCS: 36415; 71046-TC-FY; 80053; 80307; 82962; 85027; 86780; 87635; 87811

== ENCOUNTER 2023-10-07 12:53 | Inpatient (IN) | payer OTHER ==
[2023-10-07 13:35] VITALS: BMI 32.1
[2023-10-07] MEDS ORDERED: POLYETHYLENE GLYCOL (HEALTHYLAX) 3350 17 GM PACKET PO PRN (14:41)
[2023-10-07] MEDS ORDERED: NALOXONE HCL (KLOXXADO) 8 MG SPRAY NS PRN (14:41)
[2023-10-07] MEDS ORDERED: NALOXONE HCL 0.4 MG/ML VIAL IM PRN (14:41)
[2023-10-07] MEDS ORDERED: ONDANSETRON *ODT* 4 MG TABLET SL PRN (14:41)
[2023-10-07] MEDS ORDERED: ACETAMINOPHEN 325 MG TABLET (FP) PO PRN (14:41)
[2023-10-07] MEDS ORDERED: BENZOCAINE/MENTHOL (CHLORASEPTIC ) LOZENGE MM PRN (14:41)
[2023-10-07] MEDS ORDERED: IBUPROFEN 400 MG TABLET (FP) PO PRN (14:41)
[2023-10-07] MEDS ORDERED: LOPERAMIDE HCL 2 MG CAPSULE PO PRN (14:41)
[2023-10-07] MEDS ORDERED: MAG HYDROX/AL HYDROX/SIMETH 30 ML UNIT-DOSE CUP PO PRN (14:41)
[2023-10-07] MEDS ORDERED: MAGNESIUM HYDROX 2400MG/30ML ORAL SUSPENSION 30 ML CUP PO PRN (14:41)
[2023-10-07] MEDS ORDERED: BENZONATATE 200 MG CAPSULE PO PRN (14:41)
[2023-10-07] MEDS ORDERED: BISMUTH SUBSALICYLATE 524 MG/30 ML PO PRN (14:41)
[2023-10-07] MEDS ORDERED: guaiFENesin 600 MG TABLET.ER (FP) PO PRN (14:41)
[2023-10-07] MEDS ORDERED: ALBUTEROL SO4 HFA INHALER IH PRN (14:44)
[2023-10-07] MEDS: metFORMIN HCL 500 MG TABLET (FP) PO SCH (16:47)
[2023-10-07] MEDS: METHOCARBAMOL 500 MG TABLET PO PRN (16:48)
[2023-10-07] MEDS: diazePAM 5 MG TABLET PO SCH (16:48)
[2023-10-07] MEDS: MELATONIN 5 MG TABLETS PO SCH (22:10)
[2023-10-07] MEDS: THIAMINE HCL 100 MG TABLET (FP) PO SCH (22:11)
[2023-10-08] MEDS: methaDONE HCL 10 MG TABLET PO SCH (07:46)
[2023-10-08] MEDS: PRENATAL VITAMINS W/ FOLIC ACID TABLET (FP) PO SCH (10:08)
[2023-10-08] MEDS: hydrOXYzine PAMOATE 25 MG CAPSULE (FP) PO PRN (10:12)
[2023-10-08 11:49] LABS: HEMATOCRIT 45.2 % (35.4-49); HEMOGLOBIN 15.3 GM/dL (11.7-16.9); MCH 28.7 pg (25.7-33.7); MCHC 33.8 g/dl (32.0-35.9); MEAN CELL VOLUME 84.8 fl (80-96); MEAN PLT VOLUME 10.8 fl (7.5-11.1); PLATELET COUNT 57 10^3/uL (134-434); RBC 5.33 M/mm3 (4.00-5.60); RDW 14.9 % (11.9-15.9); WHITE BLOOD COUNT 4.8 K/mm3 (4.0-10.0)
[2023-10-08 11:52] LABS: POTASSIUM 3.8 mmol/L (3.5-5.1)
[2023-10-08 11:55] LABS: ALBUMIN 3.1 g/dl (3.4-5.0); BLOOD UREA NITROGEN 11.8 mg/dL (7-18); CALCIUM 9.2 mg/dL (8.5-10.1)
[2023-10-08 11:59] LABS: CREATININE 0.6 mg/dL (0.55-1.3)
[2023-10-08 12:00] LABS: BILIRUBIN,TOTAL 0.4 mg/dL (0.2-1); TOT PROT 7.3 g/dl (6.4-8.2)
[2023-10-08] MEDS: IBUPROFEN 600 MG TABLET (FP) PO PRN (15:16)
[2023-10-09] MEDS: diazePAM 5 MG TABLET PO SCH (05:16)
[2023-10-09] MEDS: diazePAM 5 MG TABLET PO PRN (17:37)
[2023-10-10] MEDS: diazePAM 5 MG TABLET PO SCH (05:26)
[2023-10-10] MEDS: DICYCLOMINE HCL 10 MG CAPSULE PO PRN (10:32)
[2023-10-11] MEDS: diazePAM 5 MG TABLET PO ONE (05:29)
[2023-10-11 09:21] VITALS: BP 133/87; PULSE 71; RESP 18; TEMP 97.7
== END 2023-10-11 12:11 | disposition home or self-care (01) | DRG 773 ==
LOC: YASAS 12:53 → Y6N 14:48
PROVIDERS: ADMIT Allergy & Immunology; ATTEND Surgery
PROC: HZ2ZZZZ Detoxification Services for Substance Abuse Treatment (ICD-10-PCS; principal; 2023-10-07)
DX: F10.230 Alcohol dependence with withdrawal, uncomplicated (principal); F11.20 Opioid dependence, uncomplicated; F14.10 Cocaine abuse, uncomplicated; F12.10 Cannabis abuse, uncomplicated; F19.282 Other psychoactive substance dependence with psychoactive substance-induced sleep disorder; F25.9 Schizoaffective disorder, unspecified; J43.9 Emphysema, unspecified; J45.20 Mild intermittent asthma, uncomplicated; K70.30 Alcoholic cirrhosis of liver without ascites; E11.9 Type 2 diabetes mellitus without complications; Z79.84 Long term (current) use of oral hypoglycemic drugs; Z86.19 Personal history of other infectious and parasitic diseases
CPT/HCPCS: 36415; 80053; 80305; 80307; 82962; 85027; 86780; 93005; 93010

== ENCOUNTER 2024-01-18 14:12 | Inpatient (IN) | payer OTHER ==
[2024-01-18 15:08] VITALS: BMI 32.1
[2024-01-18] MEDS ORDERED: LOPERAMIDE HCL 2 MG CAPSULE PO PRN (16:58)
[2024-01-18] MEDS ORDERED: guaiFENesin 600 MG TABLET.ER (FP) PO PRN (16:58)
[2024-01-18] MEDS ORDERED: MAGNESIUM HYDROX 2400MG/30ML ORAL SUSPENSION 30 ML CUP PO PRN (16:58)
[2024-01-18] MEDS ORDERED: hydrOXYzine PAMOATE 25 MG CAPSULE (FP) PO PRN (16:58)
[2024-01-18] MEDS ORDERED: ONDANSETRON *ODT* 4 MG TABLET SL PRN (16:58)
[2024-01-18] MEDS ORDERED: BISMUTH SUBSALICYLATE 524 MG/30 ML PO PRN (16:58)
[2024-01-18] MEDS ORDERED: LORazepam 1 MG TABLET PO PRN (17:01)
[2024-01-18] MEDS ORDERED: LORazepam 2 MG TABLET ONE (18:52)
[2024-01-18] MEDS ORDERED: IBUPROFEN 400 MG TABLET (FP) PO ONE (18:53)
[2024-01-18] MEDS: LORazepam 2 MG TABLET PO SCH (18:58)
[2024-01-18] MEDS: IBUPROFEN 400 MG TABLET (FP) PO ONE (18:59)
[2024-01-18] MEDS: MELATONIN 5 MG TABLETS PO SCH (22:15)
[2024-01-18] MEDS: THIAMINE 100 MG TABLET PO SCH (22:15)
[2024-01-18] MEDS: METHOCARBAMOL 500 MG TABLET PO PRN (22:15)
[2024-01-19] MEDS: metFORMIN HCL 500 MG TABLET (FP) PO SCH (06:33)
[2024-01-19] MEDS: INSULIN ASPART SLIDING SCALE (NOVOLOG) 1 VIAL SQ SCH (07:17)
[2024-01-19] MEDS ORDERED: ALBUTEROL SO4 HFA INHALER IH PRN (07:19)
[2024-01-19] MEDS ORDERED: NALOXONE (NARCAN) HCL 4 MG/0.1 ML SPRAY NS PRN (07:19)
[2024-01-19] MEDS: PRENATAL VITAMINS W/ FOLIC ACID TABLET (FP) PO SCH (09:03)
[2024-01-19] MEDS: levETIRAcetam 500 MG TABLET (FP) PO SCH (09:04)
[2024-01-19] MEDS: methaDONE HCL 40 MG DISPERSABLE TABLET PO SCH (09:05)
[2024-01-19 12:18] LABS: HEMATOCRIT 38.9 % (35.4-49); HEMOGLOBIN 12.9 GM/dL (11.7-16.9); MCH 29.1 pg (25.7-33.7); MCHC 33.3 g/dl (32.0-35.9); MEAN CELL VOLUME 87.3 fl (80-96); MEAN PLT VOLUME 9.8 fl (7.5-11.1); PLATELET COUNT 55 10^3/uL (134-434); RBC 4.45 M/mm3 (4.00-5.60); RDW 15.7 % (11.9-15.9); WHITE BLOOD COUNT 4.1 K/mm3 (4.0-10.0)
[2024-01-19 12:19] LABS: POTASSIUM 3.6 mmol/L (3.5-5.1)
[2024-01-19 12:25] LABS: ALBUMIN 2.6 g/dl (3.4-5.0); BLOOD UREA NITROGEN 10.7 mg/dL (7-18); CREATININE 0.6 mg/dL (0.55-1.3); TOT PROT 6.7 g/dl (6.4-8.2)
[2024-01-19 12:27] LABS: BILIRUBIN,TOTAL 0.6 mg/dL (0.2-1)
[2024-01-19 12:29] LABS: CALCIUM 8.2 mg/dL (8.5-10.1)
[2024-01-20] MEDS: LORazepam 1 MG TABLET PO SCH (05:11)
[2024-01-20] MEDS: methaDONE HCL 40 MG DISPERSABLE TABLET PO SCH (05:51)
[2024-01-21] MEDS ORDERED: LORazepam 0.5 MG TABLET PO PRN
[2024-01-21] MEDS: LORazepam 0.5 MG TABLET PO SCH (05:48)
[2024-01-21 21:49] VITALS: RESP 18
[2024-01-22] MEDS: LORazepam 0.5 MG TABLET PO ONE (05:26)
[2024-01-22 09:32] VITALS: BP 111/67; PULSE 65; TEMP 96.9
== END 2024-01-22 10:20 | disposition home or self-care (01) | DRG 773 ==
LOC: YASAS 14:12 → Y6N 18:33
PROVIDERS: ADMIT Allergy & Immunology; ATTEND Surgery
PROC: HZ2ZZZZ Detoxification Services for Substance Abuse Treatment (ICD-10-PCS; principal; 2024-01-18)
DX: F10.230 Alcohol dependence with withdrawal, uncomplicated (principal); F11.20 Opioid dependence, uncomplicated; F14.20 Cocaine dependence, uncomplicated; F32.A Depression, unspecified; J43.9 Emphysema, unspecified; J45.20 Mild intermittent asthma, uncomplicated; K70.30 Alcoholic cirrhosis of liver without ascites; E11.9 Type 2 diabetes mellitus without complications; Z79.84 Long term (current) use of oral hypoglycemic drugs; Z86.19 Personal history of other infectious and parasitic diseases; Z87.891 Personal history of nicotine dependence; Z86.69 Personal history of other diseases of the nervous system and sense organs
CPT/HCPCS: 36415; 80053; 80305; 82962; 83036; 85027; 86780; 93005; 93010

== ENCOUNTER 2024-02-16 10:28 | Inpatient (IN) | payer OTHER ==
[2024-02-16 11:01] VITALS: BMI 31.5
[2024-02-16] MEDS ORDERED: MAGNESIUM HYDROX 2400MG/30ML ORAL SUSPENSION 30 ML CUP PO PRN (11:20)
[2024-02-16] MEDS ORDERED: IBUPROFEN 600 MG TABLET (FP) PO PRN (11:20)
[2024-02-16] MEDS ORDERED: NICOTINE POLACRILEX 2 MG GUM BUC PRN (11:20)
[2024-02-16] MEDS ORDERED: ACETAMINOPHEN 325 MG TABLET (FP) PO PRN (11:20)
[2024-02-16] MEDS ORDERED: MAG HYDROX/AL HYDROX/SIMETH 30 ML UNIT-DOSE CUP PO PRN (11:20)
[2024-02-16] MEDS ORDERED: BENZONATATE 200 MG CAPSULE PO PRN (11:20)
[2024-02-16] MEDS ORDERED: BISMUTH SUBSALICYLATE 262 MG/15 ML BTL PO PRN (11:20)
[2024-02-16] MEDS ORDERED: IBUPROFEN 400 MG TABLET (FP) PO PRN (11:20)
[2024-02-16] MEDS ORDERED: NICOTINE POLACRILEX 2 MG LOZENGE BC PRN (11:20)
[2024-02-16] MEDS ORDERED: POLYETHYLENE GLYCOL (HEALTHYLAX) 3350 17 GM PACKET PO PRN (11:20)
[2024-02-16] MEDS ORDERED: DICYCLOMINE HCL 10 MG CAPSULE PO PRN (11:20)
[2024-02-16] MEDS ORDERED: guaiFENesin 600 MG TABLET.ER (FP) PO PRN (11:20)
[2024-02-16] MEDS ORDERED: LOPERAMIDE HCL 2 MG CAPSULE PO PRN (11:20)
[2024-02-16] MEDS ORDERED: BENZOCAINE/MENTHOL (CHLORASEPTIC ) LOZENGE MM PRN (11:20)
[2024-02-16] MEDS: ONDANSETRON *ODT* 4 MG TABLET SL PRN (12:27)
[2024-02-16] MEDS: METHOCARBAMOL 500 MG TABLET PO PRN (12:28)
[2024-02-16] MEDS ORDERED: METHOCARBAMOL 500 MG TABLET ONE (12:29)
[2024-02-16] MEDS ORDERED: ONDANSETRON *ODT* 4 MG TABLET ONE (12:30)
[2024-02-16] MEDS ORDERED: ALBUTEROL SO4 HFA INHALER IH PRN (12:58)
[2024-02-16] MEDS: hydrOXYzine PAMOATE 25 MG CAPSULE (FP) PO PRN (15:42)
[2024-02-16] MEDS: QUEtiapine FUMARATE 50 MG TABLET PO ONE (17:19)
[2024-02-16] MEDS: INSULIN ASPART SLIDING SCALE (NOVOLOG) 1 VIAL SQ SCH (17:19)
[2024-02-16] MEDS: QUEtiapine FUMARATE 50 MG TABLET PO SCH (22:14)
[2024-02-16] MEDS: THIAMINE 100 MG TABLET PO SCH (22:14)
[2024-02-16] MEDS: MELATONIN 5 MG TABLETS PO SCH (22:14)
[2024-02-16] MEDS: hydrOXYzine PAMOATE 50 MG CAPSULE (FP) PO PRN (22:14)
[2024-02-17] MEDS: methaDONE HCL 40 MG DISPERSABLE TABLET PO SCH (08:48)
[2024-02-17] MEDS: PRENATAL VITAMINS W/ FOLIC ACID TABLET (FP) PO SCH (09:49)
[2024-02-17] MEDS: LORazepam 2 MG TABLET PO SCH (11:50)
[2024-02-19] MEDS ORDERED: LORazepam 1 MG TABLET PO SCH (05:00)
[2024-02-19] MEDS: LORazepam 1 MG TABLET PO PRN (22:28)
[2024-02-20] MEDS ORDERED: LORazepam 0.5 MG TABLET PO SCH (05:00)
[2024-02-20] MEDS: LORazepam 0.5 MG TABLET PO PRN (21:50)
[2024-02-21] MEDS ORDERED: LORazepam 0.5 MG TABLET PO ONE (05:00)
[2024-02-21 09:19] VITALS: BP 101/60; PULSE 73; RESP 16; TEMP 97.5
== END 2024-02-21 12:56 | disposition home or self-care (01) | DRG 773 ==
LOC: YASAS 10:28 → Y3N 12:12
PROVIDERS: ADMIT Allergy & Immunology; ATTEND Psychiatry & Neurology Pain Medicine
PROC: HZ2ZZZZ Detoxification Services for Substance Abuse Treatment (ICD-10-PCS; principal; 2024-02-16)
DX: F10.230 Alcohol dependence with withdrawal, uncomplicated (principal); F11.20 Opioid dependence, uncomplicated; F14.20 Cocaine dependence, uncomplicated; F22 Delusional disorders; E11.9 Type 2 diabetes mellitus without complications; J44.9 Chronic obstructive pulmonary disease, unspecified; R94.31 Abnormal electrocardiogram [ECG] [EKG]; B18.2 Chronic viral hepatitis C; K74.60 Unspecified cirrhosis of liver; Z79.84 Long term (current) use of oral hypoglycemic drugs; Z91.013 Allergy to seafood; Z56.0 Unemployment, unspecified
CPT/HCPCS: 80305; 82962; Q0162

== ENCOUNTER 2024-03-19 08:49 | Inpatient (IN) | payer OTHER ==
[2024-03-19 09:20] VITALS: BMI 32.6
[2024-03-19] MEDS ORDERED: BENZOCAINE/MENTHOL (CHLORASEPTIC ) LOZENGE MM PRN (09:33)
[2024-03-19] MEDS ORDERED: IBUPROFEN 400 MG TABLET (FP) PO PRN (09:33)
[2024-03-19] MEDS ORDERED: BISMUTH SUBSALICYLATE 524 MG/30 ML PO PRN (09:33)
[2024-03-19] MEDS ORDERED: MAG HYDROX/AL HYDROX/SIMETH 30 ML UNIT-DOSE CUP PO PRN (09:33)
[2024-03-19] MEDS ORDERED: NALOXONE (NARCAN) HCL 4 MG/0.1 ML SPRAY NS PRN (09:33)
[2024-03-19] MEDS ORDERED: NALOXONE HCL 0.4 MG/ML VIAL IM PRN (09:33)
[2024-03-19] MEDS ORDERED: LOPERAMIDE HCL 2 MG CAPSULE PO PRN (09:33)
[2024-03-19] MEDS ORDERED: ONDANSETRON *ODT* 4 MG TABLET SL PRN (09:33)
[2024-03-19] MEDS ORDERED: POLYETHYLENE GLYCOL (HEALTHYLAX) 3350 17 GM PACKET PO PRN (09:33)
[2024-03-19] MEDS ORDERED: IBUPROFEN 600 MG TABLET (FP) PO PRN (09:33)
[2024-03-19] MEDS ORDERED: DICYCLOMINE HCL 10 MG CAPSULE PO PRN (09:33)
[2024-03-19] MEDS ORDERED: ACETAMINOPHEN 325 MG TABLET (FP) PO PRN (09:33)
[2024-03-19] MEDS ORDERED: guaiFENesin 600 MG TABLET.ER (FP) PO PRN (09:33)
[2024-03-19] MEDS ORDERED: hydrOXYzine PAMOATE 25 MG CAPSULE (FP) PO PRN (09:33)
[2024-03-19] MEDS ORDERED: BENZONATATE 200 MG CAPSULE PO PRN (09:33)
[2024-03-19] MEDS ORDERED: MAGNESIUM HYDROX 2400MG/30ML ORAL SUSPENSION 30 ML CUP PO PRN (09:33)
[2024-03-19] MEDS ORDERED: ALBUTEROL SO4 HFA INHALER IH PRN (09:39)
[2024-03-19] MEDS ORDERED: PRENATAL VITAMINS W/ FOLIC ACID TABLET (FP) PO ONE (10:16)
[2024-03-19] MEDS: PRENATAL VITAMINS W/ FOLIC ACID TABLET (FP) PO SCH (10:18)
[2024-03-19] MEDS: INSULIN ASPART SLIDING SCALE (NOVOLOG) 1 VIAL SQ SCH (10:50)
[2024-03-19] MEDS: metFORMIN HCL 500 MG TABLET (FP) PO SCH (17:15)
[2024-03-19] MEDS: METHOCARBAMOL 500 MG TABLET PO PRN (22:24)
[2024-03-19] MEDS: MELATONIN 5 MG TABLETS PO SCH (22:24)
[2024-03-19] MEDS: THIAMINE 100 MG TABLET PO SCH (22:24)
[2024-03-20] MEDS: methaDONE HCL 40 MG DISPERSABLE TABLET PO SCH (05:53)
[2024-03-20] MEDS ORDERED: INSULIN (NOVOLOG) ASPART 100 UNITS/ML 10ML VIAL ONE ×2 (07:44→22:09)
[2024-03-20 09:56] LABS: HEMATOCRIT 38.7 % (35.4-49); MCH 30.1 pg (25.7-33.7); MCHC 33.6 g/dl (32.0-35.9); MEAN CELL VOLUME 89.5 fl (80-96); MEAN PLT VOLUME 9.2 fl (7.5-11.1); PLATELET COUNT 57 10^3/uL (134-434); RBC 4.32 M/mm3 (4.00-5.60); RDW 15.4 % (11.9-15.9); WHITE BLOOD COUNT 4.1 K/mm3 (4.0-10.0)
[2024-03-20 10:07] LABS: POTASSIUM 3.7 mmol/L (3.5-5.1)
[2024-03-20 10:11] LABS: ALBUMIN 2.5 g/dl (3.4-5.0); CALCIUM 8.8 mg/dL (8.5-10.1)
[2024-03-20 10:12] LABS: BLOOD UREA NITROGEN 15.3 mg/dL (7-18)
[2024-03-20 10:15] LABS: CREATININE 0.6 mg/dL (0.55-1.3)
[2024-03-20 10:16] LABS: BILIRUBIN,TOTAL 0.8 mg/dL (0.2-1); TOT PROT 6.5 g/dl (6.4-8.2)
[2024-03-20] MEDS: BUDESONIDE/FORMETEROL FUMARATE 80/4.5 mcg INHALER IH SCH (10:35)
[2024-03-20] MEDS: QUEtiapine FUMARATE 50 MG TABLET PO SCH (22:09)
[2024-03-21] MEDS ORDERED: LORazepam 1 MG TABLET PO PRN (08:06)
[2024-03-21] MEDS: LORazepam 2 MG TABLET PO SCH (10:19)
[2024-03-21] MEDS ORDERED: INSULIN (LEVEMIR) 100 UNITS/ML UNITS SQ ONE ×2 (17:10→17:47)
[2024-03-21] MEDS: GABAPENTIN 100 MG CAPSULE PO SCH (22:48)
[2024-03-23] MEDS: LORazepam 1 MG TABLET PO SCH (05:42)
[2024-03-24] MEDS ORDERED: LORazepam 0.5 MG TABLET PO PRN
[2024-03-24] MEDS: LORazepam 0.5 MG TABLET PO SCH (05:40)
[2024-03-24] MEDS ORDERED: INSULIN (NOVOLOG) ASPART 100 UNITS/ML 10ML VIAL ONE (07:30)
[2024-03-25] MEDS: LORazepam 0.5 MG TABLET PO ONE (05:43)
[2024-03-25 10:04] VITALS: BP 109/59; PULSE 70; RESP 18; TEMP 97.3
== END 2024-03-25 11:11 | disposition home or self-care (01) | DRG 773 ==
LOC: YASAS 08:49 → Y6N 10:34
PROVIDERS: ADMIT Allergy & Immunology; ATTEND Surgery
PROC: HZ2ZZZZ Detoxification Services for Substance Abuse Treatment (ICD-10-PCS; principal; 2024-03-19)
DX: F10.230 Alcohol dependence with withdrawal, uncomplicated (principal); F11.20 Opioid dependence, uncomplicated; F14.20 Cocaine dependence, uncomplicated; F12.20 Cannabis dependence, uncomplicated; F25.9 Schizoaffective disorder, unspecified; F19.282 Other psychoactive substance dependence with psychoactive substance-induced sleep disorder; G62.9 Polyneuropathy, unspecified; J43.9 Emphysema, unspecified; J45.20 Mild intermittent asthma, uncomplicated; K70.30 Alcoholic cirrhosis of liver without ascites; E11.9 Type 2 diabetes mellitus without complications; Z79.84 Long term (current) use of oral hypoglycemic drugs; Z86.19 Personal history of other infectious and parasitic diseases
CPT/HCPCS: 36415; 80053; 80305; 80307; 82962; 85027

== ENCOUNTER 2024-05-29 16:37 | Inpatient (IN) | payer OTHER ==
[2024-05-29 17:10] VITALS: BMI 33.5
[2024-05-29] MEDS ORDERED: ALBUTEROL SO4 HFA INHALER IH PRN (17:30)
[2024-05-29] MEDS ORDERED: chlordiazePOXIDE HCL 25 MG CAPSULE PO PRN (17:33)
[2024-05-29] MEDS ORDERED: LOPERAMIDE HCL 2 MG CAPSULE PO PRN (17:37)
[2024-05-29] MEDS ORDERED: BENZOCAINE/MENTHOL (CHLORASEPTIC ) LOZENGE MM PRN (17:37)
[2024-05-29] MEDS ORDERED: BISMUTH SUBSALICYLATE 524 MG/30 ML PO PRN (17:37)
[2024-05-29] MEDS ORDERED: ONDANSETRON *ODT* 4 MG TABLET SL PRN (17:37)
[2024-05-29] MEDS ORDERED: guaiFENesin 600 MG TABLET.ER (FP) PO PRN (17:37)
[2024-05-29] MEDS ORDERED: ACETAMINOPHEN 325 MG TABLET (FP) PO PRN (17:37)
[2024-05-29] MEDS ORDERED: MAGNESIUM HYDROX 2400MG/30ML ORAL SUSPENSION 30 ML CUP PO PRN (17:37)
[2024-05-29] MEDS ORDERED: POLYETHYLENE GLYCOL (HEALTHYLAX) 3350 17 GM PACKET PO PRN (17:37)
[2024-05-29] MEDS ORDERED: NALOXONE (NARCAN) HCL 4 MG/0.1 ML SPRAY NS PRN (17:37)
[2024-05-29] MEDS ORDERED: MAG HYDROX/AL HYDROX/SIMETH 30 ML UNIT-DOSE CUP PO PRN (17:37)
[2024-05-29] MEDS ORDERED: IBUPROFEN 400 MG TABLET (FP) PO PRN (17:37)
[2024-05-29] MEDS ORDERED: BENZONATATE 200 MG CAPSULE PO PRN (17:37)
[2024-05-29] MEDS ORDERED: IBUPROFEN 600 MG TABLET (FP) PO PRN (17:37)
[2024-05-29] MEDS ORDERED: DICYCLOMINE HCL 10 MG CAPSULE PO PRN (17:37)
[2024-05-29] MEDS ORDERED: chlordiazePOXIDE HCL 25 MG CAPSULE ONE (18:07)
[2024-05-29] MEDS: chlordiazePOXIDE HCL 25 MG CAPSULE PO SCH (18:10)
[2024-05-29] MEDS: THIAMINE 100 MG TABLET PO SCH (22:12)
[2024-05-29] MEDS: METHOCARBAMOL 500 MG TABLET PO PRN (22:12)
[2024-05-29] MEDS: MELATONIN 5 MG TABLETS PO SCH (22:12)
[2024-05-30] MEDS: PRENATAL VITAMINS W/ FOLIC ACID TABLET (FP) PO SCH (09:19)
[2024-05-30] MEDS: methaDONE HCL 40 MG DISPERSABLE TABLET PO SCH (09:19)
[2024-05-30] MEDS: BUDESONIDE/FORMETEROL FUMARATE 80/4.5 mcg INHALER IH SCH (09:20)
[2024-05-30 14:08] LABS: HEMATOCRIT 40.5 % (35.4-49); MCH 28.7 pg (25.7-33.7); MCHC 32.1 g/dl (32.0-35.9); MEAN CELL VOLUME 89.5 fl (80-96); MEAN PLT VOLUME 9.1 fl (7.5-11.1); PLATELET COUNT 61 10^3/uL (134-434); RBC 4.53 M/mm3 (4.00-5.60); RDW 15.8 % (11.9-15.9); WHITE BLOOD COUNT 3.5 K/mm3 (4.0-10.0)
[2024-05-30 14:10] LABS: POTASSIUM 3.6 mmol/L (3.5-5.1)
[2024-05-30 14:17] LABS: ALBUMIN 2.7 g/dl (3.4-5.0); BLOOD UREA NITROGEN 6.8 mg/dL (7-18); CALCIUM 8.6 mg/dL (8.5-10.1)
[2024-05-30 14:19] LABS: BILIRUBIN,TOTAL 0.7 mg/dL (0.2-1); TOT PROT 6.7 g/dl (6.4-8.2)
[2024-05-30 14:20] LABS: CREATININE 0.5 mg/dL (0.55-1.3)
[2024-05-30] MEDS: GABAPENTIN 100 MG CAPSULE PO SCH (22:11)
[2024-05-31] MEDS: chlordiazePOXIDE HCL 25 MG CAPSULE PO SCH (05:23)
[2024-06-01] MEDS ORDERED: chlordiazePOXIDE HCL 10 MG CAPSULE PO PRN
[2024-06-01] MEDS: chlordiazePOXIDE HCL 10 MG CAPSULE PO SCH (05:18)
[2024-06-02] MEDS: chlordiazePOXIDE HCL 10 MG CAPSULE PO SCH (05:35)
[2024-06-03] MEDS: chlordiazePOXIDE HCL 10 MG CAPSULE PO ONE (05:16)
[2024-06-03] MEDS: NALOXONE (NYS OPIOID OVERDOSE PROGRAM) 4 MG/0.1 ML SPRAY NS SCH (14:59)
[2024-06-05 09:22] VITALS: BP 108/76; PULSE 80; RESP 20; TEMP 97.8
== END 2024-06-05 09:07 | disposition home or self-care (01) | DRG 773 ==
LOC: YASAS 16:37 → Y3N 17:42
PROVIDERS: ADMIT Allergy & Immunology; ATTEND Surgery
PROC: HZ2ZZZZ Detoxification Services for Substance Abuse Treatment (ICD-10-PCS; principal; 2024-05-29)
DX: F10.230 Alcohol dependence with withdrawal, uncomplicated (principal); F11.20 Opioid dependence, uncomplicated; F14.20 Cocaine dependence, uncomplicated; F17.210 Nicotine dependence, cigarettes, uncomplicated; F41.9 Anxiety disorder, unspecified; F32.A Depression, unspecified; G62.9 Polyneuropathy, unspecified; J44.9 Chronic obstructive pulmonary disease, unspecified; K21.9 Gastro-esophageal reflux disease without esophagitis; B18.2 Chronic viral hepatitis C; E11.9 Type 2 diabetes mellitus without complications; Z79.84 Long term (current) use of oral hypoglycemic drugs; M54.50 Low back pain, unspecified; G89.29 Other chronic pain; Z86.69 Personal history of other diseases of the nervous system and sense organs
CPT/HCPCS: 36415; 80053; 80305; 80307; 82962; 85027